=== PATIENT | female | born 1950 | race Caucasian/White ===

== ENCOUNTER 2023-05-24 22:44 | Emergency (ER) | payer MEDICARE, OTHER ==
[~2023-05-24] VITALS: Ht 167.6 cm; Wt 67.0 kg
[~2023-05-24 22:44] MED LIST: AMLODIPINE BESY10 MG PO; ASPIRIN325 MG PO; AUGMENTIN 875-1 EACH PO; CARVEDILOL6.25 MG PO; CLONIDINE HCL0.1 MG PO; LISINOPRIL5 MG PO; LOSARTAN POTASS50 MG PO; MECLIZINE HCL25 MG PO; PERCOCET 7.5-31 EACH PO; SPIRONOLACTONE25 MG PO; TRANSDERM-SCOP1 EA TD; VENTOLIN HFA18 GM INH; VITAMIN C500 MG/15 PO; ZITHROMAX250 MG PO
[2023-05-24] MEDS ORDERED: FLONASE ALLERG9.9 ML NAS (23:20)
[2023-05-24 23:52] VITALS: BP 164/100
== END 2023-05-24 23:46 | disposition home or self-care (01) ==
LOC: ED 22:44
DX: H69.91 Unspecified Eustachian tube disorder, right ear (principal); I10 Essential (primary) hypertension; Z88.5 Allergy status to narcotic agent; Z88.8 Allergy status to other drugs, medicaments and biological substances; F17.200 Nicotine dependence, unspecified, uncomplicated; Z79.899 Other long term (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

== ENCOUNTER 2024-05-02 19:15 | Emergency (ER) | payer MEDICARE, OTHER ==
[~2024-05-02] VITALS: Ht 167.6 cm; Wt 66.7 kg
[~2024-05-02 19:15] MED LIST changes: +FLONASE ALLERG9.9 ML NAS
[2024-05-02] MEDS ORDERED: ALBUTEROL/IPRATROPIUM 3 ML NEB INH PRN (19:30)
[2024-05-02 19:35] LABS: BASOPHILS 2.1 % (0-2); EOSINOPHILS 2.7 % (0-6); HEMATOCRIT 46.3 % (35.0-50.0); HEMOGLOBIN 15.7 g/dL (12.0-18.0); MCH 30.9 (27-36); MCHC 33.9 g/dl (30-36); MCV 91.1 fl (81-99); MONOCYTES 8.4 % (0-12); NEUTROPHILS 54.8 % (39-80); PLATELET COUNT 285 K/uL (140-440); RBC 5.08 M/ul (4.3-5.7); RDW 14.2 (10.5-15.0)
[2024-05-02 19:57] LABS: ALBUMIN 3.9 g/dL (3.4-5.0); ALBUMIN/GLOBULIN RATIO 0.95 (1.1-2.4); ANION GAP 8.5 (7-21); BILIRUBIN, TOTAL 0.3 ng/dL (0.2-1.0); BUN/CREATININE RATIO 11.53 (6.0-28.6); CALCIUM 9.5 mg/dL (8.5-10.1); CREATININE, SERUM 1.3 mg/dL (0.55-1.02); MAGNESIUM 2.2 mg/dL (1.8-2.4); POTASSIUM 3.5 mmol/L (3.5-5.1)
[2024-05-02] MEDS ORDERED: LORazepam 1 MG HOME.PACK PO ONE (21:15)
[2024-05-02] MEDS ORDERED: LORazepam 2 MG/ML VIAL IV ONE (21:15)
[2024-05-02] MEDS ORDERED: methylPREDNISolone 4 MG HOME.PACK PO ONE (21:15)
[2024-05-02 21:49] VITALS: BP 114/94
--- NOTE | 2024-05-03 22:17 | EKG ---
[facility] [address] [facility] [place] [address] Signed Sinus tachycardia Low voltage QRS Borderline ECG When compared with ECG of 03-OCT-2022 17:14, No significant change was found Confirmed by Ryan Mendez MD () on 05/03/2024 10:17:45 PM Electronically Signed By: RYAN MENDEZ MD 05/03/24 2217 PATIENT NAME: GOVINDVAL SALAZAR Electrocardiogram DATE OF : 54 PHYSICIAN: RYAN MENDEZ MD REPORT #: [id number] REPORT IS CONFIDENTIAL AND NOT TO BE RELEASED WITHOUT AUTHORIZATION
== END 2024-05-02 21:45 | disposition home or self-care (01) ==
LOC: ED 19:15
PROVIDERS: Family Medicine
DX: F41.9 Anxiety disorder, unspecified (principal); H92.03 Otalgia, bilateral; I10 Essential (primary) hypertension; F17.200 Nicotine dependence, unspecified, uncomplicated; Z88.8 Allergy status to other drugs, medicaments and biological substances; Z88.5 Allergy status to narcotic agent; Z79.899 Other long term (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
CPT/HCPCS: 36415; 71045; 80053; 83735; 84484; 85025; 93005; 93010; 94640; 99285-25; J2060

== ENCOUNTER 2024-08-15 23:26 | Emergency (ER) | payer MEDICARE, OTHER ==
[~2024-08-15] VITALS: Ht 165.1 cm; Wt 67.0 kg
[2024-08-15] MEDS ORDERED: OMEPRAZOLE40 MG PO (23:38)
[2024-08-15] MEDS ORDERED: MORPHINE SULFATE 4 MG/ML VIAL IV ONE (23:45)
[2024-08-15] MEDS ORDERED: ondansetron HCL 4 MG/2 ML VIAL IV ONE (23:45)
[2024-08-15] MEDS ORDERED: SODIUM CHLORIDE 0.9% 1,000 ML IV ONE (23:45)
[2024-08-16 00:11] LABS: BASOPHILS 0.7 % (0-2); EOSINOPHILS 2.7 % (0-6); HEMATOCRIT 43.2 % (35.0-50.0); HEMOGLOBIN 15.1 g/dL (12.0-18.0); LYMPHOCYTES 27.7 % (24-44); MCHC 34.9 g/dl (30-36); MCV 88.9 fl (81-99); MONOCYTES 11.6 % (0-12); NEUTROPHILS 57.3 % (39-80); PLATELET COUNT 247 K/uL (140-440); RBC 4.86 M/ul (4.3-5.7); RDW 13.8 (10.5-15.0)
[2024-08-16 00:23] LABS: BILIRUBIN, URINE NEGATIVE (negative); BLOOD/HGB, URINE TRACE-I (Negative); KETONE, URINE NEGATIVE (Negative); LEUK ESTERASE, URINE SMALL (negative); NITRITE, URINE POSITIVE (negative)
[2024-08-16 00:29] LABS: ALBUMIN 3.7 g/dL (3.4-5.0); ALBUMIN/GLOBULIN RATIO 1.09 (1.1-2.4); ANION GAP 12.5 (7-21); BILIRUBIN, TOTAL 0.3 mg/dL (0.2-1.0); BUN/CREATININE RATIO 18.48 (6.0-28.6); CALCIUM 9.2 mg/dL (8.5-10.1); CREATININE, SERUM 1.19 mg/dL (0.55-1.02); POTASSIUM 3.5 mmol/L (3.5-5.1); PROTEIN, TOTAL 7.1 g/dL (6.4-8.2)
[2024-08-16 00:38] LABS: EPITHELIAL CELLS, URINE SQUAMOUS 1+ /lpf (0-1+); WHITE BLOOD CELLS, URINE >50 /HPF (0-5)
[2024-08-16 00:39] LABS: BACTERIA, URINE 4+ /hpf (negative); CASTS, URINE NONE SEEN \\lpf; COLLECTION TYPE, URINE CLEAN CATCH; CRYSTALS, URINE NONE SEEN (0-1+); REFLEX CULTURE, URINE Yes (No)
[2024-08-16] MEDS ORDERED: CEFTRIAXONE SODIUM 2 GM in SODIUM CHLORIDE 0.9% 100 ML IV ONE (01:30)
[2024-08-16] MEDS ORDERED: COLACE100 MG PO (02:56)
[2024-08-16] MEDS ORDERED: LACTULOSE10 GM/15 M PO (02:56)
[2024-08-16] MEDS ORDERED: LACTULOSE 20 GM/30 ML CUP PO ONE (03:00)
[2024-08-16] MEDS ORDERED: MAGNESIUM CITRATE 300 ML BTL PO ONE (03:00)
[2024-08-16] MEDS ORDERED: MACROBID 100 M100 MG PO (03:00)
[2024-08-16 03:22] VITALS: BP 128/71
== END 2024-08-16 03:30 | disposition home or self-care (01) ==
LOC: ED 23:26
PROVIDERS: Family Medicine
DX: K59.00 Constipation, unspecified (principal); N39.0 Urinary tract infection, site not specified; I71.43 Infrarenal abdominal aortic aneurysm, without rupture; I10 Essential (primary) hypertension; F17.200 Nicotine dependence, unspecified, uncomplicated; Z88.0 Allergy status to penicillin; Z88.8 Allergy status to other drugs, medicaments and biological substances; Z88.9 Allergy status to unspecified drugs, medicaments and biological substances; Z88.5 Allergy status to narcotic agent
CPT/HCPCS: 36415; 74177; 80053; 81001; 83690; 85025; 87077; 87088; 87186; 99284-25; J0696; J7030; Q9967

== ENCOUNTER 2024-08-20 07:40 | Emergency (ER) | payer MEDICARE, OTHER ==
[~2024-08-20] VITALS: Ht 165.1 cm; Wt 66.0 kg
[~2024-08-20 07:40] MED LIST changes: +COLACE100 MG PO; +LACTULOSE10 GM/15 M PO; +MACROBID 100 M100 MG PO; +OMEPRAZOLE40 MG PO
--- OUTSIDE RECORDS SUMMARY | 2024-08-20 07:42 | XMS ---
PreManage Notification: [place] Security Winder Operator Events No recent Security Events currently on file CRITERIA MET - [facility] - 2 Visits in [address] [facility]: [facility] Current FAMILY PHONE: [phone] Kate has no Care Guidelines for this patient. Saba VISIT COUNT ([address] [facility] TOTAL 3 NOTE: Visits indicate total known visits. ED/UCC VISIT TRACKING (12 MO.) 08/20/2024 07:41 [facility] [place] TYPE: Emergency COMPLAINT: - MEDICATION REACTION 08/15/2024 23:26 [facility] [place] TYPE: Emergency COMPLAINT: - RECTAL BLEEDING DIAGNOSES: - Allergy status to narcotic agent - Allergy status to other drugs, medicaments and biological substances - Allergy status to penicillin - Allergy status to unspecified drugs, medicaments and biological substances - Constipation, unspecified - Essential (primary) hypertension - Infrarenal abdominal aortic aneurysm, without rupture - Nicotine dependence, unspecified, uncomplicated - Urinary tract infection, site not specified 05/02/2024 19:15 [facility] [place] TYPE: Emergency COMPLAINT: - TROUBLE BREATHING DIAGNOSES: - Allergy status to narcotic agent - Allergy status to other drugs, medicaments and biological substances - Anxiety disorder, unspecified - Cough, unspecified - Essential (primary) hypertension - Nicotine dependence, unspecified, uncomplicated - Otalgia, bilateral - Other intermediate accountant (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 INPATIENT VISIT TRACKING (12 MO.) No inpatient visits to display in this time frame [id number]
[2024-08-20] MEDS ORDERED: CEPHALEXIN500 M1 PO (08:08)
[2024-08-20] MEDS ORDERED: HYDROXYZINE HCL25 MG PO (08:08)
[2024-08-20 08:17] VITALS: BP 145/82
== END 2024-08-20 08:19 | disposition home or self-care (01) ==
LOC: ED 07:40
DX: L29.9 Pruritus, unspecified (principal); N39.0 Urinary tract infection, site not specified; I10 Essential (primary) hypertension; F17.210 Nicotine dependence, cigarettes, uncomplicated; Z88.8 Allergy status to other drugs, medicaments and biological substances; Z88.5 Allergy status to narcotic agent; Z79.899 Other long term (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
CPT/HCPCS: 99282

== ENCOUNTER 2024-10-11 19:03 | Emergency (ER) | payer MEDICARE, OTHER ==
[~2024-10-11] VITALS: Ht 165.1 cm; Wt 62.2 kg
[~2024-10-11 19:03] MED LIST changes: +ATIVAN1 MG PO; +CEPHALEXIN500 M1 PO; +HYDROXYZINE HCL25 MG PO; +LEXAPRO10 MG PO
--- OUTSIDE RECORDS SUMMARY | 2024-10-11 19:10 | XMS ---
PreManage Notification: VAL [place] Security Furnace Tender Events No recent Security Events currently on file CRITERIA MET - 6 ED Visits in 6 Months - [facility] - 2 Visits in 30 Days CARE PROVIDERS [facility] Clinic/Center: [facility] Current FAMILY PHONE: [phone] Kate has no Care Guidelines for this patient. Saba VISIT COUNT (12 MO.) 6 [facility] TOTAL 6 NOTE: Visits indicate total known visits. ED/UCC VISIT TRACKING (12 MO.) 10/11/2024 19:03 [facility] [place] TYPE: Emergency COMPLAINT: - MEDICATION REFILL 09/24/2024 14:17 [facility] [place] TYPE: Emergency COMPLAINT: - ANXIETY DIAGNOSES: - Allergy status to narcotic agent - Allergy status to other drugs, medicaments and biological substances - Anxiety disorder, unspecified - Essential (primary) hypertension - Nicotine dependence, unspecified, uncomplicated - Other termite technician (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 09/22/2024 15:34 [facility] [place] TYPE: Emergency COMPLAINT: - CONSTIPATED DIAGNOSES: - Allergy status to other drugs, medicaments and biological substances - Anxiety disorder, unspecified - Essential (primary) hypertension - Nicotine dependence, unspecified, uncomplicated - Other termite technician (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 08/20/2024 07:41 [facility] [place] TYPE: Emergency COMPLAINT: - MEDICATION REACTION DIAGNOSES: - Allergy status to narcotic agent - Allergy status to other drugs, medicaments and biological substances - Essential (primary) hypertension - Nicotine dependence, cigarettes, uncomplicated - Other usp (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 - Pruritus, unspecified - Urinary tract infection, site not specified 08/15/2024 23:26 [facility] [place] [facility] [place] TYPE: Emergency COMPLAINT: - RECTAL BLEEDING [...] tract infection, site not specified 05/02/2024 19:15 [facility] [place] TYPE: Emergency COMPLAINT: - TROUBLE BREATHING DIAGNOSES: - Allergy status to narcotic agent - Allergy status to other drugs, medicaments and biological substances - Anxiety disorder, unspecified - Cough, unspecified - Essential (primary) hypertension - Nicotine dependence, unspecified, uncomplicated - Otalgia, bilateral - Other termite technician (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 INPATIENT VISIT TRACKING (12 MO.) No inpatient visits to display in this time frame [id number]
[2024-10-11] MEDS ORDERED: HYDROXYZINE HCL10 MG PO (19:33)
[2024-10-11 19:59] VITALS: BP 156/87
== END 2024-10-11 20:00 | disposition home or self-care (01) ==
LOC: ED 19:03
DX: F41.1 Generalized anxiety disorder (principal); T43.595A Adverse effect of other antipsychotics and neuroleptics, initial encounter; I10 Essential (primary) hypertension; F17.200 Nicotine dependence, unspecified, uncomplicated; Z79.899 Other long term (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; Z88.5 Allergy status to narcotic agent; Z88.8 Allergy status to other drugs, medicaments and biological substances
CPT/HCPCS: 99283

== ENCOUNTER 2024-10-14 20:51 | Emergency (ER) | payer MEDICARE, OTHER ==
[~2024-10-14] VITALS: Ht 165.1 cm; Wt 63.2 kg
[~2024-10-14 20:51] MED LIST changes: +HYDROXYZINE HCL10 MG PO
--- OUTSIDE RECORDS SUMMARY | 2024-10-14 20:58 | XMS ---
PreManage Notification: VAL FAUST Security Leadership Development Consultant Events No recent Security Events currently on file CRITERIA MET - 6 ED Visits in 6 Months - [facility] - 2 Visits in 30 Days CARE PROVIDERS [facility] Clinic/Center: [facility] Current FAMILY PHONE: [phone] Kate has no Care Guidelines for this patient. Saba VISIT COUNT (12 MO.) [address] [facility] TOTAL 7 NOTE: Visits indicate total known visits. ED/UCC VISIT TRACKING (12 MO.) 10/14/2024 20:51 [facility] [place] TYPE: Emergency COMPLAINT: - MEDICATION ISSUES 10/11/2024 19:03 [facility] [place] TYPE: Emergency COMPLAINT: - MEDICATION REFILL 09/24/2024 14:17 [facility] [place] TYPE: Emergency COMPLAINT: - ANXIETY DIAGNOSES: - Allergy status to narcotic agent - Allergy status to other drugs, medicaments and biological substances - Anxiety disorder, unspecified - Essential (primary) hypertension - Nicotine dependence, unspecified, uncomplicated - Other moth exterminator (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 09/22/2024 15:34 [facility] [place] [facility] [place] TYPE: Emergency COMPLAINT: - CONSTIPATED DIAGNOSES: - Allergy status to other drugs, medicaments and biological substances - Anxiety disorder, unspecified - Essential (primary) hypertension - Nicotine dependence, unspecified, uncomplicated - Other moth exterminator (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 08/20/2024 07:[address] [facility] [address] [place] TYPE: Emergency COMPLAINT: - MEDICATION REACTION DIAGNOSES: - Allergy status to narcotic agent - Allergy status to other drugs, medicaments and biological substances - Essential (primary) hypertension - Nicotine dependence, cigarettes, uncomplicated - Other moth exterminator (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 - Pruritus, unspecified - Urinary tract infection, site not specified 08/15/2024 23:26 [facility] [place] [place] TYPE: Emergency COMPLAINT: - [...] tract infection, site not specified 05/02/2024 19:[address] [facility] [address] [facility] [place] TYPE: Emergency COMPLAINT: - TROUBLE BREATHING DIAGNOSES: - Allergy status to narcotic agent - Allergy status to other drugs, medicaments and biological substances - Anxiety disorder, unspecified - Cough, unspecified - Essential (primary) hypertension - Nicotine dependence, unspecified, uncomplicated - Otalgia, bilateral - Other retirement (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 INPATIENT VISIT TRACKING (12 MO.) No inpatient visits to display in this time frame [id number]
[2024-10-14] MEDS ORDERED: METOPROLOL TARTRATE 5 MG/5 ML VIAL IV ONE (21:15)
[2024-10-14] MEDS ORDERED: LORazepam 2 MG/ML VIAL IV ONE (21:15)
[2024-10-14] MEDS ORDERED: METOPROLOL SUCC50 MG PO (22:28)
[2024-10-14] MEDS ORDERED: ATIVAN1 MG PO (22:28)
[2024-10-14] MEDS ORDERED: LORazepam 1 MG HOME.PACK PO ONE (22:30)
[2024-10-14 22:47] VITALS: BP 144/93
== END 2024-10-14 22:47 | disposition home or self-care (01) ==
LOC: ED 20:51
DX: F41.9 Anxiety disorder, unspecified (principal); I10 Essential (primary) hypertension; F17.200 Nicotine dependence, unspecified, uncomplicated; Z79.899 Other long term (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; Z88.8 Allergy status to other drugs, medicaments and biological substances; Z88.5 Allergy status to narcotic agent
CPT/HCPCS: 96374; 96375; 99283-25; J2060

== ENCOUNTER 2024-10-21 17:47 | Emergency (ER) | payer MEDICARE, OTHER ==
[~2024-10-21] VITALS: Ht 165.1 cm; Wt 63.0 kg
[~2024-10-21 17:47] MED LIST changes: +METOPROLOL SUCC50 MG PO
--- OUTSIDE RECORDS SUMMARY | 2024-10-21 17:49 | XMS ---
PreManage Notification: VAL [place] Security Metal Patternmaker Events No recent Security Events currently on file CRITERIA MET - 6 ED Visits in 6 Months - [facility] - 2 Visits in 30 Days CARE PROVIDERS [facility] Clinic/Center: [facility] Current FAMILY PHONE: [phone] Kate has no Care Guidelines for this patient. Saba VISIT COUNT (12 MO.) 8 [facility] TOTAL 8 NOTE: Visits indicate total known visits. ED/UCC VISIT TRACKING (12 MO.) 10/21/2024 17:48 [facility] [place] TYPE: Emergency COMPLAINT: - FATIGUE 10/14/2024 20:51 [facility] [place] TYPE: Emergency COMPLAINT: - MEDICATION ISSUES DIAGNOSES: - Allergy status to narcotic agent - Allergy status to other drugs, medicaments and biological substances - Anxiety disorder, unspecified - Essential (primary) hypertension - Nicotine dependence, unspecified, uncomplicated - Other terminal make up operator (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 10/11/2024 19:03 [facility] [place] TYPE: Emergency COMPLAINT: - MEDICATION REFILL DIAGNOSES: - Adverse effect of other antipsychotics and neuroleptics, initial encounter - Allergy status to narcotic agent - Allergy status to other drugs, medicaments and biological substances - Essential (primary) hypertension - Generalized anxiety disorder - Nicotine dependence, unspecified, uncomplicated - Other fpc (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 09/24/2024 14:17 [facility] [place] TYPE: Emergency COMPLAINT: - ANXIETY DIAGNOSES: - Allergy status to narcotic agent - Allergy status to other drugs, medicaments and biological substances - Anxiety disorder, unspecified - Essential (primary) hypertension - Nicotine dependence, unspecified, uncomplicated - Other terminal make up operator (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 09/22/2024 15:34 [facility] [place] TYPE: Emergency COMPLAINT: - CONSTIPATED DIAGNOSES: - Allergy status to other drugs, medicaments and biological substances - Anxiety disorder, unspecified - Essential (primary) hypertension - Nicotine dependence, unspecified, uncomplicated - Other fpc (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 08/20/2024 07:41 [facility] [place] TYPE: Emergency COMPLAINT: - MEDICATION REACTION DIAGNOSES: - Allergy status to narcotic agent - Allergy status to other drugs, medicaments and biological substances - Essential (primary) hypertension - Nicotine dependence, cigarettes, uncomplicated - Other fpc (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 - Pruritus, unspecified - Urinary tract infection, site not specified 08/15/2024 23:26 [facility] [place] TYPE: Emergency [...] unspecified, uncomplicated - Otalgia, bilateral - Other fpc (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 INPATIENT VISIT TRACKING (12 MO.) No inpatient visits to display in this time frame [id number]
[2024-10-21 18:23] LABS: BASOPHILS 0.7 % (0.1-1.2); EOSINOPHILS 1.8 % (0.7-5.8); HEMOGLOBIN 15.9 g/dL (11.2-15.7); LYMPHOCYTES 30.4 % (19.3-51.7); MCH 30.3 PG (25.6-32.2); MCHC 34.6 g/dL (32.2-35.5); MCV 87.6 fL (79.4-94.8); MONOCYTES 8.2 % (4.7-12.5); NEUTROPHILS 58.4 % (34.0-71.1); PLATELET COUNT 279 K/uL (182-369); RBC 5.25 M/uL (3.93-5.22)
[2024-10-21 18:42] LABS: ALBUMIN 3.7 g/dL (3.4-5.0); ANION GAP 15.3 (7-21); BILIRUBIN, TOTAL 0.3 mg/dL (0.2-1.0); BUN/CREATININE RATIO 16.96 (6.0-28.6); CALCIUM 9.4 mg/dL (8.5-10.1); CREATININE, SERUM 1.12 mg/dL (0.55-1.02); POTASSIUM 3.3 mmol/L (3.5-5.1); PROTEIN, TOTAL 7.4 g/dL (6.4-8.2)
[2024-10-21 19:20] VITALS: BP 168/99
--- NOTE | 2024-10-22 19:35 | EKG ---
[facility] [address] [facility] [place], [place] [address] Signed Sinus tachycardia Otherwise normal ECG When compared with ECG of 02-MAY-2024 19:27, No significant change was found Confirmed by Mauricio Ortega DO ([id number]) on 10/22/2024 7:35:30 PM Electronically Signed By: MAURICIO ORTEGA DO 10/22/241934 PATIENT NAME: ANISHA FAUSTSANDRA SALAZAR Electrocardiogram DATE OF : 54 PHYSICIAN: MAURICIO ORTEGA DO REPORT #: [id number] REPORT IS CONFIDENTIAL AND NOT TO BE RELEASED WITHOUT AUTHORIZATION
[2024-10-22] MEDS ORDERED: LORAZEPAM1 MG PO (20:36)
[2024-10-22] MEDS ORDERED: [UNRECOGNIZED DRUG - OTHER] MISC (20:58)
== END 2024-10-21 19:20 | disposition home or self-care (01) ==
LOC: ED 17:47
PROVIDERS: Emergency Medicine
DX: I10 Essential (primary) hypertension (principal); F17.200 Nicotine dependence, unspecified, uncomplicated; Z91.199 Patient's noncompliance with other medical treatment and regimen due to unspecified reason; Z79.899 Other long term (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; Z88.5 Allergy status to narcotic agent; Z88.8 Allergy status to other drugs, medicaments and biological substances
CPT/HCPCS: 36415; 71045; 80053; 83735; 84484; 85025; 93005; 93010; 99284-25

== ENCOUNTER 2024-10-22 20:18 | Emergency (ER) | payer MEDICARE, OTHER ==
[~2024-10-22] VITALS: Ht 165.1 cm; Wt 62.2 kg
--- OUTSIDE RECORDS SUMMARY | 2024-10-22 20:21 | XMS ---
PreManage Notification: VAL FAUST Security Director Enterprise Systems Events No recent Security Events currently on file CRITERIA MET - 6 ED Visits in 6 Months - [facility] - 2 Visits in 30 Days CARE PROVIDERS [facility] Clinic/Center: [facility] Current FAMILY PHONE: [phone] Kate has no Care Guidelines for this patient. Saba VISIT COUNT (12 MO.) 9 [facility] TOTAL 9 NOTE: Visits indicate total known visits. ED/UCC VISIT TRACKING (12 MO.) 10/22/2024 20:19 [facility] [place] TYPE: Emergency COMPLAINT: - BP PROBLEMS 10/21/2024 17:48 [facility] [place] TYPE: Emergency COMPLAINT: - FATIGUE 10/14/2024 20:51 [facility] [place] TYPE: Emergency COMPLAINT: - MEDICATION ISSUES DIAGNOSES: - Allergy status to narcotic agent - Allergy status to other drugs, medicaments and biological substances - Anxiety disorder, unspecified - Essential (primary) hypertension - Nicotine dependence, unspecified, uncomplicated - Other laborer marine terminal (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 10/11/2024 19:[address] [facility] [address] [facility] [place] TYPE: Emergency COMPLAINT: - MEDICATION REFILL DIAGNOSES: - Adverse effect of other antipsychotics and neuroleptics, initial encounter - Allergy status to narcotic agent - Allergy status to other drugs, medicaments and biological substances - Essential (primary) hypertension - Generalized anxiety disorder - Nicotine dependence, unspecified, uncomplicated - Other usp (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 [facility]24[facility]2024 14:17 [facility] [place] [facility] COMPLAINT: - ANXIETY DIAGNOSES: - Allergy status to narcotic agent - Allergy status to other drugs, medicaments and biological substances - Anxiety disorder, unspecified - Essential (primary) hypertension - Nicotine dependence, unspecified, uncomplicated - Other usp (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 09/22/2024 15:[address] [facility] [address] [facility] [place] TYPE: Emergency COMPLAINT: - CONSTIPATED DIAGNOSES: - Allergy status to other drugs, medicaments and biological substances - Anxiety disorder, unspecified - Essential (primary) hypertension - Nicotine dependence, unspecified, uncomplicated - Other laborer marine terminal (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 08/20/2024 07:41 [facility] [...] unspecified, uncomplicated - Otalgia, bilateral - Other usp (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 INPATIENT VISIT TRACKING (12 MO.) No inpatient visits to display in this time frame [id number]
[2024-10-22] MEDS ORDERED: LORAZEPAM1 MG PO (20:36)
[2024-10-22] MEDS ORDERED: [UNRECOGNIZED DRUG - OTHER] MISC (20:58)
[2024-10-22 21:10] VITALS: BP 140/79
== END 2024-10-22 21:05 | disposition home or self-care (01) ==
LOC: ED 20:18
DX: I10 Essential (primary) hypertension (principal); F17.200 Nicotine dependence, unspecified, uncomplicated; Z88.8 Allergy status to other drugs, medicaments and biological substances; Z88.6 Allergy status to analgesic agent; Z88.5 Allergy status to narcotic agent; Z79.899 Other long term (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
CPT/HCPCS: 99283

== ENCOUNTER 2024-10-23 19:18 | Emergency (ER) | payer MEDICARE, OTHER ==
[~2024-10-23] VITALS: Ht 165.1 cm; Wt 62.2 kg
[~2024-10-23 19:18] MED LIST changes: +LORAZEPAM1 MG PO; +[UNRECOGNIZED DRUG - OTHER] MISC
--- OUTSIDE RECORDS SUMMARY | 2024-10-23 19:22 | XMS ---
PreManage Notification: VAL FAUST Security Commutator Inspector Events No recent Security Events currently on file CRITERIA MET - 6 ED Visits in 6 Months - [facility] - 2 Visits in 30 Days CARE PROVIDERS [facility] Clinic/Center: [facility] Current FAMILY PHONE: [phone] Kate has no Care Guidelines for this patient. Saba VISIT COUNT ([address] 10 [facility] TOTAL 10 NOTE: Visits indicate total known visits. ED/UCC VISIT TRACKING (12 MO.) 10/23/2024 19:19 [facility] [place] TYPE: Emergency COMPLAINT: - BP PROBLEM 10/22/2024 20:19 [facility] [place] TYPE: Emergency COMPLAINT: - BP PROBLEMS 10/21/2024 17:48 [facility] [place] TYPE: Emergency COMPLAINT: - FATIGUE DIAGNOSES: - Allergy status to narcotic agent - Allergy status to other drugs, medicaments and biological substances - Anxiety disorder, unspecified - Essential (primary) hypertension - Nicotine dependence, unspecified, uncomplicated - Other ferry terminal supervisor (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 - Patient's noncompliance with other medical treatment and regimen due to unspecified reason 10/14/2024 20:51 [facility] [place] TYPE: Emergency COMPLAINT: - MEDICATION ISSUES DIAGNOSES: - Allergy status to narcotic agent - Allergy status to other drugs, medicaments and biological substances - Anxiety disorder, unspecified - Essential (primary) hypertension - Nicotine dependence, unspecified, uncomplicated - Other shelter (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 10/11/2024 19:03 [facility] [place] TYPE: Emergency COMPLAINT: - MEDICATION REFILL DIAGNOSES: - Adverse effect of other antipsychotics and neuroleptics, initial encounter - Allergy status to narcotic agent - Allergy status to other drugs, medicaments and biological substances - Essential (primary) hypertension - Generalized anxiety disorder - Nicotine dependence, unspecified, uncomplicated - Other ferry terminal supervisor (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 09/24/2024 14:17 [facility] [place] TYPE: Emergency COMPLAINT: - ANXIETY DIAGNOSES: - Allergy status to narcotic agent - Allergy status to other drugs, medicaments and biological substances - Anxiety disorder, unspecified - Essential (primary) hypertension - Nicotine dependence, unspecified, uncomplicated - Other ferry terminal supervisor (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 09/22/2024 15:34 [facility] [place] [place] TYPE: Emergency COMPLAINT: - CONSTIPATED DIAGNOSES: - Allergy status to other drugs, medicaments and biological substances - Anxiety disorder, unspecified - Essential (primary) hypertension - Nicotine dependence, unspecified, uncomplicated - Other ferry terminal supervisor (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 08/20/2024 07:41 [facility] [place] TYPE: Emergency COMPLAINT: - MEDICATION REACTION DIAGNOSES: - Allergy status to narcotic agent - Allergy status to other drugs, medicaments and biological substances - Essential (primary) hypertension - Nicotine dependence, cigarettes, uncomplicated - Other shelter (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 - Pruritus, unspecified - Urinary tract infection, site not specified 08/15/2024 23:26 [facility] [place] [place] TYPE: Emergency COMPLAINT: - [...] unspecified, uncomplicated - Otalgia, bilateral - Other shelter (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 INPATIENT VISIT TRACKING (12 MO.) No inpatient visits to display in this time frame [id number]
[2024-10-23 20:00] VITALS: BP 147/88
== END 2024-10-23 20:00 | disposition home or self-care (01) ==
LOC: ED 19:18
DX: I10 Essential (primary) hypertension (principal); F41.9 Anxiety disorder, unspecified; F17.200 Nicotine dependence, unspecified, uncomplicated; Z79.899 Other long term (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; Z88.5 Allergy status to narcotic agent; Z88.8 Allergy status to other drugs, medicaments and biological substances
CPT/HCPCS: 99283

== ENCOUNTER 2024-10-24 21:40 | Emergency (ER) | payer MEDICARE, OTHER ==
[~2024-10-24] VITALS: Ht 165.1 cm; Wt 61.6 kg
--- OUTSIDE RECORDS SUMMARY | 2024-10-24 21:47 | XMS ---
PreManage Notification: VAL FAUST Security Metallurgical Or Materials Technician Events No recent Security Events currently on file CRITERIA MET - 6 ED Visits in 6 Months - [facility] - 2 Visits in 30 Days CARE PROVIDERS [facility] Clinic/Center: [facility] Current FAMILY PHONE: [phone] Kate has no Care Guidelines for this patient. Saba VISIT COUNT (12 MO.) [address] [place] [address] TOTAL 11 NOTE: Visits indicate total known visits. ED/UCC VISIT TRACKING (12 MO.) 10/24/2024 21:41 [facility] [place] TYPE: Emergency COMPLAINT: - BLOOD PRESSURE ISSUES 10/23/2024 19:19 [facility] [place] TYPE: Emergency COMPLAINT: - BP PROBLEM 10/22/2024 20:19 [facility] [place] TYPE: Emergency COMPLAINT: - BP PROBLEMS DIAGNOSES: - Allergy status to analgesic agent - Allergy status to narcotic agent - Allergy status to other drugs, medicaments and biological substances - Essential (primary) hypertension - Nicotine dependence, unspecified, uncomplicated - Other halfway (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 10/21/2024 17:48 [facility] [place] TYPE: Emergency COMPLAINT: - FATIGUE DIAGNOSES: - Allergy status to narcotic agent - Allergy status to other drugs, medicaments and biological substances - Anxiety disorder, unspecified - Essential (primary) hypertension - Nicotine dependence, unspecified, uncomplicated - Other halfway (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 - Patient's noncompliance with other medical treatment and regimen due to unspecified reason 10/14/2024 20:51 [facility] [place] TYPE: Emergency COMPLAINT: - MEDICATION ISSUES DIAGNOSES: - Allergy status to narcotic agent - Allergy status to other drugs, medicaments and biological substances - Anxiety disorder, unspecified - Essential (primary) hypertension - Nicotine dependence, unspecified, uncomplicated - Other remote computer terminal operator (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 10/11/2024 19:03 [facility] [place] TYPE: Emergency COMPLAINT: - MEDICATION REFILL DIAGNOSES: - Adverse effect of other antipsychotics and neuroleptics, initial encounter - Allergy status to narcotic agent - Allergy status to other drugs, medicaments and biological substances - Essential (primary) hypertension - Generalized anxiety disorder - Nicotine dependence, unspecified, uncomplicated - Other halfway (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 09/24/2024 14:17 [facility] [place] [facility] TYPE: Emergency COMPLAINT: - ANXIETY DIAGNOSES: - Allergy status to narcotic agent - Allergy status to other drugs, medicaments and biological substances - Anxiety disorder, unspecified - Essential (primary) hypertension - Nicotine dependence, unspecified, uncomplicated - Other remote computer terminal operator (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 09/22/2024 15:34 [facility] [place] TYPE: Emergency COMPLAINT: - CONSTIPATED DIAGNOSES: - Allergy status to other drugs, medicaments and biological substances - Anxiety disorder, unspecified - Essential (primary) hypertension - Nicotine dependence, unspecified, uncomplicated - Other remote computer terminal operator (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 08/20/2024 07:[address] [facility] [place] TYPE: Emergency COMPLAINT: - MEDICATION REACTION DIAGNOSES: - Allergy status to narcotic agent - Allergy status to other drugs, medicaments and biological substances - Essential (primary) hypertension - Nicotine dependence, cigarettes, uncomplicated - Other halfway (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 - Pruritus, unspecified - [...] unspecified, uncomplicated - Otalgia, bilateral - Other remote computer terminal operator (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 INPATIENT VISIT TRACKING (12 MO.) No inpatient visits to display in this time frame [id number]
[2024-10-25 00:47] VITALS: BP 156/104
== END 2024-10-25 00:48 | disposition home or self-care (01) ==
LOC: ED 21:40
DX: I10 Essential (primary) hypertension (principal); F41.9 Anxiety disorder, unspecified; F17.200 Nicotine dependence, unspecified, uncomplicated; Z79.899 Other long term (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
CPT/HCPCS: 99283

== ENCOUNTER 2024-10-28 17:14 | Emergency (ER) | payer MEDICARE, OTHER ==
[~2024-10-28] VITALS: Ht 165.1 cm; Wt 61.6 kg
--- OUTSIDE RECORDS SUMMARY | 2024-10-28 17:20 | XMS ---
PreManage Notification: VAL FAUST Security Screw Machine Hand Events No recent Security Events currently on file CRITERIA MET - 6 ED Visits in 6 Months - [facility] - 2 Visits in 30 Days CARE PROVIDERS [facility]/Center: [facility] Current FAMILY PHONE: [phone] Helen Arce Physician Watch And Clock Repairer Current FAZAL PHONE: [phone] Kate has no Care Guidelines for this patient. Saba VISIT COUNT (12 MO.) [address] [place] [address] TOTAL 12 NOTE: Visits indicate total known visits. ED/UCC VISIT TRACKING (12 MO.) 10/28/2024 17:15 [facility] [place] TYPE: Emergency COMPLAINT: - BLOOD PRESSURE ISSUES, FATIGUE, EYES RED/SORE 10/24/2024 21:41 [facility] [place] TYPE: Emergency COMPLAINT: - BLOOD PRESSURE ISSUES 10/23/2024 19:19 [facility] [place] TYPE: Emergency COMPLAINT: - BP PROBLEM DIAGNOSES: - Allergy status to narcotic agent - Allergy status to other drugs, medicaments and biological substances - Anxiety disorder, unspecified - Essential (primary) hypertension - Nicotine dependence, unspecified, uncomplicated - Other snf (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 10/22/2024 20:19 [facility] [place] TYPE: Emergency COMPLAINT: - BP PROBLEMS DIAGNOSES: - Allergy status to analgesic agent - Allergy status to narcotic agent - Allergy status to other drugs, medicaments and biological substances - Essential (primary) hypertension - Nicotine dependence, unspecified, uncomplicated - Other snf (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 10/21/2024 17:48 [facility] [place] TYPE: Emergency COMPLAINT: - FATIGUE DIAGNOSES: - Allergy status to narcotic agent - Allergy status to other drugs, medicaments and biological substances - Anxiety disorder, unspecified - Essential (primary) hypertension - Nicotine dependence, unspecified, uncomplicated - Other watermelon harvesting 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 (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 - Patient's noncompliance with other medical treatment and regimen due to unspecified reason 10/14/2024 20:51 [facility] [place] TYPE: Emergency COMPLAINT: - MEDICATION ISSUES DIAGNOSES: - Allergy status to narcotic agent - Allergy status to other drugs, medicaments and biological substances - Anxiety disorder, unspecified - Essential (primary) hypertension - Nicotine dependence, unspecified, uncomplicated - Other snf (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 10/11/2024 19:03 [facility] [place] TYPE: Emergency COMPLAINT: - MEDICATION REFILL DIAGNOSES: - Adverse effect of other antipsychotics and neuroleptics, initial encounter - Allergy status to narcotic agent - Allergy status to other drugs, medicaments and biological substances - Essential (primary) hypertension - Generalized anxiety disorder - Nicotine dependence, unspecified, uncomplicated - Other watermelon harvesting supervisor (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 09/24/2024 14:17 [facility] [place] TYPE: Emergency COMPLAINT: - ANXIETY DIAGNOSES: - Allergy status to narcotic agent - Allergy status to other drugs, medicaments and biological substances - Anxiety disorder, unspecified - Essential (primary) hypertension - Nicotine dependence, unspecified, uncomplicated - Other snf (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 09/22/2024 15:34 [facility] [place] TYPE: Emergency COMPLAINT: - CONSTIPATED DIAGNOSES: - Allergy status to other drugs, medicaments and biological substances - Anxiety disorder, unspecified - Essential (primary) hypertension - Nicotine dependence, unspecified, uncomplicated - Other snf (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 08/20/2024 07:41 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 [place] TYPE: Emergency COMPLAINT: - RECTAL BLEEDING [...] unspecified, uncomplicated - Otalgia, bilateral - Other watermelon harvesting supervisor (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 INPATIENT VISIT TRACKING (12 MO.) No inpatient visits to display in this time frame [email or web address]
[2024-10-28] MEDS ORDERED: ESCITALOPRAM OX10 MG PO (17:43)
[2024-10-28] MEDS ORDERED: METOPROLOL SUCC50 MG PO (17:44)
[2024-10-28] MEDS ORDERED: HYDROXYZINE HCL10 MG PO (17:44)
[2024-10-28] MEDS ORDERED: HYDROXYZINE HCL25 MG PO (17:44)
[2024-10-28 18:27] VITALS: BP 142/88
== END 2024-10-28 18:27 | disposition home or self-care (01) ==
LOC: ED 17:14
DX: F41.8 Other specified anxiety disorders (principal); I10 Essential (primary) hypertension; F17.200 Nicotine dependence, unspecified, uncomplicated; Z88.1 Allergy status to other antibiotic agents; Z88.5 Allergy status to narcotic agent; Z88.8 Allergy status to other drugs, medicaments and biological substances
CPT/HCPCS: 99283

== ENCOUNTER 2024-10-30 07:23 | Emergency (ER) | payer MEDICARE, OTHER ==
[~2024-10-30] VITALS: Ht 165.1 cm; Wt 135.4 kg
[~2024-10-30 07:23] MED LIST changes: +ESCITALOPRAM OX10 MG PO
--- OUTSIDE RECORDS SUMMARY | 2024-10-30 07:27 | XMS ---
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 Saba VISIT COUNT (12 MO.) [address] [place] [address] TOTAL 13 NOTE: Visits indicate total known visits. ED/UCC VISIT TRACKING (12 MO.) 10/30/2024 07:23 [facility] [place] TYPE: Emergency COMPLAINT: - WEAKNESS 10/28/2024 17:15 [facility] [place] TYPE: Emergency COMPLAINT: - BLOOD PRESSURE ISSUES, FATIGUE, EYES RED/SORE 10/24/2024 21:41 [facility] [place] TYPE: Emergency COMPLAINT: - BLOOD PRESSURE ISSUES DIAGNOSES: - Anxiety disorder, unspecified - Essential (primary) hypertension - Nicotine dependence, unspecified, uncomplicated - Other parts counterman (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 10/23/2024 19:19 [facility] [place]leen [place] TYPE: Emergency COMPLAINT: - BP PROBLEM DIAGNOSES: - Allergy status to narcotic agent - Allergy status to other drugs, medicaments and biological substances - Anxiety disorder, unspecified - Essential (primary) hypertension - Nicotine dependence, unspecified, uncomplicated - Other parts counterman (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 10/22/2024 20:19 [facility] [place]leen [place] TYPE: Emergency COMPLAINT: - BP PROBLEMS DIAGNOSES: - Allergy status to analgesic agent - Allergy status to narcotic agent - Allergy status to other drugs, medicaments and biological substances - Essential (primary) hypertension - Nicotine dependence, unspecified, uncomplicated - Other parts counterman (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 10/21/2024 17:48 [facility] [place] TYPE: Emergency COMPLAINT: - FATIGUE DIAGNOSES: - Allergy status to narcotic agent - Allergy status to other drugs, medicaments and biological substances - Anxiety disorder, unspecified - Essential (primary) hypertension - Nicotine dependence, unspecified, uncomplicated - Other parts counterman (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 - Patient's noncompliance with other medical treatment and regimen due to unspecified reason 10/14/2024 20:51 [facility] [place] TYPE: Emergency COMPLAINT: - MEDICATION ISSUES DIAGNOSES: - Allergy status to narcotic agent - Allergy status to other drugs, medicaments and biological substances - Anxiety disorder, unspecified - Essential (primary) hypertension - Nicotine dependence, unspecified, uncomplicated - Other parts counterman (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 10/11/2024 19:03 [facility] [place] TYPE: Emergency COMPLAINT: - MEDICATION REFILL DIAGNOSES: - Adverse effect of other antipsychotics and neuroleptics, initial encounter - Allergy status to narcotic agent - Allergy status to other drugs, medicaments and biological substances - Essential (primary) hypertension - Generalized anxiety disorder - Nicotine dependence, unspecified, uncomplicated - Other half-way (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 09/24/2024 14:17 [facility] [place] TYPE: Emergency COMPLAINT: - ANXIETY DIAGNOSES: - Allergy status to narcotic agent - Allergy status to other drugs, medicaments and biological substances - Anxiety disorder, unspecified - Essential (primary) hypertension - Nicotine dependence, unspecified, uncomplicated - Other parts counterman (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 09/22/2024 15:34 [facility] [place] TYPE: Emergency COMPLAINT: - CONSTIPATED DIAGNOSES: - Allergy status to other drugs, medicaments and biological substances - Anxiety disorder, unspecified - Essential (primary) hypertension - Nicotine dependence, unspecified, uncomplicated - Other parts counterman (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 08/20/2024 07:41 [facility] [place] TYPE: Emergency COMPLAINT: - MEDICATION REACTION DIAGNOSES: - Allergy status to narcotic agent - Allergy status to other drugs, medicaments and biological substances - Essential (primary) hypertension - Nicotine dependence, cigarettes, uncomplicated - Other parts counterman (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 - Pruritus, unspecified - [...] unspecified, uncomplicated - Otalgia, bilateral - Other parts counterman (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 INPATIENT VISIT TRACKING (12 MO.) No inpatient visits to display in this time frame [id number]
[2024-10-30 07:38] LABS: BASOPHILS 0.5 % (0.1-1.2); EOSINOPHILS 1.9 % (0.7-5.8); LYMPHOCYTES 24.0 % (19.3-51.7); MCH 30.2 PG (25.6-32.2); MCHC 34.0 g/dL (32.2-35.5); MCV 89.0 fL (79.4-94.8); MONOCYTES 8.5 % (4.7-12.5); NEUTROPHILS 64.8 % (34.0-71.1); RBC 5.46 M/uL (3.93-5.22)
[2024-10-30 07:57] LABS: ALT (SGPT) 35.0 U/L (14-59); AST (SGOT) 22.0 U/L (15-37); GLOMERULAR FILTRATION RATE,EST 50.0 mL/min (>60); PROTEIN, TOTAL 7.8 g/dL (6.4-8.2); UREA NITROGEN 14.0 mg/dL (7-18)
[2024-10-30 09:33] LABS: BLOOD/HGB, URINE NEGATIVE (Negative); KETONE, URINE NEGATIVE (Negative); LEUK ESTERASE, URINE NEGATIVE (negative); NITRITE, URINE NEGATIVE (negative)
[2024-10-30 09:45] LABS: BACTERIA, URINE RARE /hpf (negative); CASTS, URINE NONE SEEN \\lpf; CRYSTALS, URINE NONE SEEN (0-1+); EPITHELIAL CELLS, URINE SQUAMOUS 1+ /lpf (0-1+); REFLEX CULTURE, URINE No (No)
[2024-10-30] MEDS ORDERED: SEROQUEL25 MG PO (09:55)
[2024-10-30 10:03] VITALS: BP 141/83
--- NOTE | 2024-10-30 22:10 | EKG ---
[facility] [address] [facility] [place] [address] Signed Normal sinus rhythm Normal ECG When compared with ECG of 21-OCT-2024 18:05, No significant change was found Confirmed by Ryan Mendez MD () on 10/30/2024 10:10:13 PM Electronically Signed By: RYAN MENDEZ MD 10/30/24 2210 PATIENT NAME: VAL FAUST SALAZAR Electrocardiogram DATE OF : 54 PHYSICIAN: RYAN MENDEZ MD REPORT #: [id number] REPORT IS CONFIDENTIAL AND NOT TO BE RELEASED WITHOUT AUTHORIZATION
== END 2024-10-30 10:03 | disposition home or self-care (01) ==
LOC: ED 07:23
PROVIDERS: Emergency Medicine
DX: F41.9 Anxiety disorder, unspecified (principal); R53.83 Other fatigue; I10 Essential (primary) hypertension; F17.200 Nicotine dependence, unspecified, uncomplicated; Z79.899 Other long term (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; Z88.5 Allergy status to narcotic agent; Z88.8 Allergy status to other drugs, medicaments and biological substances
CPT/HCPCS: 36415; 80053; 81001; 83735; 84484; 85025; 93005; 93010; 99284

== ENCOUNTER 2024-11-02 06:50 | Emergency (ER) | payer MEDICARE, OTHER ==
[~2024-11-02] VITALS: Ht 165.1 cm; Wt 62.6 kg
[~2024-11-02 06:50] MED LIST changes: +SEROQUEL25 MG PO
--- OUTSIDE RECORDS SUMMARY | 2024-11-02 06:56 | XMS ---
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 Saba VISIT COUNT (12 MO.) 14 [facility] TOTAL 14 NOTE: Visits indicate total known visits. ED/UCC VISIT TRACKING (12 MO.) 11/02/2024 06:50 [facility] [place] TYPE: Emergency COMPLAINT: - WEAKNESS 10/30/2024 07:23 [facility]AL[facility]iz[facility] [place] TYPE: Emergency COMPLAINT: - WEAKNESS DIAGNOSES: - Allergy status to narcotic agent - Allergy status to other drugs, medicaments and biological substances - Essential (primary) hypertension - Nicotine dependence, unspecified, uncomplicated - Other fatigue - Other terminal gauger (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 - Weakness 10/28/2024 17:15 [facility] [place] TYPE: Emergency COMPLAINT: - BLOOD PRESSURE ISSUES, FATIGUE, EYES RED/SORE DIAGNOSES: - Allergy status to narcotic agent - Allergy status to other antibiotic agents - Allergy status to other drugs, medicaments and biological substances - Anxiety disorder, unspecified - Essential (primary) hypertension - Nicotine dependence, unspecified, uncomplicated - Other specified anxiety disorders 10/24/2024 21:41 [facility] [place] TYPE: Emergency COMPLAINT: - BLOOD PRESSURE ISSUES DIAGNOSES: - Anxiety disorder, unspecified - Essential (primary) hypertension - Nicotine dependence, unspecified, uncomplicated - Other terminal gauger (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 10/23/2024 19:19 EM[facility]ALD [facility]iz[facility] [place] TYPE: Emergency COMPLAINT: - BP PROBLEM DIAGNOSES: - Allergy status to narcotic agent - Allergy status to other drugs, medicaments and biological substances - Anxiety disorder, unspecified - Essential (primary) hypertension - Nicotine dependence, unspecified, uncomplicated - Other terminal gauger (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 10/22/2024 20:19 EM[facility]D Arviz[facility] [place] TYPE: Emergency COMPLAINT: - BP PROBLEMS DIAGNOSES: - Allergy status to analgesic agent - Allergy status to narcotic agent - Allergy status to other drugs, medicaments and biological substances - Essential (primary) hypertension - Nicotine dependence, unspecified, uncomplicated - Other terminal gauger (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 10/21/2024 17:48 [facility]D [facility] [place] TYPE: Emergency COMPLAINT: - FATIGUE DIAGNOSES: - Allergy status to narcotic agent - Allergy status to other drugs, medicaments and biological substances - Anxiety disorder, unspecified - Essential (primary) hypertension - Nicotine dependence, unspecified, uncomplicated - Other jail (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 - Patient's noncompliance with other medical treatment and regimen due to unspecified reason 10/14/2024 20:51 [facility]vizu [place] TYPE: Emergency COMPLAINT: - MEDICATION ISSUES DIAGNOSES: - Allergy status to narcotic agent - Allergy status to other drugs, medicaments and biological substances - Anxiety disorder, unspecified - Essential (primary) hypertension - Nicotine dependence, unspecified, uncomplicated - Other terminal gauger (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 10/11/2024 19:03 [facility] [place] [facility] COMPLAINT: - MEDICATION REFILL DIAGNOSES: - Adverse effect of other antipsychotics and neuroleptics, initial encounter - Allergy status to narcotic agent - Allergy status to other drugs, medicaments and biological substances - Essential (primary) hypertension - Generalized anxiety disorder - Nicotine dependence, unspecified, uncomplicated - Other jail (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 09/24/2024 14:17 [facility] [place] [facility]: [facility] COMPLAINT: - ANXIETY DIAGNOSES: - Allergy status to narcotic agent - Allergy status to other drugs, medicaments and biological substances - Anxiety disorder, unspecified - Essential (primary) hypertension - Nicotine dependence, unspecified, uncomplicated - Other jail (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 09/22/2024 15:34 [facility] [place] [facility]: Emergency COMPLAINT: - CONSTIPATED DIAGNOSES: - Allergy status to other drugs, medicaments and biological substances - Anxiety disorder, unspecified - Essential (primary) hypertension - Nicotine dependence, unspecified, uncomplicated - Other terminal gauger (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 08/20/2024 07:41 [facility] [place] TYPE: Emergency COMPLAINT: - MEDICATION REACTION DIAGNOSES: - Allergy status to narcotic agent - Allergy status to other drugs, medicaments and biological substances - Essential (primary) hypertension - Nicotine dependence, cigarettes, uncomplicated - Other terminal gauger (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 - Pruritus, unspecified - Urinary tract infection, site not specified 08/15/2024 23:26 [facility] [place] [facility]: [facility] COMPLAINT: - [...] tract infection, site not specified 05/02/2024 19:15 [facility] [place] [facility]: Emergency COMPLAINT: - TROUBLE BREATHING DIAGNOSES: - Allergy status to narcotic agent - Allergy status to other drugs, medicaments and biological substances - Anxiety disorder, unspecified - Cough, unspecified - Essential (primary) hypertension - Nicotine dependence, unspecified, uncomplicated - Otalgia, bilateral - Other jail (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 INPATIENT VISIT TRACKING (12 MO.) No inpatient visits to display in this time frame [email or web address]
[2024-11-02] MEDS ORDERED: ASPIRIN 81 MG CHEW PO ONE (07:00)
[2024-11-02 07:13] LABS: BASOPHILS 0.7 % (0.1-1.2); EOSINOPHILS 2.9 % (0.7-5.8); LYMPHOCYTES 25.9 % (19.3-51.7); MCH 30.5 PG (25.6-32.2); MCHC 34.1 g/dL (32.2-35.5); MCV 89.2 fL (79.4-94.8); MONOCYTES 8.1 % (4.7-12.5); NEUTROPHILS 62.0 % (34.0-71.1); RBC 5.09 M/uL (3.93-5.22)
[2024-11-02 07:39] LABS: INR 0.98 (0.80-1.30); PROTIME 12.3 Sec (11.2-14.2)
[2024-11-02 07:49] LABS: ALT (SGPT) 32.0 U/L (14-59); AST (SGOT) 20.0 U/L (15-37); GLOMERULAR FILTRATION RATE,EST 57.0 mL/min (>60); PROTEIN, TOTAL 7.1 g/dL (6.4-8.2); UREA NITROGEN 17.0 mg/dL (7-18)
[2024-11-02 08:55] VITALS: BP 142/81
--- NOTE | 2024-11-02 12:52 | EKG ---
[facility] [address] [facility] [place] [address] Signed Normal sinus rhythm Normal ECG When compared with ECG of 30-OCT-2024 07:38, No significant change was found Confirmed by Ryan Mendez MD () on 11/02/2024 12:52:39 PM Electronically Signed By: RYAN MENDEZ MD 11/02/24 1252 PATIENT NAME: VAL FAUST SALAZAR Electrocardiogram DATE OF : 54 PHYSICIAN: RYAN MENDEZ MD REPORT #: [id number] REPORT IS CONFIDENTIAL AND NOT TO BE RELEASED WITHOUT AUTHORIZATION
== END 2024-11-02 08:44 | disposition home or self-care (01) ==
LOC: ED 06:50
PROVIDERS: Family Medicine
DX: R42 Dizziness and giddiness (principal); F41.9 Anxiety disorder, unspecified; I10 Essential (primary) hypertension; F17.200 Nicotine dependence, unspecified, uncomplicated; Z88.6 Allergy status to analgesic agent; Z88.8 Allergy status to other drugs, medicaments and biological substances; Z79.899 Other long term (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
CPT/HCPCS: 36415; 71045; 80053; 83735; 84484; 85025; 85610; 93005; 93010; 99284-25; A9270

== ENCOUNTER 2024-11-05 15:43 | Emergency (ER) | payer MEDICARE, OTHER ==
[~2024-11-05] VITALS: Ht 165.1 cm; Wt 66.0 kg
--- OUTSIDE RECORDS SUMMARY | 2024-11-05 15:51 | XMS ---
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/Center: [facility] Current FAMILY PHONE: [phone] Helen Arce Physician Multi Sensor Operator Current FAZAL PHONE: [phone] Kate has no Care Guidelines for this patient. Saba VISIT COUNT (12 MO.) [address] [facility] TOTAL 15 NOTE: Visits indicate total known visits. ED/UCC VISIT TRACKING (12 MO.) 11/05/2024 15:44 [facility] [place] TYPE: Emergency COMPLAINT: - ANXIETY 11/02/2024 06:50 EMERALD Arvizu [place] TYPE: Emergency COMPLAINT: - WEAKNESS 10/30/2024 07:23 EM[facility]D Arvizu [place] TYPE: Emergency COMPLAINT: - WEAKNESS DIAGNOSES: - Allergy status to narcotic agent - Allergy status to other drugs, medicaments and biological substances - Essential (primary) hypertension - Nicotine dependence, unspecified, uncomplicated - Other fatigue - Other retirement (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 - Weakness 10/28/2024 17:15 [...] - Nicotine dependence, unspecified, uncomplicated - Other long term care social worker (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 10/23/2024 19:19 EM[facility]ALD [facility]vizu [place] TYPE: Emergency COMPLAINT: - BP PROBLEM DIAGNOSES: - Allergy status to narcotic agent - Allergy status to other drugs, medicaments and biological substances - Anxiety disorder, unspecified - Essential (primary) hypertension - Nicotine dependence, unspecified, uncomplicated - Other long term care social worker (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 10/22/2024 20:19 [facility]iz[facility] [place] TYPE: Emergency COMPLAINT: - BP PROBLEMS DIAGNOSES: - Allergy status to analgesic agent - Allergy status to narcotic agent - Allergy status to other drugs, medicaments and biological substances - Essential (primary) hypertension - Nicotine dependence, unspecified, uncomplicated - Other retirement (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 10/21/2024 17:48 EM[facility]ALD Arvizu [place] TYPE: Emergency COMPLAINT: - FATIGUE DIAGNOSES: - Allergy status to narcotic agent - Allergy status to other drugs, medicaments and biological substances - Anxiety disorder, unspecified - Essential (primary) hypertension - Nicotine dependence, unspecified, uncomplicated - Other long term care social worker (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 - Patient's noncompliance with other medical treatment and regimen due to unspecified reason 10/14/2024 20:51 EM[facility]D [facility]iz[facility] [place] TYPE: Emergency COMPLAINT: - MEDICATION ISSUES DIAGNOSES: - Allergy status to narcotic agent - Allergy status to other drugs, medicaments and biological substances - Anxiety disorder, unspecified - Essential (primary) hypertension - Nicotine dependence, unspecified, uncomplicated - Other long term care social worker (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 10/11/2024 19:[address] [facility] [place] TYPE: Emergency COMPLAINT: - MEDICATION REFILL DIAGNOSES: - Adverse effect of other antipsychotics and neuroleptics, initial encounter - Allergy status to narcotic agent - Allergy status to other drugs, medicaments and biological substances - Essential (primary) hypertension - Generalized anxiety disorder - Nicotine dependence, unspecified, uncomplicated - Other retirement (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 09/24/2024 14:[address] [facility] [place] TYPE: Emergency COMPLAINT: - ANXIETY DIAGNOSES: - Allergy status to narcotic agent - Allergy status to other drugs, medicaments and biological substances - Anxiety disorder, unspecified - Essential (primary) hypertension - Nicotine dependence, unspecified, uncomplicated - Other retirement (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 09/22/2024 15:[address] [facility] [place] [place] TYPE: Emergency COMPLAINT: - CONSTIPATED DIAGNOSES: - Allergy status to other drugs, medicaments and biological substances - Anxiety disorder, unspecified - Essential (primary) hypertension - Nicotine dependence, unspecified, uncomplicated - Other retirement (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 08/20/2024 07:41 [facility] [place] TYPE: Emergency COMPLAINT: - MEDICATION REACTION DIAGNOSES: - Allergy status to narcotic agent - Allergy status to other drugs, medicaments and biological substances - Essential (primary) hypertension - Nicotine dependence, cigarettes, uncomplicated - Other retirement (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 - Pruritus, unspecified - [...] unspecified, uncomplicated - Otalgia, bilateral - Other long term care social worker (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 INPATIENT VISIT TRACKING (12 MO.) No inpatient visits to display in this time frame [email or web address]
[2024-11-05] MEDS ORDERED: LORazepam 1 MG TAB PO ONE (19:45)
[2024-11-05] MEDS ORDERED: LORazepam 0.5 MG TAB PO ONE (20:30)
[2024-11-05] MEDS ORDERED: CATAPRES-TTS 21 EACH TD (22:13)
[2024-11-05 22:24] VITALS: BP 151/89
== END 2024-11-05 22:24 | disposition home or self-care (01) ==
LOC: ED 15:43
DX: I10 Essential (primary) hypertension (principal); F41.9 Anxiety disorder, unspecified; F17.200 Nicotine dependence, unspecified, uncomplicated; Z79.899 Other long term (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; Z88.5 Allergy status to narcotic agent; Z88.8 Allergy status to other drugs, medicaments and biological substances
CPT/HCPCS: 99283

== ENCOUNTER 2024-11-10 00:58 | Emergency (ER) | payer MEDICARE, OTHER ==
[~2024-11-10] VITALS: Ht 165.1 cm; Wt 64.0 kg
[~2024-11-10 00:58] MED LIST changes: +CATAPRES-TTS 21 EACH TD
--- OUTSIDE RECORDS SUMMARY | 2024-11-10 01:04 | XMS ---
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/Center: [facility] Current FAMILY PHONE: [phone] Helen Arce Physician Shoe Laster Current FAZAL PHONE: [phone] Kate has no Care Guidelines for this patient. Saba VISIT COUNT (12 MO.) [address] [place] [address] TOTAL 17 NOTE: Visits indicate total known visits. ED/UCC VISIT TRACKING (12 MO.) 11/10/2024 00:58 [facility] [place] TYPE: Emergency COMPLAINT: - ANXIETY 11/06/2024 15:41 [facility] [place] TYPE: Emergency COMPLAINT: - BP CHECK 11/05/2024 15:44 [facility] [place] TYPE: Emergency COMPLAINT: - ANXIETY DIAGNOSES: - Allergy status to narcotic agent - Allergy status to other drugs, medicaments and biological substances - Anxiety disorder, unspecified - Essential (primary) hypertension - Nicotine dependence, unspecified, uncomplicated - Other usp (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 11/02/2024 06:50 [facility] [place] COMPLAINT: - WEAKNESS DIAGNOSES: - Allergy status to analgesic agent - Allergy status to other drugs, medicaments and biological substances - Anxiety disorder, unspecified - Dizziness and giddiness - Essential (primary) hypertension - Nicotine dependence, unspecified, uncomplicated - Other keno terminal operator (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 10/30/2024 07:23 [facility] [place] COMPLAINT: - WEAKNESS DIAGNOSES: - Allergy status to narcotic agent - Allergy status to other drugs, medicaments and biological substances - Anxiety disorder, unspecified - Essential (primary) hypertension - Nicotine dependence, unspecified, uncomplicated - Other fatigue - Other usp (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 - Weakness 10/28/2024 17:15 [facility] [place] TYPE: Emergency COMPLAINT: - BLOOD PRESSURE [...] uncomplicated - Other usp (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 10/23/2024 19:19 [facility] [place] COMPLAINT: - BP PROBLEM DIAGNOSES: - Allergy status to narcotic agent - Allergy status to other drugs, medicaments and biological substances - Anxiety disorder, unspecified - Essential (primary) hypertension - Nicotine dependence, unspecified, uncomplicated - Other usp (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 10/22/2024 20:19 [facility] [place] COMPLAINT: - BP PROBLEMS DIAGNOSES: - Allergy status to analgesic agent - Allergy status to narcotic agent - Allergy status to other drugs, medicaments and biological substances - Essential (primary) hypertension - Nicotine dependence, unspecified, uncomplicated - Other usp (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 10/21/2024 17:48 [facility] [place] TYPE: Emergency COMPLAINT: - FATIGUE DIAGNOSES: - Allergy status to narcotic agent - Allergy status to other drugs, medicaments and biological substances - Anxiety disorder, unspecified - Essential (primary) hypertension - Nicotine dependence, unspecified, uncomplicated - Other keno terminal operator (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 - Patient's noncompliance with other medical treatment and regimen due to unspecified reason 10/14/2024 20:51 [facility] [place] TYPE: Emergency COMPLAINT: - MEDICATION ISSUES DIAGNOSES: - Allergy status to narcotic agent - Allergy status to other drugs, medicaments and biological substances - Anxiety disorder, unspecified - Essential (primary) hypertension - Nicotine dependence, unspecified, uncomplicated - Other keno terminal operator (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 10/11/2024 19:03 [...] Other usp (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 09/24/2024 14:17 [facility] [place] TYPE: Emergency COMPLAINT: - ANXIETY DIAGNOSES: - Allergy status to narcotic agent - Allergy status to other drugs, medicaments and biological substances - Anxiety disorder, unspecified - Essential (primary) hypertension - Nicotine dependence, unspecified, uncomplicated - Other keno terminal operator (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 09/22/2024 15:34 [facility] [place] TYPE: Emergency COMPLAINT: - CONSTIPATED DIAGNOSES: - Allergy status to other drugs, medicaments and biological substances - Anxiety disorder, unspecified - Essential (primary) hypertension - Nicotine dependence, unspecified, uncomplicated - Other usp (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 08/20/2024 07:41 [facility] [place] TYPE: Emergency COMPLAINT: - MEDICATION REACTION DIAGNOSES: - Allergy status to narcotic agent - Allergy status to other drugs, medicaments and biological substances - Essential (primary) hypertension - Nicotine dependence, cigarettes, uncomplicated - Other keno terminal operator (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 - Pruritus, unspecified - [...] visits to display in this time frame [email or web address]
[2024-11-10] MEDS ORDERED: CATAPRES-TTS 11 EACH TD (01:53)
[2024-11-10 03:11] VITALS: BP 150/84
== END 2024-11-10 03:15 | disposition home or self-care (01) ==
LOC: ED 00:58
DX: F41.9 Anxiety disorder, unspecified (principal); I10 Essential (primary) hypertension; Z79.899 Other long term (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; Z88.8 Allergy status to other drugs, medicaments and biological substances; Z88.5 Allergy status to narcotic agent; F17.200 Nicotine dependence, unspecified, uncomplicated
CPT/HCPCS: 99283

== ENCOUNTER 2024-11-15 08:57 | Emergency (ER) | payer MEDICARE, OTHER ==
[~2024-11-15] VITALS: Ht 165.1 cm; Wt 93.7 kg
[~2024-11-15 08:57] MED LIST changes: +CATAPRES-TTS 11 EACH TD
--- OUTSIDE RECORDS SUMMARY | 2024-11-15 09:04 | XMS ---
PreManage Notification: [place] Security Communications Planner Events No recent Security Events currently on file CRITERIA MET - 6 ED Visits in 6 Months - [facility] - 2 Visits in 30 Days CARE PROVIDERS [facility]/Center: [facility] Current FAMILY PHONE: [phone] Helen Arce Physician A&P Technician Current FAZAL PHONE: [phone] Kate has no Care Guidelines for this patient. Saba VISIT COUNT (12 MO.) 18 [facility] TOTAL 18 NOTE: Visits indicate total known visits. ED/UCC VISIT TRACKING (12 MO.) 11/15/2024 08:[address] [facility] [address] [facility] TYPE: Emergency COMPLAINT: - WEAKNESS 11/10/2024 00:58 [facility] [place] TYPE: Emergency COMPLAINT: - ANXIETY DIAGNOSES: - Allergy status to narcotic agent - Allergy status to other drugs, medicaments and biological substances - Anxiety disorder, unspecified - Essential (primary) hypertension - Nicotine dependence, unspecified, uncomplicated - Other senior living (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 11/06/2024 15:41 [facility] [place] TYPE: Emergency COMPLAINT: - BP CHECK 11/05/2024 15:44 [facility] [place] TYPE: Emergency COMPLAINT: - ANXIETY DIAGNOSES: - Allergy status to narcotic agent - Allergy status to other drugs, medicaments and biological substances - Anxiety disorder, unspecified - Essential (primary) hypertension - Nicotine dependence, unspecified, uncomplicated - Other senior living (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 11/02/2024 06:50 [facility] [place] TYPE: Emergency COMPLAINT: - WEAKNESS DIAGNOSES: - Allergy status to analgesic agent - Allergy status to other drugs, medicaments and biological substances - Anxiety disorder, unspecified - Dizziness and giddiness - Essential (primary) hypertension - Nicotine dependence, unspecified, uncomplicated - Other senior living (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 10/30/2024 07:23 [facility] [place] TYPE: Emergency COMPLAINT: - WEAKNESS DIAGNOSES: - Allergy status to narcotic agent - Allergy status to other drugs, medicaments and biological substances - Anxiety disorder, unspecified - Essential (primary) hypertension - Nicotine dependence, unspecified, uncomplicated - Other fatigue - Other terminal carman (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 - Weakness 10/28/2024 17:15 [...] Nicotine dependence, unspecified, uncomplicated - Other terminal carman (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 10/23/2024 19:19 [facility] [place] TYPE: Emergency COMPLAINT: - BP PROBLEM DIAGNOSES: - Allergy status to narcotic agent - Allergy status to other drugs, medicaments and biological substances - Anxiety disorder, unspecified - Essential (primary) hypertension - Nicotine dependence, unspecified, uncomplicated - Other terminal carman (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 10/22/2024 20:19 [facility] [place] TYPE: Emergency COMPLAINT: - BP PROBLEMS DIAGNOSES: - Allergy status to analgesic agent - Allergy status to narcotic agent - Allergy status to other drugs, medicaments and biological substances - Essential (primary) hypertension - Nicotine dependence, unspecified, uncomplicated - Other terminal carman (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 10/21/2024 17:48 [facility] [place] TYPE: Emergency COMPLAINT: - FATIGUE DIAGNOSES: - Allergy status to narcotic agent - Allergy status to other drugs, medicaments and biological substances - Anxiety disorder, unspecified - Essential (primary) hypertension - Nicotine dependence, unspecified, uncomplicated - Other senior living (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 - Patient's noncompliance with other medical treatment and regimen due to unspecified reason 10/14/2024 20:51 [facility] [place] TYPE: Emergency COMPLAINT: - MEDICATION ISSUES DIAGNOSES: - Allergy status to narcotic agent - Allergy status to other drugs, medicaments and biological substances - Anxiety disorder, unspecified - Essential (primary) hypertension - Nicotine dependence, unspecified, uncomplicated - Other senior living (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 10/11/2024 19:[facility] COMPLAINT: - MEDICATION REFILL DIAGNOSES: - Adverse effect of other antipsychotics and neuroleptics, initial encounter - Allergy status to narcotic agent - Allergy status to other drugs, medicaments and biological substances - Essential (primary) hypertension - Generalized anxiety disorder - Nicotine dependence, unspecified, uncomplicated - Other senior living (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 09/24/2024 14:17 [facility] [place] TYPE: Emergency COMPLAINT: - ANXIETY DIAGNOSES: - Allergy status to narcotic agent - Allergy status to other drugs, medicaments and biological substances - Anxiety disorder, unspecified - Essential (primary) hypertension - Nicotine dependence, unspecified, uncomplicated - Other terminal carman (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 09/22/2024 15:34 [facility] [place] [facility]: [facility] COMPLAINT: - CONSTIPATED DIAGNOSES: - Allergy status to other drugs, medicaments and biological substances - Anxiety disorder, unspecified - Essential (primary) hypertension - Nicotine dependence, unspecified, uncomplicated - Other terminal carman (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 08/20/2024 07:41 [facility] [place] TYPE: Emergency COMPLAINT: - MEDICATION REACTION DIAGNOSES: - Allergy status to narcotic agent - Allergy status to other drugs, medicaments and biological substances - Essential (primary) hypertension - Nicotine dependence, cigarettes, uncomplicated - Other terminal carman (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 - Pruritus, unspecified - [...] unspecified, uncomplicated - Otalgia, bilateral - Other senior living (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 INPATIENT VISIT TRACKING (12 MO.) No inpatient visits to display in this time frame [email or web address]
[2024-11-15 09:49] VITALS: BP 159/83
== END 2024-11-15 09:49 | disposition home or self-care (01) ==
LOC: ED 08:57
DX: I10 Essential (primary) hypertension (principal); F41.9 Anxiety disorder, unspecified; F17.200 Nicotine dependence, unspecified, uncomplicated; Z79.624 Long term (current) use of inhibitors of nucleotide synthesis; Z88.1 Allergy status to other antibiotic agents; Z88.8 Allergy status to other drugs, medicaments and biological substances
CPT/HCPCS: 99283

== ENCOUNTER 2024-11-19 09:22 | Emergency (ER) | payer MEDICARE, OTHER ==
[~2024-11-19] VITALS: Ht 165.1 cm; Wt 63.0 kg
--- OUTSIDE RECORDS SUMMARY | 2024-11-19 09:29 | XMS ---
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 Saba VISIT COUNT (12 MO.) 19 [facility] TOTAL 19 NOTE: Visits indicate total known visits. ED/UCC VISIT TRACKING (12 MO.) 11/19/2024 09:22 [facility] [place] TYPE: Emergency COMPLAINT: - ANXIETY 11/15/2024 08:57 [facility] [place] TYPE: Emergency COMPLAINT: - WEAKNESS 11/10/2024 00:58 [facility] [place] TYPE: Emergency COMPLAINT: - ANXIETY DIAGNOSES: - Allergy status to narcotic agent - Allergy status to other drugs, medicaments and biological substances - Anxiety disorder, unspecified - Essential (primary) hypertension - Nicotine dependence, unspecified, uncomplicated - Other fpc (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 11/06/2024 15:41 [facility] [place] TYPE: Emergency COMPLAINT: - BP CHECK 11/05/2024 15:44 [facility] [place] TYPE: Emergency COMPLAINT: - ANXIETY DIAGNOSES: - Allergy status to narcotic agent - Allergy status to other drugs, medicaments and biological substances - Anxiety disorder, unspecified - Essential (primary) hypertension - Nicotine dependence, unspecified, uncomplicated - Other oil heaterman (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 11/02/2024 06:50 [facility] [place] TYPE: Emergency COMPLAINT: - WEAKNESS DIAGNOSES: - Allergy status to analgesic agent - Allergy status to other drugs, medicaments and biological substances - Anxiety disorder, unspecified - Dizziness and giddiness - Essential (primary) hypertension - Nicotine dependence, unspecified, uncomplicated - Other oil heaterman (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 10/30/2024 07:[address] [facility] [address] [facility] [place] [place] TYPE: Emergency COMPLAINT: - WEAKNESS DIAGNOSES: - Allergy status to narcotic agent - Allergy status to other drugs, medicaments and biological substances - Anxiety disorder, unspecified - Essential (primary) hypertension - Nicotine dependence, unspecified, uncomplicated - Other fatigue - Other fpc (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 - Weakness 10/28/2024 17:15 [facility] [place] [facility] COMPLAINT: - BLOOD PRESSURE ISSUES, FATIGUE, EYES RED/SORE DIAGNOSES: - Allergy status to narcotic agent - Allergy status to other antibiotic agents - Allergy status to other drugs, medicaments and biological substances - Anxiety disorder, unspecified - Essential (primary) hypertension - Nicotine dependence, unspecified, uncomplicated - Other specified anxiety disorders 10/24/2024 21:[address] [facility] [address] [facility] [place] [place] TYPE: Emergency COMPLAINT: - BLOOD PRESSURE ISSUES DIAGNOSES: - Anxiety disorder, unspecified - Essential (primary) hypertension - Nicotine dependence, unspecified, uncomplicated - Other oil heaterman (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 10/23/2024 19:19 [facility] [place] [facility] TYPE: Emergency COMPLAINT: - BP PROBLEM DIAGNOSES: - Allergy status to narcotic agent - Allergy status to other drugs, medicaments and biological substances - Anxiety disorder, unspecified - Essential (primary) hypertension - Nicotine dependence, unspecified, uncomplicated - Other fpc (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 10/22/2024 20:19 [facility] [place] TYPE: Emergency COMPLAINT: - BP PROBLEMS DIAGNOSES: - Allergy status to analgesic agent - Allergy status to narcotic agent - Allergy status to other drugs, medicaments and biological substances - Essential (primary) hypertension - Nicotine dependence, unspecified, uncomplicated - Other oil heaterman (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 10/21/2024 17:48 [facility] [place] TYPE: Emergency COMPLAINT: - FATIGUE DIAGNOSES: - Allergy status to narcotic agent - Allergy status to other drugs, medicaments and biological substances - Anxiety disorder, unspecified - Essential (primary) hypertension - Nicotine dependence, unspecified, uncomplicated - Other fpc (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 - Patient's noncompliance with other medical treatment and regimen due to unspecified reason 10/14/2024 20:51 [facility] [place] [facility] TYPE: Emergency COMPLAINT: - MEDICATION ISSUES DIAGNOSES: - Allergy status to narcotic agent - Allergy status to other drugs, medicaments and biological substances - Anxiety disorder, unspecified - Essential (primary) hypertension - Nicotine dependence, unspecified, uncomplicated - Other oil heaterman (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 10/11/2024 19:03 [facility] [place] TYPE: Emergency COMPLAINT: - MEDICATION REFILL DIAGNOSES: - Adverse effect of other antipsychotics and neuroleptics, initial encounter - Allergy status to narcotic agent - Allergy status to other drugs, medicaments and biological substances - Essential (primary) hypertension - Generalized anxiety disorder - Nicotine dependence, unspecified, uncomplicated - Other oil heaterman (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 09/24/2024 14:17 [facility] [place] TYPE: Emergency COMPLAINT: - ANXIETY DIAGNOSES: - Allergy status to narcotic agent - Allergy status to other drugs, medicaments and biological substances - Anxiety disorder, unspecified - Essential (primary) hypertension - Nicotine dependence, unspecified, uncomplicated - Other fpc (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 09/22/2024 15:34 [facility] [...] - Nicotine dependence, cigarettes, uncomplicated - Other oil heaterman (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 - Pruritus, unspecified - [...] visits to display in this time frame [email or web address]
[2024-11-19] MEDS ORDERED: ALPRAZolam 0.5 MG TAB PO ONE (09:30)
[2024-11-19] MEDS ORDERED: CLONIDINE1 EACH TD (09:31)
[2024-11-19] MEDS ORDERED: FLUTICASONE PRO16 GM NAS (09:31)
[2024-11-19 09:48] LABS: BASOPHILS 0.5 % (0.1-1.2); EOSINOPHILS 1.6 % (0.7-5.8); LYMPHOCYTES 18.3 % (19.3-51.7); MCH 30.6 PG (25.6-32.2); MCHC 33.7 g/dL (32.2-35.5); MCV 90.7 fL (79.4-94.8); MONOCYTES 8.4 % (4.7-12.5); NEUTROPHILS 70.4 % (34.0-71.1); RBC 5.36 M/uL (3.93-5.22)
[2024-11-19 10:16] LABS: ALT (SGPT) 80.0 U/L (14-59); AST (SGOT) 35.0 U/L (15-37); GLOMERULAR FILTRATION RATE,EST 63.0 mL/min (>60); PROTEIN, TOTAL 7.4 g/dL (6.4-8.2); TSH, 3RD GENERATION 1.064 uIU/mL (0.358-3.740); UREA NITROGEN 21.0 mg/dL (7-18)
[2024-11-19 10:55] VITALS: BP 148/82
== END 2024-11-19 10:56 | disposition home or self-care (01) ==
LOC: ED 09:22
PROVIDERS: Emergency Medicine
DX: F41.9 Anxiety disorder, unspecified (principal); I10 Essential (primary) hypertension; F17.200 Nicotine dependence, unspecified, uncomplicated; Z88.8 Allergy status to other drugs, medicaments and biological substances; Z79.2 Long term (current) use of antibiotics
CPT/HCPCS: 36415; 80053; 84443; 85025; 99283

== ENCOUNTER 2024-11-23 10:46 | Emergency (ER) | payer MEDICARE, OTHER ==
[~2024-11-23] VITALS: Ht 165.1 cm; Wt 65.7 kg
[~2024-11-23 10:46] MED LIST changes: +CLONIDINE1 EACH TD; +FLUTICASONE PRO16 GM NAS
--- OUTSIDE RECORDS SUMMARY | 2024-11-23 10:48 | XMS ---
PreManage Notification: VAL [place] Security Animal Assisted Therapist Events No recent Security Events currently on file CRITERIA MET - 6 ED Visits in 6 Months - Group Notification - [facility] - 2 Visits in 30 Days CARE PROVIDERS [facility]/Center: [facility] Current FAMILY PHONE: [phone] Helen Arce Physician Hotel Recreational Facilities Manager Current FAZAL PHONE: [phone] Kate has no Care Guidelines for this patient. EBonnie VISIT COUNT (12 MO.) 20 [facility] TOTAL 20 NOTE: Visits indicate total known visits. ED/UCC VISIT TRACKING (12 MO.) 11/23/2024 10:47 [facility] [place] TYPE: Emergency COMPLAINT: - DIFFICULTY BREATHING 11/19/2024 09:22 [facility] [place] TYPE: Emergency COMPLAINT: - ANXIETY DIAGNOSES: - Allergy status to other drugs, medicaments and biological substances - Anxiety disorder, unspecified - Essential (primary) hypertension - penitentiary (current) use of antibiotics - Nicotine dependence, unspecified, uncomplicated 11/15/2024 08:57 [facility] [place] TYPE: Emergency COMPLAINT: - WEAKNESS DIAGNOSES: - Allergy status to other antibiotic agents - Allergy status to other drugs, medicaments and biological substances - Anxiety disorder, unspecified - Elevated blood-pressure reading, without diagnosis of hypertension - Essential (primary) hypertension - penitentiary (current) use of inhibitors of nucleotide synthesis - Nicotine dependence, unspecified, uncomplicated 11/10/2024 00:58 [facility] [place] TYPE: Emergency COMPLAINT: - ANXIETY DIAGNOSES: - Allergy status to narcotic agent - Allergy status to other drugs, medicaments and biological substances - Anxiety disorder, unspecified - Essential (primary) hypertension - Nicotine dependence, unspecified, uncomplicated - Other longterm (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 11/06/2024 15:41 [facility] [place] TYPE: Emergency COMPLAINT: - BP CHECK 11/05/2024 15:44 [facility] [place] TYPE: Emergency COMPLAINT: - ANXIETY DIAGNOSES: - Allergy status to narcotic agent - Allergy status to other drugs, medicaments and biological substances - Anxiety disorder, unspecified - Essential (primary) hypertension - Nicotine dependence, unspecified, uncomplicated - Other field hand (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 11/02/2024 06:50 [facility] [place] TYPE: Emergency COMPLAINT: - WEAKNESS DIAGNOSES: - Allergy status to analgesic agent - Allergy status to other drugs, medicaments and biological substances - Anxiety disorder, unspecified - Dizziness and giddiness - Essential (primary) hypertension - Nicotine dependence, unspecified, uncomplicated - Other field hand (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 10/30/2024 07:23 [facility] [place] TYPE: Emergency COMPLAINT: - WEAKNESS DIAGNOSES: - Allergy status to narcotic agent - Allergy status to other drugs, medicaments and biological substances - Anxiety disorder, unspecified - Essential (primary) hypertension - Nicotine dependence, unspecified, uncomplicated - Other fatigue - Other longterm (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 - Weakness 10/28/2024 17:15 [...] - Other specified anxiety disorders 10/24/2024 21:[address] [facility] [place] TYPE: Emergency COMPLAINT: - BLOOD PRESSURE ISSUES DIAGNOSES: - Anxiety disorder, unspecified - Essential (primary) hypertension - Nicotine dependence, unspecified, uncomplicated - Other longterm (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 10/23/2024 19:19 [facility] [place]: Emergency COMPLAINT: - BP PROBLEM DIAGNOSES: - Allergy status to narcotic agent - Allergy status to other drugs, medicaments and biological substances - Anxiety disorder, unspecified - Essential (primary) hypertension - Nicotine dependence, unspecified, uncomplicated - Other field hand (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 10/22/2024 20:19 [facility] [place] TYPE: Emergency COMPLAINT: - BP PROBLEMS DIAGNOSES: - Allergy status to analgesic agent - Allergy status to narcotic agent - Allergy status to other drugs, medicaments and biological substances - Essential (primary) hypertension - Nicotine dependence, unspecified, uncomplicated - Other field hand (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 10/21/2024 17:48 [facility] [place] TYPE: Emergency COMPLAINT: - FATIGUE DIAGNOSES: - Allergy status to narcotic agent - Allergy status to other drugs, medicaments and biological substances - Anxiety disorder, unspecified - Essential (primary) hypertension - Nicotine dependence, unspecified, uncomplicated - Other field hand (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 - Patient's noncompliance with other medical treatment and regimen due to unspecified reason 10/14/2024 20:51 [facility] [place] TYPE: Emergency COMPLAINT: - MEDICATION ISSUES DIAGNOSES: - Allergy status to narcotic agent - Allergy status to other drugs, medicaments and biological substances - Anxiety disorder, unspecified - Essential (primary) hypertension - Nicotine dependence, unspecified, uncomplicated - Other field hand (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 10/11/2024 19:03 [facility] [place] TYPE: Emergency COMPLAINT: - MEDICATION REFILL DIAGNOSES: - Adverse effect of other antipsychotics and neuroleptics, initial encounter - Allergy status to narcotic agent - Allergy status to other drugs, medicaments and biological substances - Essential (primary) hypertension - Generalized anxiety disorder - Nicotine dependence, unspecified, uncomplicated - Other field hand (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 09/24/2024 14:17 [facility] [place] TYPE: Emergency COMPLAINT: - ANXIETY DIAGNOSES: - Allergy status to narcotic agent - Allergy status to other drugs, medicaments and biological substances - Anxiety disorder, unspecified - Essential (primary) hypertension - Nicotine dependence, unspecified, uncomplicated - Other longterm (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 09/22/2024 15:34 [facility] [place] TYPE: Emergency COMPLAINT: - CONSTIPATED DIAGNOSES: - Allergy status to other drugs, medicaments and biological substances - Anxiety disorder, unspecified - Essential (primary) hypertension - Nicotine dependence, unspecified, uncomplicated - Other field hand (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 08/20/2024 07:41 [facility] [place] TYPE: Emergency COMPLAINT: - MEDICATION REACTION DIAGNOSES: - Allergy status to narcotic agent - Allergy status to other drugs, medicaments and biological substances - Essential (primary) hypertension - Nicotine dependence, cigarettes, uncomplicated - Other longterm (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 - Pruritus, unspecified - [...] unspecified, uncomplicated - Otalgia, bilateral - Other longterm (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 INPATIENT VISIT TRACKING (12 MO.) No inpatient visits to display in this time frame [email or web address]
[2024-11-23] MEDS ORDERED: ALPRAZOLAM0.25 MG PO (11:00)
[2024-11-23] MEDS ORDERED: MAGNESIUM HYDROXIDE/AL HYDROX 30 ML CUP PO ONE (11:15)
[2024-11-23] MEDS ORDERED: FAMOTIDINE 20 MG TAB PO ONE (11:15)
[2024-11-23 12:12] VITALS: BP 145/96
== END 2024-11-23 12:13 | disposition home or self-care (01) ==
LOC: ED 10:46
DX: F41.9 Anxiety disorder, unspecified (principal); K21.9 Gastro-esophageal reflux disease without esophagitis; I10 Essential (primary) hypertension; F17.200 Nicotine dependence, unspecified, uncomplicated; Z88.5 Allergy status to narcotic agent; Z88.8 Allergy status to other drugs, medicaments and biological substances; Z79.899 Other long term (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
CPT/HCPCS: 99283; A9270

== ENCOUNTER 2024-12-20 09:04 | Emergency (ER) | payer MEDICARE, OTHER ==
[~2024-12-20] VITALS: Ht 165.1 cm; Wt 63.7 kg
[~2024-12-20 09:04] MED LIST changes: +ALPRAZOLAM0.25 MG PO; +AMBIEN5 MG PO
--- OUTSIDE RECORDS SUMMARY | 2024-12-20 09:07 | XMS ---
PreManage Notification: [place] Security Email Marketer Events No recent Security Events currently on file CRITERIA MET - 6 ED Visits in 6 Months - Group Notification - [facility] - 2 Visits in 30 Days CARE PROVIDERS [facility]/Center: [facility] Current FAMILY PHONE: [phone] Helen Arce Physician Floor Layer Current FAZAL PHONE: [phone] Kate has no Care Guidelines for this patient. EBonnie VISIT COUNT (12 MO.) [address] [place] [address] TOTAL 23 NOTE: Visits indicate total known visits. ED/UCC VISIT TRACKING (12 MO.) 12/20/2024 09:04 [facility] [place] TYPE: Emergency COMPLAINT: - WEAKNESS 12/04/2024 22:55 [facility]ALD [place] [place] TYPE: Emergency COMPLAINT: - HEART RATE ISSUES DIAGNOSES: - Adverse effect of unspecified drugs, medicaments and biological substances, initial encounter - Allergy status to narcotic agent - Allergy status to other drugs, medicaments and biological substances - Anxiety disorder, unspecified - Anxiety disorder, unspecified - Essential (primary) hypertension - Nicotine dependence, unspecified, uncomplicated - Other fatigue - Other skilled nursing (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 12/02/2024 08:44 [facility] [place] [facility] [place] TYPE: Emergency COMPLAINT: - ANXIETY 11/23/2024 10:47 [facility] [place] [facility]leen [place] TYPE: Emergency COMPLAINT: - DIFFICULTY BREATHING DIAGNOSES: - Allergy status to narcotic agent - Allergy status to other drugs, medicaments and biological substances - Anxiety disorder, unspecified - Essential (primary) hypertension - Gastro-esophageal reflux disease without esophagitis - Nicotine dependence, unspecified, uncomplicated - Other rn child (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 - Shortness of breath 11/19/2024 09:22 [facility]ALD [place] TYPE: Emergency COMPLAINT: - ANXIETY DIAGNOSES: - Allergy status to other drugs, medicaments and biological substances - Anxiety disorder, unspecified - Essential (primary) hypertension - [facility] (current) use of antibiotics - Nicotine dependence, unspecified, uncomplicated 11/15/2024 08:57 [facility]ALD [place] TYPE: Emergency COMPLAINT: - WEAKNESS DIAGNOSES: - Allergy status to other antibiotic agents - Allergy status to other drugs, medicaments and biological substances - Anxiety disorder, unspecified - Elevated blood-pressure reading, without diagnosis of hypertension - Essential (primary) hypertension - disability specialist (current) use of inhibitors of nucleotide synthesis - Nicotine dependence, unspecified, uncomplicated 11/10/2024 00:58 [facility]ALD [place] TYPE: Emergency COMPLAINT: - ANXIETY DIAGNOSES: - Allergy status to narcotic agent - Allergy status to other drugs, medicaments and biological substances - Anxiety disorder, unspecified - Essential (primary) hypertension - Nicotine dependence, unspecified, uncomplicated - Other rn child (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 11/06/2024 15:41 [facility]ALD [place] TYPE: Emergency COMPLAINT: - BP CHECK 11/05/2024 15:44 [facility]ALD [place] TYPE: Emergency COMPLAINT: - ANXIETY DIAGNOSES: - Allergy status to narcotic agent - Allergy status to other drugs, medicaments and biological substances - Anxiety disorder, unspecified - Essential (primary) hypertension - Nicotine dependence, unspecified, uncomplicated - Other skilled nursing (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 11/02/2024 06:50 [facility]ALD [place] TYPE: Emergency COMPLAINT: - WEAKNESS DIAGNOSES: - Allergy status to analgesic agent - Allergy status to other drugs, medicaments and biological substances - Anxiety disorder, unspecified - Dizziness and giddiness - Essential (primary) hypertension - Nicotine dependence, unspecified, uncomplicated - Other rn child (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 - Pain in left arm 10/30/2024 07:23 EMERALD [place] TYPE: Emergency COMPLAINT: - WEAKNESS DIAGNOSES: - Allergy status to narcotic agent - Allergy status to other drugs, medicaments and biological substances - Anxiety disorder, unspecified - Essential (primary) hypertension - Nicotine dependence, unspecified, uncomplicated - Other fatigue - Other skilled nursing (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 - Weakness 10/28/2024 17:15 [...] - Other specified anxiety disorders [facility] COMPLAINT: - BLOOD PRESSURE ISSUES DIAGNOSES: - Anxiety disorder, unspecified - Essential (primary) hypertension - Nicotine dependence, unspecified, uncomplicated - Other skilled nursing (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 10/23/2024 19:[address] [facility] [place] [facility] [place] TYPE: Emergency COMPLAINT: - BP PROBLEM DIAGNOSES: - Allergy status to narcotic agent - Allergy status to other drugs, medicaments and biological substances - Anxiety disorder, unspecified - Essential (primary) hypertension - Nicotine dependence, unspecified, uncomplicated - Other rn child (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 10/22/2024 20:[address] [facility] [place] [facility] [place] TYPE: Emergency COMPLAINT: - BP PROBLEMS DIAGNOSES: - Allergy status to analgesic agent - Allergy status to narcotic agent - Allergy status to other drugs, medicaments and biological substances - Essential (primary) hypertension - Nicotine dependence, unspecified, uncomplicated - Other skilled nursing (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 10/21/2024 17:48 EM[facility]ALD [place] TYPE: Emergency COMPLAINT: - FATIGUE DIAGNOSES: - Allergy status to narcotic agent - Allergy status to other drugs, medicaments and biological substances - Anxiety disorder, unspecified - Essential (primary) hypertension - Nicotine dependence, unspecified, uncomplicated - Other rn child (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 - Patient's noncompliance with other medical treatment and regimen due to unspecified reason 10/14/2024 20:51 EMERALD [place] TYPE: Emergency COMPLAINT: - MEDICATION ISSUES DIAGNOSES: - Allergy status to narcotic agent - Allergy status to other drugs, medicaments and biological substances - Anxiety disorder, unspecified - Essential (primary) hypertension - Nicotine dependence, unspecified, uncomplicated - Other skilled nursing (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 10/11/2024 19:03 EMERALD [place] TYPE: Emergency COMPLAINT: - MEDICATION REFILL DIAGNOSES: - Adverse effect of other antipsychotics and neuroleptics, initial encounter - Allergy status to narcotic agent - Allergy status to other drugs, medicaments and biological substances - Essential (primary) hypertension - Generalized anxiety disorder - Nicotine dependence, unspecified, uncomplicated - Other rn child (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 09/24/2024 14:17 EMERALD [place] TYPE: Emergency COMPLAINT: - ANXIETY DIAGNOSES: - Allergy status to narcotic agent - Allergy status to other drugs, medicaments and biological substances - Anxiety disorder, unspecified - Essential (primary) hypertension - Nicotine dependence, unspecified, uncomplicated - Other skilled nursing (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 09/22/2024 15:34 EMERALD [place] TYPE: Emergency COMPLAINT: - CONSTIPATED DIAGNOSES: - Allergy status to other drugs, medicaments and biological substances - Anxiety disorder, unspecified - Essential (primary) hypertension - Nicotine dependence, unspecified, uncomplicated - Other rn child (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 Plus 3 More Visits INPATIENT VISIT TRACKING (12 MO.) No inpatient visits to display in this time frame [id number]
[2024-12-20 09:32] VITALS: BP 186/100
== END 2024-12-20 09:32 | disposition home or self-care (01) ==
LOC: ED 09:04
DX: F41.9 Anxiety disorder, unspecified (principal); I10 Essential (primary) hypertension; F17.200 Nicotine dependence, unspecified, uncomplicated; Z88.5 Allergy status to narcotic agent; Z88.8 Allergy status to other drugs, medicaments and biological substances; Z79.899 Other long term (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
CPT/HCPCS: 99283

== ENCOUNTER 2025-01-11 06:42 | Emergency (ER) | payer MEDICARE, OTHER ==
[~2025-01-11] VITALS: Ht 165.1 cm; Wt 62.3 kg
--- OUTSIDE RECORDS SUMMARY | 2025-01-11 06:47 | XMS ---
PreManage Notification: [place] Security Glass Washer Events No recent Security Events currently on file CRITERIA MET - 6 ED Visits in 6 Months - Group Notification - [facility] - 2 Visits in 30 Days CARE PROVIDERS [facility]/Center: [facility] Current FAMILY PHONE: [phone] Helen Arce Physician Environmental Emergencies Assistant Current FAZAL PHONE: [phone] Kate has no Care Guidelines for this patient. EBonnie VISIT COUNT (12 MO.) 25 [facility] TOTAL 25 NOTE: Visits indicate total known visits. ED/UCC VISIT TRACKING (12 MO.) 01/11/2025 06:43 EMEARLD [place] TYPE: Emergency COMPLAINT: - SHORTNESS OF BREATH 12/24/2024 09:06 EMERALD [place] TYPE: Emergency COMPLAINT: - EAR PAIN 12/20/2024 09:04 EMERALD [place] TYPE: Emergency COMPLAINT: - WEAKNESS DIAGNOSES: - Allergy status to narcotic agent - Allergy status to other drugs, medicaments and biological substances - Anxiety disorder, unspecified - Essential (primary) hypertension - Nicotine dependence, unspecified, uncomplicated - Other intermediate accountant (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 12/04/2024 22:55 EMERALD [place] TYPE: Emergency COMPLAINT: - HEART RATE ISSUES DIAGNOSES: - Adverse effect of unspecified drugs, medicaments and biological substances, initial encounter - Allergy status to narcotic agent - Allergy status to other drugs, medicaments and biological substances - Anxiety disorder, unspecified - Anxiety disorder, unspecified - Essential (primary) hypertension - Nicotine dependence, unspecified, uncomplicated - Other fatigue - Other intermediate accountant (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 12/02/2024 08:44 EMERALD [place] TYPE: Emergency COMPLAINT: - ANXIETY 11/23/2024 10:47 EMERALD [place] TYPE: Emergency COMPLAINT: - DIFFICULTY BREATHING DIAGNOSES: - Allergy status to narcotic agent - Allergy status to other drugs, medicaments and biological substances - Anxiety disorder, unspecified - Essential (primary) hypertension - Gastro-esophageal reflux disease without esophagitis - Nicotine dependence, unspecified, uncomplicated - Other intermediate accountant (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 - Shortness of breath 11/19/2024 09:[address] [facility] [address] [facility] [place] TYPE: Emergency COMPLAINT: - ANXIETY DIAGNOSES: - Allergy status to other drugs, medicaments and biological substances - Anxiety disorder, unspecified - Essential (primary) hypertension - [facility] (current) use of antibiotics - Nicotine dependence, unspecified, uncomplicated 11/15/2024 08:[address] [facility] [address] [facility] [place] TYPE: Emergency COMPLAINT: - WEAKNESS DIAGNOSES: - Allergy status to other antibiotic agents - Allergy status to other drugs, medicaments and biological substances - Anxiety disorder, unspecified - Elevated blood-pressure reading, without diagnosis of hypertension - Essential (primary) hypertension - termite exterminator (current) use of inhibitors of nucleotide synthesis - Nicotine dependence, unspecified, uncomplicated 11/10/2024 00:58 EMERALD [place] TYPE: Emergency COMPLAINT: - ANXIETY DIAGNOSES: - Allergy status to narcotic agent - Allergy status to other drugs, medicaments and biological substances - Anxiety disorder, unspecified - Essential (primary) hypertension - Nicotine dependence, unspecified, uncomplicated - Other mcc (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 11/06/2024 15:41 EMERALD [place] TYPE: Emergency COMPLAINT: - BP CHECK 11/05/2024 15:[address] [facility] [address] [facility] [place] TYPE: Emergency COMPLAINT: - ANXIETY DIAGNOSES: - Allergy status to narcotic agent - Allergy status to other drugs, medicaments and biological substances - Anxiety disorder, unspecified - Essential (primary) hypertension - Nicotine dependence, unspecified, uncomplicated - Other intermediate accountant (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 11/02/2024 06:[address] [facility] [address] [facility] [place] TYPE: Emergency COMPLAINT: - WEAKNESS DIAGNOSES: - Allergy status to analgesic agent - Allergy status to other drugs, medicaments and biological substances - Anxiety disorder, unspecified - Dizziness and giddiness - Essential (primary) hypertension - Nicotine dependence, unspecified, uncomplicated - Other intermediate accountant (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 - Pain in left arm 10/30/2024 07:23 EMERALD [place] TYPE: Emergency COMPLAINT: - WEAKNESS DIAGNOSES: - Allergy status to narcotic agent - Allergy status to other drugs, medicaments and biological substances - Anxiety disorder, unspecified - Essential (primary) hypertension - Nicotine dependence, unspecified, uncomplicated - Other fatigue - Other intermediate accountant (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 - Weakness 10/28/2024 17:15 [...] - Nicotine dependence, unspecified, uncomplicated - Other intermediate accountant (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 10/23/2024 19:19 EMERALD Eugene[place] Garfield [place] TYPE: Emergency COMPLAINT: - BP PROBLEM DIAGNOSES: - Allergy status to narcotic agent - Allergy status to other drugs, medicaments and biological substances - Anxiety disorder, unspecified - Essential (primary) hypertension - Nicotine dependence, unspecified, uncomplicated - Other intermediate accountant (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 10/22/2024 20:19 [facility]ALD [place] TYPE: Emergency COMPLAINT: - BP PROBLEMS DIAGNOSES: - Allergy status to analgesic agent - Allergy status to narcotic agent - Allergy status to other drugs, medicaments and biological substances - Essential (primary) hypertension - Nicotine dependence, unspecified, uncomplicated - Other mcc (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 10/21/2024 17:[address] [facility] [address] [facility]A [place] TYPE: Emergency COMPLAINT: - FATIGUE DIAGNOSES: - Allergy status to narcotic agent - Allergy status to other drugs, medicaments and biological substances - Anxiety disorder, unspecified - Essential (primary) hypertension - Nicotine dependence, unspecified, uncomplicated - Other mcc (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 - Patient's noncompliance with other medical treatment and regimen due to unspecified reason 10/14/2024 20:51 EMERALD [place] TYPE: Emergency COMPLAINT: - MEDICATION ISSUES DIAGNOSES: - Allergy status to narcotic agent - Allergy status to other drugs, medicaments and biological substances - Anxiety disorder, unspecified - Essential (primary) hypertension - Nicotine dependence, unspecified, uncomplicated - Other mcc (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 10/11/2024 19:03 EMERALD [place] TYPE: Emergency COMPLAINT: - MEDICATION REFILL DIAGNOSES: - Adverse effect of other antipsychotics and neuroleptics, initial encounter - Allergy status to narcotic agent - Allergy status to other drugs, medicaments and biological substances - Essential (primary) hypertension - Generalized anxiety disorder - Nicotine dependence, unspecified, uncomplicated - Other intermediate accountant (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 Plus 5 More Visits INPATIENT VISIT TRACKING (12 MO.) No inpatient visits to display in this time frame [email or web address]
[2025-01-11 06:59] LABS: BASOPHILS 0.6 % (0.1-1.2); EOSINOPHILS 2.4 % (0.7-5.8); LYMPHOCYTES 27.3 % (19.3-51.7); MCH 30.4 PG (25.6-32.2); MCHC 34.5 g/dL (32.2-35.5); MCV 88.1 fL (79.4-94.8); MONOCYTES 10.0 % (4.7-12.5); NEUTROPHILS 59.2 % (34.0-71.1); RBC 5.73 M/uL (3.93-5.22)
[2025-01-11] MEDS ORDERED: LORazepam 2 MG/ML VIAL IV ONE (07:00)
[2025-01-11 07:16] LABS: ALT (SGPT) 44.0 U/L (14-59); AST (SGOT) 25.0 U/L (15-37); GLOMERULAR FILTRATION RATE,EST 71.0 mL/min (>60); PROTEIN, TOTAL 7.5 g/dL (6.4-8.2); UREA NITROGEN 23.0 mg/dL (7-18)
[2025-01-11] MEDS ORDERED: LORazepam 1 MG HOME.PACK PO ONE (07:30)
[2025-01-11 07:55] VITALS: BP 153/89
[2025-01-11] MEDS ORDERED: LORAZEPAM0.5 MG PO (18:38)
== END 2025-01-11 08:04 | disposition home or self-care (01) ==
LOC: ED 06:42
PROVIDERS: Family Medicine
DX: F41.9 Anxiety disorder, unspecified (principal); I10 Essential (primary) hypertension; F17.200 Nicotine dependence, unspecified, uncomplicated; Z88.5 Allergy status to narcotic agent; Z88.8 Allergy status to other drugs, medicaments and biological substances; Z79.899 Other long term (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
CPT/HCPCS: 36415; 71045; 80053; 83735; 85025; 96374; 99285-25; J2060

== ENCOUNTER 2025-01-11 18:10 | Emergency (ER) | payer MEDICARE, OTHER ==
[~2025-01-11] VITALS: Ht 165.1 cm; Wt 62.1 kg
--- OUTSIDE RECORDS SUMMARY | 2025-01-11 18:18 | XMS ---
PreManage Notification: [place] Security Kitchenwhere Maker Events No recent Security Events currently on file CRITERIA MET - 6 ED Visits in 6 Months - Group Notification - [facility] - 2 Visits in [address] [facility]/Center: [facility] Current FAMILY PHONE: [phone] Helen Arce Physician Apparel Designer Current FAZAL PHONE: [phone] Kate has no Care Guidelines for this patient. EBonnie VISIT COUNT (12 MO.) [address] [place] [address] TOTAL 26 NOTE: Visits indicate total known visits. ED/UCC VISIT TRACKING (12 MO.) 01/11/2025 18:11 EMERALD [place] TYPE: Emergency COMPLAINT: - BP CHECK 01/11/2025 06:43 EMERALD [place] TYPE: Emergency COMPLAINT: - SHORTNESS OF BREATH 12/24/2024 09:06 EMERALD [place] TYPE: Emergency COMPLAINT: - EAR PAIN 12/20/2024 09:04 EMERALD [place] TYPE: Emergency COMPLAINT: - WEAKNESS DIAGNOSES: - Allergy status to narcotic agent - Allergy status to other drugs, medicaments and biological substances - Anxiety disorder, unspecified - Essential (primary) hypertension - Nicotine dependence, unspecified, uncomplicated - Other long chain quiller tender (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 12/04/2024 22:55 EMERALD Arvizu [...] unspecified, uncomplicated - Other fatigue - Other long chain quiller tender (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 12/02/2024 08:44 EMERALD Arvizu [...] - Other halfway (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 - Shortness of breath 11/19/2024 09:22 EMERALD [place] TYPE: Emergency COMPLAINT: - ANXIETY DIAGNOSES: - Allergy status to other drugs, medicaments and biological substances - Anxiety disorder, unspecified - Essential (primary) hypertension - terminal worker (current) use of antibiotics - Nicotine dependence, unspecified, uncomplicated 11/15/2024 08:57 EMERALD [place] TYPE: Emergency COMPLAINT: - WEAKNESS DIAGNOSES: - Allergy status to other antibiotic agents - Allergy status to other drugs, medicaments and biological substances - Anxiety disorder, unspecified - Elevated blood-pressure reading, without diagnosis of hypertension - Essential (primary) hypertension - terminal worker (current) use of inhibitors of nucleotide synthesis - Nicotine dependence, unspecified, uncomplicated 11/10/2024 00:58 EMERALD [place] TYPE: Emergency COMPLAINT: - ANXIETY DIAGNOSES: - Allergy status to narcotic agent - Allergy status to other drugs, medicaments and biological substances - Anxiety disorder, unspecified - Essential (primary) hypertension - Nicotine dependence, unspecified, uncomplicated - Other long chain quiller tender (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 11/06/2024 15:41 EMERALD [place] TYPE: Emergency COMPLAINT: - BP CHECK 11/05/2024 15:44 EMERALD [place] TYPE: Emergency COMPLAINT: - ANXIETY DIAGNOSES: - Allergy status to narcotic agent - Allergy status to other drugs, medicaments and biological substances - Anxiety disorder, unspecified - Essential (primary) hypertension - Nicotine dependence, unspecified, uncomplicated - Other long chain quiller tender (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 11/02/2024 06:[address] [facility] [place]leen [place] TYPE: Emergency COMPLAINT: - WEAKNESS DIAGNOSES: - Allergy status to analgesic agent - Allergy status to other drugs, medicaments and biological substances - Anxiety disorder, unspecified - Dizziness and giddiness - Essential (primary) hypertension - Nicotine dependence, unspecified, uncomplicated - Other halfway (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 - Pain in left arm 10/30/2024 07:23 [facility] [place] [place] TYPE: Emergency COMPLAINT: - WEAKNESS DIAGNOSES: - Allergy status to narcotic agent - Allergy status to other drugs, medicaments and biological substances - Anxiety disorder, unspecified - Essential (primary) hypertension - Nicotine dependence, unspecified, uncomplicated - Other fatigue - Other long chain quiller tender (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 - Weakness 10/28/2024 17:15 EMERALD [facility] [facility] [place] TYPE: Emergency [...] Nicotine dependence, unspecified, uncomplicated - Other long chain quiller tender (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 10/23/2024 19:19 EMERALD [place] TYPE: Emergency COMPLAINT: - BP PROBLEM DIAGNOSES: - Allergy status to narcotic agent - Allergy status to other drugs, medicaments and biological substances - Anxiety disorder, unspecified - Essential (primary) hypertension - Nicotine dependence, unspecified, uncomplicated - Other halfway (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 10/22/2024 20:19 EMERALD [place] TYPE: Emergency COMPLAINT: - BP PROBLEMS DIAGNOSES: - Allergy status to analgesic agent - Allergy status to narcotic agent - Allergy status to other drugs, medicaments and biological substances - Essential (primary) hypertension - Nicotine dependence, unspecified, uncomplicated - Other halfway (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 10/21/2024 17:[address] [facility] [place] TYPE: Emergency COMPLAINT: - FATIGUE DIAGNOSES: - Allergy status to narcotic agent - Allergy status to other drugs, medicaments and biological substances - Anxiety disorder, unspecified - Essential (primary) hypertension - Nicotine dependence, unspecified, uncomplicated - Other long chain quiller tender (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 - Patient's noncompliance with other medical treatment and regimen due to unspecified reason 10/14/2024 20:51 EMERALD [place] TYPE: Emergency COMPLAINT: - MEDICATION ISSUES DIAGNOSES: - Allergy status to narcotic agent - Allergy status to other drugs, medicaments and biological substances - Anxiety disorder, unspecified - Essential (primary) hypertension - Nicotine dependence, unspecified, uncomplicated - Other halfway (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 Plus 6 More Visits INPATIENT VISIT TRACKING (12 MO.) No inpatient visits to display in this time frame [email or web address]
[2025-01-11] MEDS ORDERED: LORAZEPAM0.5 MG PO (18:38)
[2025-01-11 20:02] VITALS: BP 177/91
== END 2025-01-11 20:07 | disposition home or self-care (01) ==
LOC: ED 18:10
DX: I10 Essential (primary) hypertension (principal); F17.200 Nicotine dependence, unspecified, uncomplicated; Z88.8 Allergy status to other drugs, medicaments and biological substances; Z79.899 Other long term (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
CPT/HCPCS: 99283

== ENCOUNTER 2025-01-12 20:28 | Emergency (ER) | payer MEDICARE, OTHER ==
[~2025-01-12] VITALS: Ht 165.1 cm; Wt 62.1 kg
[~2025-01-12 20:28] MED LIST changes: +LORAZEPAM0.5 MG PO
--- OUTSIDE RECORDS SUMMARY | 2025-01-12 20:35 | XMS ---
PreManage Notification: VAL FAUST Security Broadcast Transmitter Operator Events No recent Security Events currently on file CRITERIA MET - 6 ED Visits in 6 Months - Group Notification - [facility] - 2 Visits in 30 Days CARE PROVIDERS [facility]/Center: [facility] Current FAMILY PHONE: [phone] Helen Arce Physician Golf Course Designer Current FAZAL PHONE: [phone] Kate has no Care Guidelines for this patient. EBonnie VISIT COUNT (12 MO.) [address] [place] [address] TOTAL 27 NOTE: Visits indicate total known visits. ED/UCC VISIT TRACKING (12 MO.) 01/12/2025 20:29 [facility]ALD [facility] [place] TYPE: Emergency COMPLAINT: - MEDS ISSUE 01/11/2025 18:11 [facility] [place] TYPE: Emergency [...] Nicotine dependence, unspecified, uncomplicated - Other terminal operations manager (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 12/04/2024 22:55 EMERALD Arvizu [...] uncomplicated - Other fatigue - Other terminal operations manager (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 12/02/2024 08:44 EMERALD ResendizDarleen Adamson [place] TYPE: Emergency COMPLAINT: - ANXIETY 11/23/2024 10:47 EM[facility]D [place] HDarleen Adams[place] TYPE: Emergency COMPLAINT: - DIFFICULTY BREATHING DIAGNOSES: - Allergy status to narcotic agent - Allergy status to other drugs, medicaments and biological substances - Anxiety disorder, unspecified - Essential (primary) hypertension - Gastro-esophageal reflux disease without esophagitis - Nicotine dependence, unspecified, uncomplicated - Other terminal operations manager (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 - Shortness of breath 11/19/2024 09:22 EMERALD [place] TYPE: Emergency COMPLAINT: - ANXIETY DIAGNOSES: - Allergy status to other drugs, medicaments and biological substances - Anxiety disorder, unspecified - Essential (primary) hypertension - technician terminal and repeater (current) use of antibiotics - Nicotine dependence, unspecified, uncomplicated 11/15/2024 08:57 EM[facility]ALD [facility]izu [place] TYPE: Emergency COMPLAINT: - WEAKNESS DIAGNOSES: - Allergy status to other antibiotic agents - Allergy status to other drugs, medicaments and biological substances - Anxiety disorder, unspecified - Elevated blood-pressure reading, without diagnosis of hypertension - Essential (primary) hypertension - [facility] (current) use of inhibitors of nucleotide synthesis - Nicotine dependence, unspecified, uncomplicated 11/10/2024 00:58 EMERALD [facility]iz[facility] [place] TYPE: Emergency COMPLAINT: - ANXIETY DIAGNOSES: - Allergy status to narcotic agent - Allergy status to other drugs, medicaments and biological substances - Anxiety disorder, unspecified - Essential (primary) hypertension - Nicotine dependence, unspecified, uncomplicated - Other terminal operations manager (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 11/06/2024 15:41 EMERALD Arvizu [place] TYPE: Emergency COMPLAINT: - BP CHECK 11/05/2024 15:44 EMERALD Arvizu [place] TYPE: Emergency COMPLAINT: - ANXIETY DIAGNOSES: - Allergy status to narcotic agent - Allergy status to other drugs, medicaments and biological substances - Anxiety disorder, unspecified - Essential (primary) hypertension - Nicotine dependence, unspecified, uncomplicated - Other terminal operations manager (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 11/02/2024 06:50 EMERALD Ar[facility]izu [place] TYPE: Emergency COMPLAINT: - WEAKNESS DIAGNOSES: - Allergy status to analgesic agent - Allergy status to other drugs, medicaments and biological substances - Anxiety disorder, unspecified - Dizziness and giddiness - Essential (primary) hypertension - Nicotine dependence, unspecified, uncomplicated - Other terminal operations manager (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 - Pain in left arm 10/30/2024 07:23 EMERALD Arvizu [place] TYPE: Emergency COMPLAINT: - WEAKNESS DIAGNOSES: - Allergy status to narcotic agent - Allergy status to other drugs, medicaments and biological substances - Anxiety disorder, unspecified - Essential (primary) hypertension - Nicotine dependence, unspecified, uncomplicated - Other fatigue - Other terminal operations manager (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 - Weakness 10/28/2024 17:15 [...] Other specified anxiety disorders 10/24/2024 21:41 [facility] [place] Garfield Adamson [place] TYPE: Emergency COMPLAINT: - BLOOD PRESSURE ISSUES DIAGNOSES: - Anxiety disorder, unspecified - Essential (primary) hypertension - Nicotine dependence, unspecified, uncomplicated - Other m[facility] (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 10/23/2024 19:19 [facility] [place] TYPE: Emergency COMPLAINT: - BP PROBLEM DIAGNOSES: - Allergy status to narcotic agent - Allergy status to other drugs, medicaments and biological substances - Anxiety disorder, unspecified - Essential (primary) hypertension - Nicotine dependence, unspecified, uncomplicated - Other mcc (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 10/22/2024 20:19 [facility] [place] HDarleen Adamson [place] TYPE: Emergency COMPLAINT: - BP PROBLEMS DIAGNOSES: - Allergy status to analgesic agent - Allergy status to narcotic agent - Allergy status to other drugs, medicaments and biological substances - Essential (primary) hypertension - Nicotine dependence, unspecified, uncomplicated - Other mcc (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 10/21/2024 17:[address] [facility] [address] [place] TYPE: Emergency COMPLAINT: - FATIGUE DIAGNOSES: - Allergy status to narcotic agent - Allergy status to other drugs, medicaments and biological substances - Anxiety disorder, unspecified - Essential (primary) hypertension - Nicotine dependence, unspecified, uncomplicated - Other mcc (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 - Patient's noncompliance with other medical treatment and regimen due to unspecified reason Plus 7 More Visits INPATIENT VISIT TRACKING (12 MO.) No inpatient visits to display in this time frame [id number]
[2025-01-12 22:46] VITALS: BP 161/83
== END 2025-01-12 22:47 | disposition home or self-care (01) ==
LOC: ED 20:28
DX: F41.9 Anxiety disorder, unspecified (principal); I10 Essential (primary) hypertension; F17.200 Nicotine dependence, unspecified, uncomplicated; Z88.5 Allergy status to narcotic agent; Z88.8 Allergy status to other drugs, medicaments and biological substances; Z79.899 Other long term (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
CPT/HCPCS: 99283

== ENCOUNTER 2025-01-14 08:21 | Emergency (ER) | payer MEDICARE, OTHER ==
[~2025-01-14] VITALS: Ht 165.1 cm; Wt 61.0 kg
--- OUTSIDE RECORDS SUMMARY | 2025-01-14 08:26 | XMS ---
PreManage Notification: VAL FAUST Security Relations Coordinator Events No recent Security Events currently on file CRITERIA MET - 6 ED Visits in 6 Months - Group Notification - [facility] - 2 Visits in 30 Days CARE PROVIDERS [facility]/Center: [facility] Current FAMILY PHONE: [phone] Helen Arce Physician Port Traffic Manager Current FAZAL PHONE: [phone] Kate has no Care Guidelines for this patient. EBonnie VISIT COUNT (12 MO.) [address] [place] [address] TOTAL 28 NOTE: Visits indicate total known visits. ED/UCC VISIT TRACKING (12 MO.) 01/14/2025 08:22 EMERALD Arvizu [place] TYPE: Emergency COMPLAINT: - MEDICATION REACTION 01/12/2025 20:29 EMERALD Arvizu [place] TYPE: Emergency [...] - Nicotine dependence, unspecified, uncomplicated - Other sox analyst (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 12/04/2024 22:55 EMERALD Arvizu [...] unspecified, uncomplicated - Other fatigue - Other sox analyst (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 12/02/2024 08:44 EMERALD Arvizu [place] TYPE: Emergency COMPLAINT: - ANXIETY 11/23/2024 10:47 EMERALD Arvizu [place] TYPE: Emergency COMPLAINT: - DIFFICULTY BREATHING DIAGNOSES: - Allergy status to narcotic agent - Allergy status to other drugs, medicaments and biological substances - Anxiety disorder, unspecified - Essential (primary) hypertension - Gastro-esophageal reflux disease without esophagitis - Nicotine dependence, unspecified, uncomplicated - Other [facility] (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 - Shortness of breath 11/19/2024 09:22 EMERALD Arvizu [place] TYPE: Emergency COMPLAINT: - ANXIETY DIAGNOSES: - Allergy status to other drugs, medicaments and biological substances - Anxiety disorder, unspecified - Essential (primary) hypertension - director long term care (current) use of antibiotics - Nicotine dependence, unspecified, uncomplicated 11/15/2024 08:57 EMERALD Arvizu [place] TYPE: Emergency COMPLAINT: - WEAKNESS DIAGNOSES: - Allergy status to other antibiotic agents - Allergy status to other drugs, medicaments and biological substances - Anxiety disorder, unspecified - Elevated blood-pressure reading, without diagnosis of hypertension - Essential (primary) hypertension - director long term care (current) use of inhibitors of nucleotide synthesis - Nicotine dependence, unspecified, uncomplicated 11/10/2024 00:58 EMERALD Arvizu [place] TYPE: Emergency COMPLAINT: - ANXIETY DIAGNOSES: - Allergy status to narcotic agent - Allergy status to other drugs, medicaments and biological substances - Anxiety disorder, unspecified - Essential (primary) hypertension - Nicotine dependence, unspecified, uncomplicated - Other chcf (current) drug therapy 11/06/2024 15:41 EMERALD Arvizu [place] TYPE: Emergency COMPLAINT: - BP CHECK 11/05/2024 15:44 EMERALD Arvizu [place] TYPE: Emergency COMPLAINT: - ANXIETY DIAGNOSES: - Allergy status to narcotic agent - Allergy status to other drugs, medicaments and biological substances - Anxiety disorder, unspecified - Essential (primary) hypertension - Nicotine dependence, unspecified, uncomplicated - Other sox analyst (current) drug therapy 11/02/2024 06:50 EMERALD Arvizu [place] TYPE: Emergency COMPLAINT: - WEAKNESS DIAGNOSES: - Allergy status to analgesic agent - Allergy status to other drugs, medicaments and biological substances - Anxiety disorder, unspecified - Dizziness and giddiness - Essential (primary) hypertension - Nicotine dependence, unspecified, uncomplicated - Other sox analyst (current) drug therapy - Pain in left arm 10/30/2024 07:23 EMERALD Arvizu [place] TYPE: Emergency COMPLAINT: - WEAKNESS DIAGNOSES: - Allergy status to narcotic agent - Allergy status to other drugs, medicaments and biological substances - Anxiety disorder, unspecified - Essential (primary) hypertension - Nicotine dependence, unspecified, uncomplicated - Other fatigue - Other sox analyst (current) drug therapy - Weakness 10/28/2024 17:15 [place] TYPE: Emergency COMPLAINT: - BLOOD PRESSURE ISSUES, FATIGUE, EYES RED/SORE DIAGNOSES: - Allergy status to narcotic agent - Allergy status to other antibiotic agents - Allergy status to other drugs, medicaments and biological substances - Anxiety disorder, unspecified - Essential (primary) hypertension - Nicotine dependence, unspecified, uncomplicated - Other specified anxiety disorders 10/24/2024 21:[address] [facility] [place] HDarleen Adamson [place] TYPE: Emergency COMPLAINT: - BLOOD PRESSURE ISSUES DIAGNOSES: - Anxiety disorder, unspecified - Essential (primary) hypertension - Nicotine dependence, unspecified, uncomplicated - Other chcf (current) drug therapy 10/23/2024 19:[address] [facility] [place] HDarleen Adamson [place] TYPE: Emergency COMPLAINT: - BP PROBLEM DIAGNOSES: - Allergy status to narcotic agent - Allergy status to other drugs, medicaments and biological substances - Anxiety disorder, unspecified - Essential (primary) hypertension - Nicotine dependence, unspecified, uncomplicated - Other sox analyst (current) drug therapy 10/22/2024 20:[address] [facility] [address] [place] TYPE: Emergency COMPLAINT: - BP PROBLEMS DIAGNOSES: - Allergy status to analgesic agent - Allergy status to narcotic agent - Allergy status to other drugs, medicaments and biological substances - Essential (primary) hypertension - Nicotine dependence, unspecified, uncomplicated - Other ch[facility] (current) drug therapy Plus 8 More Visits INPATIENT VISIT TRACKING (12 MO.) No inpatient visits to display in this time frame [email or web address]
[2025-01-14 09:06] VITALS: BP 148/96
== END 2025-01-14 09:06 | disposition home or self-care (01) ==
LOC: ED 08:21
DX: F41.9 Anxiety disorder, unspecified (principal); I10 Essential (primary) hypertension; F17.200 Nicotine dependence, unspecified, uncomplicated; Z88.5 Allergy status to narcotic agent; Z88.8 Allergy status to other drugs, medicaments and biological substances; Z79.899 Other long term (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
CPT/HCPCS: 99283

== ENCOUNTER 2025-01-20 20:13 | Emergency (ER) | payer MEDICARE, OTHER ==
[~2025-01-20] VITALS: Ht 165.1 cm; Wt 63.0 kg
--- OUTSIDE RECORDS SUMMARY | 2025-01-20 20:19 | XMS ---
PreManage Notification: VAL FAUST Security Property Utilization Manager Events No recent Security Events currently on file CRITERIA MET - 6 ED Visits in 6 Months - Group Notification - [facility] - 2 Visits in 30 Days CARE PROVIDERS [facility]: [facility] Current FAMILY PHONE: [phone] Helen Arce Physician Licensed Guide Current FAZAL PHONE: [phone] Kate has no Care Guidelines for this patient. EBonnie VISIT COUNT (12 MO.) [address] [place] [address] TOTAL 29 NOTE: Visits indicate total known visits. ED/UCC VISIT TRACKING (12 MO.) 01/20/2025 20:13 EMERALD Arvizu [place] TYPE: Emergency COMPLAINT: - LIGHT HEADEDNESS 01/14/2025 08:22 EMERALD Arvizu [place] TYPE: Emergency COMPLAINT: - MEDICATION REACTION DIAGNOSES: - Allergy status to narcotic agent - Allergy status to other drugs, medicaments and biological substances - Anxiety disorder, unspecified - Essential (primary) hypertension - Nicotine dependence, unspecified, uncomplicated - Other superintendent container terminal (current) drug therapy 01/12/2025 20:29 EMERALD Arvizu [place] TYPE: Emergency COMPLAINT: - MEDS ISSUE DIAGNOSES: - Allergy status to narcotic agent - Allergy status to other drugs, medicaments and biological substances - Anxiety disorder, unspecified - Essential (primary) hypertension - Nicotine dependence, unspecified, uncomplicated - Other superintendent container terminal (current) drug therapy 01/11/2025 18:11 EMERALD Arvizu [place] TYPE: Emergency COMPLAINT: - BP CHECK DIAGNOSES: - Allergy status to other drugs, medicaments and biological substances - Essential (primary) hypertension - Nicotine dependence, unspecified, uncomplicated - Other assisted (current) drug therapy 01/11/2025 06:43 EMERALD Arvizu [place] TYPE: Emergency COMPLAINT: - SHORTNESS OF BREATH DIAGNOSES: - Allergy status to narcotic agent - Allergy status to other drugs, medicaments and biological substances - Anxiety disorder, unspecified - Essential (primary) hypertension - Nicotine dependence, unspecified, uncomplicated - Other assisted (current) drug therapy - Shortness of breath 12/24/2024 09:06 EMERALD Arvizu [place] TYPE: Emergency COMPLAINT: - EAR PAIN 12/20/2024 09:04 EMERALD Arvizu [place] TYPE: Emergency COMPLAINT: - WEAKNESS DIAGNOSES: - Allergy status to narcotic agent - Allergy status to other drugs, medicaments and biological substances - Anxiety disorder, unspecified - Essential (primary) hypertension - Nicotine dependence, unspecified, uncomplicated - Other superintendent container terminal (current) drug therapy 12/04/2024 22:55 EMERALD Arvizu [...] unspecified, uncomplicated - Other fatigue - Other assisted (current) drug therapy 12/02/2024 08:44 EMERALD Arvizu [place] TYPE: Emergency COMPLAINT: - ANXIETY 11/23/2024 10:47 EMERALD Arvizu [place] TYPE: Emergency COMPLAINT: - DIFFICULTY BREATHING DIAGNOSES: - Allergy status to narcotic agent - Allergy status to other drugs, medicaments and biological substances - Anxiety disorder, unspecified - Essential (primary) hypertension - Gastro-esophageal reflux disease without esophagitis - Nicotine dependence, unspecified, uncomplicated - Other superintendent container terminal (current) drug therapy - Shortness of breath 11/19/2024 09:22 EMERALD Arvizu [place] TYPE: Emergency COMPLAINT: - ANXIETY DIAGNOSES: - Allergy status to other drugs, medicaments and biological substances - Anxiety disorder, unspecified - Essential (primary) hypertension - emt intermediate (current) use of antibiotics - Nicotine dependence, unspecified, uncomplicated 11/15/2024 08:57 EMERALD Arvizu [place] TYPE: Emergency COMPLAINT: - WEAKNESS DIAGNOSES: - Allergy status to other antibiotic agents - Allergy status to other drugs, medicaments and biological substances - Anxiety disorder, unspecified - Elevated blood-pressure reading, without diagnosis of hypertension - Essential (primary) hypertension - emt intermediate (current) use of inhibitors of nucleotide synthesis - Nicotine dependence, unspecified, uncomplicated 11/10/2024 00:58 EMERALD Arvizu [place] TYPE: Emergency COMPLAINT: - ANXIETY DIAGNOSES: - Allergy status to narcotic agent - Allergy status to other drugs, medicaments and biological substances - Anxiety disorder, unspecified - Essential (primary) hypertension - Nicotine dependence, unspecified, uncomplicated - Other assisted (current) drug therapy 11/06/2024 15:41 EMERALD Arvizu [place] TYPE: Emergency COMPLAINT: - BP CHECK 11/05/2024 15:44 EMERALD Arvizu [place] TYPE: Emergency COMPLAINT: - ANXIETY DIAGNOSES: - Allergy status to narcotic agent - Allergy status to other drugs, medicaments and biological substances - Anxiety disorder, unspecified - Essential (primary) hypertension - Nicotine dependence, unspecified, uncomplicated - Other superintendent container terminal (current) drug therapy 11/02/2024 06:50 EMERALD Arvizu [place] TYPE: Emergency COMPLAINT: - WEAKNESS DIAGNOSES: - Allergy status to analgesic agent - Allergy status to other drugs, medicaments and biological substances - Anxiety disorder, unspecified - Dizziness and giddiness - Essential (primary) hypertension - Nicotine dependence, unspecified, uncomplicated - Other assisted (current) drug therapy - Pain in left arm 10/30/2024 07:23 EMERALD Arvizu [place] TYPE: Emergency COMPLAINT: - WEAKNESS DIAGNOSES: - Allergy status to narcotic agent - Allergy status to other drugs, medicaments and biological substances - Anxiety disorder, unspecified - Essential (primary) hypertension - Nicotine dependence, unspecified, uncomplicated - Other fatigue - Other assisted (current) drug therapy - Weakness 10/28/2024 17:15 [...] - Nicotine dependence, unspecified, uncomplicated - Other assisted (current) drug therapy 10/23/2024 19:19 EMERALD Arvizu [place] TYPE: Emergency COMPLAINT: - BP PROBLEM DIAGNOSES: - Allergy status to narcotic agent - Allergy status to other drugs, medicaments and biological substances - Anxiety disorder, unspecified - Essential (primary) hypertension - Nicotine dependence, unspecified, uncomplicated - Other assisted (current) drug therapy Plus 9 More Visits INPATIENT VISIT TRACKING (12 MO.) No inpatient visits to display in this time frame [id number]
[2025-01-20] MEDS ORDERED: LOSARTAN POTASSIUM 25 MG TAB PO ONE (22:00)
[2025-01-20 23:33] VITALS: BP 153/93
== END 2025-01-20 23:33 | disposition home or self-care (01) ==
LOC: ED 20:13
DX: F41.1 Generalized anxiety disorder (principal); I10 Essential (primary) hypertension; F17.200 Nicotine dependence, unspecified, uncomplicated; Z88.5 Allergy status to narcotic agent; Z88.8 Allergy status to other drugs, medicaments and biological substances; Z79.899 Other long term (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
CPT/HCPCS: 99283

== ENCOUNTER 2025-01-26 18:11 | Emergency (ER) | payer MEDICARE, OTHER ==
[~2025-01-26] VITALS: Ht 165.1 cm; Wt 63.0 kg
--- OUTSIDE RECORDS SUMMARY | ~2025-01-26 | XMS | Continuity of Care Document ---
Demographics + + + | Address | [address] | | | [place] [address] | + + + | Preferred Language | Unknown | + + + | Marital Status | | + + + | Protestant Affiliation | Unknown | + + + | Race | White | + + + | Ethnic Group | or | + + + Author + + + | Author | [facility] | + + + | Organization | [facility] | + + + | Address | [address] | | | [place] [address] | + + + | Phone | | + + + Care Team Providers + + + + | Care Respiratory Therapist Name | Role | Phone | + [...] + + + + + + | 2024-10-30 | Acetaminophen | [facility] - | Nausea [...] + + + + + + | 2024-10-30 | Lisinopril | [facility] - | (no [...] + + + + + + | 2024-10-30 | Acetaminophen | [facility] | Nausea and | Moderate | | 00:00 | [facility] | | | + + + + + + | 2024-11-15 | Acetaminophen | [facility] - | Nausea and | Moderate | | 00:00 | | [facility] | | | + + + + + + | 2024-10-30 | Hydrocodone | [facility] - | Nausea and | Moderate | | 00:00 | | [facility] | | | + + + + + + | 2024-11-15 | Hydrocodone | [facility] - | Nausea and | Moderate | | 00:00 | | [facility] | | | | | [...] + + + + + + | 2024-10-30 | Lisinopril | [facility] - | (no [...] + + + + + + | 2024-10-30 | Acetaminophen | [facility] - | Nausea and | Moderate | | 00:00 | | [facility] | | | + + + + + + | 2024-11-15 | Acetaminophen | [facility] - | Nausea and | Moderate | | 00:00 | | [facility] | | | + + + + + + | 2024-10-30 | Hydrocodone | [facility] - | Nausea and | Moderate | | 00:00 | | [facility] | | | + + + + + + | 2024-11-15 | Hydrocodone | [facility] - | Nausea and | Moderate | | 00:00 | | [facility] | | | | | [...] + + + + + + | 2024-10-30 | Hydrocodone | [facility] - | Nausea and | Moderate | | 00:00 | | [facility] | | | + + + + + + | 2024-11-15 | Hydrocodone | [facility] - | Nausea and | Moderate | | 00:00 | | [facility] | vomiting | | | | | [...] + + + + + + | 2024-10-30 | Lisinopril | [facility] - | (no [...] + + + + + + | 2024-10-30 | UNK | [facility] - | (no reaction) | (no severity) | | 00:00 | | [facility] | | | + + + + + + | 2024-11-15 | UNK | [facility] - | (no reaction) | (no severity) | | 00:00 | | [facility] | | | + + + + + + Encounters No information. Functional Status No information. Immunizations No information. Medications + + + + | date | description | facility | + + + + | (no date) | OXYCODONE | [facility] | | | HCL/ACETAMINOPHEN | [facility] | + + + + | (no date) | OXYCODONE | [facility] | | | HCL/ACETAMINOPHEN | [facility] | + + + + | (no date) | OXYCODONE | [facility] | | | HCL/ACETAMINOPHEN | [facility] | + + + + | (no date) | OXYCODONE | [facility] | | | HCL/ACETAMINOPHEN | [facility] | + + + + | (no date) | OXYCODONE | [facility] | | | HCL/ACETAMINOPHEN | [facility] | + + + + | (no date) | OXYCODONE | [facility] | | | HCL/ACETAMINOPHEN | [facility] | + + + + | (no date) | OXYCODONE | [facility] | | | HCL/ACETAMINOPHEN | [facility] | + + + + | 2024-10-30 00:00 | QUETIAPINE FUMARATE | [facility] | | | | [facility] | + + + + | 2024-10-30 00:00 | QUETIAPINE FUMARATE | [facility] | | | | [facility] | + + + + | 2024-10-30 00:00 | QU[facility]APINE FUMARATE | [facility] | | | [facility] | + + + + | 2024-10-30 00:00 | QUETIAPINE FUMARATE | [facility] | | | [facility] | + + + + | 2024-10-30 00:00 | QUETIAPINE FUMARATE | [facility] | | | [facility] | + + + + | 2024-10-30 00:00 | QUETIAPINE FUMARATE | [facility] | | | [facility] | + + + + | 2024-10-30 00:00 | QUETIAPINE FUMARATE | [facility] | | | | [facility] | + + + + | (no date) | LORAZEPAM | [facility] | | | | [facility] | + + + + | (no date) | LORAZEPAM | [facility] | | | [facility] | + + + + | (no date) | LORAZEPAM | [facility] | | | | [facility] | + + + + | (no date) | LORAZEPAM | [facility] | | | [facility] | + + + + | (no date) | LORAZEPAM | [facility] | | | | [facility] | + + + + | (no date) | LORAZEPAM | [facility] | | | | [facility] | + + + + | (no date) | LORAZEPAM | [facility] | | | | [facility] | + + + + | (no date) | LORAZEPAM | [facility] | | | | [facility] | + + + + | (no date) | LORAZEPAM | [facility] | | | | [facility] | + + + + | (no date) | LORAZEPAM | [facility] | | | | [facility] | + + + + | (no date) | CARVEDILOL | [facility] | | | | [facility] | + + + + | (no date) | CARVEDILOL | [facility] | | | [facility] | + + + + | (no date) | CARVEDILOL | [facility] | | | [facility] | + + + + | (no date) | CARVEDILOL | [facility] | | | [facility] | + + + + | (no date) | CARVEDILOL | [facility] | | | | [facility] | + + + + | (no date) | CARVEDILOL | [facility] | | | | [facility] | + + + + | (no date) | CARVEDILOL | [facility] | | | [facility] | + + + + | (no date) | ALPRAZOLAM | [facility] | | | [facility] | + + + + | (no date) | ALPRAZOLAM | [facility] | | | | [facility] | + + + + | (no date) | ALPRAZOLAM | [facility] | | | | [facility] | + + + + | (no date) | ALPRAZOLAM | [facility] | | | [facility] | + + + + | (no date) | ALPRAZOLAM | [facility] | | | | [facility] | + + + + | (no date) | ALPRAZOLAM | [facility] | | | [facility] | + + + + | (no date) | AMLODIPINE BESYLATE | [facility] | | | [facility] | + + + + | (no date) | AMLODIPINE BESYLATE | [facility] | | | | [facility] | + + + + | (no date) | AMLODIPINE BESYLATE | [facility] | | | | [facility] | + + + + | (no date) | AMLODIPINE BESYLATE | [facility] | | | [facility] | + + + + | (no date) | AMLODIPINE BESYLATE | [facility] | | | | [facility] | + + + + | (no date) | AMLODIPINE BESYLATE | [facility] | | | | [facility] | + + + + | (no date) | AMLODIPINE BESYLATE | [facility] | | | | [facility] | + + + + | (no date) | SPIRONOLACTONE | [facility] | | | | [facility] | + + + + | (no date) | SPIRONOLACTONE | [facility] | | | | [facility] | + + + + | (no date) | SPIRONOLACTONE | [facility] | | | [facility] | + + + + | (no date) | SPIRONOLACTONE | [facility] | | | [facility] | + + + + | (no date) | SPIRONOLACTONE | [facility] | | | | [facility] | + + + + | (no date) | SPIRONOLACTONE | [facility] | | | | [facility] | + + + + | (no date) | SPIRONOLACTONE | [facility] | | | | [facility] | + + + + | (no date) | ESCITALOPRAM OXALATE | [facility] | | | | [facility] | + + + + | (no date) | ESCITALOPRAM OXALATE | [facility] | | | | [facility] | + + + + | (no date) | ESCITALOPRAM OXALATE | [facility] | | | | [facility] | + + + + | (no date) | ESCITALOPRAM OXALATE | [facility] | + + + + | (no date) | ESCITALOPRAM OXALATE | [facility] | | | | [facility] | + + + + | (no date) | ESCITALOPRAM OXALATE | [facility] | | | | [facility] | + + + + | (no date) | ESCITALOPRAM OXALATE | [facility] | | | | [facility] | + + + + | 2024-12-05 00:00 | ZOLPIDEM TARTRATE | [facility] | | | | [facility] | + + + + | 2024-12-05 00:00 | ZOLPIDEM TARTRATE | [facility] | | | | [facility] | + + + + | 2024-12-05 00:00 | ZOLPIDEM TARTRATE | [facility] | | | | [facility] | + + + + | 2024-12-05 00:00 | ZOLPIDEM TARTRATE | [facility] | | | | [facility] | + + + + | 2024-12-05 00:00 | ZOLPIDEM TARTRATE | [facility] | | | | [facility] | + + + + | (no date) | METOPROLOL SUCCINATE | [facility] | | | [facility] | + + + + | (no date) | METOPROLOL SUCCINATE | [facility] | | | | [facility] | + + + + | (no date) | METOPROLOL SUCCINATE | [facility] | | | | [facility] | + + + + | (no date) | METOPROLOL SUCCINATE | [facility] | | | | [facility] | + + + + | (no date) | METOPROLOL SUCCINATE | [facility] | | | | [facility] | + + + + | (no date) | METOPROLOL SUCCINATE | [facility] | | | | [facility] | + + + + | (no date) | METOPROLOL SUCCINATE | [facility] | | | [facility] | + + + + | (no date) | CLONIDINE HCL | [facility] | | | | [facility] | + + + + | (no date) | CLONIDINE HCL | [facility] | | | | [facility] | + + + + | (no date) | CLONIDINE HCL | [facility] | | | | [facility] | + + + + | (no date) | CLONIDINE HCL | [facility] | | | | [facility] | + + + + | (no date) | CLONIDINE HCL | [facility] | | | | [facility] | + + + + | (no date) | CLONIDINE HCL | [facility] | | | | [facility] | + + + + | (no date) | CLONIDINE HCL | [facility] | | | | [facility] | + + + + | (no date) | LOSARTAN POTASSIUM | [facility] | | | | [facility] | + + + + | (no date) | LOSARTAN POTASSIUM | [facility] | | | | [facility] | + + + + | (no date) | LOSARTAN POTASSIUM | [facility] | | | | [facility] | + + + + | (no date) | LOSARTAN POTASSIUM | [facility] | | | | [facility] | + + + + | (no date) | LOSARTAN POTASSIUM | [facility] | | | | [facility] | + + + + | (no date) | LOSARTAN POTASSIUM | [facility] | | | | [facility] | + + + + | (no date) | LOSARTAN POTASSIUM | [facility] | | | | [facility] | + + + + | (no date) | HYDROXYZINE HCL | [facility] | | | | [facility] | + + + + | (no date) | HYDROXYZINE HCL | [facility] | | | | [facility] | + + + + | (no date) | HYDROXYZINE HCL | [facility] | | | | [facility] | + + + + | (no date) | HYDROXYZINE HCL | [facility] | | | | [facility] | + + + + | (no date) | HYDROXYZINE HCL | [facility] | | | | [facility] | + + + + | (no date) | HYDROXYZINE HCL | [facility] | | | | [facility] | + + + + | (no date) | HYDROXYZINE HCL | [facility] | | | | [facility] | + + + + | (no date) | hydrOXYzine HCL | [facility] | | | | [facility] | + + + + | (no date) | hydrOXYzine HCL | [facility] | | | | [facility] | + + + + | (no date) | hydrOXYzine HCL | [facility] | | | | [facility] | + + + + | (no date) | hydrOXYzine HCL | [facility] | | | | [facility] | + + + + | (no date) | hydrOXYzine HCL | [facility] | | | | [facility] | + + + + | (no [...] + | (no date) | CLONIDINE | [facility] | | | | [facility] | + + + + | 2024-11-10 00:00 | Clonidine [facility] | + + + + | 2024-11-10 00:00 | Clonidine | [facility] | + + + + | 2024-11-05 00:00 | CLONIDINE | [facility] | + + + + | 2024-11-05 00:00 | CLONIDINE | [facility] | | | | [facility] | + + + + | 2024-11-05 00:00 | [facility]ONIDINE | [facility] | [facility] | + + + + | 2024-11-05 00:00 | CLONIDINE | [facility] | | | | [facility] | + + + + | 2024-11-05 00:00 | CLONIDINE | [facility] | | | | [facility] | + + + + | 2024-11-05 00:00 | CLONIDINE | [facility] | | | | [facility] | + + + + | 2024-11-05 00:00 | CLONIDINE | [facility] | | | | [facility] | + + + + Problems + + + + | date | description | facility | + + + + | 2024-10-28 00:00 | Depression | [facility] | | | | [facility] | + + + + | 2024-10-28 00:00 | Depression | [facility] | | | | [facility] | + + + + | 2024-10-28 00:00 | Depression | [facility] | | | | [facility] | + + + + | 2024-10-28 00:00 | Depression | [facility] | | | | [facility] | + + + + | 2024-10-28 00:00 | Depression | [facility] | | | | [facility] | + + + + | 2024-10-28 00:00 | Depression | [facility] | | [facility] | [facility] | + + + + | 2024-10-28 00:00 | Depression | [facility] | | | | [facility] | + + + + | 2024-10-28 00:00 | Anxiety about health | [facility] | | | | [facility] | + + + + | 2024-10-28 00:00 | Anxiety about health | [facility] | | | | [facility] | + + + + | 2024-10-28 00:00 | Anxiety about health | [facility] | | | | [facility] | + + + + | 2024-10-28 00:00 | Anxiety about health | [facility] | | | | [facility] | + + + + | 2024-10-28 00:00 | Anxiety about health | [facility] | | | | [facility] | + + + + | 2024-10-28 00:00 | Anxiety about health | [facility] | | | | [facility] | + + + + | 2024-10-28 00:00 | [facility] about health [facility] | [facility] | + + + + | 2024-10-30 00:00 | Fatigue | [facility] | | | | [facility] | + + + + | 2024-10-30 00:00 | Fatigue | [facility] | | | | [facility] | + + + + | 2024-10-30 00:00 | Fatigue | [facility] | | | | [facility] | + + + + | 2024-10-30 00:00 | Fatigue | [facility] | | | | [facility] | + + + + | 2024-10-30 00:00 | Fatigue | [facility] | + + + + | 2024-10-30 00:00 | Fatigue | [facility] | | | | [facility] | + + + + | 2024-10-30 00:00 | Fatigue | [facility] | | | | [facility] | + + + + | 2024-11-02 00:00 | Dizziness | [facility] | | | | [facility] | + + + + | 2024-11-02 00:00 | Dizziness | [facility] | | | | [facility] | + + + + | 2024-11-02 00:00 | Dizziness | [facility] | | | | [facility] | + + + + | 2024-11-02 00:00 | Dizziness | [facility] | | | | [facility] | + + + + | 2024-11-02 00:00 | Dizziness | [facility] | | | | [facility] | + + + + | 2024-11-02 00:00 | Dizziness | [facility] | | | | [facility] | + + + + | 2024-11-02 00:00 | Dizziness | [facility] | | | | [facility] | + + + + | 2024-11-15 00:00 | Elevated blood pressure | [facility] | | | reading | [facility] | + + + + | 2024-11-15 00:00 | Elevated blood pressure | [facility] | | | reading | [facility] | + + + + | 2024-11-15 00:00 | Elevated blood pressure | [facility] | | | reading | [facility] | + + + + | 2024-11-15 00:00 | Elevated blood pressure | [facility] | | | reading | [facility] | + + + + | 2024-11-15 00:00 | Elevated blood pressure | [facility] | | | reading | [facility] | + + + + | 2024-11-15 00:00 | Elevated blood pressure | [facility] | | | reading | [facility] | + + + + | 2024-11-15 00:00 | Elevated blood pressure | [facility] | | | reading | [facility] | + + + + | 2024-11-19 00:00 | Acute anxiety | [facility] | | | | [facility] | + + + + | 2024-11-19 00:00 | Acute anxiety | [facility] | | | [facility] | + + + + | 2024-11-19 00:00 | Acute anxiety | [facility] | | | | [facility] | + + + + | 2024-11-19 00:00 | Acute anxiety | [facility] | | | | [facility] | + + + + | 2024-11-19 00:00 | Acute anxiety | [facility] | | | | [facility] | + + + + | 2024-11-19 00:00 | Acute anxiety | [facility] | | | | [facility] | + + + + | 2024-12-02 00:00 | Anxiety and depression | [facility] | | | | [facility] | + + + + | 2024-12-02 00:00 | Anxiety and depression | [facility] | | | | [facility] | + + + + | 2024-12-02 00:00 | Anxiety and depression | [facility] | | | | [facility] | + + + + | 2024-12-02 00:00 | Anxiety and depression | [facility] | | | | [facility] | + + + + | 2024-12-02 00:00 | Anxiety and depression | [facility] | | | | [facility] | + + + + | 2024-12-02 00:00 | Anxiety and depression | [facility] | | | | [facility] | + + + + | 2024-12-05 00:00 | Side effect of medication | [facility] | | | | [facility] | + + + + | 2024-12-05 00:00 | Side effect of medication | [facility] | | | | [facility] | + + + + | 2024-12-05 00:00 | Side effect of medication | [facility] | | | | [facility] | + + + + | 2024-12-05 00:00 | Side effect of medication | [facility] | | | | [facility] | + + + + | 2024-12-05 00:00 | Side effect of medication | [facility] | | | | [facility] | + + + + Procedures No information. Results/Labs +--------+--------+ +---------+--------+---------+ | test | date | facility | value | unit | notes | +--------+--------+ +---------+--------+---------+ + + | Result panel 1 | + + + + + + + + + | Color Ur | 2024-10-30 | | YELLOW | (missing) | (missing) | | Auto | 09:24:07 | [facility] | [facility] | | | | + + + + + + + + + | Result panel 2 | + + + + + +---------+ + + | Character | 2024-10-30 | | CLEAR | (missing) | (missing) | | Ur | :: | [facility] | | | | + + + +---------+ + + + + | Result panel 3 | + + + + + + + + + | Glucose Ur | 2024-10-30 | | NEGATIVE | (missing) | (missing) | | Ql Strip | 09:24:07 | [facility] | [facility] | | | | + + + + + + + + + | Result panel 4 | + + + + + + + + + | Bilirub Ur | 2024-10-30 | | NEGATIVE | (missing) | (missing) | | Ql Strip | 09:24:07 | [facility] | | | | + + + + + + + + + | Result panel 5 | + + + + + + + + + | Keith Ur | 2024-10-30 | | NEGATIVE | (missing) | (missing) | | Ql Strip | 09:24:07 | [facility] | | | | + + + + + + + + + | Result panel 6 | + + + + + +---------+ + + | Sp Morteza Lowe | 2024-10-30 | | 1.010 | (missing) | (missing) | | Strip | 09:24:07 | [facility] | | | | + + + +---------+ + + + + | Result panel 7 | + + + + + + + + + | Hgb Ur Ql | 2024-10-30 | | NEGATIVE | (missing) | (missing) | | Strip | 09:24:07 | [facility] | | | | + + + + + + + + + | Result panel 8 | + + + + + +-------+ + + | pH Ur Strip | 2024-10-30 | | 6.0 | (missing) | (missing) | | | 09:24:07 | [facility] | | | | + + + +-------+ + + + + | Result panel 9 | + + + + + + + + + | Prot Ur | 2024-10-30 | | NEGATIVE | (missing) | (missing) | | Strip-Júnior | 09:24:07 | [facility] | | | | + + + + + + + + + | Result panel 10 | + + + + + + + + + | | 2024-10-30 | | NORMAL | (missing) | (missing) | | Urobilinogen | 09:24:07 | [facility] | | | | | Ur | [facility] | | Aj | | | | | | | Hospital | | | | + + + + + + + + + | Result panel 11 | + + + + + + + + + | Nitrite Ur | 2024-10-30 | | NEGATIVE | (missing) | (missing) | | Ql Strip | 09:24:07 | [facility] | | | | | | [facility] | | | | | | | [facility] | | | | + + + + + + + + + | Result panel 12 | + + + + + + + + + | Leukocyte | 2024-10-30 | | NEGATIVE | (missing) | (missing) | | esterase Ur | :24: | [facility] | | | | | Ql Strip [facility] | [facility] | | | | + + + + + + + + + | Result panel 13 | + + + + + +-------+ + + | RBC #/area | 2024-10-30 | | 0-1 | (missing) | (missing) | | UrnS HPF | : | [facility] | | | | | | [facility] | | | | + + + +-------+ + + + + | Result panel 14 | + + + + + +-------+ + + | WBC #/area | 2024-10-30 | | 0-1 | (missing) | (missing) | | UrnS HPF | 09:24:07 | [facility] | [facility] | | | | + + + +-------+ + + + + | Result panel 15 | + + + + + + + + + | Epi Cells | 2024-10-30 | | SQUAMOUS 1+ | (missing) | (missing) | | #/area UrnS | :24:07 | [facility] | | | | | H[facility] | | | | | | [facility] | | | | + + + + + + + + + | Result panel 16 | + + + + + + + + + | Crystals | 2024-10-30 | | NONE SEEN | (missing) | (missing) | | UrnS Micro | 09:24:07 | [facility] | | | | | [facility] | | | | + + + + + + + + + | Result panel 17 | + + + + + +--------+ + + | Bacteria | 2024-10-30 | | RARE | (missing) | (missing) | | #/area UrnS | 09:24:07 | [facility] | | | | | [facility] | | | | | | [facility] | | | | + + + +--------+ + + + + | Result panel 18 | + + + + + + + + + | Casts | 2024-10-30 | | NONE SEEN | (missing) | (missing) | | #/area UrnS | 09:24:07 | [facility] | | | | | L[facility] | | | | | | [facility] | | | | + + + + + + + + + | Result panel 19 | + + + + + +------+ + + | Bacteria Ur | 2024-10-30 | | No | (missing) | (missing) | | Cult | :: | [facility] | | | | | [facility] | | | | + + + +------+ + + + + | Result panel 20 | + + + + + + + + + | Urn Spec | 2024-10-30 | | CLEAN CATCH | (missing) | (missing) | | Collect Meth | : | [facility] | | | | | Ur [facility] | | | | | | [facility] | | | | + + + + + + + + + | Result panel 21 | + + + + + + + + + | Color Ur | 2024-10-30 | | YELLOW | (missing) | (missing) | | Auto | 09:24:07 | [facility] | | | | | | [facility] | | | | + + + + + + + + + | Result panel 22 | + + + + + +---------+ + + | Character | 2024-10-30 | | CLEAR | (missing) | (missing) | | Ur | 09:24:07 | [facility] | [facility] | | | | + + + +---------+ + + + + | Result panel 23 | + + + + + + + + + | Glucose Ur | 2024-10-30 | | NEGATIVE | (missing) | (missing) | | Ql Strip | 09:24:07 | [facility] | [facility] | | | | [facility] | | | | + + + + + + + + + | Result panel 24 | + + + + + + + + + | Biledwinub Ur | 2024-10-30 | | NEGATIVE | (missing) | (missing) | | Ql Strip | :24:07 | [facility] | | | | | | [facility] | | | | + + + + + + + + + | Result panel 25 | + + + + + + + + + | Ketones Ur | 2024-10-30 | | NEGATIVE | (missing) | (missing) | | Ql Strip | 09:24:07 | [facility] | | | | | | | - | | | | | | | [facility] | | | | | | | [facility] | | | | + + + + + + + + + | Result panel 26 | + + + + + +---------+ + + | Sp Gr Ur | 2024-10-30 | | 1.010 | (missing) | (missing) | | Strip | 09:24:07 | [facility] | | | | | | | - | | | | | | | [facility] | | | | | | | [facility] | | | | + + + +---------+ + + + + | Result panel 27 | + + + + + + + + + | Hgb Ur Ql | 2024-10-30 | | NEGATIVE | (missing) | (missing) | | Strip | :24:07 | [facility] | | | | | | [facility] | | | | + + + + + + + + + | Result panel 28 | + + + + + +-------+ + + | pH Ur Strip | 2024-10-30 | | 6.0 | (missing) | (missing) | | | 09:24:07 | [facility] | [facility] | | [facility] | | | | + + + +-------+ + + + + | Result panel 29 | + + + + + + + + + | Prot Ur | 2024-10-30 | | NEGATIVE | (missing) | (missing) | | Strip-mCnc | 09:24:07 | [facility] | | | | | | [facility] | | | | + + + + + + + + + | Result panel 30 | + + + + + + + + + | | 2024-10-30 | | NORMAL | (missing) | (missing) | | Urobilinogen | :24:07 | [facility] | | | | | Ur | [facility] | | Aj | | | | | | | Hospital | | | | + + + + + + + + + | Result panel 31 | + + + + + + + + + | Nitrite Ur | 2024-10-30 | | NEGATIVE | (missing) | (missing) | | Ql Strip | :24:07 | [facility] | | | | | | [facility] | | | | + + + + + + + + + | Result panel 32 | + + + + + + + + + | Leukocyte | 2024-10-30 | | NEGATIVE | (missing) | (missing) | | esterase Ur | 09:24:07 | [facility] | | | | | Ql Strip [facility] | | | | | | [facility] | | | | + + + + + + + + + | Result panel 33 | + + + + + +-------+ + + | RBC #/area | 2024-10-30 | | 0-1 | (missing) | (missing) | | UrnS HPF | 09:24:07 | [facility] | | | | | | | - | | | | | | | [facility] | | | | | | | [facility] | | | | + + + +-------+ + + + + | Result panel 34 | + + + + + +-------+ + + | WBC #/area | 2024-10-30 | | 0-1 | (missing) | (missing) | | UrnS HPF | ::07 | [facility] | | | | | | [facility] | | | | + + + +-------+ + + + + | Result panel 35 | + + + + + + + + + | Epi Cells | 2024-10-30 | | SQUAMOUS 1+ | (missing) | (missing) | | #/area UrnS | :24: | [facility] | | | | | H[facility] | | | | | | | [facility] | | | | + + + + + + + + + | Result panel 36 | + + + + + + + + + | Crystals | 2024-10-30 | | NONE SEEN | (missing) | (missing) | | UrnS Micro | :24:07 | [facility] | | | | | | | [facility] | | | | + + + + + + + + + | Result panel 37 | + + + + + +--------+ + + | Bacteria | 2024-10-30 | | RARE | (missing) | (missing) | | #/area UrnS | 09:24:07 | [facility] | | | | | [facility] | | | | | | [facility] | | | | + + + +--------+ + + + + | Result panel 38 | + + + + + + + + + | Casts | 2024-10-30 | | NONE SEEN | (missing) | (missing) | | #/area UrnS | 09:24:07 | [facility] | | | | | [facility] | | | | | | | [facility] | | | | + + + + + + + + + | Result panel 39 | + + + + + +------+ + + | Bacteria Ur | 2024-10-30 | | No | (missing) | (missing) | | Cult | 09:24:07 | [facility] | | | | | | | [facility] | | | | + + + +------+ + + + + | Result panel 40 | + + + + + + + + + | Urn Spec | 2024-10-30 | | CLEAN CATCH | (missing) | (missing) | | Collect Meth | 09:24:07 | [facility] | | | | | Ur | [facility] | | | | | | [facility] | | | | + + + + + + + + + | Result panel 41 | + + + + + + + + + | Color Ur | 2024-10-30 | | YELLOW | (missing) | (missing) | | Auto | :24:07 | [facility] | | | | | | | [facility] | | | | + + + + + + + + + | Result panel 42 | + + + + + +---------+ + + | Character | 2024-10-30 | | CLEAR | (missing) | (missing) | | Ur | 09:24:07 | [facility] | | | | | | | [facility] | | | | + + + +---------+ + + + + | Result panel 43 | + + + + + + + + + | Glucose Ur | 2024-10-30 | | NEGATIVE | (missing) | (missing) | | Ql Strip | 09:24:07 | [facility] | | | | | | | [facility] | | | | + + + + + + + + + | Result panel 44 | + + + + + + + + + | Bilchio Ur | 2024-10-30 | | NEGATIVE | (missing) | (missing) | | Ql Strip | 09:24:07 | [facility] | | | | | | | [facility] | | | | + + + + + + + + + | Result panel 45 | + + + + + + + + + | Ketones Ur | 2024-10-30 | | NEGATIVE | (missing) | (missing) | | Ql Strip | 09:24:07 | [facility] | | | | | | | [facility] | | | | + + + + + + + + + | Result panel 46 | + + + + + +---------+ + + | Sp Morteza Lowe | 2024-10-30 | | 1.010 | (missing) | (missing) | | Strip | 09:24:07 | [facility] | | | | | | - | | | | | | | [facility] | | | | | | | [facility] | | | | + + + +---------+ + + + + | Result panel 47 | + + + + + + + + + | Hgb Ur Ql | 2024-10-30 | | NEGATIVE | (missing) | (missing) | | Strip | 09:24: | [facility] | | | | | | [facility] | | | | + + + + + + + + + | Result panel 48 | + + + + + +-------+ + + | pH Ur Strip | 2024-10-30 | | 6.0 | (missing) | (missing) | | | 09:24: | [facility] | | | | | | [facility] | | | | + + + +-------+ + + + + | Result panel 49 | + + + + + + + + + | Prot Ur | 2024-10-30 | | NEGATIVE | (missing) | (missing) | | Strip-mCnc | 09:24:07 | [facility] | | | | | | | [facility] | | | | + + + + + + + + + | Result panel 50 | + + + + + + + + + | | 2024-10-30 | | NORMAL | (missing) | (missing) | | Urobilinogen | 09:24:07 | [facility] | | | | | Ur | [facility] | | Aj | | | | | | | Hospital | | | | + + + + + + + + + | Result panel 51 | + + + + + + + + + | Nitrite Ur | 2024-10-30 | | NEGATIVE | (missing) | (missing) | | Ql Strip | :: | [facility] | | | | | [facility] | | | | | | | [facility] | | | | + + + + + + + + + | Result panel 52 | + + + + + + + + + | Leukocyte | 2024-10-30 | | NEGATIVE | (missing) | (missing) | | esterase Ur | 09:24:07 | [facility] | | | | | Ql Strip | [facility] | | | | | | | [facility] | | | | + + + + + + + + + | Result panel 53 | + + + + + +-------+ + + | RBC #/area | 2024-10-30 | | 0-1 | (missing) | (missing) | | [facility] | 09:24:07 | [facility] | | [facility] | | | | | | | [facility] | | | | + + + +-------+ + + + + | Result panel 54 | + + + + + +-------+ + + | WBC #/area | 2024-10-30 | | 0-1 | (missing) | (missing) | | UrnS HPF | 09:24: | [facility] | | | | | | | - | | | | | | | Aj | | | | | | | Hospital | | | | + + + +-------+ + + + + | Result panel 55 | + + + + + + + + + | Epi Cells | 2024-10-30 | | SQUAMOUS 1+ | (missing) | (missing) | | #/area UrnS | :: | [facility] | | | | | [facility] | | | | | | | [facility] | | | | + + + + + + + + + | Result panel 56 | + + + + + + + + + | Crystals | 2024-10-30 | | NONE SEEN | (missing) | (missing) | | UrnS Micro | 09:24:07 | [facility] | | | | [facility] | | | | | | | [facility] | | | | + + + + + + + + + | Result panel 57 | + + + + + +--------+ + + | Bacteria | 2024-10-30 | | RARE | (missing) | (missing) | | #/area UrnS | 09:24:07 | [facility] | | | | | [facility] | | | | | | | [facility] | | | | + + + +--------+ + + + + | Result panel 58 | + + + + + + + + + | Casts | 2024-10-30 | | NONE SEEN | (missing) | (missing) | | #/area UrnS | :24:07 | [facility] | | | | | [facility] | | | | | | | [facility] | | | | + + + + + + + + + | Result panel 59 | + + + + + +------+ + + | Bacteria Ur | 2024-10-30 | | No | (missing) | (missing) | | Cult | :24:07 | [facility] | | | | | [facility] | | | | | | | Hospital | | | | + + + +------+ + + + + | Result panel 60 | + + + + + + + + + | Urn Spec | 2024-10-30 | | CLEAN CATCH | (missing) | (missing) | | Collect Meth | 09:24:07 | [facility] | | | | | Ur | [facility] | | | | | | | [facility] | | | | + + + + + + + + + | Result panel 61 | + + + + + + + + + | Color Ur | 2024-10-30 | | YELLOW | (missing) | (missing) | | Auto | 09:24:07 | [facility] | | | | | | | [facility] | | | | + + + + + + + + + | Result panel 62 | + + + + + +---------+ + + | Character | 2024-10-30 | | CLEAR | (missing) | (missing) | | Ur | 09:24:07 | [facility] | [facility] | | | | | | | [facility] | | | | + + + +---------+ + + + + | Result panel 63 | + + + + + + + + + | Glucose Ur | 2024-10-30 | | NEGATIVE | (missing) | (missing) | | Ql Strip | 09:24:07 | [facility] | [facility] | | | | | | | [facility] | | | | + + + + + + + + + | Result panel 64 | + + + + + + + + + | Bilirub Ur | 2024-10-30 | | NEGATIVE | (missing) | (missing) | | Ql Strip | 09:24:07 | [facility] | | | | | | [facility] | | | | + + + + + + + + + | Result panel 65 | + + + + + + + + + | Ketones Ur | 2024-10-30 | | NEGATIVE | (missing) | (missing) | | Ql Strip | : | [facility] | | | | | | | [facility] | | | | + + + + + + + + + | Result panel 66 | + + + + + +---------+ + + | Sp Gr Ur | 2024-10-30 | | 1.010 | (missing) | (missing) | | Strip | 24: | [facility] | | | | | | | [facility] | | | | + + + +---------+ + + + + | Result panel 67 | + + + + + + + + + | Hgb Ur Ql | 2024-10-30 | | NEGATIVE | (missing) | (missing) | | Strip | 09:24:07 | [facility] | | | | | | | [facility] | | | | + + + + + + + + + | Result panel 68 | + + + + + +-------+ + + | pH Ur Strip | 2024-10-30 | | 6.0 | (missing) | (missing) | | | 09:24:07 | [facility] | [facility] | | | | | | | [facility] | | | | + + + +-------+ + + + + | Result panel 69 | + + + + + + + + + | Prot Ur | 2024-10-30 | | NEGATIVE | (missing) | (missing) | | Strip-mCnc | 09:24:07 | [facility] | | | | | [facility] | | | | | | | [facility] | | | | + + + + + + + + + | Result panel 70 | + + + + + + + + + | | 2024-10-30 | | NORMAL | (missing) | (missing) | | Urobilinogen | 09:24:07 | [facility] | | | | | Ur | [facility] - [facility] | [facility] | [facility] | | Aj | | | | | | | Hospital | | | | + + + + + + + + + | Result panel 71 | + + + + + + + + + | Nitrite Ur | 2024-10-30 | | NEGATIVE | (missing) | (missing) | | Ql Strip | 09:24:07 | [facility] | | | | [facility] | | | | | | | [facility] | | | | + + + + + + + + + | Result panel 72 | + + + + + + + + + | Leukocyte | 2024-10-30 | | NEGATIVE | (missing) | (missing) | | esterase Ur | :: | [facility] | | | | | Ql Strip | [facility] | | | | | | | [facility] | | | | + + + + + + + + + | Result panel 73 | + + + + + +-------+ + + | RBC #/area | 2024-10-30 | | 0-1 | (missing) | (missing) | | UrnS HPF | :24:07 | [facility] | | | | | [facility] | | | | | | | [facility] | | | | + + + +-------+ + + + + | Result panel 74 | + + + + + +-------+ + + | WBC #/area | 2024-10-30 | | 0-1 | (missing) | (missing) | | [facility] | 09:24:07 | [facility] | | | [facility] | [facility] | [facility] | | | | | | | [facility] | | | | + + + +-------+ + + + + | Result panel 75 | + + + + + + + + + | Epi Cells | 2024-10-30 | | SQUAMOUS 1+ | (missing) | (missing) | | #/area UrnS | 09:24:07 | [facility] | | | | | [facility] | | | | | | | [facility] | | | | + + + + + + + + + | Result panel 76 | + + + + + + + + + | Crystals | 2024-10-30 | | NONE SEEN | (missing) | (missing) | | UrnS Micro | 09:24:07 | [facility] | | | | | [facility] | | | | | | | [facility] | | | | + + + + + + + + + | Result panel 77 | + + + + + +--------+ + + | Bacteria | 2024-10-30 | | RARE | (missing) | (missing) | | #/area UrnS | 09:24:07 | [facility] | | | | | [facility] | | | | | | | [facility] | | | | + + + +--------+ + + + + | Result panel 78 | + + + + + + + + + | Casts | 2024-10-30 | | NONE SEEN | (missing) | (missing) | | #/area UrnS | 09:24:07 | [facility] | | | | | [facility] | | [facility] | | | | | | | [facility] | | | | + + + + + + + + + | Result panel 79 | + + + + + +------+ + + | Bacteria Ur | 2024-10-30 | | No | (missing) | (missing) | | Cult | : | [facility] | | | | | [facility] | | | | | | | [facility] | | | | + + + +------+ + + + + | Result panel 80 | + + + + + + + + + | Urn Spec | 2024-10-30 | | CLEAN CATCH | (missing) | (missing) | | Collect Meth | :24:07 | [facility] | | | | | Ur | [facility] | | [facility] | | | | | | | Hospital | | | | + + + + + + + + + | Result panel 81 | + + + + + +---------+ + + | WBC # Bld | 2024-11-02 | | 13.25 | (missing) | (missing) | | Auto | 07:04:07 | [facility] | | | | | | | - | | | | | | | Aj | | | | | | | Hospital | | | | + + + +---------+ + + + + | Result panel 82 | + + + + + +--------+ + + | RBC # Bld | 2024-11-02 | | 5.09 | (missing) | (missing) | | Auto | 07:04:07 | [facility] | | | | | | [facility] | | | | + + + +--------+ + + + + | Result panel 83 | + + + + + +--------+ + + | Hgb | 2024-11-02 | | 15.5 | (missing) | (missing) | | Bld-mCnc | 07:04:07 | [facility] | | | | | | | [facility] | | | | + + + +--------+ + + + + | Result panel 84 | + + + + + +--------+ + + | Hct VFr.DF | 2024-11-02 | | 45.4 | (missing) | (missing) | | Bld Auto | 07:04:07 | [facility] | | | | | | [facility] | | | | + + + +--------+ + + + + | Result panel 85 | + + + + + +--------+ + + | RBC Auto | 2024-11-02 | | 89.2 | (missing) | (missing) | | | 07:04:07 | [facility] | | | | | | [facility] | | | | + + + +--------+ + + + + | Result panel 86 | + + + + + +--------+ + + | MCH RBC Qn | 2024-11-02 | | 30.5 | (missing) | (missing) | | Auto | 07:04:07 | [facility] | | | | | | [facility] | | | | + + + +--------+ + + + + | Result panel 87 | + + + + + +--------+ + + | MCHC RBC | 2024-11-02 | | 34.1 | (missing) | (missing) | | Auto-EntMCnc | 07:04:07 | [facility] | | | | | | | [facility] | | | | + + + +--------+ + + + + | Result panel 88 | + + + + + +-------+ + + | Platelet # | 2024-11-02 | | 285 | (missing) | (missing) | | Bld Auto | 07:04:07 | [facility] | | | | | | [facility] | | | | + + + +-------+ + + + + | Result panel 89 | + + + + + +--------+ + + | Neutrophils | 2024-11-02 | | 62.0 | (missing) | (missing) | | NFr Bld | 07:04:07 | [facility] | | | | + + + +--------+ + + + + | Result panel 90 | + + + + + +--------+ + + | Lymphocytes | 2024-11-02 | | 25.9 | (missing) | (missing) | | NFr Bld | 07:04:07 | [facility] | | | | + + + +--------+ + + + + | Result panel 91 | + + + + + +-------+ + + | Monocytes | 2024-11-02 | | 8.1 | (missing) | (missing) | | NFr Bld Auto | 07:04:07 | [facility] | | | | + + + +-------+ + + + + | Result panel 92 | + + + + + +-------+ + + | Eosinophil | 2024-11-02 | | 2.9 | (missing) | (missing) | | NFr Bld Auto | 07::07 | [facility] | | | | + + + +-------+ + + + + | Result panel 93 | + + + + + +-------+ + + | Basophils | 2024-11-02 | | 0.7 | (missing) | (missing) | | NFr Bld Auto | 07:04:07 | [facility] | | | | + + + +-------+ + + + + | Result panel 94 | + + + + + +---------+ + + | WBC # Bld | 2024-11-02 | | 13.25 | (missing) | (missing) | | Auto | 07:04:07 | [facility] | | | | + + + +---------+ + + + + | Result panel 95 | + + + + + +--------+ + + | RBC # Bld | 2024-11-02 | | 5.09 | (missing) | (missing) | | Auto | 07:04:07 | [facility] | | | | + + + +--------+ + + + + | Result panel 96 | + + + + + +--------+ + + | Hgb | 2024-11-02 | | 15.5 | (missing) | (missing) | | Bld-mCnc | 07:04:07 | [facility] | | | | + + + +--------+ + + + + | Result panel 97 | + + + + + +--------+ + + | Hct VFr.DF | 2024-11-02 | | 45.4 | (missing) | (missing) | | Bld Auto | 07:04:07 | [facility] | | | | + + + +--------+ + + + + | Result panel 98 | + + + + + +--------+ + + | RBC Auto | 2024-11-02 | | 89.2 | (missing) | (missing) | | | 07:04:07 | [facility] | | | | + + + +--------+ + + + + | Result panel 99 | + + + + + +--------+ + + | MCH RBC Qn | 2024-11-02 | | 30.5 | (missing) | (missing) | | Auto | 07:04:07 | [facility] | | | | + + + +--------+ + + + + | Result panel 100 | + + + + + +--------+ + + | MCHC RBC | 2024-11-02 | | 34.1 | (missing) | (missing) | | Auto-EntMCnc | 07:04:07 | [facility] | | | | + + + +--------+ + + + + | Result panel 101 | + + + + + +-------+ + + | Platelet # | 2024-11-02 | | 285 | (missing) | (missing) | | Bld Auto | 07:04:07 | [facility] | | | | + + + +-------+ + + + + | Result panel 102 | + + + + + +--------+ + + | Neutrophils | 2024-11-02 | | 62.0 | (missing) | (missing) | | NFr Bld | 07:04:07 | [facility] | | | | + + + +--------+ + + + + | Result panel 103 | + + + + + +--------+ + + | Lymphocytes | 2024-11-02 | | 25.9 | (missing) | (missing) | | NFr Bld | 07:04:07 | [facility] | | | | + + + +--------+ + + + + | Result panel 104 | + + + + + +-------+ + + | Monocytes | 2024-11-02 | | 8.1 | (missing) | (missing) | | NFr Bld Auto | 07:04:07 | [facility] | | | | + + + +-------+ + + + + | Result panel 105 | + + + + + +-------+ + + | Eosinophil | 2024-11-02 | | 2.9 | (missing) | (missing) | | NFr Bld Auto | 07:04:07 | [facility] | | | [facility] | | | | + + + +-------+ + + + + | Result panel 106 | + + + + + +-------+ + + | Basophils | 2024-11-02 | | 0.7 | (missing) | (missing) | | NFr Bld Auto | 07:04:07 | [facility] | | | | + + + +-------+ + + + + | Result panel 107 | + + + + + +--------+ + + | Prothrombin | 2024-11-02 | | 12.3 | (missing) | (missing) | | time | 07:23:07 | [facility] | | | | + + + +--------+ + + + + | Result panel 108 | + + + + + +--------+ + + | INR PPP | 2024-11-02 | | 0.98 | (missing) | (missing) | | | 07:23:07 | [facility] | | | | + + + +--------+ + + + + | Result panel 109 | + + + + + +-------+---------+ + | Magnesium | 2024-11-02 | | 2.1 | mg/dL | (missing) | | SerPl-mCnc | 07:23:07 | [facility] | | | | + + + +-------+---------+ + + + | Result panel 110 | + + + + + +-------+ + + | Troponin I | 2024-11-02 | | 8.7 | (missing) | (missing) | | SerPl | 07:23:07 | [facility] | | | | | HS-mCnc [facility] | | | | + + + +-------+ + + + + | Result panel 111 | + + + + + +--------+ + + | Prothrombin | 2024-11-02 | | 12.3 | (missing) | (missing) | | time | 07:23:07 | [facility] | | | | + + + +--------+ + + + + | Result panel 112 | + + + + + +--------+ + + | INR PPP | 2024-11-02 | | 0.98 | (missing) | (missing) | | | 07:23:07 | [facility] | | | | + + + +--------+ + + + + | Result panel 113 | + + + + + +-------+---------+ + | Magnesium | 2024-11-02 | | 2.1 | mg/dL | (missing) | | [facility] | 07:23:07 | [facility] | [facility] | | | | + + + +-------+---------+ + + + | Result panel 114 | + + + + + +-------+ + + | Troponin I | 2024-11-02 | | 8.7 | (missing) | (missing) | | SerPl | 07:23:07 | [facility] | | | | | [facility] | | - | | | | | | | [facility] | [facility] | | | | + + + +-------+ + + + + | Result panel 115 | + + + + + +--------+ + + | Prothrombin | 2024-11-02 | | 12.3 | (missing) | (missing) | | time | 07:23: | [facility] | | [facility] | | | | + + + +--------+ + + + + | Result panel 116 | + + + + + +--------+ + + | INR PPP | 2024-11-02 | | 0.98 | (missing) | (missing) | | | 07:23:07 | [facility] | | | | | | | - | | | | | | | [facility] | [facility] | | | | + + + +--------+ + + + + | Result panel 117 | + + + + + +-------+---------+ + | Magnesium | 2024-11-02 | | 2.1 | mg/dL | (missing) | | [facility] | 07:23:07 | [facility] | [facility] | | | | + + + +-------+---------+ + + + | Result panel 118 | + + + + + +-------+ + + | Troponin I | 2024-11-02 | | 8.7 | (missing) | (missing) | | SerPl | 07:23:07 | [facility] | | | | | [facility] | | - | | | | | | | [facility] | [facility] | | [facility] | | | | + + + +-------+ + + + + | Result panel 119 | + + + + + +--------+ + + | Prothrombin | 2024-11-02 | | 12.3 | (missing) | (missing) | | time | 07:23:07 | [facility] | | | | + + + +--------+ + + + + | Result panel 120 | + + + + + +--------+ + + | INR PPP | 2024-11-02 | | 0.98 | (missing) | (missing) | | | 07:23:07 | [facility] | | | | + + + +--------+ + + + + | Result panel 121 | + + + + + +-------+---------+ + | Glucose | 2024-11-02 | | 138 | mg/dL | (missing) | | SerPl-mCnc | 07:23:07 | [facility] | | | | + + + +-------+---------+ + + + | Result panel 122 | + + + + + +------+---------+ + | BUN | 2024-11-02 | | 17 | mg/dL | (missing) | | [facility] | 07:23:07 | [facility] | | [facility] | | | | + + + +------+---------+ + + + | Result panel 123 | + + + + + +--------+---------+ + | Creat | 2024-11-02 | | 1.05 | mg/dL | (missing) | | SerPl-m[facility]nc | 07:23:07 | [facility] | | | | + + + +--------+---------+ + + + | Result panel 124 | + + + + + +------+ + + | eGFRcr | 2024-11-02 | | 57 | (missing) | (missing) | | SerPlBld | 07:23:07 | [facility] | | | | | CKD-EPI 2020 | [facility] | | | | + + + +------+ + + + + | Result panel 125 | + + + + + +---------+ + + | BUN/Creat | 2024-11-02 | | 16.19 | (missing) | (missing) | | SerPl | 07:: | [facility] | | | | + + + +---------+ + + + + | Result panel 126 | + + + + + +-------+ + + | Sodium | 2024-11-02 | | 138 | (missing) | (missing) | | SerPl-sCnc | 07::07 | [facility] | | | | + + + +-------+ + + + + | Result panel 127 | + + + + + +-------+ + + | Potassium | 2024-11-02 | | 3.6 | (missing) | (missing) | | SerPl-sCnc | 07::07 | [facility] | | | | + + + +-------+ + + + + | Result panel 128 | + + + + + +-------+ + + | Chloride | 2024-11-02 | | 103 | (missing) | (missing) | | SerPl-sCnc | :: | [facility] | | | | + + + +-------+ + + + + | Result panel 129 | + + + + + +------+ + + | CO2 | 2024-11-02 | | 23 | (missing) | (missing) | | SerPl-sCnc | 07:23:07 | [facility] | | | | + + + +------+ + + + + | Result panel 130 | + + + + + +--------+ + + | Anion Gap | 2024-11-02 | | 15.6 | (missing) | (missing) | | SerPl | 07:23:07 | [facility] | | | | | Calculated.4 | | [facility] I[facility]-s[facility]nc | | [facility] | | | | | | [facility] | | | | + + + +--------+ + + + + | Result panel 131 | + + + + + +-------+---------+ + | Calcium | 2024-11-02 | | 9.1 | mg/dL | (missing) | | SerPl-m[facility]nc | 07:23:07 | [facility] | | | | + + + +-------+---------+ + + + | Result panel 132 | + + + + + +-------+---------+ + | Magnesium | 2024-11-02 | | 2.1 | mg/dL | (missing) | | SerPl-mCnc | 07:23:07 | [facility] | [facility] | | | | + + + +-------+---------+ + + + | Result panel 133 | + + + + + +-------+ + + | Prot | 2024-11-02 | | 7.1 | (missing) | (missing) | | SerPl-mCnc | 07:23:07 | [facility] | [facility] | | | | + + + +-------+ + + + + | Result panel 134 | + + + + + +-------+ + + | Albumin | 2024-11-02 | | 3.5 | (missing) | (missing) | | [facility] | 07:23:07 | [facility] | [facility] | | | | + + + +-------+ + + + + | Result panel 135 | + + + + + +-------+ + + | Globulin | 2024-11-02 | | 3.6 | (missing) | (missing) | | [facility] | 07:23:07 | [facility] | | | | + + + +-------+ + + + + | Result panel 136 | + + + + + +--------+ + + | | 2024-11-02 | | 0.97 | (missing) | (missing) | | Albumin/Glob | 07:23:07 | [facility] | | | | | SerPl | [facility] | | | | + + + +--------+ + + + + | Result panel 137 | + + + + + +-------+---------+ + | Bilirub | 2024-11-02 | | 0.2 | mg/dL | (missing) | | SerPl-mCnc | 07:23:07 | [facility] | | | | + + + +-------+---------+ + + + | Result panel 138 | + + + + + +------+ + + | AST | 2024-11-02 | | 20 | (missing) | (missing) | | [facility] | 07:23:07 | [facility] | | | | + + + +------+ + + + + | Result panel 139 | + + + + + +------+ + + | ALT | 2024-11-02 | | 32 | (missing) | (missing) | | [facility] | 07:23:07 | [facility] | | | | + + + +------+ + + + + | Result panel 140 | + + + + + +------+ + + | ALP | 2024-11-02 | | 74 | (missing) | (missing) | | [facility] | 07:23:07 | [facility] | | | | + + + +------+ + + + + | Result panel 141 | + + + + + +-------+ + + | Troponin I | 2024-11-02 | | 8.7 | (missing) | (missing) | | SerPl | :: | [facility] | | | | | [facility] | | | | + + + +-------+ + + + + | Result panel 142 | + + + + + +--------+ + + | Prothrombin | 2024-11-02 | | 12.3 | (missing) | (missing) | | time | :: | [facility] | | | | | | [facility] - [facility] | | | | + + + +--------+ + + + + | Result panel 143 | + + + + + +--------+ + + | INR PPP | 2024-11-02 | | 0.98 | (missing) | (missing) | | | 07:23:07 | [facility] | | | | + + + +--------+ + + + + | Result panel 144 | + + + + + +-------+---------+ + | Glucose | 2024-11-02 | | 138 | mg/dL | (missing) | | SerPl-m[facility]nc | 07:23:07 | [facility] | | | | + + + +-------+---------+ + + + | Result panel 145 | + + + + + +------+---------+ + | BUN | 2024-11-02 | | 17 | mg/dL | (missing) | | [facility] | 07:23:07 | [facility] | [facility] | | | | + + + +------+---------+ + + + | Result panel 146 | + + + + + +--------+---------+ + | Creat | 2024-11-02 | | 1.05 | mg/dL | (missing) | | [facility] | 07:23:07 | [facility] | [facility] | | | | + + + +--------+---------+ + + + | Result panel 147 | + + + + + +------+ + + | eGFRcr | 2024-11-02 | | 57 | (missing) | (missing) | | SerPlBld | 07:23:07 | [facility] | | | | | CKD-EPI 2020 | [facility] | | | | + + + +------+ + + + + | Result panel 148 | + + + + + +---------+ + + | BUN/Creat | 2024-11-02 | | 16.19 | (missing) | (missing) | | SerPl | 07:23:07 | [facility] | | | | + + + +---------+ + + + + | Result panel 149 | + + + + + +-------+ + + | Sodium | 2024-11-02 | | 138 | (missing) | (missing) | | [facility] | 07:23:07 | [facility] | [facility] | | | | + + + +-------+ + + + + | Result panel 150 | + + + + + +-------+ + + | Potassium | 2024-11-02 | | 3.6 | (missing) | (missing) | | SerPl-sCnc | 07:: | [facility] | | | | + + + +-------+ + + + + | Result panel 151 | + + + + + +-------+ + + | Chloride | 2024-11-02 | | 103 | (missing) | (missing) | | SerPl-sCnc | :: | [facility] | | | | + + + +-------+ + + + + | Result panel 152 | + + + + + +------+ + + | CO2 | 2024-11-02 | | 23 | (missing) | (missing) | | SerPl-sCnc | 07:23:07 | [facility] | | | | + + + +------+ + + + + | Result panel 153 | + + + + + +--------+ + + | Anion Gap | 2024-11-02 | | 15.6 | (missing) | (missing) | | SerPl | 07:23:07 | [facility] | | | | | Calculated.4 | [facility] | | [facility] | | [facility] | | | [facility] | | | | + + + +--------+ + + + + | Result panel 154 | + + + + + +-------+---------+ + | Calcium | 2024-11-02 | | 9.1 | mg/dL | (missing) | | [facility] | :23:07 | [facility] | | | | + + + +-------+---------+ + + + | Result panel 155 | + + + + + +-------+---------+ + | Magnesium | 2024-11-02 | | 2.1 | mg/dL | (missing) | | [facility] | 07:23:07 | [facility] | [facility] | | | | + + + +-------+---------+ + + + | Result panel 156 | + + + + + +-------+ + + | Prot | 2024-11-02 | | 7.1 | (missing) | (missing) | | [facility] | 07:23:07 | [facility] | | | | + + + +-------+ + + + + | Result panel 157 | + + + + + +-------+ + + | Albumin | 2024-11-02 | | 3.5 | (missing) | (missing) | | [facility] | 07:23:07 | [facility] | | | | + + + +-------+ + + + + | Result panel 158 | + + + + + +-------+ + + | Globulin | 2024-11-02 | | 3.6 | (missing) | (missing) | | [facility] | 07:23:07 | [facility] | | | | + + + +-------+ + + + + | Result panel 159 | + + + + + +--------+ + + | | 2024-11-02 | | 0.97 | (missing) | (missing) | | Albumin/Glob | : | [facility] | | | | | [facility] | | | | + + + +--------+ + + + + | Result panel 160 | + + + + + +-------+---------+ + | Bilirub | 2024-11-02 | | 0.2 | mg/dL | (missing) | | SerPl-mCnc | : | [facility] | | | | + + + +-------+---------+ + + + | Result panel 161 | + + + + + +------+ + + | AST | 2024-11-02 | | 20 | (missing) | (missing) | | SerPl-c[facility]nc | 07:23:07 | [facility] | | | | + + + +------+ + + + + | Result panel 162 | + + + + + +------+ + + | ALT | 2024-11-02 | | 32 | (missing) | (missing) | | SerPl-c[facility]nc | 07:23:07 | [facility] | | | | + + + +------+ + + + + | Result panel 163 | + + + + + +------+ + + | ALP | 2024-11-02 | | 74 | (missing) | (missing) | | SerPl-cCnc | :07 | [facility] | | | | + + + +------+ + + + + | Result panel 164 | + + + + + +-------+ + + | Troponin I | 2024-11-02 | | 8.7 | (missing) | (missing) | | SerPl | 07:23:07 | [facility] | | | | | HS-mCnc [facility] | | | | + + + +-------+ + + + + | Result panel 165 | + + + + + +------+ + + | Glucose | 2024-11-05 | | 88 | (missing) | (missing) | | [facility] | 17:57:07 | [facility] | | | [...] 167 | + + + + + +------+ + + | Glucose | 2024-11-05 | | 88 | (missing) | (missing) | | [facility] | 17:57:07 | [facility] | | | | + + + +------+ + + + + | Result panel 168 | + + + + + +------+ + + | Glucose | 2024-11-05 | | 88 | (missing) | (missing) | | [facility] | 17:57:07 | [facility] | | | [...] 88 | (missing) | (missing) | | [facility] | 17:57:07 | [facility] | | | [...] 16.4 | (missing) | (missing) | | [facility] | 09:43:07 | [facility] | | | [...] 180 | + + + + + +-------+ [...] | NFr Bld Auto | 09:43:07 | [facility] | | [...] 183 | + + + + + +-------+---------+ + | Glucose | 2024-11-19 | | 189 | mg/dL | (missing) | | [facility] | 09:43:07 | [facility] | | | | + + + +-------+---------+ + + + | Result panel 184 [...] 185 | + + + + + +--------+---------+ [...] +--------+---------+ + + + | Result panel 186 | + + + + + +------+ [...] 187 | + + + + + +---------+ [...] 191 | + + + + + +------+ [...] 192 | + + + + + +--------+ [...] 193 | + + + + + +-------+---------+ [...] +-------+---------+ + + + | Result panel 194 | + + + + + +-------+ + + | Prot | 2024-11-19 | | 7.4 | (missing) | (missing) | | [facility] | 09:43:07 | [facility] | | | | + + + +-------+ + + + + | Result panel 195 | + + + + + +-------+ [...] 196 | + + + + + +-------+ + + | Globulin | 2024-11-19 | | 3.7 | (missing) | (missing) | | [facility] | 09:43:07 | [facility] | | | [...] 198 | + + + + + +-------+---------+ [...] +-------+---------+ + + + | Result panel 199 | + + + + + +------+ + + | AST | 2024-11-19 | | 35 | (missing) | (missing) | | [facility] | 09:43:07 | [facility] | | | | + + + +------+ + + + + | Result panel 200 | + + + + + +------+ [...] 201 | + + + + + +------+ + + | ALP | 2024-11-19 | | 88 | (missing) | (missing) | | [facility] | 09:43:07 | [facility] | | | | + + + +------+ + + + + | Result panel 202 | + + + + + +---------+ [...] 203 | + + + + + +---------+ [...] 210 | + + + + + +-------+ [...] 216 | + + + + + +-------+---------+ + | Glucose | 2024-11-19 | | 189 | mg/dL | (missing) | | [facility] | 09:43:07 | [facility] | | | | + + + +-------+---------+ + + + | Result panel 217 | + + + + + +------+---------+ [...] +------+---------+ + + + | Result panel 218 | + + + + + +--------+---------+ [...] +--------+---------+ + + + | Result panel 219 | + + + + + +------+ [...] 220 | + + + + + +---------+ [...] 223 | + + + + + +-------+ [...] 224 | + + + + + +------+ + + | CO2 | 2024-11-19 | | 27 | (missing) | (missing) | | [facility] | 09:43:07 | [facility] | | | | + + + +------+ + + + + | Result panel 225 | + + + + + +--------+ [...] 232 | + + + + + +------+ + + | AST | 2024-11-19 | | 35 | (missing) | (missing) | | SerPl-c[facility]nc [...] 235 | + + + + + +---------+ [...] (missing) | (missing) | | [facility] | :43:07 | [facility] | | | [...] 104 | (missing) | (missing) | | [facility] | 09:43:07 | [facility] | | [...] 260 | + + + + + +-------+ [...] 3.7 | (missing) | (missing) | | [facility] | 09:43:07 [...] 3.7 | (missing) | (missing) | | [facility] | 09:43:07 | [facility] | | | [...] 264 | + + + + + +-------+---------+ + | Bilirub | 2024-11-19 | | 0.4 | mg/dL | (missing) | | [facility] | 09:43:07 | [facility] | | | | + + + +-------+---------+ + + + | Result panel 265 | + + + + + +------+ + + | AST | 2024-11-19 | | 35 | (missing) | (missing) | | [facility] | 09:43:07 | [facility] | [...] 80 | (missing) | (missing) | | [facility] | 09:43:07 | [facility] | [...] 268 | + + + + + +---------+ [...] 269 | + + + + + +---------+ [...] | | Bld Auto | 23:20:07 | [facility] | [facility] | [facility] | | | | | | | [facility] | | | | + + + +--------+ + + + + | Result panel 273 | + + + + + +--------+ [...] 274 | + + + + + +--------+ [...] 275 | + + + + + +--------+ [...] + + + + | Result panel 276 | + + + + + +-------+ [...] + + + + | Result panel 277 | + + + + + +--------+ [...] + + + + | Result panel 278 [...] 279 | + + + + + +-------+ [...] 280 | + + + + + +-------+ [...] 282 | + + + + + +-------+---------+ [...] +-------+---------+ + + + | Result panel 283 | + + + + + +------+---------+ [...] +------+---------+ + + + | Result panel 284 | + + + + + +--------+---------+ [...] +--------+---------+ + + + | Result panel 285 | + + + + + +------+ [...] 286 | + + + + + +---------+ [...] + + + + | Result panel 287 | + + + + + +-------+ [...] + + + + | Result panel 288 | + + + + + +-------+ + + | Potassium | 2024-12-04 | | 3.6 | (missing) | (missing) | | [facility] | 23:20:07 | [facility] | | | | + + + +-------+ + + + + | Result panel 289 | + + + + + +-------+ [...] 290 | + + + + + +------+ [...] 291 | + + + + + +--------+ [...] 292 | + + + + + +-------+---------+ [...] +-------+---------+ + + + | Result panel 293 [...] 294 | + + + + + +-------+ [...] 295 | + + + + + +-------+ [...] 296 | + + + + + +-------+ [...] 297 | + + + + + +--------+ [...] 298 | + + + + + +-------+---------+ [...] +-------+---------+ + + + | Result panel 299 | + + + + + +------+ [...] 300 | + + + + + +------+ + + | ALT | 2024-12-04 | | 38 | (missing) | (missing) | | [facility] | 23:20:07 | [facility] | | | | + + + +------+ + + + + | Result panel 301 | + + + + + +------+ [...] 302 | + + + + + +---------+ [...] 303 | + + + + + +---------+ [...] 305 | + + + + + +--------+ [...] 309 | + + + + + +--------+ [...] 311 | + + + + + +--------+ [...] 312 | + + + + + +--------+ [...] + + + + | Result panel 313 | + + + + + +-------+ [...] + + + + | Result panel 314 | + + + + + +-------+ [...] + + + + | Result panel 315 | + + + + + +-------+ [...] 316 | + + + + + +-------+---------+ [...] +-------+---------+ + + + | Result panel 317 | + + + + + +------+---------+ [...] +------+---------+ + + + | Result panel 318 | + + + + + +--------+---------+ [...] +--------+---------+ + + + | Result panel 319 | + + + + + +------+ [...] 320 | + + + + + +---------+ [...] 321 | + + + + + +-------+ [...] 322 | + + + + + +-------+ [...] 323 | + + + + + +-------+ [...] + + + + | Result panel 324 | + + + + + +------+ [...] + + + + | Result panel 325 | + + + + + +--------+ [...] 326 | + + + + + +-------+---------+ [...] +-------+---------+ + + + | Result panel 327 | + + + + + +-------+---------+ [...] +-------+---------+ + + + | Result panel 328 | + + + + + +-------+ [...] 329 | + + + + + +-------+ + + | Albumin | 2024-12-04 | | 3.5 | (missing) | (missing) | | [facility] | 23:20:07 | [facility] | | | | + + + +-------+ + + + + | Result panel 330 | + + + + + +-------+ [...] 331 | + + + + + +--------+ [...] 332 | + + + + + +-------+---------+ [...] +-------+---------+ + + + | Result panel 333 | + + + + + +------+ [...] + + + + | Result panel 334 | + + + + + +------+ [...] + + + + | Result panel 335 | + + + + + +------+ [...] + + + + | Result panel 336 | + + + + + +---------+ [...] + + + + | Result panel 337 | + + + + + +---------+ [...] + + + + | Result panel 338 | + + + + + +--------+ [...] + + + + | Result panel 339 | + + + + + +--------+ [...] + + + + | Result panel 340 | + + + + + +-------+ [...] + + + + | Result panel 341 | + + + + + +-------+ [...] + + + + | Result panel 342 | + + + + + +------+---------+ [...] +------+---------+ + + + | Result panel 343 | + + + + + +------+---------+ [...] +------+---------+ + + + | Result panel 344 | + + + + + +--------+---------+ + | Creat | 2025-01-11 | | 0.87 | mg/dL | (missing) | | [facility] | 06:52:07 | [facility] | | | | + + + +--------+---------+ + + + | Result panel 345 | + + + + + +------+ [...] + + + + | Result panel 346 | + + + + + +---------+ [...] + + + + | Result panel 347 | + + + + + +-------+ [...] + + + + | Result panel 348 | + + + + + +--------+ [...] + + + + | Result panel 349 | + + + + + +-------+ [...] + + + + | Result panel 350 | + + + + + +-------+ [...] + + + + | Result panel 351 | + + + + + +------+ [...] + + + + | Result panel 352 | + + + + + +--------+ [...] + + + + | Result panel 353 | + + + + + +-------+---------+ [...] +-------+---------+ + + + | Result panel 354 | + + + + + +-------+---------+ + | Magnesium | 2025-01-11 | | 2.2 | mg/dL | (missing) | | [facility] | 06:52:07 | [facility] | | | | + + + +-------+---------+ + + + | Result panel 355 | + + + + + +-------+ + + | Prot | 2025-01-11 | | 7.5 | (missing) | (missing) | | [facility] 06:52[facility] | [facility] | | | | + + + +-------+ + + + + | Result panel 356 | + + + + + +-------+ [...] + + + + | Result panel 357 | + + + + + +-------+ [...] + + + + | Result panel 358 | + + + + + +--------+ [...] + + + + | Result panel 359 | + + + + + +--------+ [...] + + + + | Result panel 360 | + + + + + +-------+---------+ [...] +-------+---------+ + + + | Result panel 361 | + + + + + +------+ [...] + + + + | Result panel 362 | + + + + + +------+ [...] + + + + | Result panel 363 | + + + + + +------+ + + | ALP | 2025-01-11 | | 95 | (missing) | (missing) | | [facility] | 06:52:07 | [facility] | | | | + + + +------+ + + + + | Result panel 364 | + + + + + +---------+ [...] + + + + | Result panel 365 | + + + + + +--------+ [...] + + + + | Result panel 366 | + + + + + +--------+ + + | Hgb | 2025-01-11 | | 17.4 | (missing) | (missing) | | [facility] | 06:52:07 | [facility] | | | | | [facility] | | | | + + + +--------+ + + + + | Result panel 367 | + + + + + +--------+ [...] + + + + | Result panel 368 | + + + + + +--------+ [...] + + + + | Result panel 369 | + + + + + +--------+ [...] + + + + | Result panel 370 | + + + + + +--------+ [...] + + + + | Result panel 371 | + + + + + +--------+ [...] + + + + | Result panel 372 | + + + + + +-------+ [...] + + + + | Result panel 373 | + + + + + +--------+ [...] + + + + | Result panel 374 | + + + + + +--------+ [...] + + + + | Result panel 375 | + + + + + +--------+ [...] + + + + | Result panel 376 | + + + + + +-------+ [...] + + + + | Result panel 377 | + + + + + +-------+ [...] + + + + | Result panel 378 | + + + + + +------+---------+ [...] +------+---------+ + + + | Result panel 379 | + + + + + +------+---------+ [...] +------+---------+ + + + | Result panel 380 | + + + + + +--------+---------+ [...] +--------+---------+ + + + | Result panel 381 | + + + + + +--------+ [...] + + + + | Result panel 382 | + + + + + +------+ [...] + + + + | Result panel 383 | + + + + + +---------+ [...] + + + + | Result panel 384 | + + + + + +-------+ [...] + + + + | Result panel 385 | + + + + + +-------+ [...] + + + + | Result panel 386 | + + + + + +-------+ + + | Chloride | 2025-01-11 | | 103 | (missing) | (missing) | | [facility] | 06[facility]52:07 | [facility] | | | | + + + +-------+ + + + + | Result panel 387 | + + + + + +------+ [...] + + + + | Result panel 388 | + + + + + +--------+ [...] + + + + | Result panel 389 | + + + + + +-------+---------+ [...] +-------+---------+ + + + | Result panel 390 | + + + + + +-------+---------+ [...] +-------+---------+ + + + | Result panel 391 | + + + + + +-------+ [...] + + + + | Result panel 392 | + + + + + +--------+ [...] + + + + | Result panel 393 | + + + + + +-------+ [...] + + + + | Result panel 394 | + + + + + +-------+ [...] + + + + | Result panel 395 | + + + + + +--------+ [...] + + + + | Result panel 396 | + + + + + +-------+---------+ [...] +-------+---------+ + + + | Result panel 397 | + + + + + +------+ + + | AST | 2025-01-11 | | 25 | (missing) | (missing) | | [facility] | [facility] | [facility] | | | | + + + +------+ + + + + | Result panel 398 | + + + + + +------+ [...] + + + + | Result panel 399 | + + + + + +------+ [...] + + + + | Result panel 400 | + + + + + +---------+ [...] + + + + | Result panel 401 | + + + + + +--------+ [...] + + + + | Result panel 402 | + + + + + +--------+ [...] + + + + | Result panel 403 | + + + + + +--------+ [...] + + + + | Result panel 404 | + + + + + +--------+ [...] + + + + | Result panel 405 | + + + + + +--------+ [...] + + + + | Result panel 406 | + + + + + +--------+ [...] + + + + | Result panel 407 | + + + + + +--------+ [...] + + + + | Result panel 408 | + + + + + +-------+ [...] + + + + | Result panel 409 | + + + + + +--------+ [...] + + + + | Result panel 410 | + + + + + +--------+ [...] + + + + | Result panel 411 | + + + + + +--------+ [...] + + + + | Result panel 412 | + + + + + +-------+ [...] + + + + | Result panel 413 | + + + + + +-------+ [...] + + + + | Result panel 414 | + + + + + +-------+ [...] + + + + | Result panel 415 | + + + + + +------+---------+ [...] +------+---------+ + + + | Result panel 416 | + + + + + +------+---------+ [...] +------+---------+ + + + | Result panel 417 | + + + + + +--------+---------+ [...] +--------+---------+ + + + | Result panel 418 | + + + + + +------+ [...] + + + + | Result panel 419 | + + + + + +---------+ [...] + + + + | Result panel 420 | + + + + + +-------+ + + | Sodium | 2025-01-11 | | 139 | (missing) | (missing) | | [facility] | 06[facility]52:[facility] | [facility] | | | | + + + +-------+ + + + + | Result panel 421 | + + + + + +-------+ [...] + + + + | Result panel 422 | + + + + + +-------+ [...] + + + + | Result panel 423 | + + + + + +------+ [...] + + + + | Result panel 424 | + + + + + +--------+ [...] + + + + | Result panel 425 | + + + + + +--------+ [...] + + + + | Result panel 426 | + + + + + +-------+---------+ [...] +-------+---------+ + + + | Result panel 427 | + + + + + +-------+---------+ [...] +-------+---------+ + + + | Result panel 428 | + + + + + +-------+ [...] + + + + | Result panel 429 | + + + + + +-------+ [...] + + + + | Result panel 430 | + + + + + +-------+ [...] + + + + | Result panel 431 | + + + + + +--------+ [...] + + + + | Result panel 432 | + + + + + +-------+---------+ [...] +-------+---------+ + + + | Result panel 433 | + + + + + +------+ [...] + + + + | Result panel 434 | + + + + + +------+ [...] + + + + | Result panel 435 | + + + + + +------+ [...] units | + + + +---------+ | 2024-10-28 00:00 | BMI | 22.6 | kg/m2 | + + + +---------+ | 2024-10-28 00:00 | BP_diastolic | 88 | mmHg | + + + +---------+ | 2024-10-28 00:00 | BP_systolic | 142 | mmHg | + + + +---------+ | 2024-10-28 00:00 | heart_rate | 119 | /min | + + + +---------+ | 2024-10-28 00:00 | height_metric | 165.1 | cm | + + + +---------+ | 2024-10-28 00:00 | height_standard | 65 | in | + + + +---------+ | 2024-10-28 00:00 | o2_saturation | 96 | % | + + + +---------+ | 2024-10-28 00:00 | respiration_rate | 18 | /min | + + + +---------+ | 2024-10-28 00:00 | temperature_metric | 36.61 | C | | | | | | + + + +---------+ | 2024-10-28 00:00 | | 97.9 | F | | | temperature_standar | | | | | d | | | + + + +---------+ | 2024-10-28 00:00 | weight_metric | 61.6 | kg | + + + +---------+ | 2024-10-28 00:00 | weight_standard | 135.81 | lb | + + + +---------+ | 2024-10-30 00:00 | BMI | 49.7 | kg/m2 | + + + +---------+ | 2024-10-30 00:00 | BP_diastolic | 83 | mmHg | + + + +---------+ | 2024-10-30 00:00 | BP_systolic | 141 | mmHg | + + + +---------+ | 2024-10-30 00:00 | heart_rate | 83 | /min | + + + +---------+ | 2024-10-30 00:00 | height_metric | 165.1 | cm | + + + +---------+ | 2024-10-30 00:00 | height_standard | 65 | in | + + + +---------+ | 2024-10-30 00:00 | o2_saturation | 96 | % | + + + +---------+ | 2024-10-30 00:00 | respiration_rate | 13 | /min | + + + +---------+ | 2024-10-30 00:00 | temperature_metric | 36.78 | C | | | | | | + + + +---------+ | 2024-10-30 00:00 | | 98.2 | F | | | temperature_standar | | | | | d | | | + + + +---------+ | 2024-10-30 00:00 | weight_metric | 135.4 | kg | + + + +---------+ | 2024-10-30 00:00 | weight_standard | 298.51 | lb | + + + +---------+ | 2024-11-02 00:00 | BMI | 23.0 | kg/m2 | + + + +---------+ | 2024-11-02 00:00 | BP_diastolic | 81 | mmHg | + + + +---------+ | 2024-11-02 00:00 | BP_systolic | 142 | mmHg | + + + +---------+ | 2024-11-02 00:00 | heart_rate | 84 | /min | + + + +---------+ | 2024-11-02 00:00 | height_metric | 165.1 | cm | + + + +---------+ | 2024-11-02 00:00 | height_standard | 65 | in | + + + +---------+ | 2024-11-02 00:00 | o2_saturation | 95 | % | + + + +---------+ | 2024-11-02 00:00 | respiration_rate | 21 | /min | + + + +---------+ | 2024-11-02 00:00 | temperature_metric | 36.83 | C | | | | | | + + + +---------+ | 2024-11-02 00:00 | | 98.3 | F | | | temperature_standar | | | | | d | | | + + + +---------+ | 2024-11-02 00:00 | weight_metric | 62.6 | kg | + + + +---------+ | 2024-11-02 00:00 | weight_standard | 138 | lb | + + + +---------+ | 2024-11-05 [...]
--- OUTSIDE RECORDS SUMMARY | 2025-01-26 18:18 | XMS ---
PreManage Notification: VAL FAUST Security Control Clerk Events No recent Security Events currently on file CRITERIA MET - 6 ED Visits in 6 Months - Group Notification - [facility] - 2 Visits in 30 Days CARE PROVIDERS [facility]/Center: [facility] Current FAMILY PHONE: [phone] Helen Arce Physician Gauge And Weigh Machine Adjuster Current FAZAL PHONE: [phone] Kate has no Care Guidelines for this patient. EBonnie VISIT COUNT (12 MO.) 30 [facility] TOTAL 30 NOTE: Visits indicate total known visits. ED/UCC VISIT TRACKING (12 MO.) 01/26/2025 18:12 EMERALD [facility]viz[facility] [place] TYPE: Emergency COMPLAINT: - EAR PAIN 01/20/2025 20:13 EMERALD Arvizu [place] TYPE: Emergency COMPLAINT: - LIGHT HEADEDNESS DIAGNOSES: - Allergy status to narcotic agent - Allergy status to other drugs, medicaments and biological substances - Anxiety disorder, unspecified - Essential (primary) hypertension - Generalized anxiety disorder - Nicotine dependence, unspecified, uncomplicated - Other fdc (current) drug therapy 01/14/2025 08:22 EMERALD Arvizu [place] TYPE: Emergency COMPLAINT: - MEDICATION REACTION DIAGNOSES: - Allergy status to narcotic agent - Allergy status to other drugs, medicaments and biological substances - Anxiety disorder, unspecified - Essential (primary) hypertension - Nicotine dependence, unspecified, uncomplicated - Other intermediate project manager (current) drug therapy 01/12/2025 20:29 EMERALD Arvizu [place] TYPE: Emergency COMPLAINT: - MEDS ISSUE DIAGNOSES: - Allergy status to narcotic agent - Allergy status to other drugs, medicaments and biological substances - Anxiety disorder, unspecified - Essential (primary) hypertension - Nicotine dependence, unspecified, uncomplicated - Other fdc (current) drug therapy 01/11/2025 18:11 EMERALD Arvizu [place] TYPE: Emergency COMPLAINT: - BP CHECK DIAGNOSES: - Allergy status to other drugs, medicaments and biological substances - Essential (primary) hypertension - Nicotine dependence, unspecified, uncomplicated - Other fdc (current) drug therapy 01/11/2025 06:43 [facility] [place] TYPE: Emergency COMPLAINT: - SHORTNESS OF BREATH DIAGNOSES: - Allergy status to narcotic agent - Allergy status to other drugs, medicaments and biological substances - Anxiety disorder, unspecified - Essential (primary) hypertension - Nicotine dependence, unspecified, uncomplicated - Other intermediate project manager (current) drug therapy - Shortness of breath 12/24/2024 09:06 [facility] [place] TYPE: Emergency COMPLAINT: - EAR PAIN 12/20/2024 09:[address] [facility] [address] [place] TYPE: Emergency COMPLAINT: - WEAKNESS DIAGNOSES: - Allergy status to narcotic agent - Allergy status to other drugs, medicaments and biological substances - Anxiety disorder, unspecified - Essential (primary) hypertension - Nicotine dependence, unspecified, uncomplicated - Other fdc (current) drug therapy 12/04/2024 22:55 [facility] [place] TYPE: Emergency COMPLAINT: - HEART RATE ISSUES DIAGNOSES: - Adverse effect of unspecified drugs, medicaments and biological substances, initial encounter - Allergy status to narcotic agent - Allergy status to other drugs, medicaments and biological substances - Anxiety disorder, unspecified - Anxiety disorder, unspecified - Essential (primary) hypertension - Nicotine dependence, unspecified, uncomplicated - Other fatigue - Other fdc (current) drug therapy 12/02/2024 08:44 [facility]ALD [facility]iz[facility] [place] TYPE: Emergency COMPLAINT: - ANXIETY 11/23/2024 10:47 EMERALD Arvizu [place] TYPE: Emergency COMPLAINT: - DIFFICULTY BREATHING DIAGNOSES: - Allergy status to narcotic agent - Allergy status to other drugs, medicaments and biological substances - Anxiety disorder, unspecified - Essential (primary) hypertension - Gastro-esophageal reflux disease without esophagitis - Nicotine dependence, unspecified, uncomplicated - Other intermediate project manager (current) drug therapy - Shortness of breath 11/19/2024 09:22 EMERALD [facility]iz[facility] [place] TYPE: Emergency COMPLAINT: - ANXIETY DIAGNOSES: - Allergy status to other drugs, medicaments and biological substances - Anxiety disorder, unspecified - Essential (primary) hypertension - meterman (current) use of antibiotics - Nicotine dependence, [...] - Nicotine dependence, unspecified, uncomplicated - Other fdc (current) drug therapy 11/06/2024 15:41 EMERALD [facility]iz[facility] [place] TYPE: Emergency COMPLAINT: - BP CHECK 11/05/2024 15:44 [facility] [place]leen [place] TYPE: Emergency COMPLAINT: - ANXIETY DIAGNOSES: - Allergy status to narcotic agent - Allergy status to other drugs, medicaments and biological substances - Anxiety disorder, unspecified - Essential (primary) hypertension - Nicotine dependence, unspecified, uncomplicated - Other fdc (current) drug therapy 11/02/2024 06:50 [facility] [place]leen [place] TYPE: Emergency COMPLAINT: - WEAKNESS DIAGNOSES: - Allergy status to analgesic agent - Allergy status to other drugs, medicaments and biological substances - Anxiety disorder, unspecified - Dizziness and giddiness - Essential (primary) hypertension - Nicotine dependence, unspecified, uncomplicated - Other fdc (current) drug therapy - Pain in left arm 10/30/2024 07:23 [facility] [place]leen [place] TYPE: Emergency COMPLAINT: - WEAKNESS DIAGNOSES: - Allergy status to narcotic agent - Allergy status to other drugs, medicaments and biological substances - Anxiety disorder, unspecified - Essential (primary) hypertension - Nicotine dependence, unspecified, uncomplicated - Other fatigue - Other fdc (current) drug therapy - Weakness 10/28/2024 17:15 [...] - Nicotine dependence, unspecified, uncomplicated - Other fdc (current) drug therapy Plus 10 More Visits INPATIENT VISIT TRACKING (12 MO.) No inpatient visits to display in this time frame [email or web address]
[2025-01-26 18:39] VITALS: BP 182/97
== END 2025-01-26 18:47 | disposition home or self-care (01) ==
LOC: ED 18:11
DX: H92.01 Otalgia, right ear (principal); I10 Essential (primary) hypertension; F41.9 Anxiety disorder, unspecified; F17.200 Nicotine dependence, unspecified, uncomplicated; Z88.5 Allergy status to narcotic agent; Z88.8 Allergy status to other drugs, medicaments and biological substances; Z79.899 Other long term (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
CPT/HCPCS: 99283

== ENCOUNTER 2025-02-01 23:05 | Emergency (ER) | payer MEDICARE, OTHER ==
[~2025-02-01] VITALS: Ht 165.1 cm; Wt 63.0 kg
--- OUTSIDE RECORDS SUMMARY | 2025-02-01 23:12 | XMS ---
PreManage Notification: [facility] [employer] Events No recent Security Events currently on file CRITERIA MET - 6 ED Visits in 6 Months - Group Notification - [facility] - 2 Visits in 30 [address] 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 EBonnie VISIT COUNT (12 MO.) [address] [place] [address] TOTAL 31 NOTE: Visits indicate total known visits. ED/UCC VISIT TRACKING (12 MO.) 02/01/2025 23:06 [facility] TYPE: Emergency COMPLAINT: - EAR PAIN 01/26/2025 18:12 [facility] TYPE: Emergency COMPLAINT: - EAR PAIN DIAGNOSES: - Allergy status to narcotic agent - Allergy status to other drugs, medicaments and biological substances - Anxiety disorder, unspecified - Essential (primary) hypertension - Nicotine dependence, unspecified, uncomplicated - Otalgia, right ear - Other custodial (current) drug therapy 01/20/2025 20:13 [facility] TYPE: Emergency COMPLAINT: - LIGHT HEADEDNESS DIAGNOSES: - Allergy status to narcotic agent - Allergy status to other drugs, medicaments and biological substances - Anxiety disorder, unspecified - Essential (primary) hypertension - Generalized anxiety disorder - Nicotine dependence, unspecified, uncomplicated - Other custodial (current) drug therapy 01/14/2025 08:22 [facility] TYPE: Emergency COMPLAINT: - MEDICATION REACTION DIAGNOSES: - Allergy status to narcotic agent - Allergy status to other drugs, medicaments and biological substances - Anxiety disorder, unspecified - Essential (primary) hypertension - Nicotine dependence, unspecified, uncomplicated - Other medical terminologist (current) drug therapy 01/12/2025 20:29 [facility] TYPE: Emergency COMPLAINT: - MEDS ISSUE DIAGNOSES: - Allergy status to narcotic agent - Allergy status to other drugs, medicaments and biological substances - Anxiety disorder, unspecified - Essential (primary) hypertension - Nicotine dependence, unspecified, uncomplicated - Other medical terminologist (current) drug therapy 01/11/2025 18:11 [facility] TYPE: Emergency COMPLAINT: - BP CHECK DIAGNOSES: - Allergy status to other drugs, medicaments and biological substances - Essential (primary) hypertension - Nicotine dependence, unspecified, uncomplicated - Other medical terminologist (current) drug therapy 01/11/2025 06:43 [facility] TYPE: Emergency COMPLAINT: - SHORTNESS OF BREATH DIAGNOSES: - Allergy status to narcotic agent - Allergy status to other drugs, medicaments and biological substances - Anxiety disorder, unspecified - Essential (primary) hypertension - Nicotine dependence, unspecified, uncomplicated - Other custodial (current) drug therapy - Shortness of breath 12/24/2024 09:06 [facility] TYPE: Emergency COMPLAINT: - EAR PAIN 12/20/2024 09:04 [facility] TYPE: Emergency COMPLAINT: - WEAKNESS DIAGNOSES: - Allergy status to narcotic agent - Allergy status to other drugs, medicaments and biological substances - Anxiety disorder, unspecified - Essential (primary) hypertension - Nicotine dependence, unspecified, uncomplicated - Other custodial (current) drug therapy 12/04/2024 22:55 [facility] [...] unspecified, uncomplicated - Other fatigue - Other medical terminologist (current) drug therapy 12/02/2024 08:44 [facility] TYPE: Emergency COMPLAINT: - ANXIETY 11/23/2024 10:47 [facility] TYPE: Emergency COMPLAINT: - DIFFICULTY BREATHING DIAGNOSES: - Allergy status to narcotic agent - Allergy status to other drugs, medicaments and biological substances - Anxiety disorder, unspecified - Essential (primary) hypertension - Gastro-esophageal reflux disease without esophagitis - Nicotine dependence, unspecified, uncomplicated - Other medical terminologist (current) drug therapy - Shortness of breath 11/19/2024 09:22 [facility] [place] [facility] [place] TYPE: Emergency COMPLAINT: - ANXIETY DIAGNOSES: - Allergy status to other drugs, medicaments and biological substances - Anxiety disorder, unspecified - Essential (primary) hypertension - longterm (current) use of antibiotics - Nicotine dependence, unspecified, uncomplicated 11/15/2024 08:57 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 [place] [facility] [place] TYPE: Emergency COMPLAINT: - ANXIETY DIAGNOSES: - Allergy status to narcotic agent - Allergy status to other drugs, medicaments and biological substances - Anxiety disorder, unspecified - Essential (primary) hypertension - Nicotine dependence, unspecified, uncomplicated - Other custodial (current) drug therapy 11/06/2024 15:41 [facility] TYPE: Emergency COMPLAINT: - BP CHECK 11/05/2024 15:44 [facility] TYPE: Emergency COMPLAINT: - ANXIETY DIAGNOSES: - Allergy status to narcotic agent - Allergy status to other drugs, medicaments and biological substances - Anxiety disorder, unspecified - Essential (primary) hypertension - Nicotine dependence, unspecified, uncomplicated - Other custodial (current) drug therapy 11/02/2024 06:50 [facility] TYPE: Emergency COMPLAINT: - WEAKNESS DIAGNOSES: - Allergy status to analgesic agent - Allergy status to other drugs, medicaments and biological substances - Anxiety disorder, unspecified - Dizziness and giddiness - Essential (primary) hypertension - Nicotine dependence, unspecified, uncomplicated - Other medical terminologist (current) drug therapy - Pain in left arm 10/30/2024 07:23 [facility] TYPE: Emergency COMPLAINT: - WEAKNESS DIAGNOSES: - Allergy status to narcotic agent - Allergy status to other drugs, medicaments and biological substances - Anxiety disorder, unspecified - Essential (primary) hypertension - Nicotine dependence, unspecified, uncomplicated - Other fatigue - Other custodial (current) drug therapy - Weakness 10/28/2024 17:15 [facility] TYPE: Emergency COMPLAINT: - BLOOD PRESSURE ISSUES, FATIGUE, EYES RED/SORE DIAGNOSES: - Allergy status to narcotic agent - Allergy status to other antibiotic agents - Allergy status to other drugs, medicaments and biological substances - Anxiety disorder, unspecified - Essential (primary) hypertension - Nicotine dependence, unspecified, uncomplicated - Other specified anxiety disorders Plus 11 More Visits INPATIENT VISIT TRACKING (12 MO.) No inpatient visits to display in this time frame [email or web address]
--- OUTSIDE RECORDS SUMMARY | 2025-02-01 23:13 | XMS | Continuity of Care Document ---
Demographics + + + | Address | [address] | | | [place] [address] | + + + | Preferred Language | Unknown | + + + | Marital Status | | + + + | Druze Affiliation | Unknown | + + + | Race | White | + + + | Ethnic Group | or | + + + Author + + + | Author | [facility] | + + + | Organization | [facility] | + + + | Address | [address] | | | [place] [address] | + + + | Phone | | + + + Care Team Providers + + + + | Care Low Voltage Electrician Name | Role | Phone | + + + + Unavailable | Unavailable | + + + + Unavailable | Unavailable | + + + + Unavailable | Unavailable | + + + + Unavailable | Unavailable | + + + + Unavailable | Unavailable | + + + + Unavailable | Unavailable | + + + + Unavailable | Unavailable | + + + + Unavailable | Unavailable | + + + + Allergies and Intolerances + + + + + + | date | description | facility | reaction | severity | + + + + + + | 2024-11-15 | Acetaminophen | [facility] | Nausea and | Moderate | | 00:00 | | [facility] | | | + + + + + + | 2024-11-15 | Lisinopril | [facility] - | (no reaction) | Severe | | 00:00 | | [facility] | | | + + + + + + | 2024-11-19 | Lisinopril | [facility] - | (no reaction) | Severe | | 00:00 | | [facility] | | | + + + + + + | 2024-11-23 | Lisinopril | [facility] - | (no reaction) | Severe | | 00:00 | | [facility] | | | + + + + + + | 2024-12-02 | Lisinopril | [facility] - | (no reaction) | Severe | | 00:00 | | [facility] | | | + + + + + + | 2024-12-20 | Lisinopril | [facility] - | (no reaction) | Severe | | 00:00 | | [facility] | | | + + + + + + | 2025-01-14 | Lisinopril | [facility] - | (no reaction) | Severe | | 00:00 | | [facility] | | | + + + + + + | 2024-11-15 | Acetaminophen | [facility] - | Nausea and | Moderate | | 00:00 | | [facility] | | | + + + + + + | 2024-11-15 | Hydrocodone | [facility] - | Nausea and | Moderate | | 00:00 | | [facility] | | | + + + + + + | 2024-11-19 | Hydrocodone | [facility] - | (no reaction) | Severe | | 00:00 | [facility] | | | + + + + + + | 2024-11-23 | Hydrocodone | [facility] - | (no reaction) | Severe | | 00:00 | [facility] | | | + + + + + + | 2024-12-02 | Hydrocodone | [facility] - | (no reaction) | Severe | | 00:00 | [facility] | | | + + + + + + | 2024-12-20 | Hydrocodone | [facility] - | (no reaction) | Severe | | 00:00 | | [facility] | | | + + + + + + | 2025-01-14 | Hydrocodone | [facility] - | (no reaction) | Severe | | 00:00 | | [facility] | | | + + + + + + | 2024-11-15 | Lisinopril | [facility] - | (no reaction) | Severe | | 00:00 | | [facility] | | | + + + + + + | 2024-11-19 | Lisinopril | [facility] - | (no reaction) | Severe | | 00:00 | | [facility] | | | + + + + + + | 2024-11-23 | Lisinopril | [facility] - | (no reaction) | Severe | | 00:00 | | [facility] | | | + + + + + + | 2024-12-02 | Lisinopril | [facility] - | (no reaction) | Severe | | 00:00 | | [facility] | | | + + + + + + | 2024-12-20 | Lisinopril | [facility] - | (no reaction) | Severe | | 00:00 | | [facility] | | | + + + + + + | 2025-01-14 | Lisinopril | [facility] - | (no reaction) | Severe | | 00:00 | | [facility] | | | + + + + + + | 2024-11-19 | Meperidine | [facility] - | (no reaction) | Severe | | 00:00 | | [facility] | | | + + + + + + | 2024-11-23 | Meperidine | [facility] - | (no reaction) | Severe | | 00:00 | | [facility] | | | + + + + + + | 2024-12-02 | Meperidine | [facility] - | (no reaction) | Severe | | 00:00 | | [facility] | | | + + + + + + | 2024-12-20 | Meperidine | [facility] - | (no reaction) | Severe | | 00:00 | | [facility] | | | + + + + + + | 2025-01-14 | Meperidine | [facility] - | (no reaction) | Severe | | 00:00 | | [facility] | | | + + + + + + | 2024-11-15 | Acetaminophen | [facility] - | Nausea and | Moderate | | 00:00 | | [facility] | | | + + + + + + | 2024-11-15 | Hydrocodone | [facility] - | Nausea and | Moderate | | 00:00 | | [facility] | | | + + + + + + | 2024-11-19 | Hydrocodone | [facility] - | (no reaction) | Severe | | 00:00 | | [facility] | | | + + + + + + | 2024-11-23 | Hydrocodone | [facility] - | (no reaction) | Severe | | 00:00 | | [facility] | | | + + + + + + | 2024-12-02 | Hydrocodone | [facility] - | (no reaction) | Severe | | 00:00 | | [facility] | | | + + + + + + | 2024-12-20 | Hydrocodone | [facility] - | (no reaction) | Severe | | 00:00 | | [facility] | | | + + + + + + | 2025-01-14 | Hydrocodone | [facility] - | (no reaction) | Severe | | 00:00 | | [facility] | | | + + + + + + | 2024-11-19 | Meperidine | [facility] - | (no reaction) | Severe | | 00:00 | | [facility] | | | + + + + + + | 2024-11-23 | Meperidine | [facility] - | (no reaction) | Severe | | 00:00 | | [facility] | | | + + + + + + | 2024-12-02 | Meperidine | [facility] - | (no reaction) | Severe | | 00:00 | | [facility] | | | + + + + + + | 2024-12-20 | Meperidine | [facility] - | (no reaction) | Severe | | 00:00 | | [facility] | | | + + + + + + | 2025-01-14 | Meperidine | [facility] - | (no reaction) | Severe | | 00:00 | | [facility] | | | + + + + + + | 2024-11-15 | Hydrocodone | [facility] - | Nausea and | Moderate | | 00:00 | | [facility] | | | + + + + + + | 2024-11-19 | Hydrocodone | [facility] - | (no reaction) | Severe | | 00:00 | | [facility] | | | + + + + + + | 2024-11-23 | Hydrocodone | [facility] - | (no reaction) | Severe | | 00:00 | | [facility] | | | + + + + + + | 2024-12-02 | Hydrocodone | [facility] - | (no reaction) | Severe | | 00:00 | [facility] | | | + + + + + + | 2024-12-20 | Hydrocodone | [facility] - | (no reaction) | Severe | | 00:00 | | [facility] | | | + + + + + + | 2025-01-14 | Hydrocodone | [facility] - | (no reaction) | Severe | | 00:00 | | [facility] | | | + + + + + + | 2024-11-19 | Meperidine | [facility] - | (no reaction) | Severe | | 00:00 | | [facility] | | | + + + + + + | 2024-11-23 | Meperidine | [facility] - | (no reaction) | Severe | | 00:00 | | [facility] | | | + + + + + + | 2024-12-02 | Meperidine | [facility] - | (no reaction) | Severe | | 00:00 | | [facility] | | | + + + + + + | 2024-12-20 | Meperidine | [facility] - | (no reaction) | Severe | | 00:00 | | [facility] | | | + + + + + + | 2025-01-14 | Meperidine | [facility] - | (no reaction) | Severe | | 00:00 | | [facility] | | | + + + + + + | 2024-11-15 | Lisinopril | [facility] - | (no reaction) | Severe | | 00:00 | | [facility] | | | + + + + + + | 2024-11-19 | Lisinopril | [facility] - | (no reaction) | Severe | | 00:00 | | [facility] | | | + + + + + + | 2024-11-23 | Lisinopril | [facility] - | (no reaction) | Severe | | 00:00 | | [facility] | | | + + + + + + | 2024-12-02 | Lisinopril | [facility] - | (no reaction) | Severe | | 00:00 | | [facility] | | | + + + + + + | 2024-12-20 | Lisinopril | [facility] - | (no reaction) | Severe | | 00:00 | | [facility] | | | + + + + + + | 2025-01-14 | Lisinopril | [facility] - | (no reaction) | Severe | | 00:00 | | [facility] | | | + + + + + + | 2024-11-15 | UNK | [facility] - | (no reaction) | (no severity) | | 00:00 | | [facility] | | | + + + + + + Encounters No information. Functional Status No information. Immunizations No information. Medications + + + + | date | description | facility | + + + + | (no date) | [facility]COD[facility] | | H[facility]ACETAMINOPHEN [facility] | + + + + | (no date) | OXYCODONE | [facility] | | | HCL/ACETAMINOPHEN | [facility] | + + + + | (no date) | OXYCODONE | [facility] | | | HCL/ACETAMINOPHEN | [facility] | + + + + | (no date) | OXYCODONE | [facility] | | | HCL/ACETAMINOPHEN | [facility] | + + + + | (no date) | OXYCODONE | [facility] | | | HCL/ACETAMINOPHEN | [facility] | + + + + | (no date) | OXYCODONE | [facility] | | | HCL/ACETAMINOPHEN | [facility] | + + + + | (no date) | OXYCODONE | [facility] | | | HCL/ACETAMINOPHEN | [facility] | + + + + | (no date) | LORAZEPAM | [facility] | | | | [facility] | + + + + | (no date) | LORAZEPAM | [facility] | | | | [facility] | + + + + | (no date) | LORAZEPAM | [facility] | | | | [facility] | + + + + | (no date) | LORAZEPAM | [facility] | | | | [facility] | + + + + | (no date) | LORAZEPAM | [facility] | | | | [facility] | + + + + | (no date) | LORAZEPAM | [facility] | | | | [facility] | + + + + | (no date) | LORAZEPAM | [facility] | | | | [facility] | + + + + | (no date) | LORAZEPAM | [facility] | | | | [facility] | + + + + | (no date) | LORAZEPAM | [facility] | | | | [facility] | + + + + | (no date) | LORAZEPAM | [facility] | | | | [facility] | + + + + | (no date) | CARVEDILOL | [facility] | | | | [facility] | + + + + | (no date) | CARVEDILOL | [facility] | | | | [facility] | + + + + | (no date) | CARVEDILOL | [facility] | | | | [facility] | + + + + | (no date) | CARVEDILOL | [facility] | | | | [facility] | + + + + | (no date) | CARVEDILOL | [facility] | | | | [facility] | + + + + | (no date) | CARVEDILOL | [facility] | | | | [facility] | + + + + | (no date) | CARVEDILOL | [facility] | | | | [facility] | + + + + | (no date) | ALPRAZOLAM | [facility] | | | | [facility] | + + + + | (no date) | ALPRAZOLAM | [facility] | | | | [facility] | + + + + | (no date) | ALPRAZOLAM | [facility] | | | | [facility] | + + + + | (no date) | ALPRAZOLAM | [facility] | | | | [facility] | + + + + | (no date) | ALPRAZOLAM | [facility] | | | | [facility] | + + + + | (no date) | ALPRAZOLAM | [facility] | | | | [facility] | + + + + | (no date) | AMLODIPINE BESYLATE | [facility] | | | | [facility] | + + + + | (no date) | AMLODIPINE BESYLATE | [facility] | | | | [facility] | + + + + | (no date) | AMLODIPINE BESYLATE | [facility] | | | | [facility] | + + + + | (no date) | AMLODIPINE BESYLATE | [facility] | | | | [facility] | + + + + | (no date) | AMLODIPINE BESYLATE | [facility] | | | | [facility] | + + + + | (no date) | AMLODIPINE BESYLATE | [facility] | | | | [facility] | + + + + | (no date) | AMLODIPINE BESYLATE | [facility] | | | | [facility] | + + + + | (no date) | SPIRONOLACTONE | [facility] | | | | [facility] | + + + + | (no date) | SPIRONOLACTONE | [facility] | | | | [facility] | + + + + | (no date) | SPIRONOLACTONE | [facility] | | | | [facility] | + + + + | (no date) | SPIRONOLACTONE | [facility] | | | | [facility] | + + + + | (no date) | SPIRONOLACTONE | [facility] | | | | [facility] | + + + + | (no date) | SPIRONOLACTONE | [facility] | | | | [facility] | + + + + | (no date) | SPIRONOLACTONE | [facility] | | | | [facility] | + + + + | (no date) | ESCITALOPRAM OXALATE | [facility] | | | | [facility] | + + + + | (no date) | ESCITALOPRAM OXALATE | [facility] | | | | [facility] | + + + + | (no date) | ESCITALOPRAM OXALATE | [facility] | | | | [facility] | + + + + | (no date) | ESCITALOPRAM OXALATE | [facility] | | | | [facility] | + + + + | (no date) | ESCITALOPRAM OXALATE | [facility] | | | | [facility] | + + + + | (no date) | ESCITALOPRAM OXALATE | [facility] | | | | [facility] | + + + + | (no date) | ESCITALOPRAM OXALATE | [facility] | | | | [facility] | + + + + | 2024-12-05 00:00 | ZOLPIDEM TARTRATE | [facility] | | | | [facility] | + + + + | 2024-12-05 00:00 | ZOLPIDEM TARTRATE | [facility] | | | | [facility] | + + + + | 2024-12-05 00:00 | ZOLPIDEM TARTRATE | [facility] | | | | [facility] | + + + + | 2024-12-05 00:00 | ZOLPIDEM TARTRATE | [facility] | | | | [facility] | + + + + | 2024-12-05 00:00 | ZOLPIDEM TARTRATE | [facility] | | | | [facility] | + + + + | (no date) | METOPROLOL SUCCINATE | [facility] | | | | [facility] | + + + + | (no date) | METOPROLOL SUCCINATE | [facility] | | | | [facility] | + + + + | (no date) | METOPROLOL SUCCINATE | [facility] | | | | [facility] | + + + + | (no date) | METOPROLOL SUCCINATE | [facility] | | | | [facility] | + + + + | (no date) | METOPROLOL SUCCINATE | [facility] | | | | [facility] | + + + + | (no date) | METOPROLOL SUCCINATE | [facility] | | | | [facility] | + + + + | (no date) | METOPROLOL SUCCINATE | [facility] | | | | [facility] | + + + + | (no date) | CLONIDINE HCL | [facility] | | | | [facility] | + + + + | (no date) | CLONIDINE HCL | [facility] | | | | [facility] | + + + + | (no date) | CLONIDINE HCL | [facility] | | | | [facility] | + + + + | (no date) | CLONIDINE HCL | [facility] | | | | [facility] | + + + + | (no date) | CLONIDINE HCL | [facility] | | | | [facility] | + + + + | (no date) | CLONIDINE HCL | [facility] | | | | [facility] | + + + + | (no date) | CLONIDINE HCL | [facility] | | | | [facility] | + + + + | (no date) | LOSARTAN POTASSIUM | [facility] | | | | [facility] | + + + + | (no date) | LOSARTAN POTASSIUM | [facility] | | | | [facility] | + + + + | (no date) | LOSARTAN POTASSIUM | [facility] | | | | [facility] | + + + + | (no date) | LOSARTAN POTASSIUM | [facility] | | | | [facility] | + + + + | (no date) | LOSARTAN POTASSIUM | [facility] | | | | [facility] | + + + + | (no date) | LOSARTAN POTASSIUM | [facility] | | | | [facility] | + + + + | (no date) | LOSARTAN POTASSIUM | [facility] | | | | [facility] | + + + + | (no date) | HYDROXYZINE HCL | [facility] | | | | [facility] | + + + + | (no date) | HYDROXYZINE HCL | [facility] | | | | [facility] | + + + + | (no date) | HYDROXYZINE HCL | [facility] | | | | [facility] | + + + + | (no date) | HYDROXYZINE HCL | [facility] | | | | [facility] | + + + + | (no date) | HYDROXYZINE HCL | [facility] | | | | [facility] | + + + + | (no date) | HYDROXYZINE HCL | [facility] | | | | [facility] | + + + + | (no date) | HYDROXYZINE HCL | [facility] | | | | [facility] | + + + + | (no date) | hydrOXYzine HCL | [facility] | | | | [facility] | + + + + | (no date) | hydrOXYzine HCL | [facility] | | | | [facility] | + + + + | (no date) | hydrOXYzine HCL | [facility] | | | | [facility] | + + + + | (no date) | hydrOXYzine HCL | [facility] | | | | [facility] | + + + + | (no date) | hydrOXYzine HCL | [facility] | | | | [facility] | + + + + | (no date) | hydrOXYzine HCL | [facility] | | | | [facility] | + + + + | (no date) | hydrOXYzine HCL | [facility] | | | | [facility] | + + + + | (no date) | CLONIDINE | [facility] | | | | [facility] | + + + + | (no date) | CLONIDINE | [facility] | | | | [facility] | + + + + | (no date) | CLONIDINE | [facility] | | | | [facility] | + + + + | (no date) | CLONIDINE | [facility] | | | | [facility] | + + + + | 2024-11-10 00:00 | Clonidine | [facility] | | | | [facility] | + + + + | 2024-11-10 00:00 | Clonidine | [facility] | | | | [facility] | + + + + | 2024-11-05 00:00 | CLONIDINE | [facility] | | | | [facility] | + + + + | 2024-11-05 00:00 | CLONIDINE | [facility] | | | | [facility] | + + + + | 2024-11-05 00:00 | CLONIDINE | [facility] | | | | [facility] | + + + + | 2024-11-05 00:00 | CLONIDINE | [facility] | | | | [facility] | + + + + | 2024-11-05 00:00 | CLONIDINE | [facility] | | | | [facility] | + + + + | 2024-11-05 00:00 | CLONIDINE | [facility] | | | | [facility] | + + + + | 2024-11-05 00:00 | CLONIDINE | [facility] | | | | [facility] | + + + + Problems + + + + | date | description | facility | + + + + | 2024-11-15 00:00 | Elevated blood pressure | [facility] | | | reading | [facility] | + + + + | 2024-11-15 00:00 | Elevated blood pressure | [facility] | | | reading | [facility] | + + + + | 2024-11-15 00:00 | Elevated blood pressure | [facility] | | | reading | [facility] | + + + + | 2024-11-15 00:00 | Elevated blood pressure | [facility] | | | reading | [facility] | + + + + | 2024-11-15 00:00 | Elevated blood pressure | [facility] | | | reading | [facility] | + + + + | 2024-11-15 00:00 | Elevated blood pressure | [facility] | | | reading | [facility] | + + + + | 2024-11-15 00:00 | Elevated blood pressure | [facility] | | | reading | [facility] | + + + + | 2024-11-19 00:00 | Acute anxiety | [facility] | | | | [facility] | + + + + | 2024-11-19 00:00 | Acute anxiety | [facility] | | | | [facility] | + + + + | 2024-11-19 00:00 | Acute anxiety | [facility] | | | | [facility] | + + + + | 2024-11-19 00:00 | Acute anxiety | [facility] | | | | [facility] | + + + + | 2024-11-19 00:00 | Acute anxiety | [facility] | | | | [facility] | + + + + | 2024-11-19 00:00 | Acute anxiety | [facility] | | | | [facility] | + + + + | 2024-12-02 00:00 | Anxiety and depression | [facility] | | | | [facility] | + + + + | 2024-12-02 00:00 | Anxiety and depression | [facility] | | | | [facility] | + + + + | 2024-12-02 00:00 | Anxiety and depression | [facility] | | | | [facility] | + + + + | 2024-12-02 00:00 | Anxiety and depression | [facility] | | | | [facility] | + + + + | 2024-12-02 00:00 | Anxiety and depression | [facility] | | | | [facility] | + + + + | 2024-12-02 00:00 | Anxiety and depression | [facility] | | | | [facility] | + + + + | 2024-12-05 00:00 | Side effect of medication | [facility] | | | | [facility] | + + + + | 2024-12-05 00:00 | [facility] | [facility] | + + + + | 2024-12-05 00:00 | Side effect of medication | [facility] | | | | [facility] | + + + + | 2024-12-05 00:00 | Side effect of medication | [facility] | | | | [facility] | + + + + | 2024-12-05 00:00 | Side effect of medication | [facility] | | | | [facility] | + + + + Procedures No information. Results/Labs +--------+--------+ +---------+--------+---------+ | test | date | facility | value | unit | notes | +--------+--------+ +---------+--------+---------+ + + | Result panel 1 | + + + + + +------+ + + | Glucose | 2024-11-05 | | 88 | (missing) | (missing) | | [facility] | 17:57:07 | [facility] | | | | + + + +------+ + + + + | Result panel 2 | + + + + + +------+ + + | Glucose | 2024-11-05 | | 88 | (missing) | (missing) | | [facility] | 17:57:07 | [facility] | [facility] | | | | + + + +------+ + + + + | Result panel 3 | + + + + + +------+ + + | Glucose | 2024-11-05 | | 88 | (missing) | (missing) | | [facility] | 17:57:07 | [facility] | | | [facility] | | | | + + + +------+ + + + + | Result panel 4 | + + + + + +------+ + + | Glucose | 2024-11-05 | | 88 | (missing) | (missing) | | d[facility] | 17:57:07 | [facility] | | [facility] | | | | + + + +------+ + + + + | Result panel 5 | + + + + + +------+ + + | Glucose | 2024-11-05 | | 88 | (missing) | (missing) | | Bld-[facility] | 17:57:07 | [facility] | | | | + + + +------+ + + + + | Result panel 6 | + + + + + +---------+ + + | WBC # Bld | 2024-11-19 | | 15.45 | (missing) | (missing) | | Auto | 09:43:07 | [facility] | | | | + + + +---------+ + + + + | Result panel 7 | + + + + + +--------+ + + | RBC # Bld | 2024-11-19 | | 5.36 | (missing) | (missing) | | Auto | 09:43:07 | [facility] | | | | + + + +--------+ + + + + | Result panel 8 | + + + + + +--------+ + + | Hgb | 2024-11-19 | | 16.4 | (missing) | (missing) | | Bld-mCnc | 09:43:07 | [facility] | | | | + + + +--------+ + + + + | Result panel 9 | + + + + + +--------+ + + | Hct VFr.DF | 2024-11-19 | | 48.6 | (missing) | (missing) | | Bld Auto | :43:07 | [facility] | | | | + + + +--------+ + + + + | Result panel 10 | + + + + + +--------+ + + | RBC Auto | 2024-11-19 | | 90.7 | (missing) | (missing) | | | 09:43:07 | [facility] | | | | + + + +--------+ + + + + | Result panel 11 | + + + + + +--------+ + + | MCH RBC Qn | 2024-11-19 | | 30.6 | (missing) | (missing) | | Auto | 09:43:07 | [facility] | | | | + + + +--------+ + + + + | Result panel 12 | + + + + + +--------+ + + | MCHC RBC | 2024-11-19 | | 33.7 | (missing) | (missing) | | Auto-Ent[facility]nc | 09:43:07 | [facility] | | | | + + + +--------+ + + + + | Result panel 13 | + + + + + +-------+ + + | Platelet # | 2024-11-19 | | 245 | (missing) | (missing) | | Bld Auto | 09:43:07 | [facility] | | | | + + + +-------+ + + + + | Result panel 14 | + + + + + +--------+ + + | Neutrophils | 2024-11-19 | | 70.4 | (missing) | (missing) | | NFr Bld | 09:43:07 | [facility] | | | | | Auto | [facility] | | | | + + + +--------+ + + + + | Result panel 15 | + + + + + +--------+ + + | Lymphocytes | 2024-11-19 | | 18.3 | (missing) | (missing) | | NFr Bld | 09:43:07 | [facility] | | | | | Auto | [facility] | | | | + + + +--------+ + + + + | Result panel 16 | + + + + + +-------+ + + | Monocytes | 2024-11-19 | | 8.4 | (missing) | (missing) | | NFr Bld Auto | 09:43:07 | [facility] | | | | + + + +-------+ + + + + | Result panel 17 | + + + + + +-------+ + + | Eosinophil | 2024-11-19 | | 1.6 | (missing) | (missing) | | NFr Bld Auto | 09:43:07 | [facility] | | | | + + + +-------+ + + + + | Result panel 18 | + + + + + +-------+ + + | Basophils | 2024-11-19 | | 0.5 | (missing) | (missing) | | NFr Toand Auto | 09:43:07 | [facility] | | | | + + + +-------+ + + + + | Result panel 19 | + + + + + +-------+---------+ + | Glucose | 2024-11-19 | | 189 | mg/dL | (missing) | | [facility] | 09:43:07 | [facility] | [facility] | | | | + + + +-------+---------+ + + + | Result panel 20 | + + + + + +------+---------+ + | BUN | 2024-11-19 | | 21 | mg/dL | (missing) | | [facility] | 09:43:07 | [facility] | | [facility] | | | | + + + +------+---------+ + + + | Result panel 21 | + + + + + +--------+---------+ + | Creat | 2024-11-19 | | 0.96 | mg/dL | (missing) | | SerPl-mCnc | 09:43:07 | [facility] | | | | | | | - [facility] | | | | | [facility] | | | | + + + +--------+---------+ + + + | Result panel 22 | + + + + + +------+ + + | eGFRcr | 2024-11-19 | | 63 | (missing) | (missing) | | SerPlBld | 09:43:07 | [facility] | | | | | CKD-EPI 2020 | [facility] | | | | + + + +------+ + + + + | Result panel 23 | + + + + + +---------+ + + | BUN/Creat | 2024-11-19 | | 21.87 | (missing) | (missing) | | SerPl | 09:43:07 | [facility] | | | | + + + +---------+ + + + + | Result panel 24 | + + + + + +-------+ + + | Sodium | 2024-11-19 | | 138 | (missing) | (missing) | | SerPl-sCnc | 09:43:07 | [facility] | | | | + + + +-------+ + + + + | Result panel 25 | + + + + + +-------+ + + | Potassium | 2024-11-19 | | 3.9 | (missing) | (missing) | | SerPl-sCnc | 09:43:07 | [facility] | | | | + + + +-------+ + + + + | Result panel 26 | + + + + + +-------+ + + | Chloride | 2024-11-19 | | 104 | (missing) | (missing) | | SerPl-sCnc | 09:43:07 | [facility] | | | | + + + +-------+ + + + + | Result panel 27 | + + + + + +------+ + + | CO2 | 2024-11-19 | | 27 | (missing) | (missing) | | SerPl-sCnc | 09:43:07 | [facility] | | | | + + + +------+ + + + + | Result panel 28 | + + + + + +--------+ + + | Anion Gap | 2024-11-19 | | 10.9 | (missing) | (missing) | | SerPl | 09:43:07 | [facility] | | | | | Calculated.4 | [facility] | | [facility] | | | | | | | [facility] | | | | + + + +--------+ + + + + | Result panel 29 | + + + + + +-------+---------+ + | Calcium | 2024-11-19 | | 9.5 | mg/dL | (missing) | | [facility] | 09:43:07 | [facility] | | | | + + + +-------+---------+ + + + | Result panel 30 | + + + + + +-------+ + + | Prot | 2024-11-19 | | 7.4 | (missing) | (missing) | | [facility] | 09:43:07 | [facility] | | | | + + + +-------+ + + + + | Result panel 31 | + + + + + +-------+ + + | Albumin | 2024-11-19 | | 3.7 | (missing) | (missing) | | [facility] | 09:43:07 | [facility] | | | | + + + +-------+ + + + + | Result panel 32 | + + + + + +-------+ + + | Globulin | 2024-11-19 | | 3.7 | (missing) | (missing) | | Ser-nc | 09:43:07 | [facility] | | | | + + + +-------+ + + + + | Result panel 33 | + + + + + +--------+ + + | | 2024-11-19 | | 1.00 | (missing) | (missing) | | Albumin/Glob | 09:43:07 | [facility] | | | | | SerPl | [facility] | | | | + + + +--------+ + + + + | Result panel 34 | + + + + + +-------+---------+ + | Bilirub | 2024-11-19 | | 0.4 | mg/dL | (missing) | | SerPl-mCnc | 09:43:07 | [facility] | | | | + + + +-------+---------+ + + + | Result panel 35 | + + + + + +------+ + + | AST | 2024-11-19 | | 35 | (missing) | (missing) | | [facility] | 09:43:07 | [facility] | | | | + + + +------+ + + + + | Result panel 36 | + + + + + +------+ + + | ALT | 2024-11-19 | | 80 | (missing) | (missing) | | [facility] | 09[facility] | [facility] | | | | + + + +------+ + + + + | Result panel 37 | + + + + + +------+ + + | ALP | 2024-11-19 | | 88 | (missing) | (missing) | | SerPl-[facility] | 09:43:07 | [facility] | | | | + + + +------+ + + + + | Result panel 38 | + + + + + +---------+ + + | TSH SerPl | 2024-11-19 | | 1.064 | (missing) | (missing) | | DL<=0.005 | 09:43:07 | [facility] | | | | | mIU/L-aCnc | | - | | | | | | | [facility] | | | | | | | [facility] | | | | + + + +---------+ + + + + | Result panel 39 | + + + + + +---------+ + + | WBC # Bld | 2024-11-19 | | 15.45 | (missing) | (missing) | | Auto | 09:43:07 | [facility] | | | | + + + +---------+ + + + + | Result panel 40 | + + + + + +--------+ + + | RBC # Bld | 2024-11-19 | | 5.36 | (missing) | (missing) | | Auto | 09:43:07 | [facility] | | | | + + + +--------+ + + + + | Result panel 41 | + + + + + +--------+ + + | Hgb | 2024-11-19 | | 16.4 | (missing) | (missing) | | Bld-mCnc | 09:43:07 | [facility] | | | | | | | - | | | | | | | [facility] | | | | | | | [facility] | | | | + + + +--------+ + + + + | Result panel 42 | + + + + + +--------+ + + | Hct VFr.DF | 2024-11-19 | | 48.6 | (missing) | (missing) | | Bld Auto | 09:43:07 | [facility] | | | | + + + +--------+ + + + + | Result panel 43 | + + + + + +--------+ + + | RBC Auto | 2024-11-19 | | 90.7 | (missing) | (missing) | | | :43: | [facility] | | | | + + + +--------+ + + + + | Result panel 44 | + + + + + +--------+ + + | MCH RBC Qn | 2024-11-19 | | 30.6 | (missing) | (missing) | | Auto | 09:43:07 | [facility] | | | | + + + +--------+ + + + + | Result panel 45 | + + + + + +--------+ + + | MCHC RBC | 2024-11-19 | | 33.7 | (missing) | (missing) | | Auto-Ent[facility] | 09:43:07 | [facility] | | | | + + + +--------+ + + + + | Result panel 46 | + + + + + +-------+ + + | Platelet # | 2024-11-19 | | 245 | (missing) | (missing) | | Bld Auto | 09:43:07 | [facility] | | | | + + + +-------+ + + + + | Result panel 47 | + + + + + +--------+ + + | Neutrophils | 2024-11-19 | | 70.4 | (missing) | (missing) | | NFr Bld | 09:43:07 | [facility] | | | | | Auto | [facility] | | | | + + + +--------+ + + + + | Result panel 48 | + + + + + +--------+ + + | Lymphocytes | 2024-11-19 | | 18.3 | (missing) | (missing) | | NFr Bld | 09:43:07 | [facility] | | | | | Auto | [facility] | | | | + + + +--------+ + + + + | Result panel 49 | + + + + + +-------+ + + | Monocytes | 2024-11-19 | | 8.4 | (missing) | (missing) | | NFr Bld Auto | 09:43:07 | [facility] | | | | + + + +-------+ + + + + | Result panel 50 | + + + + + +-------+ + + | Eosinophil | 2024-11-19 | | 1.6 | (missing) | (missing) | | NFr Bld Auto | 09:43:07 | [facility] | | | | | | | - | | | | | | | [facility] | | | | | | | [facility] | | | | + + + +-------+ + + + + | Result panel 51 | + + + + + +-------+ + + | Basophils | 2024-11-19 | | 0.5 | (missing) | (missing) | | NFr Bld Auto | 09:43:07 | [facility] | | | | + + + +-------+ + + + + | Result panel 52 | + + + + + +-------+---------+ + | Glucose | 2024-11-19 | | 189 | mg/dL | (missing) | | [facility] | 09:43:07 | [facility] | | | | + + + +-------+---------+ + + + | Result panel 53 | + + + + + +------+---------+ + | BUN | 2024-11-19 | | 21 | mg/dL | (missing) | | [facility] | 09:43:07 | [facility] | | | | + + + +------+---------+ + + + | Result panel 54 | + + + + + +--------+---------+ + | Creat | 2024-11-19 | | 0.96 | mg/dL | (missing) | | [facility] | 09:43:07 | [facility] | | | [facility] | | | | + + + +--------+---------+ + + + | Result panel 55 | + + + + + +------+ + + | eGFRcr | 2024-11-19 | | 63 | (missing) | (missing) | | SerPlBld | 09:43:07 | [facility] | | | | | CKD-EPI 2020 | [facility] | | | | + + + +------+ + + + + | Result panel 56 | + + + + + +---------+ + + | BUN/Creat | 2024-11-19 | | 21.87 | (missing) | (missing) | | SerPl | 09:43:07 | [facility] | | | | + + + +---------+ + + + + | Result panel 57 | + + + + + +-------+ + + | Sodium | 2024-11-19 | | 138 | (missing) | (missing) | | SerPl-sCnc | 09:43:07 | [facility] | | | | + + + +-------+ + + + + | Result panel 58 | + + + + + +-------+ + + | Potassium | 2024-11-19 | | 3.9 | (missing) | (missing) | | SerPl-sCnc | 09:43:07 | [facility] | [facility] | | | | + + + +-------+ + + + + | Result panel 59 | + + + + + +-------+ + + | Chloride | 2024-11-19 | | 104 | (missing) | (missing) | | SerPl-sCnc | 09:43:07 | [facility] | | | | + + + +-------+ + + + + | Result panel 60 | + + + + + +------+ + + | CO2 | 2024-11-19 | | 27 | (missing) | (missing) | | SerPl-sCnc | 09:43:07 | [facility] | | | | + + + +------+ + + + + | Result panel 61 | + + + + + +--------+ + + | Anion Gap | 2024-11-19 | | 10.9 | (missing) | (missing) | | SerPl | 09:43:07 | [facility] | | | | | Calculated.4 | | [facility] | | Ions-s[facility]nc | | Aj | | | | | | | Hospital | | | | + + + +--------+ + + + + | Result panel 62 | + + + + + +-------+---------+ + | Calcium | 2024-11-19 | | 9.5 | mg/dL | (missing) | | SerPl-mCnc | :43:07 | [facility] | [facility] | | | | + + + +-------+---------+ + + + | Result panel 63 | + + + + + +-------+ + + | Prot | 2024-11-19 | | 7.4 | (missing) | (missing) | | [facility] | 09:43:07 | [facility] | | | | + + + +-------+ + + + + | Result panel 64 | + + + + + +-------+ + + | Albumin | 2024-11-19 | | 3.7 | (missing) | (missing) | | SerPl-mCnc | 09:43:07 | [facility] | | | | + + + +-------+ + + + + | Result panel 65 | + + + + + +-------+ + + | Globulin | 2024-11-19 | | 3.7 | (missing) | (missing) | | Ser-mCnc | 09:43:07 | [facility] | | [facility] | | | | + + + +-------+ + + + + | Result panel 66 | + + + + + +--------+ + + | | 2024-11-19 | | 1.00 | (missing) | (missing) | | Albumin/Glob | 09:43:07 | [facility] | | | | | SerPl | [facility] | | | | + + + +--------+ + + + + | Result panel 67 | + + + + + +-------+---------+ + | Bilirub | 2024-11-19 | | 0.4 | mg/dL | (missing) | | [facility] | 09:43:07 | [facility] | | [facility] | | [facility] | | | | + + + +-------+---------+ + + + | Result panel 68 | + + + + + +------+ + + | AST | 2024-11-19 | | 35 | (missing) | (missing) | | [facility] | 09:43:07 | [facility] | | | | + + + +------+ + + + + | Result panel 69 | + + + + + +------+ + + | ALT | 2024-11-19 | | 80 | (missing) | (missing) | | SerPl-cCn | 09:43:07 | [facility] | [facility] | | | | + + + +------+ + + + + | Result panel 70 | + + + + + +------+ + + | ALP | 2024-11-19 | | 88 | (missing) | (missing) | | SerPl-cCnc | 09:43:07 | [facility] | [facility] | | | | + + + +------+ + + + + | Result panel 71 | + + + + + +---------+ + + | TSH SerPl | 2024-11-19 | | 1.064 | (missing) | (missing) | | DL<=0.005 | 09:43:07 | [facility] | | | | | mIU/L-aCnc | [facility] | | | | | | [facility] | | | | + + + +---------+ + + + + | Result panel 72 | + + + + + +---------+ + + | WBC # Bld | 2024-11-19 | | 15.45 | (missing) | (missing) | | Auto | 09:43:07 | [facility] | | | | + + + +---------+ + + + + | Result panel 73 | + + + + + +--------+ + + | RBC # Bld | 2024-11-19 | | 5.36 | (missing) | (missing) | | Auto | 09:43:07 | [facility] | [facility] | | | | + + + +--------+ + + + + | Result panel 74 | + + + + + +--------+ + + | Hgb | 2024-11-19 | | 16.4 | (missing) | (missing) | | Bld-mCnc | 09:43:07 | [facility] | | [facility] | | | | + + + +--------+ + + + + | Result panel 75 | + + + + + +--------+ + + | Hct VFr.DF | 2024-11-19 | | 48.6 | (missing) | (missing) | | Bld Auto | 09:43:07 | [facility] | | | | | | | - | | | | | | | [facility] | | | | | | | [facility] | | | | + + + +--------+ + + + + | Result panel 76 | + + + + + +--------+ + + | RBC Auto | 2024-11-19 | | 90.7 | (missing) | (missing) | | | 09:43:07 | [facility] | | | | + + + +--------+ + + + + | Result panel 77 | + + + + + +--------+ + + | MCH RBC Qn | 2024-11-19 | | 30.6 | (missing) | (missing) | | Auto | 09:43:07 | [facility] | | | [facility] | | | | + + + +--------+ + + + + | Result panel 78 | + + + + + +--------+ + + | MCHC RBC | 2024-11-19 | | 33.7 | (missing) | (missing) | | Auto-EntMCnc | 09:43:07 | [facility] | | | | | | [facility] | | | | + + + +--------+ + + + + | Result panel 79 | + + + + + +-------+ + + | Platelet # | 2024-11-19 | | 245 | (missing) | (missing) | | Bld Auto | 09:43:07 | [facility] | [facility] | | | | + + + +-------+ + + + + | Result panel 80 | + + + + + +--------+ + + | Neutrophils | 2024-11-19 | | 70.4 | (missing) | (missing) | | NFr Bld | 09:43:07 | [facility] | | | | | Auto | | [facility] | | [facility] | | | [facility] | | | | + + + +--------+ + + + + | Result panel 81 | + + + + + +--------+ + + | Lymphocytes | 2024-11-19 | | 18.3 | (missing) | (missing) | | NFr Bld | 09:43:07 | [facility] | | | | | Auto | | [facility] | | | | | | [facility] | | | | + + + +--------+ + + + + | Result panel 82 | + + + + + +-------+ + + | Monocytes | 2024-11-19 | | 8.4 | (missing) | (missing) | | NFr Bld Auto | 09:43:07 | [facility] | | | | | | | - | | | | | | | [facility] | | | | | | | [facility] | | | | + + + +-------+ + + + + | Result panel 83 | + + + + + +-------+ + + | Eosinophil | 2024-11-19 | | 1.6 | (missing) | (missing) | | NFr Bld Auto | 09:43:07 | [facility] | | | [facility] | | | | + + + +-------+ + + + + | Result panel 84 | + + + + + +-------+ + + | Basophils | 2024-11-19 | | 0.5 | (missing) | (missing) | | NFr Bld Auto | 09:43:07 | [facility] | | | [facility] | | | | + + + +-------+ + + + + | Result panel 85 | + + + + + +-------+---------+ + | Glucose | 2024-11-19 | | 189 | mg/dL | (missing) | | SerPl-mCnc | 09:43:07 | [facility] | | | [facility] | | | | + + + +-------+---------+ + + + | Result panel 86 | + + + + + +------+---------+ + | BUN | 2024-11-19 | | 21 | mg/dL | (missing) | | [facility] | 09:43:07 | [facility] | | | | | | [facility] | | | | + + + +------+---------+ + + + | Result panel 87 | + + + + + +--------+---------+ + | Creat | 2024-11-19 | | 0.96 | mg/dL | (missing) | | [facility] | 09:43:07 | [facility] | | | | | | [facility] | | | | + + + +--------+---------+ + + + | Result panel 88 | + + + + + +------+ + + | eGFRcr | 2024-11-19 | | 63 | (missing) | (missing) | | [facility] | 09:43:07 | [facility] | | | | | CKD-EPI 2020 | [facility] | | | | + + + +------+ + + + + | Result panel 89 | + + + + + +---------+ + + | BUN/Creat | 2024-11-19 | | 21.87 | (missing) | (missing) | | [facility] | 09:43:07 | [facility] | | | | + + + +---------+ + + + + | Result panel 90 | + + + + + +-------+ + + | Sodium | 2024-11-19 | | 138 | (missing) | (missing) | | [facility] | 09:43:07 | [facility] | | | | + + + +-------+ + + + + | Result panel 91 | + + + + + +-------+ + + | Potassium | 2024-11-19 | | 3.9 | (missing) | (missing) | | [facility] | 09:43:07 | [facility] | | | | + + + +-------+ + + + + | Result panel 92 | + + + + + +-------+ + + | Chloride | 2024-11-19 | | 104 | (missing) | (missing) | | [facility] | 09:43:07 | [facility] | | | | + + + +-------+ + + + + | Result panel 93 | + + + + + +------+ + + | CO2 | 2024-11-19 | | 27 | (missing) | (missing) | | [facility] | 09:43:07 | [facility] | | | | + + + +------+ + + + + | Result panel 94 | + + + + + +--------+ + + | Anion Gap | 2024-11-19 | | 10.9 | (missing) | (missing) | | SerPl | 09:43:07 | [facility] | | | | | Calculated.4 | | [facility] | | | | + + + +--------+ + + + + | Result panel 95 | + + + + + +-------+---------+ + | Calcium | 2024-11-19 | | 9.5 | mg/dL | (missing) | | [facility] | 09:43:07 | [facility] | | | | + + + +-------+---------+ + + + | Result panel 96 | + + + + + +-------+ + + | Prot | 2024-11-19 | | 7.4 | (missing) | (missing) | | [facility] | 09:43[facility] | [facility] | | | | + + + +-------+ + + + + | Result panel 97 | + + + + + +-------+ + + | Albumin | 2024-11-19 | | 3.7 | (missing) | (missing) | | [facility] | 09[facility]43:07 [facility] | | [facility] | | | | + + + +-------+ + + + + | Result panel 98 | + + + + + +-------+ + + | Globulin | 2024-11-19 | | 3.7 | (missing) | (missing) | | [facility] | 09:43:07 | [facility] | | | | + + + +-------+ + + + + | Result panel 99 | + + + + + +--------+ + + | | 2024-11-19 | | 1.00 | (missing) | (missing) | | Albumin/Glob | 09:43:07 | [facility] | [facility] | | | | + + + +--------+ + + + + | Result panel 100 | + + + + + +-------+---------+ + | Bilirub | 2024-11-19 | | 0.4 | mg/dL | (missing) | | [facility] | 09:43:07 | [facility] | | | | + + + +-------+---------+ + + + | Result panel 101 | + + + + + +------+ + + | AST | 2024-11-19 | | 35 | (missing) | (missing) | | [facility] | 09[facility] | [facility] | | | | + + + +------+ + + + + | Result panel 102 | + + + + + +------+ + + | ALT | 2024-11-19 | | 80 | (missing) | (missing) | | [facility] | 09:43:07 | [facility] | | | | + + + +------+ + + + + | Result panel 103 | + + + + + +------+ + + | ALP | 2024-11-19 | | 88 | (missing) | (missing) | | SerPl-cCnc | 09:43:07 | [facility] | | [facility] | | | | + + + +------+ + + + + | Result panel 104 | + + + + + +---------+ + + | TSH SerPl | 2024-11-19 | | 1.064 | (missing) | (missing) | | DL<=0.005 | 09:43:07 | [facility] | | | | | m[facility]/L-aCnc [facility] | [facility] | | | | + + + +---------+ + + + + | Result panel 105 | + + + + + +---------+ + + | WBC # Bld | 2024-12-04 | | 16.13 | (missing) | (missing) | | Auto | 23:20:07 | [facility] | | | | + + + +---------+ + + + + | Result panel 106 | + + + + + +--------+ + + | RBC # Bld | 2024-12-04 | | 5.30 | (missing) | (missing) | | Auto | 23:20:07 | [facility] | | | | + + + +--------+ + + + + | Result panel 107 | + + + + + +--------+ + + | Hgb | 2024-12-04 | | 15.8 | (missing) | (missing) | | Bld-mCnc | 23:20:07 | [facility] | | | | | | [facility] - | | | | | | [facility] | | | | + + + +--------+ + + + + | Result panel 108 | + + + + + +--------+ + + | Hct VFr.DF | 2024-12-04 | | 47.2 | (missing) | (missing) | | Bld Auto | 23:20:07 | [facility] | | | | | | [facility] - [facility] | [facility] | | | | + + + +--------+ + + + + | Result panel 109 | + + + + + +--------+ + + | RBC Auto | 2024-12-04 | | 89.1 | (missing) | (missing) | | | 23:20:07 | [facility] | | | | + + + +--------+ + + + + | Result panel 110 | + + + + + +--------+ + + | MCH RBC Qn | 2024-12-04 | | 29.8 | (missing) | (missing) | | Auto | 23:20:07 | [facility] | | | | + + + +--------+ + + + + | Result panel 111 | + + + + + +--------+ + + | MCHC RBC | 2024-12-04 | | 33.5 | (missing) | (missing) | | Auto-EntMCnc | 23:20:07 | [facility] | | | | + + + +--------+ + + + + | Result panel 112 | + + + + + +-------+ + + | Platelet # | 2024-12-04 | | 252 | (missing) | (missing) | | Bld Auto | 23:20:07 | [facility] | | | | + + + +-------+ + + + + | Result panel 113 | + + + + + +--------+ + + | Neutrophils | 2024-12-04 | | 65.8 | (missing) | (missing) | | NFr Bld | 23:20:07 | [facility] | | | | | Auto | [facility] | | | | + + + +--------+ + + + + | Result panel 114 | + + + + + +--------+ + + | Lymphocytes | 2024-12-04 | | 22.7 | (missing) | (missing) | | NFr Bld | 23:20:07 | [facility] | | | | | Auto | [facility] | | | | + + + +--------+ + + + + | Result panel 115 | + + + + + +-------+ + + | Monocytes | 2024-12-04 | | 8.1 | (missing) | (missing) | | NFr Bld Auto | 23:20:07 | [facility] | | | | + + + +-------+ + + + + | Result panel 116 | + + + + + +-------+ + + | Eosinophil | 2024-12-04 | | 2.2 | (missing) | (missing) | | NFr Bld Auto | 23:20:07 | [facility] | | | | + + + +-------+ + + + + | Result panel 117 | + + + + + +-------+ + + | Basophils | 2024-12-04 | | 0.5 | (missing) | (missing) | | NFr Bld Auto | 23:20:07 | [facility] | | | | + + + +-------+ + + + + | Result panel 118 | + + + + + +-------+---------+ + | Glucose | 2024-12-04 | | 183 | mg/dL | (missing) | | SerPl-mCnc | 23:20:07 | [facility] | [facility] | | | | + + + +-------+---------+ + + + | Result panel 119 | + + + + + +------+---------+ + | BUN | 2024-12-04 | | 30 | mg/dL | (missing) | | SerPl-mCnc | 23:20:07 | [facility] | [facility] | | | | + + + +------+---------+ + + + | Result panel 120 | + + + + + +--------+---------+ + | Creat | 2024-12-04 | | 0.98 | mg/dL | (missing) | | SerPl-mCnc | 23:20:07 | [facility] | | | | + + + +--------+---------+ + + + | Result panel 121 | + + + + + +------+ + + | eGFRcr | 2024-12-04 | | 62 | (missing) | (missing) | | SerPlBld | 23:20:07 | [facility] | | | | | CKD-EPI 2020 | [facility] | | | | + + + +------+ + + + + | Result panel 122 | + + + + + +---------+ + + | BUN/Creat | 2024-12-04 | | 30.61 | (missing) | (missing) | | SerPl | 23:20:07 | [facility] | | | | + + + +---------+ + + + + | Result panel 123 | + + + + + +-------+ + + | Sodium | 2024-12-04 | | 135 | (missing) | (missing) | | SerPl-sCnc | 23:20:07 | [facility] | | | | + + + +-------+ + + + + | Result panel 124 | + + + + + +-------+ + + | Potassium | 2024-12-04 | | 3.6 | (missing) | (missing) | | SerPl-sCnc | 23:20:07 | [facility] | | | | + + + +-------+ + + + + | Result panel 125 | + + + + + +-------+ + + | Chloride | 2024-12-04 | | 101 | (missing) | (missing) | | SerPl-sCnc | 23:20:07 | [facility] | | | | + + + +-------+ + + + + | Result panel 126 | + + + + + +------+ + + | CO2 | 2024-12-04 | | 25 | (missing) | (missing) | | SerPl-sCnc | 23:20:07 | [facility] | | | | + + + +------+ + + + + | Result panel 127 | + + + + + +--------+ + + | Anion Gap | 2024-12-04 | | 12.6 | (missing) | (missing) | | SerPl | 23:20:07 | [facility] | | | | | Calculated.4 | [facility] | | | | + + + +--------+ + + + + | Result panel 128 | + + + + + +-------+---------+ + | Calcium | 2024-12-04 | | 9.7 | mg/dL | (missing) | | SerPl-mCnc | 23:20:07 | [facility] | | [facility] | | | | + + + +-------+---------+ + + + | Result panel 129 | + + + + + +-------+---------+ + | Magnesium | 2024-12-04 | | 2.2 | mg/dL | (missing) | | SerPl-mCwilton | 23:20:07 | [facility] | | [facility] | | | | + + + +-------+---------+ + + + | Result panel 130 | + + + + + +-------+ + + | Prot | 2024-12-04 | | 7.4 | (missing) | (missing) | | SerPl-mCnc | 23:20:07 | [facility] | [facility] | | | | + + + +-------+ + + + + | Result panel 131 | + + + + + +-------+ + + | Albumin | 2024-12-04 | | 3.5 | (missing) | (missing) | | [facility] | 23:20:07 | [facility] | | [facility] | | | | + + + +-------+ + + + + | Result panel 132 | + + + + + +-------+ + + | Globulin | 2024-12-04 | | 3.9 | (missing) | (missing) | | Ser-mCnc | 23:20:07 | [facility] | | | | + + + +-------+ + + + + | Result panel 133 | + + + + + +--------+ + + | | 2024-12-04 | | 0.90 | (missing) | (missing) | | Albumin/Glob | 23:20:07 | [facility] | | | | | SerPl [facility] | | | | + + + +--------+ + + + + | Result panel 134 | + + + + + +-------+---------+ + | Bilirub | 2024-12-04 | | 0.4 | mg/dL | (missing) | | SerPl-mCnc | 23:20:07 | [facility] | | [facility] | | | | + + + +-------+---------+ + + + | Result panel 135 | + + + + + +------+ + + | AST | 2024-12-04 | | 26 | (missing) | (missing) | | SerPl-cCnc | 23:20:07 | [facility] | | | | + + + +------+ + + + + | Result panel 136 | + + + + + +------+ + + | ALT | 2024-12-04 | | 38 | (missing) | (missing) | | SerPl-cCnc | 23:20:07 | [facility] | | | | + + + +------+ + + + + | Result panel 137 | + + + + + +------+ + + | ALP | 2024-12-04 | | 85 | (missing) | (missing) | | SerPl-cCnc | 23:20:07 | [facility] | | | | + + + +------+ + + + + | Result panel 138 | + + + + + +---------+ + + | TSH SerPl | 2024-12-04 | | 0.877 | (missing) | (missing) | | DL<=0.005 | 23:20:07 | [facility] | | | | + + + +---------+ + + + + | Result panel 139 | + + + + + +---------+ + + | WBC # Bld | 2024-12-04 | | 16.13 | (missing) | (missing) | | Auto | 23:20:07 | [facility] | | | | + + + +---------+ + + + + | Result panel 140 | + + + + + +--------+ + + | RBC # Bld | 2024-12-04 | | 5.30 | (missing) | (missing) | | Auto | 23:20:07 | [facility] | | | | + + + +--------+ + + + + | Result panel 141 | + + + + + +--------+ + + | Hgb | 2024-12-04 | | 15.8 | (missing) | (missing) | | Bld-mCnc | 23:20:07 | [facility] | | | | + + + +--------+ + + + + | Result panel 142 | + + + + + +--------+ + + | Hct VFr.DF | 2024-12-04 | | 47.2 | (missing) | (missing) | | Bld Auto | 23:20:07 | [facility] | | | | + + + +--------+ + + + + | Result panel 143 | + + + + + +--------+ + + | RBC Auto | 2024-12-04 | | 89.1 | (missing) | (missing) | | | 23:20:07 | [facility] | | | | + + + +--------+ + + + + | Result panel 144 | + + + + + +--------+ + + | MCH RBC Qn | 2024-12-04 | | 29.8 | (missing) | (missing) | | Auto | 23:20:07 | [facility] | | | | + + + +--------+ + + + + | Result panel 145 | + + + + + +--------+ + + | MCHC RBC | 2024-12-04 | | 33.5 | (missing) | (missing) | | Auto-EntMCnc | 23:20:07 | [facility] | | | | + + + +--------+ + + + + | Result panel 146 | + + + + + +-------+ + + | Platelet # | 2024-12-04 | | 252 | (missing) | (missing) | | Bld Auto | 23:20:07 | [facility] | | | | + + + +-------+ + + + + | Result panel 147 | + + + + + +--------+ + + | Neutrophils | 2024-12-04 | | 65.8 | (missing) | (missing) | | NFr Bld | 23:20:07 | [facility] | | | | | Auto | [facility] | | | | + + + +--------+ + + + + | Result panel 148 | + + + + + +--------+ + + | Lymphocytes | 2024-12-04 | | 22.7 | (missing) | (missing) | | NFr Bld | 23:20:07 | [facility] | | | | | Auto | [facility] | | | | + + + +--------+ + + + + | Result panel 149 | + + + + + +-------+ + + | Monocytes | 2024-12-04 | | 8.1 | (missing) | (missing) | | NFr Bld Auto | 23:20:07 | [facility] | | | | + + + +-------+ + + + + | Result panel 150 | + + + + + +-------+ + + | Eosinophil | 2024-12-04 | | 2.2 | (missing) | (missing) | | NFr Bld Auto | 23:20:07 | [facility] | | | | | | | - [facility] | | | | | [facility] | | | | + + + +-------+ + + + + | Result panel 151 | + + + + + +-------+ + + | Basophils | 2024-12-04 | | 0.5 | (missing) | (missing) | | NFr Bld Auto | 23:20:07 | [facility] | | | | + + + +-------+ + + + + | Result panel 152 | + + + + + +-------+---------+ + | Glucose | 2024-12-04 | | 183 | mg/dL | (missing) | | [facility] | 23:20:07 | [facility] | [facility] | | | | + + + +-------+---------+ + + + | Result panel 153 | + + + + + +------+---------+ + | BUN | 2024-12-04 | | 30 | mg/dL | (missing) | | SerPl-mCnc | 23:20:07 | [facility] | | | | + + + +------+---------+ + + + | Result panel 154 | + + + + + +--------+---------+ + | Creat | 2024-12-04 | | 0.98 | mg/dL | (missing) | | SerPl-[facility] | 23:20:07 | [facility] | | | | + + + +--------+---------+ + + + | Result panel 155 | + + + + + +------+ + + | eGFRcr | 2024-12-04 | | 62 | (missing) | (missing) | | SerPlBld | 23:20:07 | [facility] | | | | | CKD-EPI 2020 | [facility] | | | | + + + +------+ + + + + | Result panel 156 | + + + + + +---------+ + + | BUN/Creat | 2024-12-04 | | 30.61 | (missing) | (missing) | | SerPl | 23:20:07 | [facility] | | | | + + + +---------+ + + + + | Result panel 157 | + + + + + +-------+ + + | Sodium | 2024-12-04 | | 135 | (missing) | (missing) | | SerPl-sCnc | 23:20:07 | [facility] | | | | + + + +-------+ + + + + | Result panel 158 | + + + + + +-------+ + + | Potassium | 2024-12-04 | | 3.6 | (missing) | (missing) | | SerPl-sCnc | 23:20:07 | [facility] | | | | + + + +-------+ + + + + | Result panel 159 | + + + + + +-------+ + + | Chloride | 2024-12-04 | | 101 | (missing) | (missing) | | SerPl-sCnc | 23:20:07 | [facility] | | | | + + + +-------+ + + + + | Result panel 160 | + + + + + +------+ + + | CO2 | 2024-12-04 | | 25 | (missing) | (missing) | | SerPl-sCnc | 23:20:07 | [facility] | | | | + + + +------+ + + + + | Result panel 161 | + + + + + +--------+ + + | Anion Gap | 2024-12-04 | | 12.6 | (missing) | (missing) | | SerPl | 23:20:07 | [facility] | | | | | Calculated.4 | [facility] | [facility] | | | | + + + +--------+ + + + + | Result panel 162 | + + + + + +-------+---------+ + | Calcium | 2024-12-04 | | 9.7 | mg/dL | (missing) | | SerPl-mCnc | 23:20:07 | [facility] | | | | + + + +-------+---------+ + + + | Result panel 163 | + + + + + +-------+---------+ + | Magnesium | 2024-12-04 | | 2.2 | mg/dL | (missing) | | [facility] | 23:20:07 | [facility] | [facility] | | | | + + + +-------+---------+ + + + | Result panel 164 | + + + + + +-------+ + + | Prot | 2024-12-04 | | 7.4 | (missing) | (missing) | | SerPl-mCnc | 23:20:07 | [facility] | [facility] | | | | + + + +-------+ + + + + | Result panel 165 | + + + + + +-------+ + + | Albumin | 2024-12-04 | | 3.5 | (missing) | (missing) | | SerPl-mCnc | 23:20:07 | [facility] | | | | + + + +-------+ + + + + | Result panel 166 | + + + + + +-------+ + + | Globulin | 2024-12-04 | | 3.9 | (missing) | (missing) | | Ser-mCwilton | 23:20:07 | [facility] | | | | + + + +-------+ + + + + | Result panel 167 | + + + + + +--------+ + + | | 2024-12-04 | | 0.90 | (missing) | (missing) | | Albumin/Glob | 23:20:07 | [facility] | | | | | SerPl | [facility] | | | | + + + +--------+ + + + + | Result panel 168 | + + + + + +-------+---------+ + | Bilirub | 2024-12-04 | | 0.4 | mg/dL | (missing) | | SerPl-mCnc | 23:20:07 | [facility] | | | | + + + +-------+---------+ + + + | Result panel 169 | + + + + + +------+ + + | AST | 2024-12-04 | | 26 | (missing) | (missing) | | SerPl-cCnc | 23:20:07 | [facility] | | | | + + + +------+ + + + + | Result panel 170 | + + + + + +------+ + + | ALT | 2024-12-04 | | 38 | (missing) | (missing) | | [facility] | 23:20:07 | [facility] | [facility] | | | | + + + +------+ + + + + | Result panel 171 | + + + + + +------+ + + | ALP | 2024-12-04 | | 85 | (missing) | (missing) | | SerPl-cCnc | 23:20:07 | [facility] | | | | + + + +------+ + + + + | Result panel 172 | + + + + + +---------+ + + | TSH SerPl | 2024-12-04 | | 0.877 | (missing) | (missing) | | DL<=0.005 | 23:20:07 | [facility] | | | | | [facility] - [facility] | [facility] | [facility] | | | | + + + +---------+ + + + + | Result panel 173 | + + + + + +---------+ + + | WBC # Bld | 2025-01-11 | | 14.30 | (missing) | (missing) | | Auto | 06:52:07 | [facility] | | | | + + + +---------+ + + + + | Result panel 174 | + + + + + +--------+ + + | Lymphocytes | 2025-01-11 | | 27.3 | (missing) | (missing) | | NFr Bld | 06:52:07 | [facility] | | | | | Auto | [facility] | | | | + + + +--------+ + + + + | Result panel 175 | + + + + + +--------+ + + | Monocytes | 2025-01-11 | | 10.0 | (missing) | (missing) | | NFr Bld Auto | 06:52:07 | [facility] | | | | + + + +--------+ + + + + | Result panel 176 | + + + + + +-------+ + + | Eosinophil | 2025-01-11 | | 2.4 | (missing) | (missing) | | NFr Bld Auto | 06:52:07 | [facility] | | | | + + + +-------+ + + + + | Result panel 177 | + + + + + +-------+ + + | Basophils | 2025-01-11 | | 0.6 | (missing) | (missing) | | NFr Bld Auto | 06:52:07 | [facility] | | | | + + + +-------+ + + + + | Result panel 178 | + + + + + +------+---------+ + | Glucose | 2025-01-11 | | 95 | mg/dL | (missing) | | SerPl-mCnc | 06:52:07 | [facility] | [facility] | | | | + + + +------+---------+ + + + | Result panel 179 | + + + + + +------+---------+ + | BUN | 2025-01-11 | | 23 | mg/dL | (missing) | | [facility] | 06:52:07 | [facility] | [facility] | | | | + + + +------+---------+ + + + | Result panel 180 | + + + + + +--------+---------+ + | Creat | 2025-01-11 | | 0.87 | mg/dL | (missing) | | SerPl-mCnc | 06:52:07 | [facility] | | | | + + + +--------+---------+ + + + | Result panel 181 | + + + + + +------+ + + | eGFRcr | 2025-01-11 | | 71 | (missing) | (missing) | | SerPlBld | 06:52:07 | [facility] | | | | | CKD-EPI 2020 | [facility] | | | | + + + +------+ + + + + | Result panel 182 | + + + + + +---------+ + + | BUN/Creat | 2025-01-11 | | 26.43 | (missing) | (missing) | | SerPl | 06:52:07 | [facility] | | | | + + + +---------+ + + + + | Result panel 183 | + + + + + +-------+ + + | Sodium | 2025-01-11 | | 139 | (missing) | (missing) | | SerPl-sCn | 06:52:07 | [facility] | | | | + + + +-------+ + + + + | Result panel 184 | + + + + + +--------+ + + | RBC # Bld | 2025-01-11 | | 5.73 | (missing) | (missing) | | Auto | 06:52:07 | [facility] | | | | + + + +--------+ + + + + | Result panel 185 | + + + + + +-------+ + + | Potassium | 2025-01-11 | | 3.9 | (missing) | (missing) | | SerPl-sCnc | 06:52:07 | [facility] | | | | + + + +-------+ + + + + | Result panel 186 | + + + + + +-------+ + + | Chloride | 2025-01-11 | | 103 | (missing) | (missing) | | [facility] | 06:52:07 | [facility] | | | | + + + +-------+ + + + + | Result panel 187 | + + + + + +------+ + + | CO2 | 2025-01-11 | | 25 | (missing) | (missing) | | SerPl-sCnc | 06:52:07 | [facility] | | | | + + + +------+ + + + + | Result panel 188 | + + + + + +--------+ + + | Anion Gap | 2025-01-11 | | 14.9 | (missing) | (missing) | | [facility] | 06:52:07 | [facility] | | | | | Calculated.4 | [facility] | | | | + + + +--------+ + + + + | Result panel 189 | + + + + + +-------+---------+ + | Calcium | 2025-01-11 | | 9.9 | mg/dL | (missing) | | [facility] | 06:52:07 | [facility] | | | | + + + +-------+---------+ + + + | Result panel 190 | + + + + + +-------+---------+ + | Magnesium | 2025-01-11 | | 2.2 | mg/dL | (missing) | | [facility] | 06:52[facility]07 [facility] | | | | + + + +-------+---------+ + + + | Result panel 191 | + + + + + +-------+ + + | Prot | 2025-01-11 | | 7.5 | (missing) | (missing) | | [facility] | 06:52:07 | [facility] | | | | + + + +-------+ + + + + | Result panel 192 | + + + + + +-------+ + + | Albumin | 2025-01-11 | | 3.5 | (missing) | (missing) | | [facility] | 06:52:07 | [facility] | | | | + + + +-------+ + + + + | Result panel 193 | + + + + + +-------+ + + | Globulin | 2025-01-11 | | 4.0 | (missing) | (missing) | | [facility] | 06:52:07 | [facility] | | | | + + + +-------+ + + + + | Result panel 194 | + + + + + +--------+ + + | | 2025-01-11 | | 0.88 | (missing) | (missing) | | Albumin/Glob | 06:52:07 | [facility] | | | | + + + +--------+ + + + + | Result panel 195 | + + + + + +--------+ + + | Hgb | 2025-01-11 | | 17.4 | (missing) | (missing) | | [facility] | 06:52:07 | [facility] | | | | + + + +--------+ + + + + | Result panel 196 | + + + + + +-------+---------+ + | Bilirub | 2025-01-11 | | 0.5 | mg/dL | (missing) | | [facility] | 06:52:07 | [facility] | | | | + + + +-------+---------+ + + + | Result panel 197 | + + + + + +------+ + + | AST | 2025-01-11 | | 25 | (missing) | (missing) | | [facility] | 06:52:07 | [facility] | | | | + + + +------+ + + + + | Result panel 198 | + + + + + +------+ + + | ALT | 2025-01-11 | | 44 | (missing) | (missing) | | [facility] | 06:52:07 | [facility] | | | | + + + +------+ + + + + | Result panel 199 | + + + + + +------+ + + | ALP | 2025-01-11 | | 95 | (missing) | (missing) | | [facility] | 06:52:07 | [facility] | | | | + + + +------+ + + + + | Result panel 200 | + + + + + +---------+ + + | WBC # Bld | 2025-01-11 | | 14.30 | (missing) | (missing) | | Auto | 06:52:07 | [facility] | | | | + + + +---------+ + + + + | Result panel 201 | + + + + + +--------+ + + | RBC # Bld | 2025-01-11 | | 5.73 | (missing) | (missing) | | Auto | 06:52:07 | [facility] | | | | + + + +--------+ + + + + | Result panel 202 | + + + + + +--------+ + + | Hgb | 2025-01-11 | | 17.4 | (missing) | (missing) | | [facility] | 06:52:07 | [facility] | | | | + + + +--------+ + + + + | Result panel 203 | + + + + + +--------+ + + | Hct VFr.DF | 2025-01-11 | | 50.5 | (missing) | (missing) | | Bld Auto | 06:52:07 | [facility] | | | | + + + +--------+ + + + + | Result panel 204 | + + + + + +--------+ + + | RBC Auto | 2025-01-11 | | 88.1 | (missing) | (missing) | | | 06:52:07 | [facility] | | | | + + + +--------+ + + + + | Result panel 205 | + + + + + +--------+ + + | MCH RBC Qn | 2025-01-11 | | 30.4 | (missing) | (missing) | | Auto | 06:52:07 | [facility] | | | | + + + +--------+ + + + + | Result panel 206 | + + + + + +--------+ + + | Hct VFr.DF | 2025-01-11 | | 50.5 | (missing) | (missing) | | Bld Auto | 06:52:07 | [facility] | | | | + + + +--------+ + + + + | Result panel 207 | + + + + + +--------+ + + | MCHC RBC | 2025-01-11 | | 34.5 | (missing) | (missing) | | Auto-Ent[facility] | 06:52:07 | [facility] | | | | + + + +--------+ + + + + | Result panel 208 | + + + + + +-------+ + + | Platelet # | 2025-01-11 | | 259 | (missing) | (missing) | | Bld Auto | 06:52:07 | [facility] | | | | + + + +-------+ + + + + | Result panel 209 | + + + + + +--------+ + + | Neutrophils | 2025-01-11 | | 59.2 | (missing) | (missing) | | NFr Bld | 06:52:07 | [facility] | | | | | Auto | [facility] | | | | + + + +--------+ + + + + | Result panel 210 | + + + + + +--------+ + + | Lymphocytes | 2025-01-11 | | 27.3 | (missing) | (missing) | | NFr Bld | 06:52:07 | [facility] | | | | | Auto | [facility] | | | | + + + +--------+ + + + + | Result panel 211 | + + + + + +--------+ + + | Monocytes | 2025-01-11 | | 10.0 | (missing) | (missing) | | NFr Bld Auto | 06:52:07 | [facility] | | | | + + + +--------+ + + + + | Result panel 212 | + + + + + +-------+ + + | Eosinophil | 2025-01-11 | | 2.4 | (missing) | (missing) | | NFr Bld Auto | 06:52:07 | [facility] | | | | + + + +-------+ + + + + | Result panel 213 | + + + + + +-------+ + + | Basophils | 2025-01-11 | | 0.6 | (missing) | (missing) | | NFr Bld Auto | 06:52:07 | [facility] | | | | + + + +-------+ + + + + | Result panel 214 | + + + + + +------+---------+ + | Glucose | 2025-01-11 | | 95 | mg/dL | (missing) | | SerPl-m[facility]nc | 06:52:07 | [facility] | [facility] | | | | + + + +------+---------+ + + + | Result panel 215 | + + + + + +------+---------+ + | BUN | 2025-01-11 | | 23 | mg/dL | (missing) | | [facility] | 06:52[facility]07 | [facility] | | [facility] | | | | + + + +------+---------+ + + + | Result panel 216 | + + + + + +--------+---------+ + | Creat | 2025-01-11 | | 0.87 | mg/dL | (missing) | | [facility] | 06:52[facility]07 | [facility] | [facility] | | | | + + + +--------+---------+ + + + | Result panel 217 | + + + + + +--------+ + + | RBC Auto | 2025-01-11 | | 88.1 | (missing) | (missing) | | | 06:52:07 | [facility] | | | | + + + +--------+ + + + + | Result panel 218 | + + + + + +------+ + + | eGFRcr | 2025-01-11 | | 71 | (missing) | (missing) | | SerPlBld | 06:52:07 | [facility] | | | | | CKD-EPI 2020 | [facility] | | | | + + + +------+ + + + + | Result panel 219 | + + + + + +---------+ + + | BUN/Creat | 2025-01-11 | | 26.43 | (missing) | (missing) | | SerPl | 06:52:07 | [facility] | | | | + + + +---------+ + + + + | Result panel 220 | + + + + + +-------+ + + | Sodium | 2025-01-11 | | 139 | (missing) | (missing) | | Ser[facility]-s[facility]nc | 06:52:07 | [facility] | | | | + + + +-------+ + + + + | Result panel 221 | + + + + + +-------+ + + | Potassium | 2025-01-11 | | 3.9 | (missing) | (missing) | | SerPl-sCnc | 06:52:07 | [facility] | | | | + + + +-------+ + + + + | Result panel 222 | + + + + + +-------+ + + | Chloride | 2025-01-11 | | 103 | (missing) | (missing) | | [facility] | 06:52:07 | [facility] | | [facility] | | | | + + + +-------+ + + + + | Result panel 223 | + + + + + +------+ + + | CO2 | 2025-01-11 | | 25 | (missing) | (missing) | | SerPl-s[facility]nc | 06:52:07 | [facility] | | | | + + + +------+ + + + + | Result panel 224 | + + + + + +--------+ + + | Anion Gap | 2025-01-11 | | 14.9 | (missing) | (missing) | | SerPl | 06:52:07 | [facility] | | | | | Calculated.4 | [facility] | | [facility] | | | | + + + +--------+ + + + + | Result panel 225 | + + + + + +-------+---------+ + | Calcium | 2025-01-11 | | 9.9 | mg/dL | (missing) | | [facility] | 06[facility]52[facility]07 | [facility] | | [facility] | | | | + + + +-------+---------+ + + + | Result panel 226 | + + + + + +-------+---------+ + | Magnesium | 2025-01-11 | | 2.2 | mg/dL | (missing) | | [facility] | 06[facility]52[facility] | [facility] | | [facility] | | | | + + + +-------+---------+ + + + | Result panel 227 | + + + + + +-------+ + + | Prot | 2025-01-11 | | 7.5 | (missing) | (missing) | | [facility] | 06:52:07 | [facility] | | | | + + + +-------+ + + + + | Result panel 228 | + + + + + +--------+ + + | MCH RBC Qn | 2025-01-11 | | 30.4 | (missing) | (missing) | | Auto | 06:52:07 | [facility] | | | | + + + +--------+ + + + + | Result panel 229 | + + + + + +-------+ + + | Albumin | 2025-01-11 | | 3.5 | (missing) | (missing) | | [facility] | 06:52[facility]07 | [facility] | | | | + + + +-------+ + + + + | Result panel 230 | + + + + + +-------+ + + | Globulin | 2025-01-11 | | 4.0 | (missing) | (missing) | | Ser-mCnc | 06:52:07 | [facility] | | | | + + + +-------+ + + + + | Result panel 231 | + + + + + +--------+ + + | | 2025-01-11 | | 0.88 | (missing) | (missing) | | Albumin/Glob | 06:52:07 | [facility] | | | | | SerPl | [facility] | | | | + + + +--------+ + + + + | Result panel 232 | + + + + + +-------+---------+ + | Bilirub | 2025-01-11 | | 0.5 | mg/dL | (missing) | | [facility] | 06:52:07 | [facility] | | | | + + + +-------+---------+ + + + | Result panel 233 | + + + + + +------+ + + | AST | 2025-01-11 | | 25 | (missing) | (missing) | | [facility] | 06:52:07 | [facility] | | | | + + + +------+ + + + + | Result panel 234 | + + + + + +------+ + + | ALT | 2025-01-11 | | 44 | (missing) | (missing) | | [facility] | 06:52:07 | [facility] | | | | + + + +------+ + + + + | Result panel 235 | + + + + + +------+ + + | ALP | 2025-01-11 | | 95 | (missing) | (missing) | | [facility] | 06:52:07 | [facility] | | | | + + + +------+ + + + + | Result panel 236 | + + + + + +---------+ + + | WBC # Bld | 2025-01-11 | | 14.30 | (missing) | (missing) | | Auto | 06:52:07 | [facility] | | | | + + + +---------+ + + + + | Result panel 237 | + + + + + +--------+ + + | RBC # Bld | 2025-01-11 | | 5.73 | (missing) | (missing) | | Auto | 06:52:07 | [facility] | | | | + + + +--------+ + + + + | Result panel 238 | + + + + + +--------+ + + | Hgb | 2025-01-11 | | 17.4 | (missing) | (missing) | | [facility] | 06:52:07 | [facility] | [facility] | | | | + + + +--------+ + + + + | Result panel 239 | + + + + + +--------+ + + | MCHC RBC | 2025-01-11 | | 34.5 | (missing) | (missing) | | Auto-[facility] | 06:52:07 | [facility] | | | | | | [facility] - [facility] | | | [facility] | | | | + + + +--------+ + + + + | Result panel 240 | + + + + + +--------+ + + | Hct VFr.DF | 2025-01-11 | | 50.5 | (missing) | (missing) | | Bld Auto | 06:52:07 | [facility] | | | | + + + +--------+ + + + + | Result panel 241 | + + + + + +--------+ + + | RBC Auto | 2025-01-11 | | 88.1 | (missing) | (missing) | | | 06:52:07 | [facility] | | | | + + + +--------+ + + + + | Result panel 242 | + + + + + +--------+ + + | MCH RBC Qn | 2025-01-11 | | 30.4 | (missing) | (missing) | | Auto | 06:52:07 | [facility] | | | | + + + +--------+ + + + + | Result panel 243 | + + + + + +--------+ + + | MCHC RBC | 2025-01-11 | | 34.5 | (missing) | (missing) | | [facility] | 06:52:07 | [facility] | | | | + + + +--------+ + + + + | Result panel 244 | + + + + + +-------+ + + | Platelet # | 2025-01-11 | | 259 | (missing) | (missing) | | Bld Auto | 06:52:07 | [facility] | | | | + + + +-------+ + + + + | Result panel 245 | + + + + + +--------+ + + | Neutrophils | 2025-01-11 | | 59.2 | (missing) | (missing) | | NFr Bld | 06:52:07 | [facility] | | | | | Auto | [facility] | | | | + + + +--------+ + + + + | Result panel 246 | + + + + + +--------+ + + | Lymphocytes | 2025-01-11 | | 27.3 | (missing) | (missing) | | NFr Bld | 06:52:07 | [facility] | | | | | Auto | [facility] | | | | + + + +--------+ + + + + | Result panel 247 | + + + + + +--------+ + + | Monocytes | 2025-01-11 | | 10.0 | (missing) | (missing) | | NFr Bld Auto | 06:52:07 | [facility] | | | | + + + +--------+ + + + + | Result panel 248 | + + + + + +-------+ + + | Eosinophil | 2025-01-11 | | 2.4 | (missing) | (missing) | | NFr Bld Auto | 06:52:07 | [facility] | | | | + + + +-------+ + + + + | Result panel 249 | + + + + + +-------+ + + | Basophils | 2025-01-11 | | 0.6 | (missing) | (missing) | | NFr Bld Auto | 06:52:07 | [facility] | | | | + + + +-------+ + + + + | Result panel 250 | + + + + + +-------+ + + | Platelet # | 2025-01-11 | | 259 | (missing) | (missing) | | Bld Auto | 06:52:07 | [facility] | | | | + + + +-------+ + + + + | Result panel 251 | + + + + + +------+---------+ + | Glucose | 2025-01-11 | | 95 | mg/dL | (missing) | | [facility] | 06:52:07 | [facility] | [facility] | | | | + + + +------+---------+ + + + | Result panel 252 | + + + + + +------+---------+ + | BUN | 2025-01-11 | | 23 | mg/dL | (missing) | | [facility] | 06[facility]52[facility]07 | [facility] | [facility] | | | | + + + +------+---------+ + + + | Result panel 253 | + + + + + +--------+---------+ + | Creat | 2025-01-11 | | 0.87 | mg/dL | (missing) | | [facility] | 06:52:07 | [facility] | [facility] | | | | + + + +--------+---------+ + + + | Result panel 254 | + + + + + +------+ + + | eGFRcr | 2025-01-11 | | 71 | (missing) | (missing) | | SerPlBld | 06:52:07 | [facility] | | | | | CKD-EPI 2020 | [facility] | | | | + + + +------+ + + + + | Result panel 255 | + + + + + +---------+ + + | BUN/Creat | 2025-01-11 | | 26.43 | (missing) | (missing) | | SerPl | 06:52:07 | [facility] | | | | + + + +---------+ + + + + | Result panel 256 | + + + + + +-------+ + + | Sodium | 2025-01-11 | | 139 | (missing) | (missing) | | Ser[facility]-s[facility]nc | 06:52:07 | [facility] | | | | + + + +-------+ + + + + | Result panel 257 | + + + + + +-------+ + + | Potassium | 2025-01-11 | | 3.9 | (missing) | (missing) | | SerPl-sCn | 06:52:07 | [facility] | | | | + + + +-------+ + + + + | Result panel 258 | + + + + + +-------+ + + | Chloride | 2025-01-11 | | 103 | (missing) | (missing) | | SerPl-sCn | 06:52:07 | [facility] | | | | + + + +-------+ + + + + | Result panel 259 | + + + + + +------+ + + | CO2 | 2025-01-11 | | 25 | (missing) | (missing) | | Ser[facility]-s[facility]nc | 06:52:07 | [facility] | | | | + + + +------+ + + + + | Result panel 260 | + + + + + +--------+ + + | Anion Gap | 2025-01-11 | | 14.9 | (missing) | (missing) | | SerPl | 06:52:07 | [facility] | | | | | Calculated.4 | [facility] | [facility] | | [facility] | | | | + + + +--------+ + + + + | Result panel 261 | + + + + + +--------+ + + | Neutrophils | 2025-01-11 | | 59.2 | (missing) | (missing) | | NFr Bld | 06:52:07 | [facility] | | | | | Auto | | [facility] | | | | + + + +--------+ + + + + | Result panel 262 | + + + + + +-------+---------+ + | Calcium | 2025-01-11 | | 9.9 | mg/dL | (missing) | | [facility] | 06:52:07 | [facility] | [facility] | | | | + + + +-------+---------+ + + + | Result panel 263 | + + + + + +-------+---------+ + | Magnesium | 2025-01-11 | | 2.2 | mg/dL | (missing) | | [facility] | 06:52:07 | [facility] | | [facility] | | | | + + + +-------+---------+ + + + | Result panel 264 | + + + + + +-------+ + + | Prot | 2025-01-11 | | 7.5 | (missing) | (missing) | | [facility] | 06[facility]52:07 [facility] | [facility] | | | | + + + +-------+ + + + + | Result panel 265 | + + + + + +-------+ + + | Albumin | 2025-01-11 | | 3.5 | (missing) | (missing) | | [facility] | 06:52:07 | [facility] | [facility] | | | | + + + +-------+ + + + + | Result panel 266 | + + + + + +-------+ + + | Globulin | 2025-01-11 | | 4.0 | (missing) | (missing) | | [facility] | 06:52:07 | [facility] | | | | + + + +-------+ + + + + | Result panel 267 | + + + + + +--------+ + + | | 2025-01-11 | | 0.88 | (missing) | (missing) | | Albumin/Glob | 06:52:07 | [facility] | | | | | SerPl | [facility] | | | | + + + +--------+ + + + + | Result panel 268 | + + + + + +-------+---------+ + | Bilirub | 2025-01-11 | | 0.5 | mg/dL | (missing) | | [facility] | 06:52:07 | [facility] | | | | + + + +-------+---------+ + + + | Result panel 269 | + + + + + +------+ + + | AST | 2025-01-11 | | 25 | (missing) | (missing) | | [facility] | 06:52:07 | [facility] | | | | + + + +------+ + + + + | Result panel 270 | + + + + + +------+ + + | ALT | 2025-01-11 | | 44 | (missing) | (missing) | | [facility] | 06:52:07 | [facility] | | | | + + + +------+ + + + + | Result panel 271 | + + + + + +------+ + + | ALP | 2025-01-11 | | 95 | (missing) | (missing) | | [facility] | 06:52:07 | [facility] | | | | + + + +------+ + + Social History +--------+ + + | date | description | facility | +--------+ + + Vital Signs + + + +---------+ | date | measurement | value | units | + + + +---------+ | 2024-11-05 00:00 | BMI | 24.2 | kg/m2 | + + + +---------+ | 2024-11-05 00:00 | BP_diastolic | 89 | mmHg | + + + +---------+ | 2024-11-05 00:00 | BP_systolic | 151 | mmHg | + + + +---------+ | 2024-11-05 00:00 | heart_rate | 91 | /min | + + + +---------+ | 2024-11-05 00:00 | height_metric | 165.1 | cm | + + + +---------+ | 2024-11-05 00:00 | height_standard | 65 | in | + + + +---------+ | 2024-11-05 00:00 | o2_saturation | 95 | % | + + + +---------+ | 2024-11-05 00:00 | respiration_rate | 16 | /min | + + + +---------+ | 2024-11-05 00:00 | temperature_metric | 36.89 | C | | | | | | + + + +---------+ | 2024-11-05 00:00 | | 98.4 | F | | | temperature_standar | | | | | d | | | + + + +---------+ | 2024-11-05 00:00 | weight_metric | 66 | kg | + + + +---------+ | 2024-11-05 00:00 | weight_standard | 145.51 | lb | + + + +---------+ | 2024-11-06 00:00 | BP_diastolic | 00 | mmHg | + + + +---------+ | 2024-11-06 00:00 | BP_systolic | 00 | mmHg | + + + +---------+ | 2024-11-06 00:00 | heart_rate | 00 | /min | + + + +---------+ | 2024-11-06 00:00 | o2_saturation | 00 | % | + + + +---------+ | 2024-11-06 00:00 | respiration_rate | 00 | /min | + + + +---------+ | 2024-11-06 00:00 | temperature_metric | -17.78 | C | | | | | | + + + +---------+ | 2024-11-06 00:00 | | 0 | F | | | temperature_standar | | | | | d | | | + + + +---------+ | 2024-11-10 00:00 | BMI | 23.5 | kg/m2 | + + + +---------+ | 2024-11-10 00:00 | BP_diastolic | 84 | mmHg | + + + +---------+ | 2024-11-10 00:00 | BP_systolic | 150 | mmHg | + + + +---------+ | 2024-11-10 00:00 | heart_rate | 84 | /min | + + + +---------+ | 2024-11-10 00:00 | height_metric | 165.1 | cm | + + + +---------+ | 2024-11-10 00:00 | height_standard | 65 | in | + + + +---------+ | 2024-11-10 00:00 | o2_saturation | 95 | % | + + + +---------+ | 2024-11-10 00:00 | respiration_rate | 16 | /min | + + + +---------+ | 2024-11-10 00:00 | temperature_metric | 36.72 | C | | | | | | + + + +---------+ | 2024-11-10 00:00 | | 98.1 | F | | | temperature_standar | | | | | d | | | + + + +---------+ | 2024-11-10 00:00 | weight_metric | 64 | kg | + + + +---------+ | 2024-11-10 00:00 | weight_standard | 141.09 | lb | + + + +---------+ | 2024-11-15 00:00 | BMI | 34.4 | kg/m2 | + + + +---------+ | 2024-11-15 00:00 | BP_diastolic | 83 | mmHg | + + + +---------+ | 2024-11-15 00:00 | BP_systolic | 159 | mmHg | + + + +---------+ | 2024-11-15 00:00 | heart_rate | 89 | /min | + + + +---------+ | 2024-11-15 00:00 | height_metric | 165.1 | cm | + + + +---------+ | 2024-11-15 00:00 | height_standard | 65 | in | + + + +---------+ | 2024-11-15 00:00 | o2_saturation | 96 | % | + + + +---------+ | 2024-11-15 00:00 | respiration_rate | 18 | /min | + + + +---------+ | 2024-11-15 00:00 | temperature_metric | 36.67 | C | | | | | | + + + +---------+ | 2024-11-15 00:00 | | 98 | F | | | temperature_standar | | | | | d | | | + + + +---------+ | 2024-11-15 00:00 | weight_metric | 93.7 | kg | + + + +---------+ | 2024-11-15 00:00 | weight_standard | 206.58 | lb | + + + +---------+ | 2024-11-19 00:00 | BMI | 23.1 | kg/m2 | + + + +---------+ | 2024-11-19 00:00 | BP_diastolic | 82 | mmHg | + + + +---------+ | 2024-11-19 00:00 | BP_systolic | 148 | mmHg | + + + +---------+ | 2024-11-19 00:00 | heart_rate | 90 | /min | + + + +---------+ | 2024-11-19 00:00 | height_metric | 165.1 | cm | + + + +---------+ | 2024-11-19 00:00 | height_standard | 65 | in | + + + +---------+ | 2024-11-19 00:00 | o2_saturation | 99 | % | + + + +---------+ | 2024-11-19 00:00 | respiration_rate | 17 | /min | + + + +---------+ | 2024-11-19 00:00 | temperature_metric | 36.56 | C | | | | | | + + + +---------+ | 2024-11-19 00:00 | | 97.8 | F | | | temperature_standar | | | | | d | | | + + + +---------+ | 2024-11-19 00:00 | weight_metric | 63 | kg | + + + +---------+ | 2024-11-19 00:00 | weight_standard | 138.89 | lb | + + + +---------+ | 2024-11-23 00:00 | BMI | 24.1 | kg/m2 | + + + +---------+ | 2024-11-23 00:00 | BP_diastolic | 96 | mmHg | + + + +---------+ | 2024-11-23 00:00 | BP_systolic | 145 | mmHg | + + + +---------+ | 2024-11-23 00:00 | heart_rate | 80 | /min | + + + +---------+ | 2024-11-23 00:00 | height_metric | 165.1 | cm | + + + +---------+ | 2024-11-23 00:00 | height_standard | 65 | in | + + + +---------+ | 2024-11-23 00:00 | o2_saturation | 95 | % | + + + +---------+ | 2024-11-23 00:00 | respiration_rate | 18 | /min | + + + +---------+ | 2024-11-23 00:00 | temperature_metric | 36.44 | C | | | | | | + + + +---------+ | 2024-11-23 00:00 | | 97.6 | F | | | temperature_standar | | | | | d | | | + + + +---------+ | 2024-11-23 00:00 | weight_metric | 65.7 | kg | + + + +---------+ | 2024-11-23 00:00 | weight_standard | 144.84 | lb | + + + +---------+ | 2024-11-23 00:00 | weight_standard | 144.843 | lb | + + + +---------+ | 2024-12-02 00:00 | BMI | 23.1 | kg/m2 | + + + +---------+ | 2024-12-02 00:00 | BP_diastolic | 84 | mmHg | + + + +---------+ | 2024-12-02 00:00 | BP_systolic | 155 | mmHg | + + + +---------+ | 2024-12-02 00:00 | heart_rate | 87 | /min | + + + +---------+ | 2024-12-02 00:00 | height_metric | 165.1 | cm | + + + +---------+ | 2024-12-02 00:00 | height_standard | 65 | in | + + + +---------+ | 2024-12-02 00:00 | o2_saturation | 97 | % | + + + +---------+ | 2024-12-02 00:00 | respiration_rate | 16 | /min | + + + +---------+ | 2024-12-02 00:00 | temperature_metric | 36.5 | C | | | | | | + + + +---------+ | 2024-12-02 00:00 | | 97.7 | F | | | temperature_standar | | | | | d | | | + + + +---------+ | 2024-12-02 00:00 | weight_metric | 63 | kg | + + + +---------+ | 2024-12-02 00:00 | weight_metric | 63.001 | kg | + + + +---------+ | 2024-12-02 00:00 | weight_standard | 138.89 | lb | + + + +---------+ | 2024-12-02 00:00 | weight_standard | 138.893 | lb | + + + +---------+ | 2024-12-04 00:00 | BMI | 23.4 | kg/m2 | + + + +---------+ | 2024-12-04 00:00 | height_metric | 165.1 | cm | + + + +---------+ | 2024-12-04 00:00 | height_standard | 65 | in | + + + +---------+ | 2024-12-04 00:00 | weight_metric | 63.701 | kg | + + + +---------+ | 2024-12-04 00:00 | weight_standard | 140.437 | lb | + + + +---------+ | 2024-12-05 00:00 | BP_diastolic | 80 | mmHg | + + + +---------+ | 2024-12-05 00:00 | BP_systolic | 137 | mmHg | + + + +---------+ | 2024-12-05 00:00 | heart_rate | 90 | /min | + + + +---------+ | 2024-12-05 00:00 | o2_saturation | 93 | % | + + + +---------+ | 2024-12-05 00:00 | respiration_rate | 17 | /min | + + + +---------+ | 2024-12-05 00:00 | | 98.8 | F | | | temperature_standar | | | | | d | | | + + + +---------+ | 2024-12-20 00:00 | BMI | 23.4 | kg/m2 | + + + +---------+ | 2024-12-20 00:00 | BP_diastolic | 100 | mmHg | + + + +---------+ | 2024-12-20 00:00 | BP_systolic | 186 | mmHg | + + + +---------+ | 2024-12-20 00:00 | heart_rate | 88 | /min | + + + +---------+ | 2024-12-20 00:00 | height_metric | 165.1 | cm | + + + +---------+ | 2024-12-20 00:00 | height_standard | 65 | in | + + + +---------+ | 2024-12-20 00:00 | o2_saturation | 100 | % | + + + +---------+ | 2024-12-20 00:00 | respiration_rate | 18 | /min | + + + +---------+ | 2024-12-20 00:00 | | 98.1 | F | | | temperature_standar | | | | | d | | | + + + +---------+ | 2024-12-20 00:00 | weight_metric | 63.701 | kg | + + + +---------+ | 2024-12-20 00:00 | weight_standard | 140.437 | lb | + + + +---------+ | 2024-12-24 00:00 | BMI | 22.7 | kg/m2 | + + + +---------+ | 2024-12-24 00:00 | BP_diastolic | 84 | mmHg | + + + +---------+ | 2024-12-24 00:00 | BP_systolic | 168 | mmHg | + + + +---------+ | 2024-12-24 00:00 | heart_rate | 100 | /min | + + + +---------+ | 2024-12-24 00:00 | height_metric | 165.1 | cm | + + + +---------+ | 2024-12-24 00:00 | height_standard | 65 | in | + + + +---------+ | 2024-12-24 00:00 | o2_saturation | 98 | % | + + + +---------+ | 2024-12-24 00:00 | respiration_rate | 16 | /min | + + + +---------+ | 2024-12-24 00:00 | | 97.4 | F | | | temperature_standar | | | | | d | | | + + + +---------+ | 2024-12-24 00:00 | weight_metric | 61.799 | kg | + + + +---------+ | 2024-12-24 00:00 | weight_standard | 136.243 | lb | + + + +---------+ | 2025-01-11 00:00 | BMI | 22.8 | kg/m2 | + + + +---------+ | 2025-01-11 00:00 | BMI | 22.9 | kg/m2 | + + + +---------+ | 2025-01-11 00:00 | BP_diastolic | 89 | mmHg | + + + +---------+ | 2025-01-11 00:00 | BP_diastolic | 91 | mmHg | + + + +---------+ | 2025-01-11 00:00 | BP_systolic | 153 | mmHg | + + + +---------+ | 2025-01-11 00:00 | BP_systolic | 177 | mmHg | + + + +---------+ | 2025-01-11 00:00 | heart_rate | 75 | /min | + + + +---------+ | 2025-01-11 00:00 | heart_rate | 95 | /min | + + + +---------+ | 2025-01-11 00:00 | height_metric | 165.1 | cm | + + + +---------+ | 2025-01-11 00:00 | height_standard | 65 | in | + + + +---------+ | 2025-01-11 00:00 | o2_saturation | 96 | % | + + + +---------+ | 2025-01-11 00:00 | respiration_rate | 16 | /min | + + + +---------+ | 2025-01-11 00:00 | | 97.3 | F | | | temperature_standar | | | | | d | | | + + + +---------+ | 2025-01-11 00:00 | | 98.5 | F | | | temperature_standar | | | | | d | | | + + + +---------+ | 2025-01-11 00:00 | weight_metric | 62.1 | kg | + + + +---------+ | 2025-01-11 00:00 | weight_metric | 62.301 | kg | + + + +---------+ | 2025-01-11 00:00 | weight_standard | 136.906 | lb | + + + +---------+ | 2025-01-11 00:00 | weight_standard | 137.350 | lb | + + + +---------+ | 2025-01-12 00:00 | BMI | 22.8 | kg/m2 | + + + +---------+ | 2025-01-12 00:00 | BP_diastolic | 83 | mmHg | + + + +---------+ | 2025-01-12 00:00 | BP_systolic | 161 | mmHg | + + + +---------+ | 2025-01-12 00:00 | heart_rate | 80 | /min | + + + +---------+ | 2025-01-12 00:00 | height_metric | 165.1 | cm | + + + +---------+ | 2025-01-12 00:00 | height_standard | 65 | in | + + + +---------+ | 2025-01-12 00:00 | o2_saturation | 96 | % | + + + +---------+ | 2025-01-12 00:00 | respiration_rate | 16 | /min | + + + +---------+ | 2025-01-12 00:00 | | 97.6 | F | | | temperature_standar | | | | | d | | | + + + +---------+ | 2025-01-12 00:00 | weight_metric | 62.1 | kg | + + + +---------+ | 2025-01-12 00:00 | weight_standard | 136.906 | lb | + + + +---------+ | 2025-01-14 00:00 | BMI | 22.4 | kg/m2 | + + + +---------+ | 2025-01-14 00:00 | BP_diastolic | 96 | mmHg | + + + +---------+ | 2025-01-14 00:00 | BP_systolic | 148 | mmHg | + + + +---------+ | 2025-01-14 00:00 | heart_rate | 104 | /min | + + + +---------+ | 2025-01-14 00:00 | height_metric | 165.1 | cm | + + + +---------+ | 2025-01-14 00:00 | height_standard | 65 | in | + + + +---------+ | 2025-01-14 00:00 | o2_saturation | 99 | % | + + + +---------+ | 2025-01-14 00:00 | respiration_rate | 16 | /min | + + + +---------+ | 2025-01-14 00:00 | | 97.5 | F | | | temperature_standar | | | | | d | | | + + + +---------+ | 2025-01-14 00:00 | weight_metric | 61 | kg | + + + +---------+ | 2025-01-14 00:00 | weight_standard | 134.481 | lb | + + + +---------+"
[2025-02-02] MEDS ORDERED: FLUTICASONE PROPIONATE 50 MCG BTL NAS ONE (00:15)
[2025-02-02 00:29] VITALS: BP 147/86
== END 2025-02-02 00:29 | disposition home or self-care (01) ==
LOC: ED 23:05
DX: H69.81 Other specified disorders of Eustachian tube, right ear (principal); I10 Essential (primary) hypertension; F17.200 Nicotine dependence, unspecified, uncomplicated; Z88.8 Allergy status to other drugs, medicaments and biological substances; Z88.5 Allergy status to narcotic agent; Z79.899 Other long term (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
CPT/HCPCS: 99282

== ENCOUNTER 2025-02-03 08:43 | Emergency (ER) | payer MEDICARE, OTHER ==
[~2025-02-03] VITALS: Ht 165.1 cm; Wt 62.3 kg
--- OUTSIDE RECORDS SUMMARY | ~2025-02-03 | XMS | Continuity of Care Document ---
Demographics + + + | Address | [address] | | | [place] [address] | + + + | Preferred Language | Unknown | + + + | Marital Status | | + + + | Sabianist Affiliation | Unknown | + + + | Race | White | + + + | Ethnic Group | or | + + + Author + + + | Author | [facility] | + + + | Organization | [facility] | + + + | Address | [address] | | | [place] [address] | + + + | Phone | | + + + Care Team Providers + + + + | Care Stock Drier Tender Name | Role | Phone | + [...] Severe | | 00:00 | | [facility] [...] (no severity) | | 00:00 | | [facility] | | | | | | Hospital | | | + + + + + + Encounters No information. Functional Status No information. Immunizations No information. Medications + + + + | date | description | facility | + + + + | (no date) | [facility] | | | HCL/ACETAMINOPHEN | [facility] | + + + + | (no date) | OXYCODONE | [facility] | | | HCL/ACETAMINOPHEN | [facility] | + + + + | (no date) | OXYCODONE | [facility] | | | HCL/ACETAMINOPHEN | [facility] | + + + + | (no date) | OXYCODONE | [facility] | | | HCL/ACETAMINOPHEN | [facility] | + + + + | (no date) | OXYCODONE | [facility] | | | HCL/ACETAMINOPHEN | [facility] | + + + + | (no date) | OXYCODONE | [facility] | | | HCL/ACETAMINOPHEN | [facility] | + + + + | (no date) | OXYCODONE | [facility] | | | HCL/ACETAMINOPHEN | [facility] | + + + + | (no date) | L[facility]ZEPAM [facility] | | | | [facility] | + + + + | (no date) | LORAZEPAM | [facility] | | | | [facility] | + + + + | (no date) | LORAZEPAM | [facility] | | | | [facility] | + + + + | (no date) | LORAZEPAM | [facility] | | | | [facility] | + + + + | (no date) | LORAZEPAM | [facility] | | | | [facility] | + + + + | (no date) | LORAZEPAM | [facility] | | | | [facility] | + + + + | (no date) | LORAZEPAM | [facility] | | | | [facility] | + + + + | (no date) | LORAZEPAM | [facility] | | | | [facility] | + + + + | (no date) | LORAZEPAM | [facility] | | | | [facility] | + + + + | (no date) | LORAZEPAM | [facility] | | | | [facility] | + + + + | (no date) | CARVEDILOL | [facility] | | | | [facility] | + + + + | (no date) | CARVEDILOL | [facility] | | | | [facility] | + + + + | (no date) | CARVEDILOL | [facility] | | | | [facility] | + + + + | (no date) | CARVEDILOL | [facility] | | | | [facility] | + + + + | (no date) | CARVEDILOL | [facility] | | | | [facility] | + + + + | (no date) | CARVEDILOL | [facility] | | | | [facility] | + + + + | (no date) | CARVEDILOL | [facility] | | | | [facility] | + + + + | (no date) | ALPRAZOLAM | [facility] | | | | [facility] | + + + + | (no date) | ALPRAZOLAM | [facility] | | | | [facility] | + + + + | (no date) | ALPRAZOLAM | [facility] | | | | [facility] | + + + + | (no date) | ALPRAZOLAM | [facility] | | | | [facility] | + + + + | (no date) | ALPRAZOLAM | [facility] | | | | [facility] | + + + + | (no date) | ALPRAZOLAM | [facility] | | | | [facility] | + + + + | (no date) | AMLODIPINE BESYLATE | [facility] | | | | [facility] | + + + + | (no date) | AMLODIPINE BESYLATE | [facility] | | | | [facility] | + + + + | (no date) | AMLODIPINE BESYLATE | [facility] | | | | [facility] | + + + + | (no date) | AMLODIPINE BESYLATE | [facility] | | | | [facility] | + + + + | (no date) | AMLODIPINE BESYLATE | [facility] | | | | [facility] | + + + + | (no date) | AMLODIPINE BESYLATE | [facility] | | | | [facility] | + + + + | (no date) | AMLODIPINE BESYLATE | [facility] | | | | [facility] | + + + + | (no date) | SPIRONOLACTONE | [facility] | | | | [facility] | + + + + | (no date) | SPIRONOLACTONE | [facility] | | | | [facility] | + + + + | (no date) | SPIRONOLACTONE | [facility] | | | | [facility] | + + + + | (no date) | SPIRONOLACTONE | [facility] | | | | [facility] | + + + + | (no date) | SPIRONOLACTONE | [facility] | | | | [facility] | + + + + | (no date) | SPIRONOLACTONE | [facility] | | | | [facility] | + + + + | (no date) | SPIRONOLACTONE | [facility] | | | | [facility] | + + + + | (no date) | ESCITALOPRAM OXALATE | [facility] | | | | [facility] | + + + + | (no date) | ESCITALOPRAM OXALATE | [facility] | | | | [facility] | + + + + | (no date) | ESCITALOPRAM OXALATE | [facility] | | | | [facility] | + + + + | (no date) | ESCITALOPRAM OXALATE | [facility] | | | | [facility] | + + + + | (no date) | ESCITALOPRAM OXALATE | [facility] | | | | [facility] | + + + + | (no date) | ESCITALOPRAM OXALATE | [facility] | | | | [facility] | + + + + | (no date) | ESCITALOPRAM OXALATE | [facility] | | | | [facility] | + + + + | 2024-12-05 00:00 | ZOLPIDEM TARTRATE | [facility] | | | | [facility] | + + + + | 2024-12-05 00:00 | ZOLPIDEM TARTRATE | [facility] | | | | [facility] | + + + + | 2024-12-05 00:00 | ZOLPIDEM TARTRATE | [facility] | | | | [facility] | + + + + | 2024-12-05 00:00 | ZOLPIDEM TARTRATE | [facility] | | | | [facility] | + + + + | 2024-12-05 00:00 | ZOLPIDEM TARTRATE | [facility] | | | | [facility] | + + + + | (no date) | METOPROLOL SUCCINATE | [facility] | | | | [facility] | + + + + | (no date) | METOPROLOL SUCCINATE | [facility] | | | | [facility] | + + + + | (no date) | METOPROLOL SUCCINATE | [facility] | | | | [facility] | + + + + | (no date) | METOPROLOL SUCCINATE | [facility] | | | | [facility] | + + + + | (no date) | METOPROLOL SUCCINATE | [facility] | | | | [facility] | + + + + | (no date) | METOPROLOL SUCCINATE | [facility] | | | | [facility] | + + + + | (no date) | METOPROLOL SUCCINATE | [facility] | | | | [facility] | + + + + | (no date) | CLONIDINE HCL | [facility] | | | | [facility] | + + + + | (no date) | CLONIDINE HCL | [facility] | | | | [facility] | + + + + | (no date) | CLONIDINE HCL | [facility] | | | | [facility] | + + + + | (no date) | CLONIDINE HCL | [facility] | | | | [facility] | + + + + | (no date) | CLONIDINE HCL | [facility] | | | | [facility] | + + + + | (no date) | CLONIDINE HCL | [facility] | | | | [facility] | + + + + | (no date) | CLONIDINE HCL | [facility] | | | | [facility] | + + + + | (no date) | LOSARTAN POTASSIUM | [facility] | | | | [facility] | + + + + | (no date) | LOSARTAN POTASSIUM | [facility] | | | | [facility] | + + + + | (no date) | LOSARTAN POTASSIUM | [facility] | | | | [facility] | + + + + | (no date) | LOSARTAN POTASSIUM | [facility] | | | | [facility] | + + + + | (no date) | LOSARTAN POTASSIUM | [facility] | | | | [facility] | + + + + | (no date) | LOSARTAN POTASSIUM | [facility] | | | | [facility] | + + + + | (no date) | LOSARTAN POTASSIUM | [facility] | | | | [facility] | + + + + | (no date) | HYDROXYZINE HCL | [facility] | | | | [facility] | + + + + | (no date) | HYDROXYZINE HCL | [facility] | | | | [facility] | + + + + [...] [facility] | | | | [facility] | + + + + | (no date) | hydrOXYzine HCL | [facility] | | | | [facility] | + + + + | (no date) | hydrOXYzine HCL | [facility] | | | | [facility] | + + + + | (no date) | hydrOXYzine HCL | [facility] | | | | [facility] | + + + + | (no date) | hydrOXYzine HCL | [facility] | | | | [facility] | + + + + | (no date) | hydrOXYzine HCL | [facility] | | | | [facility] | + + + + | (no date) | hydrOXYzine HCL | [facility] | | | | [facility] | + + + + | (no date) | hydrOXYzine HCL | [facility] | | | | [facility] | + + + + | (no date) | CLONIDINE | [facility] | | | | [facility] | + + + + | (no date) | CLONIDINE | [facility] | | | | [facility] | + + + + | (no date) | CLONIDINE | [facility] | | | | [facility] | + + + + | (no date) | CLONIDINE | [facility] | | | | [facility] | + + + + | 2024-11-10 00:00 | Clonidine | [facility] | | | | [facility] | + + + + | 2024-11-10 00:00 | Clonidine | [facility] | | | | [facility] | + + + + | 2024-11-05 00:00 | CLONIDINE | [facility] | | | | [facility] | + + + + | 2024-11-05 00:00 | CLONIDINE | [facility] | | | | [facility] | + + + + | 2024-11-05 00:00 | CLONIDINE | [facility] | | | | [facility] | + + + + | 2024-11-05 00:00 | CLONIDINE | [facility] | | | | [facility] | + + + + | 2024-11-05 00:00 | CLONIDINE | [facility] | | | | [facility] | + + + + | 2024-11-05 00:00 | CLONIDINE | [facility] | | | | [facility] | + + + + | 2024-11-05 00:00 | CLONIDINE | [facility] | | | | [facility] | + + + + Problems + + + + | date | description | facility | + + + + | 2024-11-15 00:00 | Elevated blood pressure | [facility] | [facility] [...] [facility] | | | reading | [facility] | + + + + | 2024-11-15 00:00 | Elevated blood pressure | [facility] | | | reading | [facility] | + + + + | 2024-11-15 00:00 | Elevated blood pressure | [facility] | | | reading | [facility] | + + + + | 2024-11-15 00:00 | Elevated blood pressure | [facility] | | | reading | [facility] | + + + + | 2024-11-19 00:00 | Acute anxiety | [facility] | | | | [facility] | + + + + | 2024-11-19 00:00 | Acute anxiety | [facility] | | | | [facility] | + + + + | 2024-11-19 00:00 | Acute anxiety | [facility] | | | | [facility] | + + + + | 2024-11-19 00:00 | Acute anxiety | [facility] | | | | [facility] | + + + + | 2024-11-19 00:00 | Acute anxiety | [facility] | | | | [facility] | + + + + | 2024-11-19 00:00 | Acute anxiety | [facility] | | | | [facility] | + + + + | 2024-12-02 00:00 | Anxiety and depression | [facility] | | | | [facility] | + + + + | 2024-12-02 00:00 | Anxiety and depression | [facility] | | | | [facility] | + + + + | 2024-12-02 00:00 | Anxiety and depression | [facility] | | | | [facility] | + + + + | 2024-12-02 00:00 | Anxiety and depression | [facility] | | | | [facility] | + + + + | 2024-12-02 00:00 | Anxiety and depression | [facility] | | | | [facility] | + + + + | 2024-12-02 00:00 | Anxiety and depression | [facility] | | | | [facility] | + + + + | 2024-12-05 00:00 | Side effect of medication | [facility] | | | | [facility] | + + + + | 2024-12-05 00:00 | [facility] | [facility] | + + + + | 2024-12-05 00:00 | Side effect of medication | [facility] | | | | [facility] | + + + + | 2024-12-05 00:00 | Side effect of medication | [facility] | | | | [facility] | + + + + | 2024-12-05 00:00 | Side effect of medication | [facility] | | | | [facility] | + + + + Procedures No information. Results/Labs +--------+--------+ +---------+--------+---------+ | test | date | facility | value | unit | notes | +--------+--------+ +---------+--------+---------+ + + | Result panel 1 | + + + + + +------+ + + | Glucose | 2024-11-05 | | 88 | (missing) | (missing) | | [facility] | 17:57:07 | [facility] | | | [...] 88 | (missing) | (missing) | | [facility] | 17:57:07 | [facility] | | | [...] 88 | (missing) | (missing) | | [facility] | 17:57:07 | [facility] | | | [...] 88 | (missing) | (missing) | | d-[facility] | 17:57:07 | [facility] | | | [...] 21 | mg/dL | (missing) | | [facility] | 09:43:07 | [facility] | | [...] 9.5 | mg/dL | (missing) | | [facility] | 09:43:07 | [facility] | | [...] 35 | (missing) | (missing) | | [facility] | 09:43:07 | [facility] | | [...] 80 | (missing) | (missing) | | [facility] | 09:43:[facility] | [facility] | | | [...] 88 | (missing) | (missing) | | [facility] | 09:43:07 | [facility] | | | [...] 35 | (missing) | (missing) | | [facility] | 09:43:07 | [facility] | | | [...] | (missing) | (missing) | | [facility] | 09:43:07 | [facility] | | [...] 35 | (missing) | (missing) | | [facility] | 09:43:07 | [facility] | | [...] 3.5 | (missing) | (missing) | | [facility] | 23:20:07 | [facility] | | | [...] 38 | (missing) | (missing) | | [facility] | 23:20:07 | [facility] | | | [...] | (missing) | (missing) | | [facility] | 06:52:07 | [facility] | | [...] 25 | (missing) | (missing) | | [facility] | 06:52:07 | [facility] | | | [...] 103 | (missing) | (missing) | | [facility] | 06:52:07 | [facility] | | [...] 25 | (missing) | (missing) | | [facility] | 06:52:07 | [facility] | | | [...] 17.4 | (missing) | (missing) | | d-[facility] | 06:52:07 | [facility] | | [...] 2.2 | mg/dL | (missing) | | [facility] | 06:52:07 | [facility] | | [...]
--- OUTSIDE RECORDS SUMMARY | 2025-02-03 08:50 | XMS ---
PreManage Notification: [employer] Analyst Events No recent Security Events currently on file CRITERIA MET - 6 ED Visits in 6 Months - Group Notification - [facility] - 2 Visits in 30 Days CARE PROVIDERS [facility]: [facility] Current FAMILY PHONE: [phone] Helen Arce Physician [employer] Purchasing Agent Current FAZAL PHONE: [phone] Kate has no Care Guidelines for this patient. EBonnie VISIT COUNT (12 MO.) [address] [place] [address] TOTAL 32 NOTE: Visits indicate total known visits. ED/UCC VISIT TRACKING (12 MO.) 02/03/2025 08:43 [facility] TYPE: Emergency COMPLAINT: - RAPID HEART RATE 02/01/2025 23:06 [facility] TYPE: Emergency COMPLAINT: - EAR PAIN 01/26/2025 18:12 [facility] OR TYPE: Emergency COMPLAINT: - EAR PAIN DIAGNOSES: - Allergy status to narcotic agent - Allergy status to other drugs, medicaments and biological substances - Anxiety disorder, unspecified - Essential (primary) hypertension - Nicotine dependence, unspecified, uncomplicated - Otalgia, right ear - Other longterm (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 01/20/2025 20:13 [facility] TYPE: Emergency COMPLAINT: - LIGHT HEADEDNESS DIAGNOSES: - Allergy status to narcotic agent - Allergy status to other drugs, medicaments and biological substances - Anxiety disorder, unspecified - Essential (primary) hypertension - Generalized anxiety disorder - Nicotine dependence, unspecified, uncomplicated - Other longterm (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 01/14/2025 08:22 [facility] OR TYPE: Emergency COMPLAINT: - MEDICATION REACTION DIAGNOSES: - Allergy status to narcotic agent - Allergy status to other drugs, medicaments and biological substances - Anxiety disorder, unspecified - Essential (primary) hypertension - Nicotine dependence, unspecified, uncomplicated - Other longterm (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 01/12/2025 20:29 [facility] OR TYPE: Emergency COMPLAINT: - MEDS ISSUE DIAGNOSES: - Allergy status to narcotic agent - Allergy status to other drugs, medicaments and biological substances - Anxiety disorder, unspecified - Essential (primary) hypertension - Nicotine dependence, unspecified, uncomplicated - Other longterm (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 01/11/2025 18:11 [facility] OR TYPE: Emergency COMPLAINT: - BP CHECK DIAGNOSES: - Allergy status to other drugs, medicaments and biological substances - Essential (primary) hypertension - Nicotine dependence, unspecified, uncomplicated - Other longterm (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 01/11/2025 06:43 [facility] OR TYPE: Emergency COMPLAINT: - SHORTNESS OF BREATH DIAGNOSES: - Allergy status to narcotic agent - Allergy status to other drugs, medicaments and biological substances - Anxiety disorder, unspecified - Essential (primary) hypertension - Nicotine dependence, unspecified, uncomplicated - Other longterm (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 - Shortness of breath 12/24/2024 09:06 [facility] OR TYPE: Emergency COMPLAINT: - EAR PAIN 12/20/2024 09:04 [facility] OR TYPE: Emergency COMPLAINT: - WEAKNESS DIAGNOSES: - Allergy status to narcotic agent - Allergy status to other drugs, medicaments and biological substances - Anxiety disorder, unspecified - Essential (primary) hypertension - Nicotine dependence, unspecified, uncomplicated - Other intermediate manager (current) drug therapy 12/04/2024 22:55 EMERALD [...] uncomplicated - Other fatigue - Other intermediate manager (current) drug therapy 12/02/2024 08:44 [facility] OR TYPE: Emergency COMPLAINT: - ANXIETY 11/23/2024 10:47 [facility] OR TYPE: Emergency COMPLAINT: - DIFFICULTY BREATHING DIAGNOSES: - Allergy status to narcotic agent - Allergy status to other drugs, medicaments and biological substances - Anxiety disorder, unspecified - Essential (primary) hypertension - Gastro-esophageal reflux disease without esophagitis - Nicotine dependence, unspecified, uncomplicated - Other intermediate manager (current) drug therapy - Shortness of breath 11/19/2024 09:22 [facility] OR TYPE: Emergency COMPLAINT: - ANXIETY DIAGNOSES: - Allergy status to other drugs, medicaments and biological substances - Anxiety disorder, unspecified - Essential (primary) hypertension - intermediate manager (current) use of antibiotics - Nicotine dependence, unspecified, uncomplicated 11/15/2024 08:57 [facility] OR TYPE: Emergency COMPLAINT: - WEAKNESS DIAGNOSES: - Allergy status to other antibiotic agents - Allergy status to other drugs, medicaments and biological substances - Anxiety disorder, unspecified - Elevated blood-pressure reading, without diagnosis of hypertension - Essential (primary) hypertension - prison (current) use of inhibitors of nucleotide synthesis - Nicotine dependence, unspecified, uncomplicated 11/10/2024 00:58 [facility] OR TYPE: Emergency COMPLAINT: - ANXIETY DIAGNOSES: - Allergy status to narcotic agent - Allergy status to other drugs, medicaments and biological substances - Anxiety disorder, unspecified - Essential (primary) hypertension - Nicotine dependence, unspecified, uncomplicated - Other intermediate manager (current) drug therapy 11/06/2024 15:41 [facility] OR TYPE: Emergency COMPLAINT: - BP CHECK 11/05/2024 15:44 [facility] OR TYPE: Emergency COMPLAINT: - ANXIETY DIAGNOSES: - Allergy status to narcotic agent - Allergy status to other drugs, medicaments and biological substances - Anxiety disorder, unspecified - Essential (primary) hypertension - Nicotine dependence, unspecified, uncomplicated - Other longterm (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 11/02/2024 06:50 [facility] OR TYPE: Emergency COMPLAINT: - WEAKNESS DIAGNOSES: - Allergy status to analgesic agent - Allergy status to other drugs, medicaments and biological substances - Anxiety disorder, unspecified - Dizziness and giddiness - Essential (primary) hypertension - Nicotine dependence, unspecified, uncomplicated - Other longterm (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 - Pain in left arm 10/30/2024 07:23 [facility] OR TYPE: Emergency COMPLAINT: - WEAKNESS DIAGNOSES: - Allergy status to narcotic agent - Allergy status to other drugs, medicaments and biological substances - Anxiety disorder, unspecified - Essential (primary) hypertension - Nicotine dependence, unspecified, uncomplicated - Other fatigue - Other longterm (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 - Weakness Plus 12 More Visits INPATIENT VISIT TRACKING (12 MO.) No inpatient visits to display in this time frame [email or web address]
[2025-02-03 09:50] VITALS: BP 147/78
== END 2025-02-03 09:55 | disposition home or self-care (01) ==
LOC: ED 08:43
DX: F41.9 Anxiety disorder, unspecified (principal); I10 Essential (primary) hypertension; F17.200 Nicotine dependence, unspecified, uncomplicated; Z88.5 Allergy status to narcotic agent; Z88.8 Allergy status to other drugs, medicaments and biological substances; Z79.899 Other long term (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
CPT/HCPCS: 99284

== ENCOUNTER 2025-02-16 09:43 | Emergency (ER) | payer MEDICARE, OTHER ==
[~2025-02-16] VITALS: Ht 165.1 cm; Wt 61.6 kg
--- OUTSIDE RECORDS SUMMARY | ~2025-02-16 | XMS | Continuity of Care Document ---
Demographics + + + | Address | [address] | | | [place] [address] | + + + | Preferred Language | Unknown | + + + | Marital Status | | + + + | Alevism Affiliation | Unknown | + + + | Race | White | + + + | Ethnic Group | or | + + + Author + + + | Author | [facility] | + + + | Organization | [facility] | + + + | Address | [address] | | | [place] [address] | + + + | Phone | | + + + Care Team Providers + + + + | Care Finish Repairer Name | Role | Phone | + [...] + + + + + + | 2025-01-20 | Lisinopril | [facility] | (no reaction) | Severe | | 00:00 | | [facility] | | | + + + + + + | 2025-01-20 | Hydrocodone | [facility] - | (no [...] + + + + + + | 2025-01-20 | Lisinopril | [facility] - | (no [...] + + + + + + | 2025-01-20 | Meperidine | [facility] - | (no [...] + + + + + + | 2025-01-20 | Hydrocodone | [facility] - | (no [...] + + + + + + | 2025-01-20 | Meperidine | [facility] - | (no [...] + + + + + + | 2025-01-20 | Hydrocodone | [facility] - | (no [...] + + + + + + | 2025-01-20 | Meperidine | [facility] - | (no [...] + + + + + + | 2025-01-20 | Lisinopril | [facility] - | (no reaction) | Severe | | 00:00 | | [facility] | | | | [facility] | | | + + + + + + Encounters No information. Functional Status No information. Immunizations No information. Medications + + + + | date | description | facility | + + + + | (no date) | OXYCODONE | [facility] | | | HCL/ACETAMINOPHEN | [facility] | + + + + | (no date) | OXYCODONE | [facility] | | | HCL/ACETAMINOPHEN | [facility] | + + + + | (no date) | OXYCODONE | [facility] | | | HCL/ACETAMINOPHEN | [facility] | + + + + | (no date) | OXYCODONE | [facility] | | | HCL/ACETAMINOPHEN | [facility] | + + + + | (no date) | OXYCODONE | [facility] | | | HCL/ACETAMINOPHEN | [facility] | + + + + | (no date) | OXYCODONE | [facility] | | | HCL/ACETAMINOPHEN | [facility] | + + + + | 2025-02-02 00:00 | FLUTICASONE PROPIONATE | [facility] | | | | [facility] | + + + + | 2025-02-02 00:00 | FLUTICASONE PROPIONATE | [facility] | | | | [facility] | + + + + | (no date) | LORAZEPAM | [facility] | [facility] | + + + + | (no date) | LORAZEPAM | [facility] | | | | [facility] | + + + + | (no date) | LORAZEPAM | [facility] | [facility] | + + + + | (no date) | LORAZEPAM | [facility] | | | | [facility] | + + + + | (no date) | LORAZEPAM | [facility] | | | [facility] | + + + + | (no date) | LORAZEPAM | [facility] | | | [facility] | + + + + | (no date) | LORAZEPAM | [facility] | | | [facility] | + + + + | (no date) | LORAZEPAM | [facility] | | | [facility] | + + + + | (no date) | LORAZEPAM | [facility] | | | | [facility] | + + + + | (no date) | CARVEDILOL | [facility] | | | [facility] | + + + + | (no date) | CARVEDILOL | [facility] | | | | [facility] | + + + + | (no date) | CARVEDILOL | [facility] | [facility] | + + + + | (no date) | CARVEDILOL | [facility] | | | | [facility] | + + + + | (no date) | CARVEDILOL | [facility] | | [facility] | + + + + | (no date) | CARVEDILOL | [facility] | | | | [facility] | + + + + | (no date) | ALPRAZOLAM | [facility] | [facility] | + + + + | (no date) | ALPRAZOLAM | [facility] | | | | [facility] | + + + + | (no date) | ALPRAZOLAM | [facility] | | | | [facility] | + + + + | (no date) | ALPRAZOLAM | [facility] | [facility] | + + + + | (no date) | ALPRAZOLAM | [facility] | [facility] | + + + + | (no date) | ALPRAZOLAM | [facility] | | | | [facility] | + + + + | (no date) | AMLODIPINE BESYLATE | [facility] | | | | [facility] | + + + + | (no date) | AMLODIPINE BESYLATE | [facility] | | | | [facility] | + + + + | (no date) | AMLODIPINE BESYLATE | [facility] | [facility] | + + + + | (no date) | AMLODIPINE BESYLATE | [facility] | [facility] | + + + + | (no date) | AMLODIPINE BESYLATE | [facility] | | | | [facility] | + + + + | (no date) | AMLODIPINE BESYLATE | [facility] | | | | [facility] | + + + + | (no date) | SPIRONOLACTONE | [facility] | | | | [facility] | + + + + | (no date) | SPIRONOLACTONE | [facility] | [facility] | + + + + | (no date) | SPIRONOLACTONE | [facility] | | | | [facility] | + + + + | (no date) | SPIRONOLACTONE | [facility] | | | | [facility] | + + + + | (no date) | SPIRONOLACTONE | [facility] | | | | [facility] | + + + + | (no date) | SPIRONOLACTONE | [facility] | | | [facility] | + + + + | (no date) | ESCITALOPRAM OXALATE | [facility] | | | | [facility] | + + + + | (no date) | ESCITALOPRAM OXALATE | [facility] | | | [facility] | + + + + | (no date) | ESCITALOPRAM OXALATE | [facility] | | | [facility] | + + + + | (no date) | ESCITALOPRAM OXALATE | [facility] | | | [facility] | + + + + | (no date) | ESCITALOPRAM OXALATE | [facility] | | | [facility] | + + + + | (no date) | ESCITALOPRAM OXALATE | [facility] | | | [facility] | + + + + | 2024-12-05 00:00 | ZOLPIDEM TARTRATE | [facility] | | | | [facility] | + + + + | 2024-12-05 00:00 | ZOLPIDEM TARTRATE | [facility] - | | | | [facility] | + + + + | 2024-12-05 00:00 | ZOLPIDEM TARTRATE | [facility] | [facility] | + + + + | 2024-12-05 00:00 | ZOLPIDEM TARTRATE | [facility] - | | | | [facility] | + + + + | 2024-12-05 00:00 | ZOLPIDEM TARTRATE | [facility] | [facility] | + + + + | (no date) | METOPROLOL SUCCINATE | [facility] | | | | [facility] | + + + + | (no date) | METOPROLOL SUCCINATE | [facility] | | | | [facility] | + + + + | (no date) | METOPROLOL SUCCINATE | [facility] | | | | [facility] | + + + + | (no date) | METOPROLOL SUCCINATE | [facility] | | | | [facility] | + + + + | (no date) | METOPROLOL SUCCINATE | [facility] | | | | [facility] | + + + + | (no date) | METOPROLOL SUCCINATE | [facility] | | | | [facility] | + + + + | (no date) | CLONIDINE HCL | [facility] | | | | [facility] | + + + + | (no date) | CLONIDINE HCL | [facility] | | | | [facility] | + + + + | (no date) | CLONIDINE HCL | [facility] | | | | [facility] | + + + + | (no date) | CLONIDINE HCL | [facility] | | | | [facility] | + + + + | (no date) | CLONIDINE HCL | [facility] | [facility] | + + + + | (no date) | CLONIDINE HCL | [facility] | | | [facility] | + + + + | (no date) | LOSARTAN POTASSIUM | [facility] | | | | [facility] | + + + + | (no date) | LOSARTAN POTASSIUM | [facility] | | | | [facility] | + + + + | (no date) | LOSARTAN POTASSIUM | [facility] | | | | [facility] | + + + + | (no date) | LOSARTAN POTASSIUM | [facility] | | | | [facility] | + + + + | (no date) | LOSARTAN POTASSIUM | [facility] | | | | [facility] | + + + + | (no date) | LOSARTAN POTASSIUM | [facility] | | | | [facility] | + + + + | (no date) | HYDROXYZINE HCL | [facility] | | | [facility] | + + + + | (no date) | HYDROXYZINE HCL | [facility] | | | | [facility] | + + + + | (no date) | HYDROXYZINE HCL | [facility] | [facility] | + + + + | (no date) | HYDROXYZINE HCL | [facility] | | | [facility] | + + + + | (no date) | HYDROXYZINE HCL | [facility] | | | | [facility] | + + + + | (no date) | HYDROXYZINE HCL | [facility] | | | | [facility] | + + + + | (no date) | hydrOXYzine HCL | [facility] | | | | [facility] | + + + + | (no date) | hydrOXYzine HCL | [facility] | | | | [facility] | + + + + | (no date) | hydrOXYzine HCL | [facility] | | | [facility] | + + + + | (no date) | hydrOXYzine HCL | [facility] | | | | [facility] | + + + + | (no date) | hydrOXYzine HCL | [facility] | | | | [facility] | + + + + | (no date) | hydrOXYzine HCL | [facility] | | | | [facility] | + + + + | (no date) | CLONIDINE | [facility] | | | | [facility] | + + + + | (no date) | CLONIDINE | [facility] | | | | [facility] | + + + + | (no date) | CLONIDINE | [facility] | | | | [facility] | + + + + | (no date) | CLONIDINE | [facility] | | | | [facility] | + + + + Problems + + + + | date | description | facility | + + + + | 2024-11-19 00:00 | [facility] anxiety | [facility] | | | | [facility] | + + + + | 2024-11-19 00:00 | Acute anxiety | [facility] | [facility] | + + + + | 2024-11-19 00:00 | Acute anxiety | [facility] | | | | [facility] | + + + + | 2024-11-19 00:00 | Acute anxiety | [facility] | | | | [facility] | + + + + | 2024-11-19 00:00 | Acute anxiety [facility] | [facility] | + + + + | 2024-11-19 00:00 | Acute anxiety | [facility] | | | | [facility] | + + + + | 2024-12-02 00:00 | Anxiety and depression | [facility] | | | | [facility] | + + + + | 2024-12-02 00:00 | Anxiety and depression | [facility] | | | | [facility] | + + + + | 2024-12-02 00:00 | Anxiety and depression | [facility] | | | | [facility] | + + + + | 2024-12-02 00:00 | Anxiety and depression | [facility] | | | | [facility] | + + + + | 2024-12-02 00:00 | Anxiety and depression | [facility] | | | | [facility] | + + + + | 2024-12-02 00:00 | Anxiety and depression | [facility] | | | | [facility] | + + + + | 2024-12-05 00:00 | Side effect of medication | [facility] | | | | [facility] | + + + + | 2024-12-05 00:00 | Side effect of medication | [facility] | | | | [facility] | + + + + | 2024-12-05 00:00 | Side effect of medication | [facility] | | | | [facility] | + + + + | 2024-12-05 00:00 | Side effect of medication | [facility] | | | | [facility] | + + + + | 2024-12-05 00:00 | Side effect of medication | [facility] | | | | [facility] | + + + + | 2025-01-26 00:00 | Right ear pain | [facility] | | | | [facility] | + + + + | 2025-01-26 00:00 | Right ear pain | [facility] | | | | [facility] | + + + + Procedures No information. Results/Labs +--------+--------+ +---------+--------+---------+ | test | date | facility | value | unit | notes | +--------+--------+ +---------+--------+---------+ + + | Result panel 1 | + + + + + +---------+ + + | WBC # Bld | 2024-11-19 | | 15.45 | (missing) | (missing) | | Auto | 09:43:07 | [facility] | | | | + + + +---------+ + + + + | Result panel 2 | + + + + + +--------+ + + | RBC # Bld | 2024-11-19 | | 5.36 | (missing) | (missing) | | Auto | 09:43:07 | [facility] | | | | + + + +--------+ + + + + | Result panel 3 | + + + + + +--------+ [...] 4 | + + + + + +--------+ [...] 5 | + + + + + +--------+ [...] 6 | + + + + + +--------+ [...] 8 | + + + + + +-------+ [...] 11 | + + + + + +-------+ [...] 12 | + + + + + +-------+ [...] 14 | + + + + + +-------+---------+ [...] +-------+---------+ + + + | Result panel 15 | + + + + + +------+---------+ + | BUN | 2024-11-19 | | 21 | mg/dL | (missing) | | [facility] | 09:43:07 | [facility] | | | | + + + +------+---------+ + + + | Result panel 16 | + + + + + +--------+---------+ + | Creat | 2024-11-19 | | 0.96 | mg/dL | (missing) | | [facility] | 09:43:07 | [facility] | | | | + + + +--------+---------+ + + + | Result panel 17 | + + + + + +------+ [...] 18 | + + + + + +---------+ [...] 19 | + + + + + +-------+ [...] + + + + | Result panel 20 | + + + + + +-------+ [...] + + + + | Result panel 21 | + + + + + +-------+ [...] + + + + | Result panel 22 | + + + + + +------+ + + | CO2 | 2024-11-19 | | 27 | (missing) | (missing) | | SerPl-[facility]nc | :43:07 | [facility] | | | | + + + +------+ + + + + | Result panel 23 | + + + + + +--------+ [...] 24 | + + + + + +-------+---------+ + | Calcium | 2024-11-19 | | 9.5 | mg/dL | (missing) | | [facility] | 09:43:07 | [facility] | | [facility] | | | | + + + +-------+---------+ + + + | Result panel 25 [...] 3.7 | (missing) | (missing) | | SerPl-nc | 09:43:07 | [facility] | | | | + + + +-------+ + + + + | Result panel 27 | + + + + + +-------+ [...] 30 | + + + + + +------+ + + | AST | 2024-11-19 | | 35 | (missing) | (missing) | | [facility] | 09:43:07 | [facility] | | | | + + + +------+ + + + + | Result panel 31 | + + + + + +------+ + + | ALT | 2024-11-19 | | 80 | (missing) | (missing) | | SerPl-c[facility]nc | 09:43:07 | [facility] | | | | + + + +------+ + + + + | Result panel 32 | + + + + + +------+ [...] 33 | + + + + + +---------+ + + | TSH SerPl | 2024-11-19 | | 1.064 | (missing) | (missing) | | DL<=0.005 | 09:43:07 | [facility] | | | | | [facility] | [facility] | | | | + + + +---------+ + + + + | Result panel 34 | + + + + + +---------+ [...] + + + + | Result panel 35 | + + + + + +--------+ [...] 36 | + + + + + +--------+ [...] 37 | + + + + + +--------+ [...] 38 | + + + + + +--------+ [...] 39 | + + + + + +--------+ [...] 41 | + + + + + +-------+ [...] 44 | + + + + + +-------+ [...] 45 | + + + + + +-------+ [...] 47 | + + + + + +-------+---------+ + | Glucose | 2024-11-19 | | 189 | mg/dL | (missing) | | [facility] | 09:43:07 | [facility] | | | | + + + +-------+---------+ + + + | Result panel 48 | + + + + + +------+---------+ [...] +------+---------+ + + + | Result panel 49 | + + + + + +--------+---------+ [...] +--------+---------+ + + + | Result panel 50 | + + + + + +------+ [...] 51 | + + + + + +---------+ + + | RODEIRCK/Maggie | 2024-11-19 | | 21.87 | (missing) | (missing) | | SerPl | 09:43:07 | [facility] | | | | + + + +---------+ + + + + | Result panel 52 | + + + + + +-------+ [...] + + + + | Result panel 53 | + + + + + +-------+ [...] + + + + | Result panel 54 | + + + + + +-------+ [...] + + + + | Result panel 55 | + + + + + +------+ + + | CO2 | 2024-11-19 | | 27 | (missing) | (missing) | | [facility] | 09:43:07 | [facility] | | | | + + + +------+ + + + + | Result panel 56 | + + + + + +--------+ [...] 57 | + + + + + +-------+---------+ [...] +-------+---------+ + + + | Result panel 58 [...] 3.7 | (missing) | (missing) | | [facility] | 09:43:07 | [facility] | | | | + + + +-------+ + + + + | Result panel 60 | + + + + + +-------+ + + | Globulin | 2024-11-19 | | 3.7 | (missing) | (missing) | | Ser-[facility] | 09:43:07 | [facility] | | | | | [...] 63 | + + + + + +------+ + + | AST | 2024-11-19 | | 35 | (missing) | (missing) | | [facility] | 09:43:07 | [facility] | | | | + + + +------+ + + + + | Result panel 64 | + + + + + +------+ + + | ALT | 2024-11-19 | | 80 | (missing) | (missing) | | [facility] | 09:43:07 | [facility] | | | | + + + +------+ + + + + | Result panel 65 | + + + + + +------+ [...] 66 | + + + + + +---------+ [...] 67 | + + + + + +---------+ [...] + + + + | Result panel 68 | + + + + + +--------+ [...] 69 | + + + + + +--------+ + + | Hgb | 2024-11-19 | | 16.4 | (missing) | (missing) | | [facility] | 09:43:07 | [facility] | | | | + + + +--------+ + + + + | Result panel 70 | + + + + + +--------+ + + | Hct VFr.DF | 2024-11-19 | | 48.6 | (missing) | (missing) | | Bld Auto | 09:43:07 | [facility] | | | | | [facility] - [facility] | | | | [facility] | | | | + + + +--------+ + + + + | Result panel 71 | + + + + + +--------+ [...] 72 | + + + + + +--------+ [...] 74 | + + + + + +-------+ [...] 77 | + + + + + +-------+ [...] 78 | + + + + + +-------+ [...] 80 | + + + + + +-------+---------+ + | Glucose | 2024-11-19 | | 189 | mg/dL | (missing) | | [facility] | 09:43:07 | [facility] | | | | + + + +-------+---------+ + + + | Result panel 81 | + + + + + +------+---------+ [...] +------+---------+ + + + | Result panel 82 | + + + + + +--------+---------+ [...] +--------+---------+ + + + | Result panel 83 | + + + + + +------+ [...] 84 | + + + + + +---------+ [...] 85 | + + + + + +-------+ + + | Sodium | 2024-11-19 | | 138 | (missing) | (missing) | | [facility] | 09:43:07 | [facility] | | | | + + + +-------+ + + + + | Result panel 86 | + + + + + +-------+ [...] + + + + | Result panel 87 | + + + + + +-------+ + + | Chloride | 2024-11-19 | | 104 | (missing) | (missing) | | SerPl-[facility]n | 09:43:07 | [facility] | | | | + + + +-------+ + + + + | Result panel 88 [...] 89 | + + + + + +--------+ + + | Anion Gap | 2024-11-19 | | 10.9 | (missing) | (missing) | | SerPl | :43:07 | [facility] | | | | | Calculated.4 | [facility] | [facility] | | | | + + + +--------+ + + + + | Result panel 90 | + + + + + +-------+---------+ [...] +-------+---------+ + + + | Result panel 91 | + + + + + +-------+ + + | Prot | 2024-11-19 | | 7.4 | (missing) | (missing) | | [facility] | 09:43:07 [...] 3.7 | (missing) | (missing) | | [facility] | 09:43:07 | [facility] | | | | + + + +-------+ + + + + | Result panel 93 | + + + + + +-------+ + + | Globulin | 2024-11-19 | | 3.7 | (missing) | (missing) | | [facility] | 09:43:07 | [facility] | | | [...] + + + + +-------+---------+ + | Luzmaria | 2024-11-19 | | 0.4 | mg/dL | (missing) | | SerPl-[facility] | 09:43:07 | [facility] | | | | + + + +-------+---------+ + + + | Result panel 96 | + + + + + +------+ + + | AST | 2024-11-19 | | 35 | (missing) | (missing) | | [facility] | 09:43:07 | [facility] | | | | + + + +------+ + + + + | Result panel 97 | + + + + + +------+ [...] 98 | + + + + + +------+ + + | ALP | 2024-11-19 | | 88 | (missing) | (missing) | | SerPl-c[facility]n | 09:43:07 | [facility] | | | | + + + +------+ + + + + | Result panel 99 | + + + + + +---------+ [...] 100 | + + + + + +---------+ [...] + + + + | Result panel 101 | + + + + + +--------+ [...] 102 | + + + + + +--------+ [...] 103 | + + + + + +--------+ [...] 104 | + + + + + +--------+ [...] 105 | + + + + + +--------+ [...] 107 | + + + + + +-------+ [...] 110 | + + + + + +-------+ [...] 111 | + + + + + +-------+ [...] 113 | + + + + + +-------+---------+ [...] +-------+---------+ + + + | Result panel 114 | + + + + + +------+---------+ + | BUN | 2024-12-04 | | 30 | mg/dL | (missing) | | [facility] | 23:20:07 | [facility] | | | | + + + +------+---------+ + + + | Result panel 115 | + + + + + +--------+---------+ [...] +--------+---------+ + + + | Result panel 116 | + + + + + +------+ [...] 117 | + + + + + +---------+ [...] 118 | + + + + + +-------+ [...] + + + + | Result panel 119 | + + + + + +-------+ + + | Potassium | 2024-12-04 | | 3.6 | (missing) | (missing) | | [facility] | 23:20:07 | [facility] - [facility] | | | | [facility] | | | | + + + +-------+ + + + + | Result panel 120 | + + + + + +-------+ [...] + + + + | Result panel 121 [...] 122 | + + + + + +--------+ [...] 123 | + + + + + +-------+---------+ [...] +-------+---------+ + + + | Result panel 124 | + + + + + +-------+---------+ + | Magnesium | 2024-12-04 | | 2.2 | mg/dL | (missing) | | [facility] | 23:20:07 | [facility] | [facility] | | | | + + + +-------+---------+ + + + | Result panel 125 [...] 126 | + + + + + +-------+ + + | Albumin | 2024-12-04 | | 3.5 | (missing) | (missing) | | [facility] | 23:20:07 | [facility] | | | | + + + +-------+ + + + + | Result panel 127 | + + + + + +-------+ + + | Globulin | 2024-12-04 | | 3.9 | (missing) | (missing) | | [facility] | 23:20:07 | [facility] | | | | + + + +-------+ + + + + | Result panel 128 | + + + + + +--------+ [...] + + + + | Result panel 129 [...] 130 | + + + + + +------+ [...] 131 | + + + + + +------+ [...] 132 | + + + + + +------+ [...] 133 | + + + + + +---------+ [...] 134 | + + + + + +---------+ [...] + + + + | Result panel 135 | + + + + + +--------+ [...] 136 | + + + + + +--------+ [...] 137 | + + + + + +--------+ [...] 138 | + + + + + +--------+ [...] 139 | + + + + + +--------+ [...] 141 | + + + + + +-------+ [...] 144 | + + + + + +-------+ [...] 145 | + + + + + +-------+ [...] 147 | + + + + + +-------+---------+ [...] +-------+---------+ + + + | Result panel 148 | + + + + + +------+---------+ [...] +------+---------+ + + + | Result panel 149 | + + + + + +--------+---------+ [...] +--------+---------+ + + + | Result panel 150 | + + + + + +------+ [...] 151 | + + + + + +---------+ [...] 152 | + + + + + +-------+ [...] + + + + | Result panel 153 | + + + + + +-------+ [...] + + + + | Result panel 154 | + + + + + +-------+ [...] + + + + | Result panel 155 [...] 156 | + + + + + +--------+ [...] 157 | + + + + + +-------+---------+ [...] +-------+---------+ + + + | Result panel 158 | + + + + + +-------+---------+ [...] +-------+---------+ + + + | Result panel 159 | + + + + + +-------+ + + | Prot | 2024-12-04 | | 7.4 | (missing) | (missing) | | [facility] | 23:20:07 | [facility] | | [facility] | | | | + + + +-------+ + + + + | Result panel 160 | + + + + + +-------+ + + | Albumin | 2024-12-04 | | 3.5 | (missing) | (missing) | | [facility] | 23:20:07 | [facility] | | | | + + + +-------+ + + + + | Result panel 161 | + + + + + +-------+ [...] 162 | + + + + + +--------+ [...] + + + + | Result panel 163 [...] 164 | + + + + + +------+ [...] 165 | + + + + + +------+ [...] 166 | + + + + + +------+ [...] 167 | + + + + + +---------+ + + | TSH SerPl | 2024-12-04 | | 0.877 | (missing) | (missing) | | DL<=0.005 | 23:20:07 | [facility] | | | | [facility] | | | [facility] | | | | + + + +---------+ + + + + | Result panel 168 | + + + + + +---------+ [...] + + + + | Result panel 169 | + + + + + +--------+ [...] 170 | + + + + + +---------+ [...] 171 | + + + + + +--------+ [...] 172 | + + + + + +--------+ + + | Hgb | 2025-01-11 | | 17.4 | (missing) | (missing) | | [facility] | 06:52:07 | [facility] | | | | | | [facility] - [facility] | | | | + + + +--------+ + + + + | Result panel 173 | + + + + + +--------+ [...] 176 | + + + + + +--------+ [...] 178 | + + + + + +--------+ [...] + + + + | Result panel 179 | + + + + + +--------+ [...] + + + + | Result panel 180 | + + + + + +--------+ [...] + + + + | Result panel 181 | + + + + + +--------+ [...] 182 | + + + + + +-------+ [...] 184 | + + + + + +------+---------+ + | Glucose | 2025-01-11 | | 95 | mg/dL | (missing) | | [facility] | 06:52:07 | [facility] | | | | + + + +------+---------+ + + + | Result panel 185 | + + + + + +------+---------+ + | BUN | 2025-01-11 | | 23 | mg/dL | (missing) | | [facility] | 06:52:07 | [facility] | | | | + + + +------+---------+ + + + | Result panel 186 | + + + + + +--------+---------+ [...] +--------+---------+ + + + | Result panel 187 [...] 188 | + + + + + +---------+ [...] 189 | + + + + + +-------+ [...] + + + + | Result panel 190 | + + + + + +-------+ [...] + + + + | Result panel 191 [...] 103 | (missing) | (missing) | | [facility] | 06:52:07 | [facility] | | | | + + + +-------+ + + + + | Result panel 193 | + + + + + +------+ [...] 195 | + + + + + +-------+---------+ + | Calcium | 2025-01-11 | | 9.9 | mg/dL | (missing) | | [facility] | 06:52:07 | [facility] | | | | + + + +-------+---------+ + + + | Result panel 196 | + + + + + +-------+---------+ + | Magnesium | 2025-01-11 | | 2.2 | mg/dL | (missing) | | [facility] | 06:52:07 | [facility] | | | | + + + +-------+---------+ + + + | Result panel 197 | + + + + + +-------+ [...] 198 | + + + + + +-------+ + + | Albumin | 2025-01-11 | | 3.5 | (missing) | (missing) | | [facility] | 06:52:07 | [facility] | | | | + + + +-------+ + + + + | Result panel 199 | + + + + + +-------+ [...] 200 | + + + + + +--------+ [...] 201 | + + + + + +-------+---------+ [...] +-------+---------+ + + + | Result panel 202 | + + + + + +-------+ [...] 203 | + + + + + +------+ [...] 204 | + + + + + +------+ [...] 205 | + + + + + +------+ [...] 206 | + + + + + +---------+ [...] 208 | + + + + + +--------+ + + | Hgb | 2025-01-11 | | 17.4 | (missing) | (missing) | | [facility] | 06:52:07 | [facility] | | | [...] 212 | + + + + + +--------+ [...] 213 | + + + + + +------+---------+ [...] +------+---------+ + + + | Result panel 214 | + + + + + +-------+ [...] + + + + | Result panel 215 | + + + + + +--------+ [...] + + + + | Result panel 216 | + + + + + +--------+ [...] + + + + | Result panel 217 [...] 218 | + + + + + +-------+ [...] 219 | + + + + + +-------+ [...] 220 | + + + + + +------+---------+ + | Glucose | 2025-01-11 | | 95 | mg/dL | (missing) | | [facility] | 06[facility]52:07 | [facility] | | | | + + + +------+---------+ + + + | Result panel 221 | + + + + + +------+---------+ [...] +------+---------+ + + + | Result panel 222 | + + + + + +--------+---------+ [...] +--------+---------+ + + + | Result panel 223 [...] 224 | + + + + + +------+---------+ [...] +------+---------+ + + + | Result panel 225 | + + + + + +---------+ [...] + + + + | Result panel 226 | + + + + + +-------+ + + | Sodium | 2025-01-11 | | 139 | (missing) | (missing) | | [facility] | [facility]52[facility] | | | | + + + +-------+ + + + + | Result panel 227 [...] 228 | + + + + + +-------+ + + | Chloride | 2025-01-11 | | 103 | (missing) | (missing) | | [facility] | 06:52:07 | [facility] | | | | + + + +-------+ + + + + | Result panel 229 | + + + + + +------+ [...] 230 | + + + + + +--------+ [...] 231 | + + + + + +-------+---------+ + | Calcium | 2025-01-11 | | 9.9 | mg/dL | (missing) | | [facility] | 06:52:07 | [facility] | | | | + + + +-------+---------+ + + + | Result panel 232 [...] 233 | + + + + + +-------+ + + | Prot | 2025-01-11 | | 7.5 | (missing) | (missing) | | [facility] | 06:52:07 | [facility] | | | | + + + +-------+ + + + + | Result panel 234 | + + + + + +-------+ + + | Albumin | 2025-01-11 | | 3.5 | (missing) | (missing) | | [facility] | 06:52:07 | [facility] | | | | + + + +-------+ + + + + | Result panel 235 | + + + + + +--------+---------+ + | Creat | 2025-01-11 | | 0.87 | mg/dL | (missing) | | [facility] | 06:52:07 | [facility] | | | | + + + +--------+---------+ + + + | Result panel 236 | + + + + + +-------+ [...] 238 | + + + + + +-------+---------+ [...] +-------+---------+ + + + | Result panel 239 | + + + + + +------+ [...] 240 | + + + + + +------+ + + | ALT | 2025-01-11 | | 44 | (missing) | (missing) | | [facility] | 06:52:07 | [facility] | | | | + + + +------+ + + + + | Result panel 241 | + + + + + +------+ [...] 242 | + + + + + +------+ [...] 243 | + + + + + +---------+ [...] 139 | (missing) | (missing) | | [facility] | 06:52:07 | [facility] | [...] 246 | + + + + + +-------+ [...] 247 | + + + + + +-------+ + + | Chloride | 2025-01-11 | | 103 | (missing) | (missing) | | [facility] | 06:52:07 | [facility] | | | | + + + +-------+ + + + + | Result panel 248 | + + + + + +------+ [...] 249 | + + + + + +--------+ [...] 250 | + + + + + +-------+---------+ + | Calcium | 2025-01-11 | | 9.9 | mg/dL | (missing) | | [facility] | 06:52:07 | [facility] | [facility] | | | | + + + +-------+---------+ + + + | Result panel 251 | + + + + + +-------+---------+ + | Magnesium | 2025-01-11 | | 2.2 | mg/dL | (missing) | | [facility] | 06:52:07 | [facility] | | | | + + + +-------+---------+ + + + | Result panel 252 | + + + + + +-------+ + + | Prot | 2025-01-11 | | 7.5 | (missing) | (missing) | | [facility] | 06:52:07 | [facility] | | | | + + + +-------+ + + + + | Result panel 253 | + + + + + +-------+ + + | Albumin | 2025-01-11 | | 3.5 | (missing) | (missing) | | [facility] | 06:52:07 | [facility] | | | | + + + +-------+ + + + + | Result panel 254 | + + + + + +-------+ + + | Globulin | 2025-01-11 | | 4.0 | (missing) | (missing) | | [facility] | 06:52:07 | [facility] | | | | + + + +-------+ + + + + | Result panel 255 | + + + + + +--------+ [...] 256 | + + + + + +--------+ [...] 257 | + + + + + +-------+---------+ [...] +-------+---------+ + + + | Result panel 258 | + + + + + +------+ + + | AST | 2025-01-11 | | 25 | (missing) | (missing) | | [facility] | 06:52:07 | [facility] | | | [...] 44 | (missing) | (missing) | | [facility] | 06:52:07 | [facility] | | | | + + + +------+ + + + + | Result panel 260 | + + + + + +------+ + + | ALP | 2025-01-11 | | 95 | (missing) | (missing) | | [facility] | 06:52:07 | [facility] | | | | + + + +------+ + + + + | Result panel 261 | + + + + + +---------+ [...] 262 | + + + + + +--------+ [...] + + + + | Result panel 263 | + + + + + +--------+ + + | Hgb | 2025-01-11 | | 17.4 | (missing) | (missing) | | [facility] | 06:52:07 | [facility] | | | | + + + +--------+ + + + + | Result panel 264 | + + + + + +--------+ [...] 265 | + + + + + +--------+ [...] 266 | + + + + + +--------+ [...] 268 | + + + + + +--------+ [...] + + + + | Result panel 269 | + + + + + +-------+ [...] 270 | + + + + + +--------+ [...] 271 | + + + + + +--------+ [...] + + + + | Result panel 272 | + + + + + +--------+ [...] + + + + | Result panel 273 | + + + + + +-------+ [...] + + + + | Result panel 274 | + + + + + +-------+ [...] + + + + | Result panel 275 | + + + + + +------+---------+ [...] +------+---------+ + + + | Result panel 276 | + + + + + +------+---------+ + | BUN | 2025-01-11 | | 23 | mg/dL | (missing) | | [facility] | 06:52:07 | [facility] | | | | + + + +------+---------+ + + + | Result panel 277 | + + + + + +--------+---------+ [...] +--------+---------+ + + + | Result panel 278 | + + + + + +--------+ [...] + + + + | Result panel 279 | + + + + + +------+ [...] + + + + | Result panel 280 | + + + + + +---------+ [...] + + + + | Result panel 281 | + + + + + +-------+ [...] + + + + | Result panel 282 | + + + + + +-------+ [...] + + + + | Result panel 283 | + + + + + +-------+ + + | Chloride | 2025-01-11 | | 103 | (missing) | (missing) | | [facility] | 06:52:07 | [facility] | | | | + + + +-------+ + + + + | Result panel 284 | + + + + + +------+ [...] + + + + | Result panel 285 | + + + + + +--------+ [...] + + + + | Result panel 286 | + + + + + +-------+---------+ + | Calcium | 2025-01-11 | | 9.9 | mg/dL | (missing) | | [facility] | 06:52:07 | [facility] - [facility] | | | | [facility] | | | | | [facility] | | | | + + + +-------+---------+ + + + | Result panel 287 | + + + + + +-------+---------+ + | Magnesium | 2025-01-11 | | 2.2 | mg/dL | (missing) | | [facility] | 06:52:07 | [facility] | | | | + + + +-------+---------+ + + + | Result panel 288 | + + + + + +-------+ + + | Prot | 2025-01-11 | | 7.5 | (missing) | (missing) | | [facility] | 06:52:07 | [facility] | | | | + + + +-------+ + + + + | Result panel 289 | + + + + + +--------+ [...] + + + + | Result panel 290 | + + + + + +-------+ [...] + + + + | Result panel 291 | + + + + + +-------+ + + | Globulin | 2025-01-11 | | 4.0 | (missing) | (missing) | | [facility] | 06:52:07 | [facility] | | | | + + + +-------+ + + + + | Result panel 292 | + + + + + +--------+ [...] + + + + | Result panel 293 | + + + + + +-------+---------+ + | Luzmaria | 2025-01-11 | | 0.5 | mg/dL | (missing) | | [facility] | 06:52:07 | [facility] | | | | + + + +-------+---------+ + + + | Result panel 294 | + + + + + +------+ [...] + + + + | Result panel 295 | + + + + + +------+ [...] + + + + | Result panel 296 | + + + + + +------+ [...] + + + + | Result panel 297 | + + + + + +---------+ [...] + + + + | Result panel 298 | + + + + + +--------+ [...] + + + + | Result panel 299 | + + + + + +--------+ + + | Hgb | 2025-01-11 | | 17.4 | (missing) | (missing) | | [facility] | 06:52:07 | [facility] | | | | + + + +--------+ + + + + | Result panel 300 | + + + + + +--------+ [...] + + + + | Result panel 301 | + + + + + +--------+ + + | Hct VFr.DF | 2025-01-11 | | 50.5 | (missing) | (missing) | | [facility]ld [facility] | 06:52:07 | [facility] | | | | + + + +--------+ + + + + | Result panel 302 | + + + + + +--------+ + + | RBC Auto | 2025-01-11 | | 88.1 | (missing) | (missing) | | | 06:52:07 | [facility] | | | | | [facility] - | | | | | | [facility] | [facility] | | | | + + + +--------+ + + + + | Result panel 303 | + + + + + +--------+ [...] + + + + | Result panel 304 | + + + + + +--------+ [...] + + + + | Result panel 305 | + + + + + +-------+ [...] + + + + | Result panel 306 | + + + + + +--------+ [...] + + + + | Result panel 307 | + + + + + +--------+ [...] + + + + | Result panel 308 | + + + + + +--------+ + + | Monocytes | 2025-01-11 | | 10.0 | (missing) | (missing) | | NFr Bld Auto | 06:52:07 | [facility] | | | | + + + +--------+ + + + + | Result panel 309 | + + + + + +-------+ [...] + + + + | Result panel 310 | + + + + + +-------+ [...] + + + + | Result panel 311 | + + + + + +-------+ [...] + + + + | Result panel 312 | + + + + + +------+---------+ [...] +------+---------+ + + + | Result panel 313 | + + + + + +------+---------+ [...] +------+---------+ + + + | Result panel 314 | + + + + + +--------+---------+ [...] +--------+---------+ + + + | Result panel 315 | + + + + + +------+ [...] + + + + | Result panel 316 | + + + + + +---------+ [...] + + + + | Result panel 317 | + + + + + +-------+ + + | Sodium | 2025-01-11 | | 139 | (missing) | (missing) | | [facility] | 06:52:07 | [facility] | | | | + + + +-------+ + + + + | Result panel 318 | + + + + + +-------+ [...] + + + + | Result panel 319 | + + + + + +-------+ + + | Chloride | 2025-01-11 | | 103 | (missing) | (missing) | | [facility] | 06:52:07 | [facility] | | | | + + + +-------+ + + + + | Result panel 320 | + + + + + +------+ [...] + + + + | Result panel 321 | + + + + + +--------+ [...] + + + + | Result panel 322 | + + + + + +--------+ [...] + + + + | Result panel 323 | + + + + + +-------+---------+ + | Calcium | 2025-01-11 | | 9.9 | mg/dL | (missing) | | [facility] | 06:52:07 | [facility] | | | | + + + +-------+---------+ + + + | Result panel 324 | + + + + + +-------+---------+ [...] +-------+---------+ + + + | Result panel 325 | + + + + + +-------+ + + | Prot | 2025-01-11 | | 7.5 | (missing) | (missing) | | [facility] | 06:52:07 | [facility] | | | | + + + +-------+ + + + + | Result panel 326 | + + + + + +-------+ + + | Albumin | 2025-01-11 | | 3.5 | (missing) | (missing) | | [facility] | 06:52:07 | [facility] | | | | + + + +-------+ + + + + | Result panel 327 | + + + + + +-------+ [...] + + + + | Result panel 328 | + + + + + +--------+ [...] + + + + | Result panel 329 | + + + + + +-------+---------+ [...] +-------+---------+ + + + | Result panel 330 | + + + + + +------+ + + | AST | 2025-01-11 | | 25 | (missing) | (missing) | | [facility] | 06:52:07 | [facility] | | | | + + + +------+ + + + + | Result panel 331 | + + + + + +------+ [...] + + + + | Result panel 332 | + + + + + +------+ [...] units | + + + +---------+ | 2024-11-19 [...] 134.481 | lb | + + + +---------+ | 2025-01-20 00:00 | BMI | 23.1 | kg/m2 | + + + +---------+ | 2025-01-20 00:00 | BP_diastolic | 93 | mmHg | + + + +---------+ | 2025-01-20 00:00 | BP_systolic | 153 | mmHg | + + + +---------+ | 2025-01-20 00:00 | heart_rate | 80 | /min | + + + +---------+ | 2025-01-20 00:00 | height_metric | 165.1 | cm | + + + +---------+ | 2025-01-20 00:00 | height_standard | 65 | in | + + + +---------+ | 2025-01-20 00:00 | o2_saturation | 93 | % | + + + +---------+ | 2025-01-20 00:00 | respiration_rate | 15 | /min | + + + +---------+ | 2025-01-20 00:00 | | 98.1 | F | | | temperature_standar | | | | | d | | | + + + +---------+ | 2025-01-20 00:00 | weight_metric | 63.001 | kg | + + + +---------+ | 2025-01-20 00:00 | weight_standard | 138.893 | lb | + + + +---------+ | 2025-01-26 00:00 | BMI | 23.1 | kg/m2 | + + + +---------+ | 2025-01-26 00:00 | BP_diastolic | 97 | mmHg | + + + +---------+ | 2025-01-26 00:00 | BP_systolic | 182 | mmHg | + + + +---------+ | 2025-01-26 00:00 | heart_rate | 90 | /min | + + + +---------+ | 2025-01-26 00:00 | height_metric | 165.1 | cm | + + + +---------+ | 2025-01-26 00:00 | height_standard | 65 | in | + + + +---------+ | 2025-01-26 00:00 | o2_saturation | 99 | % | + + + +---------+ | 2025-01-26 00:00 | respiration_rate | 16 | /min | + + + +---------+ | 2025-01-26 00:00 | | 98.3 | F | | | temperature_standar | | | | | d | | | + + + +---------+ | 2025-01-26 00:00 | weight_metric | 63.001 | kg | + + + +---------+ | 2025-01-26 00:00 | weight_standard | 138.893 | lb | + + + +---------+ | 2025-02-01 00:00 | BMI | 23.1 | kg/m2 | + + + +---------+ | 2025-02-01 00:00 | height_metric | 165.1 | cm | + + + +---------+ | 2025-02-01 00:00 | height_standard | 65 | in | + + + +---------+ | 2025-02-01 00:00 | weight_metric | 63.001 | kg | + + + +---------+ | 2025-02-01 00:00 | weight_standard | 138.893 | lb | + + + +---------+ | 2025-02-02 00:00 | BP_diastolic | 86 | mmHg | + + + +---------+ | 2025-02-02 00:00 | BP_systolic | 147 | mmHg | + + + +---------+ | 2025-02-02 00:00 | heart_rate | 78 | /min | + + + +---------+ | 2025-02-02 00:00 | o2_saturation | 93 | % | + + + +---------+ | 2025-02-02 00:00 | respiration_rate | 18 | /min | + + + +---------+ | 2025-02-02 00:00 | | 97.7 | F | | | temperature_standar | | | | | d | | | + + + +---------+ | 2025-02-03 00:00 | BMI | 22.8 | kg/m2 | + + + +---------+ | 2025-02-03 00:00 | BP_diastolic | 78 | mmHg | + + + +---------+ | 2025-02-03 00:00 | BP_systolic | 147 | mmHg | + + + +---------+ | 2025-02-03 00:00 | heart_rate | 80 | /min | + + + +---------+ | 2025-02-03 00:00 | height_metric | 165.1 | cm | + + + +---------+ | 2025-02-03 00:00 | height_standard | 65 | in | + + + +---------+ | 2025-02-03 00:00 | o2_saturation | 99 | % | + + + +---------+ | 2025-02-03 00:00 | respiration_rate | 16 | /min | + + + +---------+ | 2025-02-03 00:00 | | 98.2 | F | | | temperature_standar | | | | | d | | | + + + +---------+ | 2025-02-03 00:00 | weight_metric | 62.27 | kg | + + + +---------+ | 2025-02-03 00:00 | weight_standard | 137.281 | lb | + + + +---------+"
--- OUTSIDE RECORDS SUMMARY | 2025-02-16 09:50 | XMS ---
PreManage Notification: [facility] Security Telephone Recorder Events No recent Security Events currently on file CRITERIA MET - 6 ED Visits in 6 Months - Group Notification - [facility] - 2 Visits in 30 Days CARE PROVIDERS [facility]/Center: [facility] Current FAMILY PHONE: [phone] Helen Arce Physician News Cameraman Current FAZAL PHONE: [phone] Kate has no Care Guidelines for this patient. EBonnie VISIT COUNT (12 MO.) [address] [place] [address] TOTAL 33 NOTE: Visits indicate total known visits. ED/UCC VISIT TRACKING (12 MO.) 02/16/2025 09:43 [facility] TYPE: Emergency COMPLAINT: - BREATHING ISSUES 02/03/2025 08:43 [facility] TYPE: Emergency COMPLAINT: - RAPID HEART RATE DIAGNOSES: - Allergy status to narcotic agent - Allergy status to other drugs, medicaments and biological substances - Anxiety disorder, unspecified - Essential (primary) hypertension - Nicotine dependence, unspecified, uncomplicated - Other usp (current) drug therapy - Palpitations 02/01/2025 23:06 [facility] TYPE: Emergency COMPLAINT: - EAR PAIN DIAGNOSES: - Allergy status to narcotic agent - Allergy status to other drugs, medicaments and biological substances - Essential (primary) hypertension - Nicotine dependence, unspecified, uncomplicated - Otalgia, right ear - Other long 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 [place] TYPE: Emergency COMPLAINT: - LIGHT HEADEDNESS DIAGNOSES: - Allergy status to narcotic agent - Allergy status to other drugs, medicaments and biological substances - Anxiety disorder, unspecified - Essential (primary) hypertension - Generalized anxiety disorder - Nicotine dependence, unspecified, uncomplicated - Other long chain quiller tender (current) drug therapy 01/14/2025 08:22 [facility] TYPE: Emergency COMPLAINT: - MEDICATION REACTION DIAGNOSES: - Allergy status to narcotic agent - Allergy status to other drugs, medicaments and biological substances - Anxiety disorder, unspecified - Essential (primary) hypertension - Nicotine dependence, unspecified, uncomplicated - Other long chain quiller tender (current) drug therapy 01/12/2025 20:29 [facility] TYPE: Emergency COMPLAINT: - MEDS ISSUE DIAGNOSES: - Allergy status to narcotic agent - Allergy status to other drugs, medicaments and biological substances - Anxiety disorder, unspecified - Essential (primary) hypertension - Nicotine dependence, unspecified, uncomplicated - Other usp (current) drug therapy 01/11/2025 18:11 [facility] TYPE: Emergency COMPLAINT: - BP CHECK DIAGNOSES: - Allergy status to other drugs, medicaments and biological substances - Essential (primary) hypertension - Nicotine dependence, unspecified, uncomplicated - Other usp (current) drug therapy 01/11/2025 06:43 [facility] TYPE: Emergency COMPLAINT: - SHORTNESS OF BREATH DIAGNOSES: - Allergy status to narcotic agent - Allergy status to other drugs, medicaments and biological substances - Anxiety disorder, unspecified - Essential (primary) hypertension - Nicotine dependence, unspecified, uncomplicated - Other long chain quiller tender (current) drug therapy - Shortness of breath [...] uncomplicated - Other usp (current) drug therapy 12/04/2024 22:55 [facility] [...] chain quiller tender (current) drug therapy - Shortness of breath 11/19/2024 09:22 [facility] TYPE: Emergency COMPLAINT: - ANXIETY DIAGNOSES: - Allergy status to other drugs, medicaments and biological substances - Anxiety disorder, unspecified - Essential (primary) hypertension - prison (current) use of antibiotics - Nicotine dependence, unspecified, uncomplicated 11/15/2024 08:57 [facility] TYPE: Emergency COMPLAINT: - WEAKNESS DIAGNOSES: - Allergy status to other antibiotic agents - Allergy status to other drugs, medicaments and biological substances - Anxiety disorder, unspecified - Elevated blood-pressure reading, without diagnosis of hypertension - Essential (primary) hypertension - 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 of 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 synthesis - Nicotine dependence, unspecified, uncomplicated 11/10/2024 00:58 [facility] TYPE: Emergency COMPLAINT: - ANXIETY DIAGNOSES: - Allergy status to narcotic agent - Allergy status to other drugs, medicaments and biological substances - Anxiety disorder, unspecified - Essential (primary) hypertension - Nicotine dependence, unspecified, uncomplicated - Other usp (current) drug therapy 11/06/2024 15:41 [facility] TYPE: Emergency COMPLAINT: - BP CHECK 11/05/2024 15:44 [facility] TYPE: Emergency COMPLAINT: - ANXIETY DIAGNOSES: - Allergy status to narcotic agent - Allergy status to other drugs, medicaments and biological substances - Anxiety disorder, unspecified - Essential (primary) hypertension - Nicotine dependence, unspecified, uncomplicated - Other usp (current) drug therapy 11/02/2024 06:50 [facility] TYPE: Emergency COMPLAINT: - WEAKNESS DIAGNOSES: - Allergy status to analgesic agent - Allergy status to other drugs, medicaments and biological substances - Anxiety disorder, unspecified - Dizziness and giddiness - Essential (primary) hypertension - Nicotine dependence, unspecified, uncomplicated - Other long chain quiller tender (current) drug therapy - Pain in left arm Plus 13 More Visits INPATIENT VISIT TRACKING (12 MO.) No inpatient visits to display in this time frame [email or web address]
[2025-02-16] MEDS ORDERED: ZITHROMAX200 MG/5 M PO (10:53)
[2025-02-16] MEDS ORDERED: VENTOLIN HFA18 GM INH (10:56)
[2025-02-16 11:25] VITALS: BP 160/95
== END 2025-02-16 11:26 | disposition home or self-care (01) ==
LOC: ED 09:43
DX: R06.02 Shortness of breath (principal); I10 Essential (primary) hypertension; F17.200 Nicotine dependence, unspecified, uncomplicated; Z79.899 Other long term (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
CPT/HCPCS: 99284

== ENCOUNTER 2025-02-21 13:55 | Emergency (ER) | payer MEDICARE, OTHER ==
[~2025-02-21] VITALS: Ht 165.1 cm; Wt 61.0 kg
--- OUTSIDE RECORDS SUMMARY | ~2025-02-21 | XMS | Continuity of Care Document ---
Demographics + + + | Address | [address] | | | [place] [address] | + + + | Preferred Language | Unknown | + + + | Marital Status | | + + + | Presybeterian Affiliation | Unknown | + + + | Race | White | + + + | Ethnic Group | or | + + + Author + + + | Author | [facility] | + + + | Organization | [facility] | + + + | Address | [address] | | | [place] [address] | + + + | Phone | | + + + Care Team Providers + + + + | Care Quill Layer Name | Role | Phone | + [...] | Severe | | 00:00 | | [place] | | | | [facility] | | | + + + + + + Encounters No information. Functional Status No information. Immunizations No information. Medications + + + + | date | description | facility | + + + + | (no date) | OXYCODONE | [facility] | | | HCL/ACETAMINOPHEN | [facility] | + + + + | (no date) | OXYCODONE | [facility] | | | HCL/ACETAMINOPHEN | [facility] | + + + + | (no date) | OXYCODONE | [facility] | | | HCL/ACETAMINOPHEN | [facility] | + + + + | (no date) | OXYCODONE | [facility] | | | HCL/ACETAMINOPHEN | [facility] | + + + + | (no date) | OXYCODONE | [facility] | | | HCL/ACETAMINOPHEN | [facility] | + + + + | (no date) | OXYCODONE | [facility] | | | HCL/ACETAMINOPHEN | [facility] | + + + + | 2025-02-16 00:00 | AZITHROMYCIN | [facility] | | | | [facility] | + + + + | 2025-02-02 00:00 | FLUTICASONE PROPIONATE | [facility] | | | | [facility] | + + + + | 2025-02-02 00:00 | FLUTICASONE PROPIONATE | [facility] | | | | [facility] | + + + + | 2025-02-02 00:00 | FLUTICASONE PROPIONATE | [facility] | | | | [facility] | + + + + | (no date) | LORAZEPAM | [facility] | | | | [facility] | + + + + | (no date) | LORAZEPAM | [facility] | | | | [facility] | + + + + [...] + | (no date) | LORAZEPAM | [facility] | | | | [facility] | + + + + | (no date) | LORAZEPAM | [facility] | | | | [facility] | + + + + | (no date) | CARVEDILOL | [facility] | | | | [facility] | + + + + | (no date) | CARVEDILOL | [facility] | | | | [facility] | + + + + | (no date) | CARVEDILOL | [facility] | | | [facility] | + + + + | (no date) | CARVEDILOL | [facility] | | | | [facility] | + + + + | (no date) | CARVEDILOL | [facility] | | | | [facility] | + + + + | (no date) | CARVEDILOL | [facility] | | | | [facility] | + + + + | (no date) | ALPRAZOLAM | [facility] | | | | [facility] | + + + + | (no date) | ALPRAZOLAM | [facility] | | | | [facility] | + + + + | (no date) | ALPRAZOLAM | [facility] | | | | [facility] | + + + + | (no date) | ALPRAZOLAM | [facility] | | | | [facility] | + + + + | (no date) | ALPRAZOLAM | [facility] | | | | [facility] | + + + + | (no date) | ALPRAZOLAM | [facility] | | | | [facility] | + + + + | (no date) | AMLODIPINE BESYLATE | [facility] | | | | [facility] | + + + + | (no date) | AMLODIPINE BESYLATE | [facility] | | | | [facility] | + + + + | (no date) | AMLODIPINE BESYLATE | [facility] | | | | [facility] | + + + + | (no date) | AMLODIPINE BESYLATE | [facility] | | | | [facility] | + + + + | (no date) | AMLODIPINE BESYLATE | [facility] | | | | [facility] | + + + + | (no date) | AMLODIPINE BESYLATE | [facility] | | | | [facility] | + + + + | (no date) | SPIRONOLACTONE | [facility] | | | | [facility] | + + + + | (no date) | SPIRONOLACTONE | [facility] | | | | [facility] | + + + + | (no date) | SPIRONOLACTONE | [facility] | | | | [facility] | + + + + | (no date) | SPIRONOLACTONE | [facility] | [facility] | + + + + | (no date) | SPIRONOLACTONE | [facility] | | | | [facility] | + + + + | (no date) | SPIRONOLACTONE | [facility] | | | | [facility] | + + + + | (no date) | ESCITALOPRAM OXALATE | [facility] | | [facility] | + + + + | (no date) | ESCITALOPRAM OXALATE | [facility] | | | | [facility] | + + + + | (no date) | ESCITALOPRAM OXALATE | [facility] | | | | [facility] | + + + + | (no date) | ESCITALOPRAM OXALATE | [facility] | | | | [facility] | + + + + | (no date) | ESCITALOPRAM OXALATE | [facility] | | | | [facility] | + + + + | (no date) | ESCITALOPRAM OXALATE | [facility] - | | | | [facility] | + + + + | 2024-12-05 00:00 | ZOLPIDEM TARTRATE | [facility] | | | | [facility] | + + + + | 2024-12-05 00:00 | ZOLPIDEM TARTRATE | [facility] - | | | | [facility] | + + + + | 2024-12-05 00:00 | ZOLPIDEM TARTRATE | [facility] | | | | [facility] | + + + + | 2024-12-05 00:00 | ZOLPIDEM TARTRATE | [facility] | | | | [facility] | + + + + | 2024-12-05 00:00 | ZOLPIDEM TARTRATE | [facility] | | | | [facility] | + + + + | 2025-02-16 00:00 | ALBUTEROL SULFATE | [facility] | | | | [facility] | + + + + | (no date) | METOPROLOL SUCCINATE | [facility] | | | | [facility] | + + + + | (no date) | METOPROLOL SUCCINATE | [facility] | | | | [facility] | + + + + | (no date) | METOPROLOL SUCCINATE | [facility] | | | | [facility] | + + + + | (no date) | METOPROLOL SUCCINATE | [facility] | | | | [facility] | + + + + | (no date) | METOPROLOL SUCCINATE | [facility] | | | | [facility] | + + + + | (no date) | METOPROLOL SUCCINATE | [facility] | | | | [facility] | + + + + | (no date) | CLONIDINE HCL | [facility] | | | | [facility] | + + + + | (no date) | CLONIDINE HCL | [facility] | | | | [facility] | + + + + | (no date) | CLONIDINE HCL | [facility] | | | | [facility] | + + + + | (no date) | CLONIDINE HCL | [facility] | | | | [facility] | + + + + | (no date) | CLONIDINE HCL | [facility] | | | | [facility] | + + + + | (no date) | CLONIDINE HCL | [facility] | | | | [facility] | + + + + | (no date) | LOSARTAN POTASSIUM | [facility] | | | | [facility] | + + + + | (no date) | LOSARTAN POTASSIUM | [facility] | | | | [facility] | + + + + | (no date) | LOSARTAN POTASSIUM | [facility] | | | | [facility] | + + + + | (no date) | LOSARTAN POTASSIUM | [facility] | | | | [facility] | + + + + | (no date) | LOSARTAN POTASSIUM | [facility] | | | | [facility] | + + + + | (no date) | LOSARTAN POTASSIUM | [facility] | | | | [facility] | + + + + | (no date) | HYDROXYZINE HCL | [facility] | | | | [facility] | + + + + | (no date) | HYDROXYZINE HCL | [facility] | | | | [facility] | + + + + | (no date) | HYDROXYZINE HCL | [facility] | | | | [facility] | + + + + | (no date) | HYDROXYZINE HCL | [facility] | | | | [facility] | + + + + | (no date) | HYDROXYZINE HCL | [facility] | | | | [facility] | + + + + | (no date) | HYDROXYZINE HCL | [facility] | | | | [facility] | + + + + | (no date) | hydrOXYzine HCL | [facility] | | | | [facility] | + + + + | (no date) | hydrOXYzine HCL | [facility] | | | | [facility] | + + + + | (no date) | hydrOXYzine HCL | [facility] | | | | [facility] | + + + + | (no date) | hydrOXYzine HCL | [facility] | | | | [facility] | + + + + | (no date) | hydrOXYzine HCL | [facility] | | | | [facility] | + + + + | (no date) | hydrOXYzine HCL | [facility] | | | | [facility] | + + + + | (no date) | CLONIDINE | [facility] | | | | [facility] | + + + + | (no date) | CLONIDINE | [facility] | | | | [facility] | + + + + | (no date) | CLONIDINE | [facility] | | | | [facility] | + + + + | (no date) | CLONIDINE | [facility] | | | | [facility] | + + + + Problems + + + + | date | description | facility | + + + + | 2024-12-02 00:00 | Anxiety and depression | [facility] | | | | [facility] | + + + + | 2024-12-02 00:00 | Anxiety and depression | [facility] | | | | [facility] | + + + + | 2024-12-02 00:00 | Anxiety and depression | [facility] | | | | [facility] | + + + + | 2024-12-02 00:00 | Anxiety and depression | [facility] | | | | [facility] | + + + + | 2024-12-02 00:00 | Anxiety and depression | [facility] | | | | [facility] | + + + + | 2024-12-02 00:00 | Anxiety and depression | [facility] | | | | [facility] | + + + + | 2024-12-05 00:00 | Side effect of medication | [facility] | | | | [facility] | + + + + | 2024-12-05 00:00 | Side effect of medication | [facility] | | | | [facility] | + + + + | 2024-12-05 00:00 | Side effect of medication | [facility] | [facility] | + + + + | 2024-12-05 00:00 | Side effect of medication | [facility] | [facility] | + + + + | 2024-12-05 00:00 | Side effect of medication | [facility] | | | | [facility] | + + + + | 2025-01-26 00:00 | Right ear pain | [facility] | | | | [facility] | + + + + | 2025-01-26 00:00 | Right ear pain | [facility] | | | | [facility] | + + + + | 2025-01-26 00:00 | Right ear pain | [facility] | | | | [facility] | + + + + | 2025-02-16 00:00 | Shortness of breath | [facility] | | | | [facility] | + + + + [...] 15.8 | (missing) | (missing) | | Bld-[facility] | 23:20:07 | [facility] | | | [...] 30 | mg/dL | (missing) | | [facility] [...] 0.98 | mg/dL | (missing) | | [facility] [...] (missing) | | SerPl-s[facility]nc | 23:20:07 | [facility] | | | [...] 101 | (missing) | (missing) | | SerPl-[facility] | 23:20:07 | [facility] | | | [...] 7.4 | (missing) | (missing) | | SerPgunnar-[facility] | 23:20:07 | [facility] | | | [...] 3.5 | (missing) | (missing) | | [facility] [...] 85 | (missing) | (missing) | | Sandrol-[facility] | 23:20:07 | [facility] | | | [...] 15.8 | (missing) | (missing) | | Toand-[facility] | 23:20:07 | [facility] | | | [...] 101 | (missing) | (missing) | | [facility] | 23:20:07 | [facility] | | | [...] 0.4 | mg/dL | (missing) | | Sandrol-[facility] | 23:20:07 | [facility] | | | [...] 17.4 | (missing) | (missing) | | d-[facility] | 06:52:07 | [facility] | | [...] | | Bld Auto | 06:52:07 | [facility] | | | [...] 23 | mg/dL | (missing) | | SerPl-mCnc [...] 2.2 | mg/dL | (missing) | | SerPl-[facility] | 06:52:07 [...] 3.5 | (missing) | (missing) | | SerPl-[facility] | 06:52:07 | [facility] | | [...] 4.0 | (missing) | (missing) | | Ser-[facility] | 06:52:07 | [facility] | | [...] 102 | + + + + + +-------+---------+ [...] +-------+---------+ + + + | Result panel 103 | + + + + + +-------+ [...] 44 | (missing) | (missing) | | [facility] | 06:52:07 | [facility] | | [...] 95 | (missing) | (missing) | | [facility]Pl-[facility] | 06:52:07 | [facility] | | | [...] 95 | mg/dL | (missing) | | [facility] | 06:52:07 | [facility] | | | [...] 95 | mg/dL | (missing) | | [facility] [...] 23 | mg/dL | (missing) | | SerPl-[facility] | 06:52:07 [...] 125 | + + + + + +------+---------+ + | BUN | 2025-01-11 | | 23 | mg/dL | (missing) | | SerPl-mCnc | 06:52:07 | [facility] | | | [facility] | | | | + + + +------+---------+ + + + | Result panel 126 [...] 136 | + + + + + +--------+---------+ [...] +--------+---------+ + + + | Result panel 137 [...] 44 | (missing) | (missing) | | [facility]Pl-[facility] | 06:52:07 | [facility] | | | [...] 143 | + + + + + +------+ [...] 144 | + + + + + +---------+ [...] 139 | (missing) | (missing) | | SerPl-[facility] | 06:52:07 | [facility] | | [...] 147 | + + + + + +-------+ [...] 148 | + + + + + +-------+ [...] 149 | + + + + + +------+ [...] 151 | + + + + + +-------+---------+ [...] +-------+---------+ + + + | Result panel 152 [...] 157 | + + + + + +--------+ + + | Hgb | 2025-01-11 | | 17.4 | (missing) | (missing) | | Bld-[facility] | 06:52:07 | [facility] | | [...] 159 | + + + + + +------+ + + | AST | 2025-01-11 | | 25 | (missing) | (missing) | | [facility] | 06:52:07 | [facility] | | | [...] 95 | (missing) | (missing) | | [facility] | 06:52:07 | [facility] | | | [...] 163 | + + + + + +--------+ [...] 164 | + + + + + +--------+ [...] 165 | + + + + + +--------+ [...] 166 | + + + + + +--------+ [...] 170 | + + + + + +-------+ [...] 174 | + + + + + +-------+ [...] 175 | + + + + + +-------+ [...] 176 | + + + + + +------+---------+ + | Glucose | 2025-01-11 | | 95 | mg/dL | (missing) | | [facility] | 06:52:07 | [facility] | | | | + + + +------+---------+ + + + | Result panel 177 | + + + + + +------+---------+ [...] +------+---------+ + + + | Result panel 178 | + + + + + +--------+---------+ [...] +--------+---------+ + + + | Result panel 179 [...] 181 | + + + + + +---------+ [...] 139 | (missing) | (missing) | | SerPl-[facility] | 06:52:07 | [facility] | | [...] 184 | + + + + + +-------+ [...] 185 | + + + + + +------+ [...] 186 | + + + + + +--------+ [...] 187 | + + + + + +-------+---------+ + | Calcium | 2025-01-11 | | 9.9 | mg/dL | (missing) | | [facility] | 06:52:07 | [facility] | [facility] | | | | + + + +-------+---------+ + + + | Result panel 188 | + + + + + +-------+---------+ [...] +-------+---------+ + + + | Result panel 189 [...] 3.5 | (missing) | (missing) | | [facility] | 06:52:07 | [facility] | | [...] 193 | + + + + + +--------+ [...] 194 | + + + + + +-------+---------+ [...] +-------+---------+ + + + | Result panel 195 | + + + + + +------+ [...] 196 | + + + + + +------+ [...] 198 | + + + + + +---------+ [...] 17.4 | (missing) | (missing) | | [facility] | 06:52:07 | [facility] | | | [...] 206 | + + + + + +-------+ [...] 211 | + + + + + +-------+ [...] 215 | + + + + + +--------+---------+ [...] +--------+---------+ + + + | Result panel 216 | + + + + + +------+ [...] 217 | + + + + + +---------+ [...] 221 | + + + + + +------+ [...] 222 | + + + + + +--------+ [...] 224 | + + + + + +-------+---------+ [...] +-------+---------+ + + + | Result panel 225 [...] 229 | + + + + + +--------+ [...] 230 | + + + + + +-------+---------+ [...] +-------+---------+ + + + | Result panel 231 | + + + + + +------+ + + | AST | 2025-01-11 | | 25 | (missing) | (missing) | | [facility] | 06:52:07 | [facility] | | | [...] 44 | (missing) | (missing) | | [facility]Pl-[facility] | 06:52:07 | [facility] | | | [...] 95 | (missing) | (missing) | | Sand[facility] | 06:52:07 | [facility] | | | | | | | [...] units | + + + +---------+ | 2024-11-23 [...] 135.806 | lb | + + + +---------+"
[~2025-02-21 13:55] MED LIST changes: +ZITHROMAX200 MG/5 M PO
--- OUTSIDE RECORDS SUMMARY | 2025-02-21 14:02 | XMS ---
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 EBonnie VISIT COUNT (12 MO.) [address] [place] [address] TOTAL 34 NOTE: Visits indicate total known visits. ED/UCC VISIT TRACKING (12 MO.) 02/21/2025 13:56 [facility] [place] TYPE: Emergency COMPLAINT: - SHORTNESS OF BREATH 02/16/2025 09:43 [facility] TYPE: Emergency COMPLAINT: - BREATHING ISSUES DIAGNOSES: - Essential (primary) hypertension - Nasal congestion - Nicotine dependence, unspecified, uncomplicated - Other residential (current) drug therapy - Shortness of breath [facility] 08[facility] COMPLAINT: - RAPID HEART RATE DIAGNOSES: - Allergy status to narcotic agent - Allergy status to other drugs, medicaments and biological substances - Anxiety disorder, unspecified - Essential (primary) hypertension - Nicotine dependence, unspecified, uncomplicated - Other rodent exterminator (current) drug therapy - Palpitations 02/01/2025 23:06 [facility] COMPLAINT: - EAR PAIN DIAGNOSES: - Allergy status to narcotic agent - Allergy status to other drugs, medicaments and biological substances - Essential (primary) hypertension - Nicotine dependence, unspecified, uncomplicated - Otalgia, right ear - Other rodent exterminator (current) drug therapy - Other specified disorders of Eustachian tube, right ear 01/26/2025 18:12 [facility] [place] [facility] [place] TYPE: Emergency COMPLAINT: - EAR PAIN DIAGNOSES: - Allergy status to narcotic agent - Allergy status to other drugs, medicaments and biological substances - Anxiety disorder, unspecified - Essential (primary) hypertension - Nicotine dependence, unspecified, uncomplicated - Otalgia, right ear - Other rodent exterminator (current) drug therapy 01/20/2025 20:13 [facility] [place] TYPE: Emergency COMPLAINT: - LIGHT HEADEDNESS DIAGNOSES: - Allergy status to narcotic agent - Allergy status to other drugs, medicaments and biological substances - Anxiety disorder, unspecified - Essential (primary) hypertension - Generalized anxiety disorder - Nicotine dependence, unspecified, uncomplicated - Other rodent exterminator (current) drug therapy 01/14/2025 08:22 [facility] TYPE: Emergency COMPLAINT: - MEDICATION REACTION DIAGNOSES: - Allergy status to narcotic agent - Allergy status to other drugs, medicaments and biological substances - Anxiety disorder, unspecified - Essential (primary) hypertension - Nicotine dependence, unspecified, uncomplicated - Other rodent exterminator (current) drug therapy 01/12/2025 20:[address] [facility] [place] TYPE: Emergency COMPLAINT: - MEDS ISSUE DIAGNOSES: - Allergy status to narcotic agent - Allergy status to other drugs, medicaments and biological substances - Anxiety disorder, unspecified - Essential (primary) hypertension - Nicotine dependence, unspecified, uncomplicated - Other residential (current) drug therapy 01/11/2025 18:11 [facility] TYPE: Emergency COMPLAINT: - BP CHECK DIAGNOSES: - Allergy status to other drugs, medicaments and biological substances - Essential (primary) hypertension - Nicotine dependence, unspecified, uncomplicated - Other residential (current) drug therapy 01/11/2025 06:43 [facility] TYPE: Emergency COMPLAINT: - SHORTNESS OF BREATH DIAGNOSES: - Allergy status to narcotic agent - Allergy status to other drugs, medicaments and biological substances - Anxiety disorder, unspecified - Essential (primary) hypertension - Nicotine dependence, unspecified, uncomplicated - Other residential (current) drug therapy - Shortness of breath 12/24/2024 09:06 [facility] TYPE: Emergency COMPLAINT: - EAR PAIN 12/20/2024 09:04 [facility] TYPE: Emergency COMPLAINT: - WEAKNESS DIAGNOSES: - Allergy status to narcotic agent - Allergy status to other drugs, medicaments and biological substances - Anxiety disorder, unspecified - Essential (primary) hypertension - Nicotine dependence, unspecified, uncomplicated - Other rodent exterminator (current) drug therapy 12/04/2024 22:55 [facility] [...] unspecified, uncomplicated - Other fatigue - Other rodent exterminator (current) drug therapy 12/02/2024 08:44 [facility] TYPE: Emergency COMPLAINT: - ANXIETY 11/23/2024 10:47 [facility] TYPE: Emergency COMPLAINT: - DIFFICULTY BREATHING DIAGNOSES: - Allergy status to narcotic agent - Allergy status to other drugs, medicaments and biological substances - Anxiety disorder, unspecified - Essential (primary) hypertension - Gastro-esophageal reflux disease without esophagitis - Nicotine dependence, unspecified, uncomplicated - Other rodent exterminator (current) drug therapy - Shortness of breath 11/19/2024 09:22 [facility] TYPE: Emergency COMPLAINT: - ANXIETY DIAGNOSES: - Allergy status to other drugs, medicaments and biological substances - Anxiety disorder, unspecified - Essential (primary) hypertension - half-way (current) use of antibiotics - Nicotine dependence, unspecified, uncomplicated 11/15/2024 08:[address] [facility] [place] TYPE: Emergency COMPLAINT: - WEAKNESS DIAGNOSES: - Allergy status to other antibiotic agents - Allergy status to other drugs, medicaments and biological substances - Anxiety disorder, unspecified - Elevated blood-pressure reading, without diagnosis of hypertension - Essential (primary) hypertension - manager terminal (current) use of inhibitors of nucleotide synthesis - Nicotine dependence, unspecified, uncomplicated 11/10/2024 00:58 [facility] TYPE: Emergency COMPLAINT: - ANXIETY DIAGNOSES: - Allergy status to narcotic agent - Allergy status to other drugs, medicaments and biological substances - Anxiety disorder, unspecified - Essential (primary) hypertension - Nicotine dependence, unspecified, uncomplicated - Other rodent exterminator (current) drug therapy 11/06/2024 15:41 [facility] TYPE: Emergency COMPLAINT: - BP CHECK 11/05/2024 15:44 [facility] TYPE: Emergency COMPLAINT: - ANXIETY DIAGNOSES: - Allergy status to narcotic agent - Allergy status to other drugs, medicaments and biological substances - Anxiety disorder, unspecified - Essential (primary) hypertension - Nicotine dependence, unspecified, uncomplicated - Other rodent exterminator (current) drug therapy Plus 14 More Visits INPATIENT VISIT TRACKING (12 MO.) No inpatient visits to display in this time frame [email or web address]
[2025-02-21 14:46] LABS: BASOPHILS 0.4 % (0.1-1.2); EOSINOPHILS 0.8 % (0.7-5.8); LYMPHOCYTES 19.3 % (19.3-51.7); MCH 29.4 PG (25.6-32.2); MCHC 33.9 g/dL (32.2-35.5); MCV 86.7 fL (79.4-94.8); MONOCYTES 7.8 % (4.7-12.5); NEUTROPHILS 71.3 % (34.0-71.1); RBC 5.86 M/uL (3.93-5.22)
[2025-02-21 14:58] LABS: ALT (SGPT) 28.0 U/L (14-59); AST (SGOT) 20.0 U/L (15-37); GLOMERULAR FILTRATION RATE,EST 69.0 mL/min (>60); PROTEIN, TOTAL 7.6 g/dL (6.4-8.2); UREA NITROGEN 15.0 mg/dL (7-18)
[2025-02-21] MEDS ORDERED: ALBUTEROL/IPRATROPIUM 3 ML NEB INH ONE (15:45)
[2025-02-21] MEDS ORDERED: LIDOCAINE & ANTACID 35 ML BTL PO ONE (17:15)
[2025-02-21] MEDS ORDERED: ZITHROMAX250 MG PO (17:35)
[2025-02-21] MEDS ORDERED: AZITHROMYCIN 250 MG TAB PO ONE (17:45)
[2025-02-21 18:10] VITALS: BP 145/83
--- NOTE | 2025-02-22 06:02 | EKG ---
[facility] [address] [facility] [place] [address] Signed Sinus tachycardia Cannot rule out Anterior infarct , age undetermined Abnormal ECG When compared with ECG of 04-DEC-2024 23:02, ST no longer depressed in Lateral leads T wave inversion no longer evident in Lateral leads Confirmed by AMANDA SNYDER MD ([id number]) on 02/22/2025 6:02:33 AM Electronically Signed By: AMANDA SNYDER 02/22/25 0602 PATIENT NAME: GOVINDVAL SALAZAR Electrocardiogram DATE OF : 54 PHYSICIAN: AMANDA SNYDER REPORT #: [id number] REPORT IS CONFIDENTIAL AND NOT TO BE RELEASED WITHOUT AUTHORIZATION
== END 2025-02-21 18:10 | disposition home or self-care (01) ==
LOC: ED 13:55
PROVIDERS: Emergency Medicine
DX: J18.9 Pneumonia, unspecified organism (principal); I10 Essential (primary) hypertension; F17.200 Nicotine dependence, unspecified, uncomplicated; Z79.899 Other long term (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
CPT/HCPCS: 36415; 80053; 83690; 83735; 84484; 85025; 93005; 93010; 94640; 99285-25

== ENCOUNTER 2025-02-23 07:52 | Emergency (ER) | payer MEDICARE, OTHER ==
[~2025-02-23] VITALS: Ht 165.1 cm; Wt 60.8 kg
--- OUTSIDE RECORDS SUMMARY | ~2025-02-23 | XMS | Continuity of Care Document ---
Demographics + + + | Address | [address] | | | [place] [address] | + + + | Preferred Language | Unknown | + + + | Marital Status | | + + + | Adventism Affiliation | Unknown | + + + | Race | White | + + + | Ethnic Group | or | + + + Author + + + | Author | [facility] | + + + | Organization | [facility] | + + + | Address | [address] | | | [place] [address] | + + + | Phone | | + + + Care Team Providers + + + + | Care Employment Case Manager Name | Role | Phone | + [...] + + + + + + | 2025-02-16 | Lisinopril | [facility] | (no reaction) | Severe | | 00:00 | | [facility] | | | + + + + + + | 2025-02-21 | Lisinopril | [facility] - | (no [...] + + + + + + | 2025-02-16 | Hydrocodone | [facility] - | (no reaction) | Severe | | 00:00 | | [facility] | | | + + + + + + | 2025-02-21 | Hydrocodone | [facility] - | (no [...] + + + + + + | 2025-02-16 | Lisinopril | [facility] - | (no reaction) | Severe | | 00:00 | | [facility] | | | + + + + + + | 2025-02-21 | Lisinopril | [facility] - | (no [...] + + + + + + | 2025-02-16 | Meperidine | [facility] - | (no reaction) | Severe | | 00:00 | | [facility] | | | + + + + + + | 2025-02-21 | Meperidine | [facility] - | (no [...] + + + + + + | 2025-02-16 | Hydrocodone | [facility] - | (no reaction) | Severe | | 00:00 | | [facility] | | | + + + + + + | 2025-02-21 | Hydrocodone | [facility] - | (no [...] + + + + + + | 2025-02-16 | Meperidine | [facility] - | (no reaction) | Severe | | 00:00 | | [facility] | | | + + + + + + | 2025-02-21 | Meperidine | [facility] - | (no [...] + + + + + + | 2025-02-16 | Hydrocodone | [facility] - | (no reaction) | Severe | | 00:00 | | [facility] | | | + + + + + + | 2025-02-21 | Hydrocodone | [facility] - | (no [...] + + + + + + | 2025-02-16 | Meperidine | [facility] - | (no reaction) | Severe | | 00:00 | | [facility] | | | + + + + + + | 2025-02-21 | Meperidine | [facility] - | (no [...] Severe | | 00:00 | | [facility] [...] + + + + + + | 2025-02-16 | Lisinopril | [facility] - | (no reaction) | Severe | | 00:00 | | [facility] | | | + + + + + + | 2025-02-21 | Lisinopril | [facility] - | (no reaction) | Severe | | 00:00 | | [place] | | | | | | [facility] | | | + + + + + + Encounters No information. Functional Status No information. Immunizations No information. Medications + + + + | date | description | facility | + + + + | (no date) | OXYCODONE | [facility] | | | HCL/ACETAMINOPHEN | [facility] | + + + + | (no date) | OXYCODONE | [facility] | | | HCL/ACETAMINOPHEN | [facility] | + + + + | (no date) | OXYCODONE | [facility] | | | HCL/ACETAMINOPHEN | [facility] | + + + + | (no date) | OXYCODONE | [facility] | | | HCL/ACETAMINOPHEN | [facility] | + + + + | (no date) | OXYCODONE | [facility] | | | HCL/ACETAMINOPHEN | [facility] | + + + + | (no date) | OXYCODONE | [facility] | | | HCL/ACETAMINOPHEN | [facility] | + + + + | (no date) | OXYCODONE | [facility] | | | HCL/ACETAMINOPHEN | [facility] | + + + + | 2025-02-16 00:00 | AZITHROMYCIN | [facility] | | | | [facility] | + + + + | 2025-02-16 00:00 | AZITHROMYCIN | [facility] | | | | [facility] | + + + + | 2025-02-02 00:00 | FLUTICASONE PROPIONATE | [facility] | | | | [facility] | + + + + | 2025-02-02 00:00 | FLUTICASONE PROPIONATE | [facility] | | | | [facility] | + + + + | 2025-02-02 00:00 | FLUTICASONE PROPIONATE | [facility] | | | | [facility] | + + + + | 2025-02-02 00:00 | FLUTICASONE PROPIONATE | [facility] | | | | [facility] | + + + + | (no date) | LORAZEPAM | [facility] | | | | [facility] | + + + + | (no date) | LORAZEPAM | [facility] | | | | [facility] | + + + + | (no date) | LORAZEPAM | [facility] | | | | [facility] | + + + + | (no date) | LORAZEPAM | [facility] | | | | [facility] | + + + + | (no date) | LORAZEPAM | [facility] | | | | [facility] | + + + + | (no date) | LORAZEPAM | [facility] | | | | [facility] | + + + + | (no date) | LORAZEPAM | [facility] | | | | [facility] | + + + + | (no date) | LORAZEPAM | [facility] | | | | [facility] | + + + + | (no date) | LORAZEPAM | [facility] | | | | [facility] | + + + + | (no date) | LORAZEPAM | [facility] | | | | [facility] | + + + + | (no date) | CARVEDILOL | [facility] | | | | [facility] | + + + + | (no date) | CARVEDILOL | [facility] | | | | [facility] | + + + + | (no date) | CARVEDILOL | [facility] | | | [facility] | + + + + | (no date) | CARVEDILOL | [facility] | | | | [facility] | + + + + | (no date) | CARVEDILOL | [facility] | | | | [facility] | + + + + | (no date) | CARVEDILOL | [facility] | | | | [facility] | + + + + | (no date) | CARVEDILOL | [facility] | | | | [facility] | + + + + | 2025-02-21 00:00 | AZITHROMYCIN | [facility] | | | | [facility] | + + + + | (no date) | ALPRAZOLAM | [facility] | | | | [facility] | + + + + | (no date) | ALPRAZOLAM | [facility] | | | | [facility] | + + + + | (no date) | ALPRAZOLAM | [facility] | | | | [facility] | + + + + | (no date) | ALPRAZOLAM | [facility] | | | | [facility] | + + + + | (no date) | ALPRAZOLAM | [facility] | | | | [facility] | + + + + | (no date) | ALPRAZOLAM | [facility] | | | | [facility] | + + + + | (no date) | AMLODIPINE BESYLATE | [facility] | | | | [facility] | + + + + | (no date) | AMLODIPINE BESYLATE | [facility] | | | | [facility] | + + + + | (no date) | AMLODIPINE BESYLATE | [facility] | | | | [facility] | + + + + | (no date) | AMLODIPINE BESYLATE | [facility] | | | | [facility] | + + + + | (no date) | AMLODIPINE BESYLATE | [facility] | | | | [facility] | + + + + | (no date) | AMLODIPINE BESYLATE | [facility] | | | | [facility] | + + + + | (no date) | AMLODIPINE BESYLATE | [facility] | | | | [facility] | + + + + | (no date) | SPIRONOLACTONE | [facility] | | | | [facility] | + + + + | (no date) | SPIRONOLACTONE | [facility] | | | | [facility] | + + + + | (no date) | SPIRONOLACTONE | [facility] | | | | [facility] | + + + + | (no date) | SPIRONOLACTONE | [facility] | | | | [facility] | + + + + | (no date) | SPIRONOLACTONE | [facility] | | | | [facility] | + + + + | (no date) | SPIRONOLACTONE | [facility] | | | | [facility] | + + + + | (no date) | SPIRONOLACTONE | [facility] | | | | [facility] | + + + + | (no date) | ESCITALOPRAM OXALATE | [facility] | | | | [facility] | + + + + | (no date) | ESCITALOPRAM OXALATE | [facility] | | | | [facility] | + + + + | (no date) | ESCITALOPRAM OXALATE | [facility] | | | | [facility] | + + + + | (no date) | ESCITALOPRAM OXALATE | [facility] | | | | [facility] | + + + + | (no date) | ESCITALOPRAM OXALATE | [facility] | | | | [facility] | + + + + | (no date) | ESCITALOPRAM OXALATE | [facility] | | | | [facility] | + + + + | (no date) | ESCITALOPRAM OXALATE | [facility] | | | | [facility] | + + + + | 2024-12-05 00:00 | ZOLPIDEM TARTRATE | [facility] | | | | [facility] | + + + + | 2024-12-05 00:00 | ZOLPIDEM TARTRATE | [facility] | | | | [facility] | + + + + | 2024-12-05 00:00 | ZOLPIDEM TARTRATE | [facility] | | | | [facility] | + + + + | 2024-12-05 00:00 | ZOLPIDEM TARTRATE | [facility] | | | | [facility] | + + + + | 2024-12-05 00:00 | ZOLPIDEM TARTRATE | [facility] | | | | [facility] | + + + + | 2025-02-16 00:00 | ALBUTEROL SULFATE | [facility] | | | | [facility] | + + + + | 2025-02-16 00:00 | ALBUTEROL SULFATE | [facility] | | | | [facility] | + + + + | (no date) | METOPROLOL SUCCINATE | [facility] | | | | [facility] | + + + + | (no date) | METOPROLOL SUCCINATE | [facility] | | | | [facility] | + + + + | (no date) | METOPROLOL SUCCINATE | [facility] | | | | [facility] | + + + + | (no date) | METOPROLOL SUCCINATE | [facility] | | | | [facility] | + + + + | (no date) | METOPROLOL SUCCINATE | [facility] | | | | [facility] | + + + + | (no date) | METOPROLOL SUCCINATE | [facility] | | | | [facility] | + + + + | (no date) | METOPROLOL SUCCINATE | [facility] | | | | [facility] | + + + + | (no date) | CLONIDINE HCL | [facility] | | | | [facility] | + + + + | (no date) | CLONIDINE HCL | [facility] | | | | [facility] | + + + + | (no date) | CLONIDINE HCL | [facility] | | | | [facility] | + + + + | (no date) | CLONIDINE HCL | [facility] | | | | [facility] | + + + + | (no date) | CLONIDINE HCL | [facility] | | | | [facility] | + + + + | (no date) | CLONIDINE HCL | [facility] | | | | [facility] | + + + + | (no date) | CLONIDINE HCL | [facility] | | | | [facility] | + + + + | (no date) | LOSARTAN POTASSIUM | [facility] | | | | [facility] | + + + + | (no date) | LOSARTAN POTASSIUM | [facility] | | | | [facility] | + + + + | (no date) | LOSARTAN POTASSIUM | [facility] | | | | [facility] | + + + + | (no [...] [facility] | | | | [facility] | + + + + | (no date) | HYDROXYZINE HCL | [facility] | | | | [facility] | + + + + | (no date) | HYDROXYZINE HCL | [facility] | | | | [facility] | + + + + | (no date) | HYDROXYZINE HCL | [facility] | | | | [facility] | + + + + | (no date) | HYDROXYZINE HCL | [facility] | | | | [facility] | + + + + | (no date) | HYDROXYZINE HCL | [facility] | | | | [facility] | + + + + | (no date) | HYDROXYZINE HCL | [facility] | | | | [facility] | + + + + | (no date) | HYDROXYZINE HCL | [facility] | | | | [facility] | + + + + | (no date) | hydrOXYzine HCL | [facility] | | | | [facility] | + + + + | (no date) | hydrOXYzine HCL | [facility] | | | | [facility] | + + + + | (no date) | hydrOXYzine HCL | [facility] | | | | [facility] | + + + + | (no date) | hydrOXYzine HCL | [facility] | | | | [facility] | + + + + | (no [...] + | (no date) | CLONIDINE | [facility] | | | | [facility] | + + + + | (no date) | CLONIDINE | [facility] | | | | [facility] | + + + + | (no date) | CLONIDINE | [facility] | | | | [facility] | + + + + Problems + + + + | date | description | facility | + + + + | 2024-12-02 00:00 | Anxiety and depression | [facility] | | | | [facility] | + + + + | 2024-12-02 00:00 | Anxiety and depression | [facility] | | | | [facility] | + + + + | 2024-12-02 00:00 | Anxiety and depression | [facility] | | | | [facility] | + + + + | 2024-12-02 00:00 | Anxiety and depression | [facility] | | | | [facility] | + + + + | 2024-12-02 00:00 | Anxiety and depression | [facility] | | | | [facility] | + + + + | 2024-12-02 00:00 | Anxiety and depression | [facility] | | | | [facility] | + + + + | 2024-12-02 00:00 | Anxiety and depression | [facility] | | | | [facility] | + + + + | 2024-12-05 00:00 | Side effect of medication | [facility] | | | | [facility] | + + + + | 2024-12-05 00:00 | Side effect of medication | [facility] | | | | [facility] | + + + + | 2024-12-05 00:00 | Side effect of medication | [facility] | | | | [facility] | + + + + | 2024-12-05 00:00 | Side effect of medication | [facility] | | | | [facility] | + + + + | 2024-12-05 00:00 | Side effect of medication | [facility] | | | | [facility] | + + + + | 2024-12-05 00:00 | Side effect of medication | [facility] | | | | [facility] | + + + + | 2025-01-26 00:00 | Right ear pain | [facility] | | | | [facility] | + + + + | 2025-01-26 00:00 | Right ear pain | [facility] | | | | [facility] | + + + + | 2025-01-26 00:00 | Right ear pain | [facility] | | | | [facility] | + + + + | 2025-01-26 00:00 | Right ear pain | [facility] | | | | [facility] | + + + + | 2025-02-16 00:00 | Shortness of breath | [facility] | | | | [facility] | + + + + | 2025-02-16 00:00 | Shortness of breath | [facility] | | | | [facility] | + + + + | 2025-02-21 00:00 | Atypical pneumonia | [facility] | | | | [facility] | + + + + Procedures No [...] 15.8 | (missing) | (missing) | | [facility] | 23:20:07 | [facility] | | | [...] 30 | mg/dL | (missing) | | [facility] [...] 0.98 | mg/dL | (missing) | | [facility] [...] 101 | (missing) | (missing) | | [facility] | 23:20:07 | [facility] | | | [...] 9.7 | mg/dL | (missing) | | [facility] | 23:20:07 | [facility] | | | | + + + +-------+---------+ + + + | Result panel 25 | + + + + + +-------+---------+ [...] +-------+---------+ + + + | Result panel 26 [...] 28 | + + + + + +-------+ [...] 29 | + + + + + +--------+ [...] + + + + | Result panel 30 | + + + + + +-------+---------+ + | Bilirub | 2024-12-04 | | 0.4 | mg/dL | (missing) | | [facility] | 23:20:07 | [facility] | | | | + + + +-------+---------+ + + + | Result panel 31 [...] 33 | + + + + + +------+ [...] 35 | + + + + + +---------+ [...] 15.8 | (missing) | (missing) | | [facility] | 23:20:07 | [facility] | | | [...] 42 | + + + + + +-------+ [...] 47 | + + + + + +-------+ [...] 48 | + + + + + +-------+---------+ [...] +-------+---------+ + + + | Result panel 49 | + + + + + +------+---------+ + | BUN | 2024-12-04 | | 30 | mg/dL | (missing) | | [facility] | 23:20:07 | [facility] | | | | | [facility] - [facility] | | | | [facility] | | | | + + + +------+---------+ + + + | Result panel 50 | + + + + + +--------+---------+ + | Creat | 2024-12-04 | | 0.98 | mg/dL | (missing) | | [facility] | 23:20:07 | [facility] | | | | + + + +--------+---------+ + + + | Result panel 51 | + + + + + +------+ + + | eGFRcr | 2024-12-04 | | 62 | (missing) | (missing) | | [facility] | 23:20:07 | [facility] | | | | | CKD-EPI 2020 | | - | | | | | | | [facility] | | | | + + + +------+ + + + + | Result panel 52 | + + + + + +---------+ [...] 55 | + + + + + +-------+ + + | Chloride | 2024-12-04 | | 101 | (missing) | (missing) | | [facility] | 23[facility]20[facility] | [facility] | | | | + + + +-------+ + + + + | Result panel 56 | + + + + + +------+ [...] 57 | + + + + + +--------+ [...] 58 | + + + + + +-------+---------+ + | Calcium | 2024-12-04 | | 9.7 | mg/dL | (missing) | | [facility] | 23:20:07 | [facility] | | | | | [facility] - [facility] | | | | [facility] | | | | + + + +-------+---------+ + + + | Result panel 59 | + + + + + +-------+---------+ [...] +-------+---------+ + + + | Result panel 60 [...] 61 | + + + + + +-------+ [...] 62 | + + + + + +-------+ [...] + + + + | Result panel 63 | + + + + + +--------+ [...] 64 | + + + + + +-------+---------+ + | Bilirub | 2024-12-04 | | 0.4 | mg/dL | (missing) | | [facility] | 23:20:07 | [facility] | | | | + + + +-------+---------+ + + + | Result panel 65 [...] 66 | + + + + + +------+ [...] 67 | + + + + + +------+ [...] 68 | + + + + + +---------+ [...] 69 | + + + + + +---------+ [...] 17.4 | (missing) | (missing) | | [facility] | 06:52:07 | [facility] | | [...] 79 | + + + + + +--------+ [...] 82 | + + + + + +--------+ [...] 85 | + + + + + +------+---------+ [...] +------+---------+ + + + | Result panel 86 | + + + + + +------+---------+ + | BUN | 2025-01-11 | | 23 | mg/dL | (missing) | | [facility] [...] 103 | (missing) | (missing) | | [facility] | 06:52:07 | [facility] | | | | + + + +-------+ + + + + | Result panel 94 | + + + + + +------+ [...] 95 | + + + + + +--------+ [...] + + + + | Result panel 96 | + + + + + +-------+---------+ [...] +-------+---------+ + + + | Result panel 97 | + + + + + +-------+---------+ [...] +-------+---------+ + + + | Result panel 98 | + + + + + +-------+ + + | Prot | 2025-01-11 | | 7.5 | (missing) | (missing) | | [facility] | 06:52:07 | [facility] | | | | + + + +-------+ + + + + | Result panel 99 | + + + + + +-------+ + + | Albumin | 2025-01-11 | | 3.5 | (missing) | (missing) | | [facility] | 06:52:07 | [facility] | | | | + + + +-------+ + + + + | Result panel 100 | + + + + + +-------+ + + | Globulin | 2025-01-11 | | 4.0 | (missing) | (missing) | | [facility] | 06:52:07 | [facility] | | | | + + + +-------+ + + + + | Result panel 101 | + + + + + +-------+ [...] 103 | + + + + + +-------+---------+ [...] +-------+---------+ + + + | Result panel 104 | + + + + + +------+ [...] 105 | + + + + + +------+ + + | ALT | 2025-01-11 | | 44 | (missing) | (missing) | | [facility] | 06:52:07 | [facility] | | | | + + + +------+ + + + + | Result panel 106 | + + + + + +------+ [...] 107 | + + + + + +---------+ [...] 112 | + + + + + +------+---------+ [...] +------+---------+ + + + | Result panel 113 [...] 116 | + + + + + +--------+ [...] 117 | + + + + + +--------+ [...] 118 | + + + + + +--------+ [...] 121 | + + + + + +------+---------+ [...] +------+---------+ + + + | Result panel 122 | + + + + + +------+---------+ + | BUN | 2025-01-11 | | 23 | mg/dL | (missing) | | [facility] | 06:52:07 | [facility] | | | | + + + +------+---------+ + + + | Result panel 123 | + + + + + +------+---------+ + | BUN | 2025-01-11 | | 23 | mg/dL | (missing) | | [facility] | 06:52:07 | [facility] | | | | + + + +------+---------+ + + + | Result panel 124 | + + + + + +--------+---------+ [...] +--------+---------+ + + + | Result panel 125 | + + + + + +------+ [...] 126 | + + + + + +---------+ [...] 128 | + + + + + +-------+ [...] 129 | + + + + + +-------+ [...] + + + + | Result panel 130 [...] 131 | + + + + + +--------+ [...] 132 | + + + + + +-------+---------+ + | Calcium | 2025-01-11 | | 9.9 | mg/dL | (missing) | | [facility] | 06:52:07 | [facility] | | | | + + + +-------+---------+ + + + | Result panel 133 | + + + + + +-------+---------+ [...] +-------+---------+ + + + | Result panel 134 | + + + + + +--------+---------+ + | Creat | 2025-01-11 | | 0.87 | mg/dL | (missing) | | [facility] | 06:52:07 | [facility] | | | | + + + +--------+---------+ + + + | Result panel 135 | + + + + + +-------+ [...] 136 | + + + + + +-------+ [...] 137 | + + + + + +-------+ [...] 139 | + + + + + +-------+---------+ + | Bilirub | 2025-01-11 | | 0.5 | mg/dL | (missing) | | [facility] | 06:52:07 | [facility] | | | | + + + +-------+---------+ + + + | Result panel 140 | + + + + + +------+ + + | AST | 2025-01-11 | | 25 | (missing) | (missing) | | [facility] | 06:52:07 | [facility] | | | [facility] | | | | + + + +------+ + + + + | Result panel 141 | + + + + + +------+ + + | ALT | 2025-01-11 | | 44 | (missing) | (missing) | | [facility] | 06:52:07 | [facility] | | | | + + + +------+ + + + + | Result panel 142 | + + + + + +------+ [...] 143 | + + + + + +---------+ [...] 145 | + + + + + +------+ [...] 146 | + + + + + +--------+ [...] | (missing) | | | 06:52:07 | [facility] | | | | + + + +--------+ + + + + | Result panel 149 | + + + + + +--------+ [...] 150 | + + + + + +--------+ [...] 152 | + + + + + +--------+ [...] 153 | + + + + + +--------+ [...] 154 | + + + + + +--------+ [...] 155 | + + + + + +-------+ [...] 158 | + + + + + +------+---------+ + | Glucose | 2025-01-11 | | 95 | mg/dL | (missing) | | [facility] | 06:52:07 | [facility] | | | | + + + +------+---------+ + + + | Result panel 159 | + + + + + +------+---------+ [...] +------+---------+ + + + | Result panel 160 | + + + + + +--------+---------+ [...] +--------+---------+ + + + | Result panel 161 | + + + + + +------+ [...] 162 | + + + + + +---------+ [...] 163 | + + + + + +-------+ [...] + + + + | Result panel 164 [...] 25 | (missing) | (missing) | | [facility] | 06:52:07 | [facility] | | | | + + + +------+ + + + + | Result panel 167 | + + + + + +-------+ [...] 168 | + + + + + +--------+ [...] 169 | + + + + + +-------+---------+ [...] +-------+---------+ + + + | Result panel 170 | + + + + + +-------+---------+ [...] +-------+---------+ + + + | Result panel 171 | + + + + + +-------+ [...] 172 | + + + + + +-------+ [...] 173 | + + + + + +-------+ + + | Globulin | 2025-01-11 | | 4.0 | (missing) | (missing) | | [facility] | 06:52:07 | [facility] | | [...] 175 | + + + + + +-------+---------+ [...] +-------+---------+ + + + | Result panel 176 | + + + + + +------+ [...] 177 | + + + + + +------+ [...] 179 | + + + + + +-------+ [...] 180 | + + + + + +------+ [...] 181 | + + + + + +-------+ [...] 182 | + + + + + +------+ + + | CO2 | 2025-01-11 | | 25 | (missing) | (missing) | | [facility] | 06:52:07 | [facility] | | | | + + + +------+ + + + + | Result panel 183 | + + + + + +--------+ [...] 184 | + + + + + +-------+---------+ [...] +-------+---------+ + + + | Result panel 185 | + + + + + +-------+---------+ [...] +-------+---------+ + + + | Result panel 186 [...] 187 | + + + + + +-------+ [...] 188 | + + + + + +-------+ [...] 189 | + + + + + +--------+ [...] 190 | + + + + + +--------+ [...] 191 | + + + + + +-------+---------+ + | Luzmaria | 2025-01-11 | | 0.5 | mg/dL | (missing) | | [facility] | 06:52:07 | [facility] | | | | + + + +-------+---------+ + + + | Result panel 192 | + + + + + +------+ [...] 194 | + + + + + +------+ [...] 195 | + + + + + +---------+ [...] 196 | + + + + + +--------+ [...] + + + + | Result panel 197 | + + + + + +--------+ [...] 198 | + + + + + +--------+ [...] 199 | + + + + + +--------+ [...] (missing) | (missing) | | [facility] | :52:07 | [facility] | | | | + + + +--------+ + + + + | Result panel 203 | + + + + + +-------+ [...] 207 | + + + + + +-------+ [...] 209 | + + + + + +------+---------+ [...] +------+---------+ + + + | Result panel 210 | + + + + + +------+---------+ + | BUN | 2025-01-11 | | 23 | mg/dL | (missing) | | [facility] | 06:52:07 | [facility] | | | | + + + +------+---------+ + + + | Result panel 211 | + + + + + +--------+---------+ + | Creat | 2025-01-11 | | 0.87 | mg/dL | (missing) | | [facility] | 06:52:07 | [facility] | | | | + + + +--------+---------+ + + + | Result panel 212 [...] 213 | + + + + + +------+ [...] 214 | + + + + + +---------+ [...] 215 | + + + + + +-------+ + + | Sodium | 2025-01-11 | | 139 | (missing) | (missing) | | [facility] | 06:52:07 | [facility] | | | | + + + +-------+ + + + + | Result panel 216 | + + + + + +-------+ + + | Potassium | 2025-01-11 | | 3.9 | (missing) | (missing) | | [facility] | 06:52:07 | [facility] | | | | + + + +-------+ + + + + | Result panel 217 | + + + + + +-------+ [...] 219 | + + + + + +--------+ [...] 220 | + + + + + +-------+---------+ [...] +-------+---------+ + + + | Result panel 221 | + + + + + +-------+---------+ [...] +-------+---------+ + + + | Result panel 222 [...] 223 | + + + + + +--------+ [...] 224 | + + + + + +-------+ + + | Albumin | 2025-01-11 | | 3.5 | (missing) | (missing) | | [facility] | 06:52:07 | [facility] | | | | + + + +-------+ + + + + | Result panel 225 | + + + + + +-------+ + + | Globulin | 2025-01-11 | | 4.0 | (missing) | (missing) | | [facility] | 06:52:07 | [facility] | | | | + + + +-------+ + + + + | Result panel 226 | + + + + + +--------+ [...] 227 | + + + + + +-------+---------+ + | Bilirub | 2025-01-11 | | 0.5 | mg/dL | (missing) | | [facility] | 06:52:07 | [facility] | [facility] | | | | + + + +-------+---------+ + + + | Result panel 228 | + + + + + +------+ + + | AST | 2025-01-11 | | 25 | (missing) | (missing) | | [facility] [...] 230 | + + + + + +------+ [...] 232 | + + + + + +-------+ [...] + + + + | Result panel 233 | + + + + + +--------+ [...] + + + +------+ + + | Lipase | 2025-02-21 | | 25 | (missing) | (missing) | | [facility] | 14:25:07 | [facility] | | | | + + + +------+ + + + + | Result panel 235 | + + + + + +-------+ + + | Troponin I | 2025-02-21 | | 6.6 | (missing) | (missing) | | [facility] | 14:25:07 | [facility] | | | | | [facility] | | | | + + + +-------+ + + + + | Result panel 236 | + + + + + +---------+ + + | WBC # Bld | 2025-02-21 | | 15.57 | (missing) | (missing) | | [facility] | 14:25:07 | [facility] | | | | + + + +---------+ + + + + | Result panel 237 | + + + + + +--------+ + + | RBC # Bld | 2025-02-21 | | 5.86 | (missing) | (missing) | | Auto | 14:25:07 | [facility] | | | | + + + +--------+ + + + + | Result panel 238 | + + + + + +--------+ + + | Hgb | 2025-02-21 | | 17.2 | (missing) | (missing) | | [facility] | 14:25:07 | [facility] | | | | + + + +--------+ + + + + | Result panel 239 | + + + + + +--------+ + + | Hct VFr.DF | 2025-02-21 | | 50.8 | (missing) | (missing) | | Bld Auto | 14:: | [facility] | | | | + + + +--------+ + + + + | Result panel 240 | + + + + + +--------+ + + | RBC Auto | 2025-02-21 | | 86.7 | (missing) | (missing) | | | 14:25:07 | [facility] | | | | + + + +--------+ + + + + | Result panel 241 | + + + + + +--------+ + + | MCH RBC Qn | 2025-02-21 | | 29.4 | (missing) | (missing) | | Auto | 14:25:07 | [facility] | | | | + + + +--------+ + + + + | Result panel 242 | + + + + + +--------+ + + | MCHC RBC | 2025-02-21 | | 33.9 | (missing) | (missing) | | [facility] | 14:25:07 | [facility] | | | | + + + +--------+ + + + + | Result panel 243 | + + + + + +-------+ + + | Platelet # | 2025-02-21 | | 286 | (missing) | (missing) | | Bld Auto | 14:25:07 | [facility] | | | | + + + +-------+ + + + + | Result panel 244 | + + + + + +--------+ + + | Neutrophils | 2025-02-21 | | 71.3 | (missing) | (missing) | | NFr Bld | 14:25:07 | [facility] | | | | | Auto | [facility] | | | | + + + +--------+ + + + + | Result panel 245 | + + + + + +--------+ + + | Lymphocytes | 2025-02-21 | | 19.3 | (missing) | (missing) | | NFr Bld | 14:25:07 | [facility] | | | | | Auto | [facility] | | | | + + + +--------+ + + + + | Result panel 246 | + + + + + +-------+ + + | Monocytes | 2025-02-21 | | 7.8 | (missing) | (missing) | | NFr Bld Auto | 14:25:07 | [facility] | | | | + + + +-------+ + + + + | Result panel 247 | + + + + + +-------+ + + | Eosinophil | 2025-02-21 | | 0.8 | (missing) | (missing) | | NFr Bld Auto | 14:25:07 | [facility] | | | | + + + +-------+ + + + + | Result panel 248 | + + + + + +-------+ + + | Basophils | 2025-02-21 | | 0.4 | (missing) | (missing) | | NFr Bld Auto | 14:25:07 | [facility] | | | | + + + +-------+ + + + + | Result panel 249 | + + + + + +-------+---------+ + | Glucose | 2025-02-21 | | 104 | mg/dL | (missing) | | [facility] | 14:25:07 | [facility] | [facility] | | | | + + + +-------+---------+ + + + | Result panel 250 | + + + + + +------+---------+ + | BUN | 2025-02-21 | | 15 | mg/dL | (missing) | | [facility] | 14:25:07 | [facility] | [facility] | | | | + + + +------+---------+ + + + | Result panel 251 | + + + + + +--------+---------+ + | Creat | 2025-02-21 | | 0.89 | mg/dL | (missing) | | [facility] | 14:25:07 | [facility] | | | | + + + +--------+---------+ + + + | Result panel 252 | + + + + + +------+ + + | eGFRcr | 2025-02-21 | | 69 | (missing) | (missing) | | [facility] | 14:25:07 | [facility] | | | | | CKD-EPI 2020 | [facility] | | | | + + + +------+ + + + + | Result panel 253 | + + + + + +---------+ + + | BUN/Creat | 2025-02-21 | | 16.85 | (missing) | (missing) | | Ser[facility] | 14:25:07 | [facility] | | | | + + + +---------+ + + + + | Result panel 254 | + + + + + +-------+ + + | Sodium | 2025-02-21 | | 138 | (missing) | (missing) | | [facility] | 14:25:07 | [facility] | | | | + + + +-------+ + + + + | Result panel 255 | + + + + + +-------+ + + | Potassium | 2025-02-21 | | 3.6 | (missing) | (missing) | | [facility] | 14:25:07 | [facility] | | | | + + + +-------+ + + + + | Result panel 256 | + + + + + +-------+ + + | Chloride | 2025-02-21 | | 101 | (missing) | (missing) | | [facility] | 14:25:07 | [facility] | | | | + + + +-------+ + + + + | Result panel 257 | + + + + + +------+ + + | CO2 | 2025-02-21 | | 28 | (missing) | (missing) | | [facility] | 14:25:07 | [facility] | | | | + + + +------+ + + + + | Result panel 258 | + + + + + +--------+ + + | Anion Gap | 2025-02-21 | | 12.6 | (missing) | (missing) | | SerPl | 14:25:07 | [facility] | | | | | Calculated.4 | [facility] | | [facility] | | | | + + + +--------+ + + + + | Result panel 259 | + + + + + +-------+---------+ + | Calcium | 2025-02-21 | | 9.5 | mg/dL | (missing) | | [facility] | 14:25:07 | [facility] | | | | + + + +-------+---------+ + + + | Result panel 260 | + + + + + +-------+---------+ + | Magnesium | 2025-02-21 | | 2.1 | mg/dL | (missing) | | [facility] | 14:25:07 | [facility] | [facility] | | | | + + + +-------+---------+ + + + | Result panel 261 | + + + + + +-------+ + + | Prot | 2025-02-21 | | 7.6 | (missing) | (missing) | | [facility] | 14:25:07 | [facility] | | | | + + + +-------+ + + + + | Result panel 262 | + + + + + +-------+ + + | Albumin | 2025-02-21 | | 3.7 | (missing) | (missing) | | [facility] | 14:25:07 | [facility] | [facility] | | | | + + + +-------+ + + + + | Result panel 263 | + + + + + +-------+ + + | Globulin | 2025-02-21 | | 3.9 | (missing) | (missing) | | [facility] | 14:25:07 | [facility] | | | | + + + +-------+ + + + + | Result panel 264 | + + + + + +--------+ + + | | 2025-02-21 | | 0.95 | (missing) | (missing) | | Albumin/Glob | 14:25:07 | [facility] | | | | | [facility] | | | | + + + +--------+ + + + + | Result panel 265 | + + + + + +-------+---------+ + | Bilirub | 2025-02-21 | | 0.6 | mg/dL | (missing) | | [facility] | 14:25:07 | [facility] | | | | + + + +-------+---------+ + + + | Result panel 266 | + + + + + +------+ + + | AST | 2025-02-21 | | 20 | (missing) | (missing) | | [facility] | 14:25:07 | [facility] | | | | + + + +------+ + + + + | Result panel 267 | + + + + + +------+ + + | ALT | 2025-02-21 | | 28 | (missing) | (missing) | | [facility] | 14:: | [facility] | | | | | | [facility] - [facility] | | | | | [facility] | | | | + + + +------+ + + + + | Result panel 268 | + + + + + +------+ + + | ALP | 2025-02-21 | | 91 | (missing) | (missing) | | [facility] | 14::07 | [facility] | | | | | [...] units | + + + +---------+ | 2024-12-02 [...] 137.281 | lb | + + + +---------+ | 2025-02-16 00:00 | BMI | 22.6 | kg/m2 | + + + +---------+ | 2025-02-16 00:00 | BP_diastolic | 95 | mmHg | + + + +---------+ | 2025-02-16 00:00 | BP_systolic | 160 | mmHg | + + + +---------+ | 2025-02-16 00:00 | heart_rate | 83 | /min | + + + +---------+ | 2025-02-16 00:00 | height_metric | 165.1 | cm | + + + +---------+ | 2025-02-16 00:00 | height_standard | 65 | in | + + + +---------+ | 2025-02-16 00:00 | o2_saturation | 91 | % | + + + +---------+ | 2025-02-16 00:00 | respiration_rate | 22 | /min | + + + +---------+ | 2025-02-16 00:00 | | 98.2 | F | | | temperature_standar | | | | | d | | | + + + +---------+ | 2025-02-16 00:00 | weight_metric | 61.601 | kg | + + + +---------+ | 2025-02-16 00:00 | weight_standard | 135.806 | lb | + + + +---------+ | 2025-02-21 00:00 | BMI | 22.4 | kg/m2 | + + + +---------+ | 2025-02-21 00:00 | BP_diastolic | 83 | mmHg | + + + +---------+ | 2025-02-21 00:00 | BP_systolic | 145 | mmHg | + + + +---------+ | 2025-02-21 00:00 | heart_rate | 100 | /min | + + + +---------+ | 2025-02-21 00:00 | height_metric | 165.1 | cm | + + + +---------+ | 2025-02-21 00:00 | height_standard | 65 | in | + + + +---------+ | 2025-02-21 00:00 | o2_saturation | 92 | % | + + + +---------+ | 2025-02-21 00:00 | respiration_rate | 24 | /min | + + + +---------+ | 2025-02-21 00:00 | | 98.2 | F | | | temperature_standar | | | | | d | | | + + + +---------+ | 2025-02-21 00:00 | weight_metric | 61 | kg | + + + +---------+ | 2025-02-21 00:00 | weight_standard | 134.481 | lb | + + + +---------+"
--- OUTSIDE RECORDS SUMMARY | 2025-02-23 07:59 | XMS ---
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 EBonnie VISIT COUNT (12 MO.) [address] [place] [address] TOTAL 35 NOTE: Visits indicate total known visits. ED/UCC VISIT TRACKING (12 MO.) 02/23/2025 07:[address] [facility] [place] TYPE: Emergency COMPLAINT: - SHORTNESS OF BREATH 02/21/2025 13:[address] [facility] [place] TYPE: Emergency COMPLAINT: - SHORTNESS OF BREATH DIAGNOSES: - Essential (primary) hypertension - Nicotine dependence, unspecified, uncomplicated - Other care home (current) drug therapy - Pneumonia, unspecified organism - Shortness of breath 02/16/2025 09:43 [facility] [place] [facility] [place] TYPE: Emergency COMPLAINT: - BREATHING ISSUES DIAGNOSES: - Essential (primary) hypertension - Nasal congestion - Nicotine dependence, unspecified, uncomplicated - Other care home (current) drug therapy - Shortness of breath 02/03/2025 08:43 [facility] [place] TYPE: Emergency COMPLAINT: - RAPID HEART RATE DIAGNOSES: - Allergy status to narcotic agent - Allergy status to other drugs, medicaments and biological substances - Anxiety disorder, unspecified - Essential (primary) hypertension - Nicotine dependence, unspecified, uncomplicated - Other remote computer terminal operator (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 - Palpitations 02/01/2025 23:06 [facility] [place] TYPE: Emergency COMPLAINT: - EAR PAIN DIAGNOSES: - Allergy status to narcotic agent - Allergy status to other drugs, medicaments and biological substances - Essential (primary) hypertension - Nicotine dependence, unspecified, uncomplicated - Otalgia, right ear - Other care home (current) drug therapy - Other specified disorders of Eustachian tube, right ear 01[facility]26[facility]2025 18:12 [facility] [place] [facility] COMPLAINT: - EAR PAIN DIAGNOSES: - Allergy status to narcotic agent - Allergy status to other drugs, medicaments and biological substances - Anxiety disorder, unspecified - Essential (primary) hypertension - Nicotine dependence, unspecified, uncomplicated - Otalgia, right ear - Other care home (current) drug therapy 01/20/2025 20:13 [facility] [place] [facility] COMPLAINT: - LIGHT HEADEDNESS DIAGNOSES: - Allergy status to narcotic agent - Allergy status to other drugs, medicaments and biological substances - Anxiety disorder, unspecified - Essential (primary) hypertension - Generalized anxiety disorder - Nicotine dependence, unspecified, uncomplicated - Other care home (current) drug therapy 01/14/2025 08:22 [facility] [place] [facility] COMPLAINT: - MEDICATION REACTION DIAGNOSES: - Allergy status to narcotic agent - Allergy status to other drugs, medicaments and biological substances - Anxiety disorder, unspecified - Essential (primary) hypertension - Nicotine dependence, unspecified, uncomplicated - Other care home (current) drug therapy 01/12/2025 20:29 [facility] [place] TYPE: Emergency COMPLAINT: - MEDS ISSUE DIAGNOSES: - Allergy status to narcotic agent - Allergy status to other drugs, medicaments and biological substances - Anxiety disorder, unspecified - Essential (primary) hypertension - Nicotine dependence, unspecified, uncomplicated - Other remote computer terminal operator (current) drug therapy 01/11/2025 18:11 [facility] [place] TYPE: Emergency COMPLAINT: - BP CHECK DIAGNOSES: - Allergy status to other drugs, medicaments and biological substances - Essential (primary) hypertension - Nicotine dependence, unspecified, uncomplicated - Other care home (current) drug therapy 01/11/2025 06:43 [facility] [place] TYPE: Emergency COMPLAINT: - SHORTNESS OF BREATH DIAGNOSES: - Allergy status to narcotic agent - Allergy status to other drugs, medicaments and biological substances - Anxiety disorder, unspecified - Essential (primary) hypertension - Nicotine dependence, unspecified, uncomplicated - Other care home (current) drug therapy - Shortness of breath 12/24/2024 09:06 [facility] [place] TYPE: Emergency COMPLAINT: - EAR PAIN 12/20/2024 09:04 [facility] [place] TYPE: Emergency COMPLAINT: - WEAKNESS DIAGNOSES: - Allergy status to narcotic agent - Allergy status to other drugs, medicaments and biological substances - Anxiety disorder, unspecified - Essential (primary) hypertension - Nicotine dependence, unspecified, uncomplicated - Other care home (current) drug therapy 12/04/2024 22:55 [facility] [...] unspecified, uncomplicated - Other fatigue - Other remote computer terminal operator (current) drug therapy 12/02/2024 08:44 [facility] [place] TYPE: Emergency COMPLAINT: - ANXIETY 11/23/2024 10:47 [facility] [place] TYPE: Emergency COMPLAINT: - DIFFICULTY BREATHING DIAGNOSES: - Allergy status to narcotic agent - Allergy status to other drugs, medicaments and biological substances - Anxiety disorder, unspecified - Essential (primary) hypertension - Gastro-esophageal reflux disease without esophagitis - Nicotine dependence, unspecified, uncomplicated - Other care home (current) drug therapy - Shortness of breath 11/19/2024 09:22 [facility] [place] TYPE: Emergency COMPLAINT: - ANXIETY DIAGNOSES: - Allergy status to other drugs, medicaments and biological substances - Anxiety disorder, unspecified - Essential (primary) hypertension - 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
[2025-02-23] MEDS ORDERED: ALBUTEROL/IPRATROPIUM 3 ML NEB INH ONE (08:30)
[2025-02-23] MEDS ORDERED: ESCITALOPRAM OXALATE 10 MG TAB PO ONE (09:15)
[2025-02-23] MEDS ORDERED: LORazepam 1 MG TAB PO ONE (09:15)
[2025-02-23] MEDS ORDERED: LEXAPRO10 MG PO (10:31)
[2025-02-23 10:54] LABS: BASOPHILS 0.6 % (0.1-1.2); EOSINOPHILS 1.1 % (0.7-5.8); LYMPHOCYTES 20.5 % (19.3-51.7); MCH 29.6 PG (25.6-32.2); MCHC 33.5 g/dL (32.2-35.5); MCV 88.3 fL (79.4-94.8); MONOCYTES 9.8 % (4.7-12.5); NEUTROPHILS 67.5 % (34.0-71.1); RBC 5.64 M/uL (3.93-5.22)
[2025-02-23] MEDS ORDERED: ASPIRIN 325 MG TAB PO ONE (11:00)
[2025-02-23 11:07] LABS: ALT (SGPT) 25.0 U/L (14-59); AST (SGOT) 17.0 U/L (15-37); GLOMERULAR FILTRATION RATE,EST 59.0 mL/min (>60); PROTEIN, TOTAL 7.4 g/dL (6.4-8.2); UREA NITROGEN 14.0 mg/dL (7-18)
[2025-02-23] MEDS ORDERED: TICAGRELOR 90 MG TAB ONE (11:11)
[2025-02-23] MEDS ORDERED: TICAGRELOR 90 MG TAB PO ONE (11:15)
[2025-02-23] MEDS ORDERED: ASPIRIN 81 MG CHEW PO ONE (11:15)
[2025-02-23] MEDS ORDERED: HEPARIN SOD,PORK IN 0.45% NACL 500 ML IV SCH (11:15)
[2025-02-23] MEDS ORDERED: CLOPIDOGREL BISULFATE 75 MG TAB PO SCH (11:15)
[2025-02-23 12:15] VITALS: BP 123/82
[2025-02-23] MEDS ORDERED: AMIODARONE HCL 150 MG/3 ML VIAL IV ONE (12:45)
--- NOTE | 2025-02-24 15:15 | EKG ---
[facility] [address] [place] [address] Signed Sinus rhythm with premature atrial complexes ST elevation, consider inferior injury or acute infarct ACUTE IN / STEMI Abnormal ECG When compared with ECG of 21-FEB-2025 16:33, premature atrial complexes are now present Minimal criteria for Anterior infarct are no longer present ST elevation now present in Inferior leads Confirmed by AMANDA SNYDER MD ([id number]) on 02/24/2025 3:15:28 PM Electronically Signed By: AMANDA SNYDER 02/24/25 1515 PATIENT NAME: VAL FAUST [facility] Electrocardiogram DATE OF : 54 PHYSICIAN: AMANDA SNYDER REPORT #: [id number] REPORT IS CONFIDENTIAL AND NOT TO BE RELEASED WITHOUT AUTHORIZATION
--- NOTE | 2025-02-24 15:15 | EKG ---
[facility] [address] [facility] [facility] [place] [address] Signed Sinus rhythm with premature atrial complexes Low voltage QRS ST elevation, consider inferior injury or acute infarct ACUTE DE / STEMI Abnormal ECG When compared with ECG of 23-FEB-2025 10:42, (Unconfirmed) No significant change was found Confirmed by AMANDA SNYDER MD ([id number]) on 02/24/2025 3:15:36 PM Electronically Signed By: AMANDA SNYDER 02/24/25 1515 PATIENT NAME: VAL FAUST [facility] Electrocardiogram DATE OF : 54 PHYSICIAN: AMANDA SNYDER REPORT #: [id number] REPORT IS CONFIDENTIAL AND NOT TO BE RELEASED WITHOUT AUTHORIZATION
--- NOTE | 2025-02-25 21:25 | EKG ---
[facility] [address] [place] [address] Signed Wide QRS tachycardia with premature supraventricular complexes and with occasional premature ventricular complexes Left axis deviation Left bundle branch block Abnormal ECG When compared with ECG of 23-FEB-2025 10:45, Wide QRS tachycardia has replaced Sinus rhythm Vent. rate has increased BY 72 BPM Confirmed by Ryan Mendez MD () on 02/25/2025 9:25:43 PM Electronically Signed By: RYAN MENDEZ MD 02/25/[id number] PATIENT NAME: VAL FAUST [facility] Electrocardiogram DATE OF : 54 PHYSICIAN: RYAN MENDEZ MD REPORT #: [id number] REPORT IS CONFIDENTIAL AND NOT TO BE RELEASED WITHOUT AUTHORIZATION
== END 2025-02-23 12:20 | disposition home or self-care (01) ==
LOC: ED 07:52
PROVIDERS: Emergency Medicine
DX: F41.9 Anxiety disorder, unspecified (principal); I10 Essential (primary) hypertension; F17.200 Nicotine dependence, unspecified, uncomplicated; Z88.5 Allergy status to narcotic agent; Z88.8 Allergy status to other drugs, medicaments and biological substances
CPT/HCPCS: 36415; 71045; 80053; 84484; 85025; 85730; 93005; 93010; 94640; 96374; 96375; 99285-25; A9270; A9270-GY; J0282; J1644